=== PATIENT | male | born 1945 | race Caucasian/White ===

== ENCOUNTER 2023-06-11 13:45 | Emergency (ER) | payer MEDICARE, SELFPAY ==
[2023-06-11 13:48] VITALS: BP 135/75; PULSE 117; RESP 24; TEMP 37; O2SAT 97; BMI 36.9
--- NOTE | 2023-06-11 13:56 | ED.LOWEXI1 ---
HPI - Extremity Injury (Lower) General Chief Complaint: Extremity Injury, Lower Stated Complaint: LOWER EXTREMITY INJURY LEFT LEG Time Seen by Provider: 06/11/23 13:50 Source: patient and family Mode of arrival: walk-in Limitations: no limitations History of Present Illness HPI Narrative: [age] old male presents for drainage pain swelling and redness to his left lower leg. A few weeks ago she scraped his leg on a pile brush and there was no open wound. This Occurred but it's been falling often knells leg has become more swollen than it normally is. No chest pain or shortness of breath. He has not had a known fever. Right leg is unaffected. Related Data Home Medications Medication Instructions Recorded Confirmed amlodipine 5 mg-benazepril 20 mg 1 cap PO DAILY 06/11/23 06/11/23 capsule (Lotrel) aspirin 81 mg tablet,delayed 81 mg PO DAILY 06/11/23 06/11/23 release celecoxib 200 mg capsule 200 mg PO BID 06/11/23 06/11/23 citalopram 40 mg tablet (Celexa) 40 mg PO DAILY 06/11/23 06/11/23 doxazosin 2 mg tablet (Cardura) 2 mg PO DAILY 06/11/23 06/11/23 pravastatin 20 mg tablet 20 mg PO DAILY 06/11/23 06/11/23 pregabalin 225 mg capsule 225 mg PO DAILY 06/11/23 06/11/23 ropinirole 0.5 mg tablet 0.5 mg PO DAILY 06/11/23 06/11/23 topiramate 200 mg tablet 100 mg PO BID 06/11/23 06/11/23 torsemide 20 mg tablet 20 mg PO BID 06/11/23 06/11/23 tramadol 50 mg tablet 25 mg PO Q6H PRN pain 06/11/23 06/11/23 trospium 60 mg capsule,extended 60 mg PO DAILY 06/11/23 06/11/23 release 24 hr Previous Rx's Medication Instructions Recorded amoxicillin 875 mg-potassium 1 tab PO BID #20 tabs 06/11/23 clavulanate 125 mg tablet Allergies Allergy/AdvReac Type Severity Reaction Status Date / Time No Known Drug Allergies Allergy Verified 06/11/23 13:50 Review of Systems ROS Narrative A ten point review of systems is negative except as noted above. Exam Narrative Exam Narrative: Nurses note and vital signs reviewed and patient is not hypoxic. General: The patient appears well and in no apparent distress. Patient is resting comfortably on cart. Skin: Warm, dry, no pallor noted. There is no rash noted. Head: Normocephalic, atraumatic Eye: Normal conjunctiva, no drainage Ears, Nose, Mouth, and Throat: oral mucosa is moist. Nares patent. Cardiovascular: Regular Rate and Rhythm Respiratory: Patient is in no distress, no accessory muscle use, lungs are clear to auscultation, no wheezing, rales or rhonchi Back: non-tender GI: nontender Musculoskeletal: left lower leg is significantly swollen compared to contralateral. There is some weeping but no purulent drainage. He has some healing wounds, the largest of which has a scab. Neurological: A&O x4, normal speech Psychiatric: Cooperative Constitutional Vital Signs, click to edit/add: Last Vital Signs Temp 98.6 F 06/11/23 13:48 Pulse 117 H 06/11/23 13:48 Resp 24 06/11/23 13:48 BP 135/75 06/11/23 13:48 Pulse Ox 97 06/11/23 13:48 O2 Del Method Room Air 06/11/23 13:48 Course Vital Signs Vital signs: Vital Signs Temperature 98.6 F 06/11/23 13:48 Pulse Rate 117 H 06/11/23 13:48 Respiratory Rate 24 06/11/23 13:48 Blood Pressure 135/75 06/11/23 13:48 Pulse Oximetry 97 06/11/23 13:48 Oxygen Delivery Method Room Air 06/11/23 13:48 Temperature 98.6 F 06/11/23 13:48 Pulse Rate 117 H 06/11/23 13:48 Respiratory Rate 24 06/11/23 13:48 Blood Pressure 135/75 06/11/23 13:48 Pulse Oximetry 97 06/11/23 13:48 Oxygen Delivery Method Room Air 06/11/23 13:48 MDM - Extremity Injury (Lower) MDM Narrative Medical decision making narrative: Doppler is negative, no evidence of deep vein thrombosis. White count is normal. He was given IV vancomycin and discharged home on oral antibiotic. He'll elevate his leg and see his doctor within a week. He'll return if symptoms worsen. I do not feel that at this point he requires admission the hospital. Treatment diagnosis and follow-up were discussed with the patient. Differential Diagnosis Differential diagnosis: Likely other (cellulitis, deep vein thrombosis) Lab Data Attestation: I reviewed the patient's lab results. Imaging Data venous Doppler left leg: Radiologist's impression: no deep vein thrombosis Discharge Plan Discharge Chief Complaint: Extremity Injury, Lower Clinical Impression: Cellulitis of left leg Patient Disposition: Home, Self-Care Time of Disposition Decision: 16:29 Condition: Good Mode of Transportation: Private Vehicle Prescriptions / Home Meds: New amoxicillin-pot clavulanate 875-125 mg tablet 1 tab PO BID Qty: 20 0RF No Action tramadol 50 mg tablet 25 mg PO Q6H PRN (Reason: pain) ropinirole 0.5 mg tablet 0.5 mg PO DAILY celecoxib 200 mg capsule 200 mg PO BID pravastatin 20 mg tablet 20 mg PO DAILY pregabalin 225 mg capsule 225 mg PO DAILY aspirin 81 mg tablet,delayed release (DR/EC) 81 mg PO DAILY topiramate 200 mg tablet 100 mg PO BID trospium 60 mg capsule,extended release 24hr 60 mg PO DAILY Rx Instructions: must be taken on empty stomach at least 1 hour before a meal/food with water only amlodipine-benazepril [Lotrel] 5-20 mg capsule 1 cap PO DAILY torsemide 20 mg tablet 20 mg PO BID citalopram [Celexa] 40 mg tablet 40 mg PO DAILY doxazosin [Cardura] 2 mg tablet 2 mg PO DAILY Instructions: Cellulitis (ED) Additional Instructions: see your doctor within one week. Return if symptoms worsen. Stand Alone Forms: Portal Instructions Referrals: LYDIA BERUMEN [Primary Care Provider] - 1 week
--- NOTE | 2023-06-11 14:14 | US_ITS ---
The [address] [address] Patient Name: JOVI ETIENNE MRN: [id number] date: 1945 Sex: M Assigned Patient Location: ER Current Patient Location: ER Accession/Order Number: [id number] Exam Date: 06/11/2023 14:45 Report Date: 06/11/2023 15:30 At the request of: LORRAINE PHAM Procedure: US venous doppler LE LT EXAM: US venous doppler LE LT HISTORY: swelling to left lower leg COMPARISON: None. TECHNIQUE: Evaluation of the deep veins of the left lower extremity was performed utilizing B-mode, color flow and spectral analysis. FINDINGS: The visualized vessels comprising the deep venous systems from the common femoral vein through the calf veins demonstrate appropriate compressibility, spontaneous color Doppler flow, and augmentation of flow on spectral Doppler with distal compression. Additional findings: None. US/US venous doppler LE LT IMPRESSION: No sonographic evidence of deep venous thrombosis of the left lower extremity. Electronically authenticated by: WILLY ALEXANDER Date: 06/11/2023 15:30
[2023-06-11 14:15] LABS: Basophils Absolute Auto 0.1 10^3/uL (0.0-0.1); Basophils Percent Auto 0.8 % (0.2-2.0); Eosinophils Absolute Auto 0.4 10^3/uL (0.0-0.7); Eosinophils Percent Auto 5.3 % (0.9-7.0); Hematocrit 41.2 % (42.0-54.0); Hemoglobin 13.6 g/dL (14.0-18.0); Immature Granulocytes Abs Auto 0.03 10^3/uL (0.00-0.03); Immature Granulocytes Pct Auto 0.5 % (0.0-0.5); Lymphocytes Absolute Auto 1.3 10^3/uL (1.2-3.8); Lymphocytes Percent Auto 19.2 % (20.5-60.0); Mean Corpuscular Hemoglobin 30.6 pg (25.9-34.0); Mean Corpuscular Volume 92.6 fL (80.0-94.0); Mean Platelet Volume 10.6 fL (9.5-13.5); Monocytes Absolute Auto 0.8 10^3/uL (0.3-0.8); Monocytes Percent Auto 12.5 % (1.7-12.0); Neutrophils Absolute Auto 4.1 10^3/uL (1.4-6.5); Neutrophils Percent Auto 61.7 % (43.0-75.0); Platelet Count 193 10^3/uL (150-450); Red Blood Count 4.45 10^6/uL (4.70-6.10); Red Cell Distribution Width 13.9 % (11.0-15.0); White Blood Count 6.7 10^3/uL (4.0-11.0)
[2023-06-11 14:27] LABS: BUN Creatinine Ratio 27.3; Calcium 8.3 mg/dL (8.5-10.1); Carbon Dioxide 27.4 mmol/L (21.0-32.0); Chloride 105 mmol/L (98-107); Estimated GFR (African America >60 (>=60); Estimated GFR (Non-African Ame 53 (>=60); Glucose 136 mg/dL (74-106); Potassium 4.4 mmol/L (3.5-5.1); Sodium 140 mmol/L (136-145)
[2023-06-11] MEDS: VANCOMYCIN HCL 2,000 MG in 0.9 % SODIUM CHLORIDE 500 ML 250 MG IV (15:59)
== END 2023-06-11 18:27 | disposition home or self-care (01) ==
PROVIDERS: Emergency Provider Emergency Medicine; PCP Internal Medicine
DX: L03.116 Cellulitis of left lower limb (principal); Z79.82 Long term (current) use of aspirin; Z79.899 Other long term (current) drug therapy
CPT/HCPCS: 36415; 80048; 85025; 93971; 96374; 99285; J3370

== ENCOUNTER 2023-06-19 14:29 | Observation (INO) | payer MEDICARE, SELFPAY ==
[2023-06-19] VITALS (24 sets, daily range): BP systolic 126–151; BP diastolic 66–91; PULSE 80–107; RESP 10–26; TEMP 36.6–37.2; O2SAT 92–98; BMI 36.5; BMI 36.0
--- NOTE | 2023-06-19 14:37 | US_ITS ---
The [address] [address] Patient Name: JOVI ETIENNE MRN: [id number] date: 1945 Sex: M Assigned Patient Location: ER Current Patient Location: ER Accession/Order Number: [id number] Exam Date: 06/19/2023 15:30 Report Date: 06/19/2023 16:31 At the request of: HEAVENLY BARBOSA Procedure: US venous doppler LE LT EXAM: US venous doppler LE LT HISTORY: Pain left lower leg r/o DVT COMPARISON: 06/11/2023 TECHNIQUE: Multiple sonographic images of the deep veins of the left lower extremity were obtained, supplemented with Doppler. FINDINGS: The deep veins of the left lower extremity are fairly well-visualized the groin to the mid calf. No filling defect is identified to indicate a thrombus. There is normal compression augmentation to flow. Evaluation of the saphenous veins is limited secondary to edema. US/US venous doppler LE LT IMPRESSION: There is no direct or indirect evidence of deep vein thrombosis in the left lower extremity at this time. Similar findings were noted in the prior study. Electronically authenticated by: ELAN ARGUELLO Date: 06/19/2023 16:31
--- NOTE | 2023-06-19 14:37 | ECG_ITS ---
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
--- NOTE | 2023-06-19 14:37 | XR_ITS ---
The [address] [address] Patient Name: JOVI ETIENNE MRN: [id number] date: 1945 Sex: M Assigned Patient Location: ER Current Patient Location: ER Accession/Order Number: [id number] Exam Date: 06/19/2023 14:45 Report Date: 06/19/2023 15:01 At the request of: HEAVENLY BARBOSA Procedure: XR chest 1V EXAM: XR chest 1V HISTORY: SOB COMPARISON: None. TECHNIQUE: Single view of the chest FINDINGS: Mild right basilar atelectasis and elevated right hemidiaphragm. No pneumothorax. No vascular congestion. Heart size normal. No pleural effusion. XR/XR chest 1V IMPRESSION: Mild right basilar atelectasis and elevated right hemidiaphragm. Electronically authenticated by: DAWN RITTER Date: 06/19/2023 15:01
--- NOTE | 2023-06-19 14:40 | XR_ITS ---
The [address] [address] Patient Name: JOVI ETIENNE MRN: [id number] date: 1945 Sex: M Assigned Patient Location: ER Current Patient Location: ER Accession/Order Number: [id number] Exam Date: 06/19/2023 14:45 Report Date: 06/19/2023 15:02 At the request of: HEAVENLY BARBOSA Procedure: XR tibia fibula LT 2V PROCEDURE: XR tibia fibula LT 2V HISTORY: pain left leg ; acute swelling of the lower left leg; no known injury COMPARISON: None. FINDINGS: BONES:No fracture, acute abnormality, or significant arthropathy. SOFT TISSUES:Marked subcutaneous edema. No radiopaque foreign body. EFFUSION:None visible. OTHER: Negative. XR/XR tibia fibula LT 2V IMPRESSION: 1. Marked subcutaneous edema of uncertain etiology. 2. No appreciable foreign body. No bone involvement. Electronically authenticated by: CRUZ BOURGEOIS Date: 06/19/2023 15:02
--- NOTE | 2023-06-19 14:40 | ED.GENADUL1 ---
Documented by User: NAN Cordon 06/19/23 16:56 HPI - General Adult General Chief complaint: Extremity Problem, Nontraumatic Stated complaint: LOWER EXTREMITY PAIN LEFT LEG Time Seen by Provider: 06/19/23 14:32 Source: patient Mode of arrival: Wheelchair Limitations: no limitations History of Present Illness HPI narrative: patient is a 77-year-old male who presents to the Emergency Room with concerns of continued swelling and worsening redness in his left lower leg. Patient reports prior wounds and surgery to that leg in the past, but nothing recent was seen in the Emergency Room on 06/11 with negative ultrasound but missed his follow-up appointment with his family doctor yesterday. Patient has been taking Augmentin been noting swelling and redness getting worse. Patient denies any chest pain, has baseline shortness of breath. History of chronic obstructive pulmonary disease. Patient has been an active with left leg symptoms. He declines any severe pain but notes moderate soreness. Patient denies chest pain. Related Data Home Medications Medication Instructions Recorded Confirmed amlodipine 5 mg-benazepril 20 mg 1 cap PO DAILY 06/11/23 06/19/23 capsule (Lotrel) aspirin 81 mg tablet,delayed 81 mg PO DAILY 06/11/23 06/19/23 release celecoxib 200 mg capsule 200 mg PO BID 06/11/23 06/19/23 citalopram 40 mg tablet (Celexa) 40 mg PO DAILY 06/11/23 06/19/23 doxazosin 2 mg tablet (Cardura) 2 mg PO DAILY 06/11/23 06/19/23 pravastatin 20 mg tablet 20 mg PO DAILY 06/11/23 06/19/23 pregabalin 225 mg capsule 225 mg PO BEDTIME 06/11/23 06/19/23 topiramate 200 mg tablet 100 mg PO BID 06/11/23 06/19/23 torsemide 20 mg tablet 20 mg PO BID 06/11/23 06/19/23 tramadol 50 mg tablet 100 mg PO Q6H PRN pain 06/11/23 06/20/23 trospium 60 mg capsule,extended 60 mg PO DAILY 06/11/23 06/19/23 release 24 hr alprazolam 0.5 mg tablet 0.5 mg PO TID 06/19/23 06/19/23 ascorbic acid (vitamin C) 1,000 mg 1,000 mg PO DAILY 06/19/23 06/19/23 tablet,extended release (C Complex) esomeprazole magnesium 40 mg 40 mg PO DAILY 06/19/23 06/19/23 capsule,delayed release (Nexium) ropinirole 3 mg tablet 3 mg PO BEDTIME 06/19/23 06/19/23 Previous Rx's Medication Instructions Recorded clindamycin HCl 300 mg capsule 300 mg PO Q6H 10 days #40 caps 06/21/23 Allergies Allergy/AdvReac Type Severity Reaction Status Date / Time No Known Drug Allergies Allergy Verified 06/11/23 13:50 Review of Systems ROS Constitutional Denies: fever or chills Eyes Denies: change in vision or blurry vision Ears, nose, mouth, and throat Denies: throat pain or neck pain Cardiovascular Denies: chest pain or palpitations Respiratory Reports: shortness of breath and wheezing; Denies: cough Gastrointestinal Denies: abdominal pain or nausea Genitourinary Denies: painful urination or urinary frequency Musculoskeletal Denies: back pain or neck pain Integumentary/Breast Reports: changes in skin color (F lower leg appear chronic); Denies: rash, itching or redness Neurological Denies: headache Psychiatric Denies: anxiety Endocrine Denies: excessive urination Allergic/Immunologic Denies: hives [facility] Medical History (Updated 06/20/23 @ 09:20 by Trey Case MD) Surgical History (Updated 06/19/23 @ 17:38 by Radha Marrero) Social History (Updated 06/19/23 @ 17:41 by Radha Marrero) Within the past year, how often did you have a drink containing alcohol: 2-4 times a month Within the past year, how many standard drinks containing alcohol did you have on a typical day: 1 or 2 Within the past year, how often did you have six or more drinks on one occasion: less than monthly Total score: 1 Score interpretation: A score less than 4 is consistent with normal alcohol consumption. 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 General: The patient appears well and in no apparent distress. Patient is resting comfortably on cart.arrives via wheelchair to prevent excessive walking on left leg Skin: Warm, dry, no pallor noted.left leg with 4+ edema, weeping and blistering noted near circumferentially and some spots with erythema to the posterior aspect. No significant extension into the proximal thigh, compartments are soft. Head: Normocephalic, atraumatic Neck: Supple, trachea mid-line, no tenderness, no lymphadenopathy Eye: Pupils are equal, round and reactive to light, EOMI Ears, Nose, Mouth, and Throat: sternal exam unremarkable Cardiovascular: Regular Rate and Rhythm Respiratory: Patient is in no distress, no accessory muscle use,lungs noted for expiratory wheezes in upper and slight rales in the lower Chest Wall: no tenderness Back: non-tender, no CVA tenderness Musculoskeletal: chronic skin changes bilateral lower legs, most prominent in the left lower leg patient reports a remote scars from prior surgery/wounds. Patient with no active ulceration but skin appears swollen shiny with blistering and some yellow crusting. Erythema noted to the posterior calf. Compartments are soft. No focal pain to the ankle joint or knee joint. GI: Normal bowel sounds, no tenderness to palpation, no masses appreciated. No rebound, guarding, or rigidity noted. Neurological: A&O x4 Psychiatric: Cooperative Constitutional Vital Signs, click to edit/add: Last Vital Signs Temp 98.0 F 06/21/23 06:00 Pulse 77 06/21/23 06:00 Resp 18 06/21/23 06:00 BP 146/79 H 06/21/23 06:00 Pulse Ox 92 L 06/21/23 06:00 O2 Del Method Room Air 06/21/23 06:00 Course Course Hospital Course: Reason for admission: See H&P for details. 77 y/o male with a history of chronic venous stasis presents to ER with redness and swelling to left leg. Seen in ER 8/3 for redness and swelling and US negative for DVT. Appeared to have cellulitis and started on oral augmentin which he has been taking daily. Missed f/u with PCP. C/o increased redness in leg and spreading up moyer to knee. Increased pain and swelling. Returned to ER and low grade temp. WBC normal and normal lactate. Failed outpatient treatment with oral antibiotics and admitted. Hospital course: Started IV clindamycin and resumed home medication. Erythema improved overnight but continued redness and swelling. WBC normal and afebrile. Redness and pain improved. Ambulating well around room. Discharged home in stable condition. Take clindamycin x 10 days. F/u with wound care in 1-2 weeks. Resume home medication as directed. Vital Signs Vital signs: Vital Signs Temperature 99.0 F 06/19/23 14:36 Pulse Rate 106 H 06/19/23 14:36 Respiratory Rate 26 H 06/19/23 14:36 Blood Pressure 132/78 06/19/23 14:36 Pulse Oximetry 93 L 06/19/23 14:36 Oxygen Delivery Method Room Air 06/19/23 14:36 Temperature 98.0 F 06/21/23 06:00 Pulse Rate 77 06/21/23 06:00 Respiratory Rate 18 06/21/23 06:00 Blood Pressure 146/79 H 06/21/23 06:00 Pulse Oximetry 92 L 06/21/23 06:00 Oxygen Delivery Method Room Air 06/21/23 06:00 Medical Decision Making [facility] Narrative Medical decision making narrative: patient presents status post Augmentin for left lower leg cellulitis and swelling, continued swelling. Patient did not follow up PCP. He is given a DuoNeb for his wheezing, chest x-ray. patient presented with a temp of ninety-nine, history of chronic obstructive pulmonary disease wheezing in the lower lung bases, given DuoNeb with improvement chest x-ray without evidence of infiltrate. We discussed the swelling in his leg, one week since passed ultrasound repeated today and reported negative verbally for deep vein thrombosis. We discussed thee changes in his lower leg concerning for cellulitis and he has been on oral Augmentin with no improvement. He'll likely need wound care management with open sores weeping along with treatments such as stockinette's for edema or wraps. Patient may even require diuretics but will need supervision given his renal function. We discussed his outpatient treatment coming into the weekend and recommended observation stay to ensure his symptoms are not worsening. Patient agreeable as symptoms have been worsening over the past week. case was discussed with Dr. Case, agrees with admission to [facility] for further evaluation and treatment. Lab Data Labs: Lab Results 06/19/23 Range/Units 14:44 WBC 8.3 (4.0-11.0) 10^3/uL RBC 4.52 L (4.70-6.10) 10^6/uL Hgb 13.9 L (14.0-18.0) g/dL Hct 41.6 L (42.0-54.0) % MCV 92.0 (80.0-94.0) fL MCH 30.8 (25.9-34.0) pg MCHC 33.4 (29.9-35.2) g/dL RDW 14.5 (11.0-15.0) % Plt Count 225 (150-450) 10^3/uL MPV 10.4 (9.5-13.5) fL Neut % (Auto) 61.2 (43.0-75.0) % Lymph % (Auto) 20.3 L (20.5-60.0) % [place] % (Auto) 12.3 H (1.7-12.0) % Eos % (Auto) 4.7 (0.9-7.0) % Baso % (Auto) 0.7 (0.2-2.0) % Neut # (Auto) 5.1 (1.4-6.5) 10^3/uL Lymph # (Auto) 1.7 (1.2-3.8) 10^3/uL [place] # (Auto) 1.0 H (0.3-0.8) 10^3/uL Eos # (Auto) 0.4 (0.0-0.7) 10^3/uL Baso # (Auto) 0.1 (0.0-0.1) 10^3/uL Abs Immat Gran (auto) 0.07 H (0.00-0.03) 10^3/uL Imm/Tot Granulo (auto) 0.8 H (0.0-0.5) % Sodium 141 (136-145) mmol/L Potassium 4.4 (3.5-5.1) mmol/L Chloride 107 (98-107) mmol/L Carbon Dioxide 25.4 (21.0-32.0) mmol/L Anion Gap 13.0 BUN 36.0 H (7.0-18.0) mg/dL Creatinine 1.90 H (0.70-1.30) mg/dL Est GFR ( Amer) 42 L (>=60) Est GFR (Non-Af Amer) 35 L (>=60) BUN/Creatinine Ratio 18.9 Glucose 101 (74-106) mg/dL Lactate 1.1 (0.4-2.0) mmol/L Calcium 8.4 L (8.5-10.1) mg/dL Total Bilirubin 0.3 (0.2-1.0) mg/dL AST 14 L (15-37) U/L ALT 19 (16-63) U/L Alkaline Phosphatase 89 (46-116) U/L Troponin I High Sens 7.0 (4.0-76.1) pg/mL NT-Pro-B Natriuret Pep 85.0 (<=1800.0) pg/mL Total Protein 7.7 (6.4-8.2) g/dL Albumin 3.7 (3.4-5.0) g/dL Globulin 4.0 g/dL Albumin/Globulin Ratio 0.9 Imaging Data Chest x-ray: Radiologist's impression: Procedure: XR chest 1V EXAM: XR chest 1V HISTORY: SOB COMPARISON: None. TECHNIQUE: Single view of the chest FINDINGS: Mild right basilar atelectasis and elevated right hemidiaphragm. No pneumothorax. No vascular congestion. Heart size normal. No pleural effusion. IMPRESSION: Mild right basilar atelectasis and elevated right hemidiaphragm. Electronically authenticated by: DAWN RITTER Date: 06/19/2023 15:01 Procedure: XR tibia fibula LT 2V PROCEDURE: XR tibia fibula LT 2V HISTORY: pain left leg ; acute swelling of the lower left leg; no known injury COMPARISON: None. FINDINGS: BONES:No fracture, acute abnormality, or significant arthropathy. SOFT TISSUES:Marked subcutaneous edema. No radiopaque foreign body. EFFUSION:None visible. OTHER: Negative. IMPRESSION: 1. Marked subcutaneous edema of uncertain etiology. 2. No appreciable foreign body. No bone involvement. Electronically authenticated by: CRUZ BOURGEOIS Date: 06/19/2023 15:02 ECG Data Attestation: I personally reviewed and interpreted this ECG as follows: Interpretation: EKG interpretation: Emergency Department physician interpretation, normal sinus rhythm 96, no ectopy, incomplete right bundle-branch block noted. Discharge Plan Discharge Chief Complaint: Extremity Problem, Nontraumatic Clinical Impression: Edema of left lower extremity, Cellulitis of left leg Patient Disposition: Admitted as Observation Time of Disposition Decision: 16:56 Condition: Good Discharge Date/Time: 06/19/23 17:38 Documented by User: Kourtney Bustos MD 06/22/23 07:58 HPI - General Adult General Chief complaint: Extremity Problem, Nontraumatic Stated complaint: LOWER EXTREMITY PAIN LEFT LEG Time Seen by Provider: 06/19/23 14:32 Related Data Home Medications Medication Instructions Recorded Confirmed amlodipine 5 mg-benazepril 20 mg 1 cap PO DAILY 06/11/23 06/19/23 capsule (Lotrel) aspirin 81 mg tablet,delayed 81 mg PO DAILY 06/11/23 06/19/23 release celecoxib 200 mg capsule 200 mg PO BID 06/11/23 06/19/23 citalopram 40 mg tablet (Celexa) 40 mg PO DAILY 06/11/23 06/19/23 doxazosin 2 mg tablet (Cardura) 2 mg PO DAILY 06/11/23 06/19/23 pravastatin 20 mg tablet 20 mg PO DAILY 06/11/23 06/19/23 pregabalin 225 mg capsule 225 mg PO BEDTIME 06/11/23 06/19/23 topiramate 200 mg tablet 100 mg PO BID 06/11/23 06/19/23 torsemide 20 mg tablet 20 mg PO BID 06/11/23 06/19/23 tramadol 50 mg tablet 100 mg PO Q6H PRN pain 06/11/23 06/20/23 trospium 60 mg capsule,extended 60 mg PO DAILY 06/11/23 06/19/23 release 24 hr alprazolam 0.5 mg tablet 0.5 mg PO TID 06/19/23 06/19/23 ascorbic acid (vitamin C) 1,000 mg 1,000 mg PO DAILY 06/19/23 06/19/23 tablet,extended release (C Complex) esomeprazole magnesium 40 mg 40 mg PO DAILY 06/19/23 06/19/23 capsule,delayed release (Nexium) ropinirole 3 mg tablet 3 mg PO BEDTIME 06/19/23 06/19/23 Previous Rx's Medication Instructions Recorded clindamycin HCl 300 mg capsule 300 mg PO Q6H 10 days #40 caps 06/21/23 Allergies Allergy/AdvReac Type Severity Reaction Status Date / Time No Known Drug Allergies Allergy Verified 06/11/23 13:50 PFSH PENDING SALE TO [facility] Medical History (Updated 06/20/23 @ 09:20 by Trey Case MD) Surgical History (Updated 06/19/23 @ 17:38 by Radha Marrero) Social History (Updated 06/19/23 @ 17:41 by Radha Marrero) Within the past year, how often did you have a drink containing alcohol: 2-4 times a month Within the past year, how many standard drinks containing alcohol did you have on a typical day: 1 or 2 Within the past year, how often did you have six or more drinks on one occasion: less than monthly Total score: 1 Score interpretation: A score less than 4 is consistent with normal alcohol consumption. 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 77 y/o male with a history of chronic venous stasis presents to ER with redness and swelling to left leg. Seen in ER 8/3 for redness and swelling and US negative for DVT. Appeared to have cellulitis and started on oral augmentin which he has been taking daily. Missed f/u with PCP. C/o increased redness in leg and spreading up moyer to knee. Increased pain and swelling. Returned to ER and low grade temp. WBC normal and normal lactate. Failed outpatient treatment with oral antibiotics and admitted. Hospital course: Started IV clindamycin and resumed home medication. Erythema improved overnight but continued redness and swelling. WBC normal and afebrile. Redness and pain improved. Ambulating well around room. Discharged home in stable condition. Take clindamycin x 10 days. F/u with wound care in 1-2 weeks. Resume home medication as directed. Vital Signs Vital signs: Vital Signs Temperature 99.0 F 06/19/23 14:36 Pulse Rate 106 H 06/19/23 14:36 Respiratory Rate 26 H 06/19/23 14:36 Blood Pressure 132/78 06/19/23 14:36 Pulse Oximetry 93 L 06/19/23 14:36 Oxygen Delivery Method Room Air 06/19/23 14:36 Temperature 98.0 F 06/21/23 06:00 Pulse Rate 77 06/21/23 06:00 Respiratory Rate 18 06/21/23 06:00 Blood Pressure 146/79 H 06/21/23 06:00 Pulse Oximetry 92 L 06/21/23 06:00 Oxygen Delivery Method Room Air 06/21/23 06:00 Medical Decision Making MDM Narrative Medical decision making narrative: patient presents status post Augmentin for left lower leg cellulitis and swelling, continued swelling. Patient did not follow up PCP. He is given a DuoNeb for his wheezing, chest x-ray. patient presented with a temp of ninety-nine, history of chronic obstructive pulmonary disease wheezing in the lower lung bases, given DuoNeb with improvement chest x-ray without evidence of infiltrate. We discussed the swelling in his leg, one week since passed ultrasound repeated today and reported negative verbally for deep vein thrombosis. We discussed thee changes in his lower leg concerning for cellulitis and he has been on oral Augmentin with no improvement. He'll likely need wound care management with open sores weeping along with treatments such as stockinette's for edema or wraps. Patient may even require diuretics but will need supervision given his renal function. We discussed his outpatient treatment coming into the weekend and recommended observation stay to ensure his symptoms are not worsening. Patient agreeable as symptoms have been worsening over the past week. case was discussed with Dr. Case, agrees with admission to [facility] for further evaluation and treatment. Attending physician attestation I have seen and evaluated this patient. I have reviewed the mid-level provider?s documentation medical decision making and treatment plan. I agree with the mid-level provider?s assessment, and plan. Lab Data Labs: Lab Results 06/19/23 Range/Units 14:44 WBC 8.3 (4.0-11.0) 10^3/uL RBC 4.52 L (4.70-6.10) 10^6/uL Hgb 13.9 L (14.0-18.0) g/dL Hct 41.6 L (42.0-54.0) % MCV 92.0 (80.0-94.0) fL MCH 30.8 (25.9-34.0) pg MCHC 33.4 (29.9-35.2) g/dL RDW 14.5 (11.0-15.0) % Plt Count 225 (150-450) 10^3/uL MPV 10.4 (9.5-13.5) fL Neut % (Auto) 61.2 (43.0-75.0) % Lymph % (Auto) 20.3 L (20.5-60.0) % [place] % (Auto) 12.3 H (1.7-12.0) % Eos % (Auto) 4.7 (0.9-7.0) % Baso % (Auto) 0.7 (0.2-2.0) % Neut # (Auto) 5.1 (1.4-6.5) 10^3/uL Lymph # (Auto) 1.7 (1.2-3.8) 10^3/uL [place] # (Auto) 1.0 H (0.3-0.8) 10^3/uL Eos # (Auto) 0.4 (0.0-0.7) 10^3/uL Baso # (Auto) 0.1 (0.0-0.1) 10^3/uL Abs Immat Gran (auto) 0.07 H (0.00-0.03) 10^3/uL Imm/Tot Granulo (auto) 0.8 H (0.0-0.5) % Sodium 141 (136-145) mmol/L Potassium 4.4 (3.5-5.1) mmol/L Chloride 107 (98-107) mmol/L Carbon Dioxide 25.4 (21.0-32.0) mmol/L Anion Gap 13.0 BUN 36.0 H (7.0-18.0) mg/dL Creatinine 1.90 H (0.70-1.30) mg/dL Est GFR ( Amer) 42 L (>=60) Est GFR (Non-Af Amer) 35 L (>=60) BUN/Creatinine Ratio 18.9 Glucose 101 (74-106) mg/dL Lactate 1.1 (0.4-2.0) mmol/L Calcium 8.4 L (8.5-10.1) mg/dL Total Bilirubin 0.3 (0.2-1.0) mg/dL AST 14 L (15-37) U/L ALT 19 (16-63) U/L Alkaline Phosphatase 89 (46-116) U/L Troponin I High Sens 7.0 (4.0-76.1) pg/mL NT-Pro-B Natriuret Pep 85.0 (<=1800.0) pg/mL Total Protein 7.7 (6.4-8.2) g/dL Albumin 3.7 (3.4-5.0) g/dL Globulin 4.0 g/dL Albumin/Globulin Ratio 0.9 Discharge Plan Discharge Chief Complaint: Extremity Problem, Nontraumatic Clinical Impression: Edema of left lower extremity, Cellulitis of left leg Patient Disposition: Admitted as Observation Time of Disposition Decision: 16:56 Condition: Good Discharge Date/Time: 06/19/23 17:38
[2023-06-19] MEDS: ACETAMINOPHEN 500 MG TABLET 1000 MG PO (15:00)
[2023-06-19] MEDS: IPRATROPIUM/ALBUTEROL SULFATE 3 ML AMPUL.NEB IH (15:07)
[2023-06-19 15:12] LABS: Basophils Absolute Auto 0.1 10^3/uL (0.0-0.1); Basophils Percent Auto 0.7 % (0.2-2.0); Eosinophils Absolute Auto 0.4 10^3/uL (0.0-0.7); Eosinophils Percent Auto 4.7 % (0.9-7.0); Hematocrit 41.6 % (42.0-54.0); Hemoglobin 13.9 g/dL (14.0-18.0); Immature Granulocytes Abs Auto 0.07 10^3/uL (0.00-0.03); Immature Granulocytes Pct Auto 0.8 % (0.0-0.5); Lymphocytes Absolute Auto 1.7 10^3/uL (1.2-3.8); Lymphocytes Percent Auto 20.3 % (20.5-60.0); Mean Corpuscular HGB Conc 33.4 g/dL (29.9-35.2); Mean Corpuscular Hemoglobin 30.8 pg (25.9-34.0); Mean Platelet Volume 10.4 fL (9.5-13.5); Monocytes Percent Auto 12.3 % (1.7-12.0); Neutrophils Absolute Auto 5.1 10^3/uL (1.4-6.5); Neutrophils Percent Auto 61.2 % (43.0-75.0); Platelet Count 225 10^3/uL (150-450); Red Blood Count 4.52 10^6/uL (4.70-6.10); Red Cell Distribution Width 14.5 % (11.0-15.0); White Blood Count 8.3 10^3/uL (4.0-11.0)
[2023-06-19 15:26] LABS: Alanine Aminotransferase 19 U/L (16-63); Albumin Globulin Ratio 0.9; Albumin Level 3.7 g/dL (3.4-5.0); Alkaline Phosphatase 89 U/L (46-116); Aspartate Amino Transferase 14 U/L (15-37); BUN Creatinine Ratio 18.9; Bilirubin Total 0.3 mg/dL (0.2-1.0); Calcium 8.4 mg/dL (8.5-10.1); Carbon Dioxide 25.4 mmol/L (21.0-32.0); Chloride 107 mmol/L (98-107); Estimated GFR (African America 42 (>=60); Estimated GFR (Non-African Ame 35 (>=60); Glucose 101 mg/dL (74-106); Potassium 4.4 mmol/L (3.5-5.1); Sodium 141 mmol/L (136-145); Total Protein 7.7 g/dL (6.4-8.2)
[2023-06-19 16:55] LABS: Lactate/Lactic Acid 1.1 mmol/L (0.4-2.0)
[2023-06-19] MEDS: CEFTRIAXONE 1,000 MG in 0.9 % SODIUM CHLORIDE 50 ML 100 MG IV (16:56)
[2023-06-19] MEDS: CLINDAMYCIN PHOSPHATE/D5W 300 MG/50 ML PIGGYBACK 100 MG IV (22:02)
[2023-06-20] VITALS (12 sets, daily range): BP systolic 126–139; BP diastolic 72–81; PULSE 77–94; RESP 14–16; TEMP 36.3–36.6; O2SAT 92–98
[2023-06-20] MEDS: ROPINIROLE HCL 1 MG TABLET 3 MG PO ×2 (00:29→21:08)
[2023-06-20] MEDS: CLINDAMYCIN PHOSPHATE/D5W 300 MG/50 ML PIGGYBACK 100 MG IV ×4 (03:15→21:08)
[2023-06-20 05:40] LABS: Basophils Percent Auto 0.5 % (0.2-2.0); Eosinophils Absolute Auto 0.4 10^3/uL (0.0-0.7); Eosinophils Percent Auto 4.4 % (0.9-7.0); Hematocrit 40.9 % (42.0-54.0); Immature Granulocytes Abs Auto 0.06 10^3/uL (0.00-0.03); Immature Granulocytes Pct Auto 0.7 % (0.0-0.5); Lymphocytes Absolute Auto 1.6 10^3/uL (1.2-3.8); Mean Corpuscular HGB Conc 31.8 g/dL (29.9-35.2); Mean Corpuscular Hemoglobin 30.2 pg (25.9-34.0); Mean Corpuscular Volume 94.9 fL (80.0-94.0); Mean Platelet Volume 10.6 fL (9.5-13.5); Monocytes Percent Auto 12.8 % (1.7-12.0); Neutrophils Absolute Auto 5.1 10^3/uL (1.4-6.5); Neutrophils Percent Auto 62.6 % (43.0-75.0); Platelet Count 175 10^3/uL (150-450); Red Blood Count 4.31 10^6/uL (4.70-6.10); Red Cell Distribution Width 14.5 % (11.0-15.0); White Blood Count 8.2 10^3/uL (4.0-11.0)
[2023-06-20 05:46] LABS: Anion Gap 13.3; BUN Creatinine Ratio 21.8; Calcium 8.1 mg/dL (8.5-10.1); Carbon Dioxide 23.7 mmol/L (21.0-32.0); Chloride 109 mmol/L (98-107); Estimated GFR (African America 56 (>=60); Estimated GFR (Non-African Ame 47 (>=60); Glucose 100 mg/dL (74-106); Sodium 142 mmol/L (136-145)
--- NOTE | 2023-06-20 09:12 | PM.HP ---
H&P: HPI History of Present Illness Chief complaint: Left leg redness and swelling Narrative: 77 y/o male with a history of chronic venous stasis presents to ER with redness and swelling to left leg. Seen in ER 06/11 for redness and swelling and US negative for DVT. Appeared to have cellulitis and started on oral augmentin which he has been taking daily. Missed f/u with PCP. C/o increased redness in leg and spreading up moyer to knee. Increased pain and swelling. Returned to ER and low grade temp. WBC normal and normal lactate. Failed outpatient treatment with oral antibiotics and admitted. Started IV clindamycin and resumed home medication. Slightly better overnight but continued redness and swelling. Review of Systems ROS Constitutional Denies: fever, chills or night sweats Cardiovascular Reports: edema; Denies: chest pain or palpitations Respiratory Denies: shortness of breath, cough or wheezing Gastrointestinal Denies: abdominal pain, nausea, vomiting or diarrhea Genitourinary Denies: painful urination Integumentary/Breast Reports: redness and skin swelling [facility] Medical History (Updated 06/20/23 @ 09:17 by Trey Case MD) Surgical History (Updated 06/19/23 @ 17:38 by Radha Marrero) Social History (Updated 06/19/23 @ 17:41 by Radha Marrero) Within the past year, how often did you have a drink containing alcohol: 2-4 times a month Within the past year, how many standard drinks containing alcohol did you have on a typical day: 1 or 2 Within the past year, how often did you have six or more drinks on one occasion: less than monthly Total score: 1 Score interpretation: A score less than 4 is consistent with normal alcohol consumption. 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 Highest level of school completed/degree received: high school graduate Meds Home Medications and Allergies Home Medications Medication Instructions Recorded Confirmed Type amlodipine 5 mg-benazepril 20 mg 1 cap PO DAILY 06/11/23 06/19/23 History capsule (Lotrel) aspirin 81 mg tablet,delayed 81 mg PO DAILY 06/11/23 06/19/23 History release celecoxib 200 mg capsule 200 mg PO BID 06/11/23 06/19/23 History citalopram 40 mg tablet (Celexa) 40 mg PO DAILY 06/11/23 06/19/23 History doxazosin 2 mg tablet (Cardura) 2 mg PO DAILY 06/11/23 06/19/23 History pravastatin 20 mg tablet 20 mg PO DAILY 06/11/23 06/19/23 History pregabalin 225 mg capsule 225 mg PO BEDTIME 06/11/23 06/19/23 History topiramate 200 mg tablet 100 mg PO BID 06/11/23 06/19/23 History torsemide 20 mg tablet 20 mg PO BID 06/11/23 06/19/23 History tramadol 50 mg tablet 100 mg PO Q6H PRN pain 06/11/23 06/20/23 History trospium 60 mg capsule,extended 60 mg PO DAILY 06/11/23 06/19/23 History release 24 hr alprazolam 0.5 mg tablet 0.5 mg PO TID 06/19/23 06/19/23 History ascorbic acid (vitamin C) 1,000 mg 1,000 mg PO DAILY 06/19/23 06/19/23 History tablet,extended release (C Complex) esomeprazole magnesium 40 mg 40 mg PO DAILY 06/19/23 06/19/23 History capsule,delayed release (Nexium) ropinirole 3 mg tablet 3 mg PO BEDTIME 06/19/23 06/19/23 History amoxicillin 875 mg-potassium 1 tab PO BID 06/20/23 06/20/23 History clavulanate 125 mg tablet Allergies Allergy/AdvReac Type Severity Reaction Status Date / Time No Known Drug Allergies Allergy Verified 06/11/23 13:50 Exam Constitutional Vital Signs, click to edit/add: Last Vital Signs Temp 97.4 F L 06/20/23 06:00 Pulse 77 06/20/23 06:00 Resp 18 06/19/23 17:33 BP 138/72 06/20/23 06:00 Pulse Ox 93 L 06/20/23 07:58 O2 Del Method Room Air 06/20/23 06:00 Documenting provider has reviewed patient's vital signs: yes Common normals: no apparent distress, oriented x3 and alert HENMT Common normals: normocephalic Eye Common normals: PERRL and EOMs intact bilaterally Respiratory Common normals: normal respiratory effort and clear to auscultation bilaterally Cardio Common normals: regular rate, regular rhythm, no gallops, no murmurs and no rub GI Common normals: Normal to inspection, nondistended, normoactive bowel sounds present and non-tender Extremity General: edema (2-3+ bilateral pitting edema, increased erythema on left) Results Labs Labs: Short CBC 06/19/23 06/20/23 Range/Units 14:44 04:15 WBC 8.3 8.2 (4.0-11.0) 10^3/uL Hgb 13.9 L 13.0 L (14.0-18.0) g/dL Hct 41.6 L 40.9 L (42.0-54.0) % Plt Count 225 175 (150-450) 10^3/uL BMP 06/19/23 06/20/23 14:44 04:15 Sodium 141 142 Potassium 4.4 4.0 Chloride 107 109 H Carbon Dioxide 25.4 23.7 BUN 36.0 H 32.0 H Creatinine 1.90 H 1.47 H Glucose 101 100 Calcium 8.4 L 8.1 L Liver Function 06/19/23 Range/Units 14:44 Total Bilirubin 0.3 (0.2-1.0) mg/dL AST 14 L (15-37) U/L ALT 19 (16-63) U/L Alkaline Phosphatase 89 (46-116) U/L Albumin 3.7 (3.4-5.0) g/dL Assessment and Plan Assessment and Plan (1) Cellulitis of left leg: (2) Chronic venous stasis dermatitis of both lower extremities: (3) Venous insufficiency of both lower extremities: (4) Hypertension: (5) Peripheral vascular disease: Plan Failed outpatient treatment with oral augmentin and on clindamycin. Afebrile and normal WBC. Erythema slowly improving and continue IV antibiotics. Chronic edema and changes to skin. Will need to f/u with wound care as outpatient. Resume home medication. Increase ambulation. If continues to improve likely home in am.
[2023-06-20] MEDS: OMEPRAZOLE 40 MG CAPSULE.DR PO (10:10)
[2023-06-20] MEDS: DOXAZOSIN MESYLATE 2 MG TABLET PO (10:10)
[2023-06-20] MEDS: CITALOPRAM HYDROBROMIDE 20 MG TABLET 40 MG PO (10:11)
[2023-06-20] MEDS: ASCORBIC ACID 500 MG TABLET 1000 MG PO (10:11)
[2023-06-20] MEDS: ACETAMINOPHEN 500 MG TABLET 1000 MG PO (11:24)
[2023-06-20] MEDS: TORSEMIDE 20 MG TABLET PO (14:22)
[2023-06-20] MEDS: TOPIRAMATE 100 MG TABLET PO (14:22)
[2023-06-20] MEDS: CELECOXIB 200 MG CAPSULE PO (14:22)
[2023-06-20] MEDS: ALPRAZOLAM 0.5 MG TABLET PO ×2 (14:22→22:17)
[2023-06-20] MEDS: TRAMADOL HCL 50 MG TABLET PO ×2 (14:22→21:05)
[2023-06-20] MEDS: IPRATROPIUM/ALBUTEROL SULFATE 3 ML AMPUL.NEB IH (20:12)
[2023-06-20] MEDS: PREGABALIN 75 MG CAPSULE 225 MG PO (21:05)
[2023-06-21 02:47] VITALS: BP 131/74
[2023-06-21] MEDS: AMLODIPINE BESYLATE 5 MG TABLET PO (02:47)
[2023-06-21] MEDS: TRAMADOL HCL 50 MG TABLET PO ×2 (02:49→08:18)
[2023-06-21] MEDS: TOPIRAMATE 100 MG TABLET PO (02:50)
[2023-06-21] MEDS: ATORVASTATIN CALCIUM 10 MG TABLET 20 MG PO (02:51)
[2023-06-21 02:54] VITALS: BP 131/74
[2023-06-21] MEDS: LISINOPRIL 20 MG TABLET PO (02:54)
[2023-06-21] MEDS: CLINDAMYCIN PHOSPHATE/D5W 300 MG/50 ML PIGGYBACK 100 MG IV ×2 (02:54→08:19)
[2023-06-21] MEDS: CELECOXIB 200 MG CAPSULE PO (02:54)
[2023-06-21] MEDS: TORSEMIDE 20 MG TABLET PO (02:54)
[2023-06-21] MEDS: ASPIRIN 81 MG TABLET.DR PO (02:54)
[2023-06-21 04:34] LABS: Basophils Percent Auto 0.5 % (0.2-2.0); Eosinophils Absolute Auto 0.4 10^3/uL (0.0-0.7); Eosinophils Percent Auto 4.2 % (0.9-7.0); Hematocrit 40.4 % (42.0-54.0); Hemoglobin 13.3 g/dL (14.0-18.0); Immature Granulocytes Abs Auto 0.05 10^3/uL (0.00-0.03); Immature Granulocytes Pct Auto 0.6 % (0.0-0.5); Lymphocytes Absolute Auto 1.5 10^3/uL (1.2-3.8); Lymphocytes Percent Auto 17.3 % (20.5-60.0); Mean Corpuscular HGB Conc 32.9 g/dL (29.9-35.2); Mean Corpuscular Hemoglobin 30.2 pg (25.9-34.0); Mean Corpuscular Volume 91.8 fL (80.0-94.0); Mean Platelet Volume 10.5 fL (9.5-13.5); Monocytes Absolute Auto 1.1 10^3/uL (0.3-0.8); Monocytes Percent Auto 12.8 % (1.7-12.0); Neutrophils Absolute Auto 5.4 10^3/uL (1.4-6.5); Neutrophils Percent Auto 64.6 % (43.0-75.0); Platelet Count 209 10^3/uL (150-450); Red Cell Distribution Width 14.4 % (11.0-15.0); White Blood Count 8.4 10^3/uL (4.0-11.0)
[2023-06-21 04:55] LABS: Anion Gap 12.8; BUN Creatinine Ratio 15.2; Calcium 8.1 mg/dL (8.5-10.1); Carbon Dioxide 24.1 mmol/L (21.0-32.0); Chloride 109 mmol/L (98-107); Estimated GFR (African America >60 (>=60); Estimated GFR (Non-African Ame 56 (>=60); Glucose 122 mg/dL (74-106); Potassium 3.9 mmol/L (3.5-5.1); Sodium 142 mmol/L (136-145)
[2023-06-21 06:00] VITALS: BP 146/79; PULSE 77; RESP 18; TEMP 36.7; O2SAT 92
[2023-06-21] MEDS: ALPRAZOLAM 0.5 MG TABLET PO (06:34)
[2023-06-21] MEDS: OMEPRAZOLE 40 MG CAPSULE.DR PO (08:18)
[2023-06-21] MEDS: DOXAZOSIN MESYLATE 2 MG TABLET PO (08:18)
[2023-06-21] MEDS: ASCORBIC ACID 500 MG TABLET 1000 MG PO (08:19)
[2023-06-21] MEDS: CITALOPRAM HYDROBROMIDE 20 MG TABLET 40 MG PO (08:19)
--- NOTE | 2023-06-21 12:07 | PM.DS1 ---
DS: Providers Provider Date of admission: 06/19/23 17:17 Primary care physician: LYDIA BERUMEN Consults: 06/19/23 Physical Therapy Eval and Treat Routine DS: Diagnosis Discharge Diagnosis (1) Cellulitis of left leg: (2) Chronic venous stasis dermatitis of both lower extremities: (3) Venous insufficiency of both lower extremities: (4) Hypertension: (5) Peripheral vascular disease: DS: Summary Hospital Course Hospital Course: Reason for admission: See H&P for details. 77 y/o male with a history of chronic venous stasis presents to ER with redness and swelling to left leg. Seen in ER 06/11 for redness and swelling and US negative for DVT. Appeared to have cellulitis and started on oral augmentin which he has been taking daily. Missed f/u with PCP. C/o increased redness in leg and spreading up moyer to knee. Increased pain and swelling. Returned to ER and low grade temp. WBC normal and normal lactate. Failed outpatient treatment with oral antibiotics and admitted. Hospital course: Started IV clindamycin and resumed home medication. Erythema improved overnight but continued redness and swelling. WBC normal and afebrile. Redness and pain improved. Ambulating well around room. Discharged home in stable condition. Take clindamycin x 10 days. F/u with wound care in 1-2 weeks. Resume home medication as directed. Time Spent with Patient Time attestation: Total time spent providing and/or coordinating discharge services: Exam Constitutional Vital Signs, click to edit/add: Last Vital Signs Temp 98.0 F 06/21/23 06:00 Pulse 77 06/21/23 06:00 Resp 18 06/21/23 06:00 BP 146/79 H 06/21/23 06:00 Pulse Ox 92 L 06/21/23 06:00 O2 Del Method Room Air 06/21/23 06:00 Documenting provider has reviewed patient's vital signs: yes Common normals: no apparent distress, oriented x3 and alert HENMT Common normals: normocephalic Eye Common normals: PERRL and EOMs intact bilaterally Respiratory Common normals: normal respiratory effort and clear to auscultation bilaterally Cardio Common normals: regular rate, regular rhythm, no gallops, no murmurs and no rub GI Common normals: Normal to inspection, nondistended, normoactive bowel sounds present and non-tender Extremity General: edema (2+ bipedal pitting edema, mild erythema BLE) DS: Data Data Completed and Pending Labs on day of discharge: Labs from last 24 hours 06/21/23 04:00 WBC 8.4 RBC 4.40 L Hgb 13.3 L Hct 40.4 L MCV 91.8 MCH 30.2 MCHC 32.9 RDW 14.4 Plt Count 209 MPV 10.5 Neut % (Auto) 64.6 Lymph % (Auto) 17.3 L [place] % (Auto) 12.8 H Eos % (Auto) 4.2 Baso % (Auto) 0.5 Neut # (Auto) 5.4 Lymph # (Auto) 1.5 [place] # (Auto) 1.1 H Eos # (Auto) 0.4 Baso # (Auto) 0.0 Abs Immat Gran (auto) 0.05 H Imm/Tot Granulo (auto) 0.6 H Sodium 142 Potassium 3.9 Chloride 109 H Carbon Dioxide 24.1 Anion Gap 12.8 BUN 19.0 H Creatinine 1.25 Est GFR ( Amer) >60 Est GFR (Non-Af Amer) 56 L BUN/Creatinine Ratio 15.2 Glucose 122 H Calcium 8.1 L Preliminary micro results at discharge 06/19/23 15:16 Blood Culture Result 1 - Preliminary Blood Discharge Plan Discharge Disposition: Home, Self-Care Condition: Good Discharge Medications: New clindamycin HCl 300 mg capsule 300 mg PO Q6H 10 Days Qty: 40 0RF Continued tramadol 50 mg tablet 100 mg PO Q6H PRN (Reason: pain) Rx Instructions: PER RETAIL FILL HX - LAST FILLED 05/2023 #240 FOR A 30 DAY SUPPLY celecoxib 200 mg capsule 200 mg PO BID Rx Instructions: takes at 229 and 2029 pravastatin 20 mg tablet 20 mg PO DAILY Rx Instructions: takes at 0 pregabalin 225 mg capsule 225 mg PO BEDTIME aspirin 81 mg tablet,delayed release (DR/EC) 81 mg PO DAILY Rx Instructions: takes at 0 topiramate 200 mg tablet 100 mg PO BID Rx Instructions: 229 and 2029 trospium 60 mg capsule,extended release 24hr 60 mg PO DAILY Rx Instructions: must be taken on empty stomach at least 1 hour before a meal/food with water only amlodipine-benazepril [Lotrel] 5-20 mg capsule 1 cap PO DAILY Rx Instructions: takes at 0230 torsemide 20 mg tablet 20 mg PO BID Rx Instructions: takes at 229 and 2029 citalopram [Celexa] 40 mg tablet 40 mg PO DAILY doxazosin [Cardura] 2 mg tablet 2 mg PO DAILY esomeprazole magnesium [Nexium] 40 mg capsule,delayed release(DR/EC) 40 mg PO DAILY C Complex 1,000 mg tablet extended release 1,000 mg PO DAILY ropinirole 3 mg tablet 3 mg PO BEDTIME alprazolam 0.5 mg tablet 0.5 mg PO TID Discontinued amoxicillin-pot clavulanate 875-125 mg tablet 1 tab PO BID Rx Instructions: PER RETAIL FILL HX - FILLED 06/11/23 #20 FOR A 10 DAY SUPPLY Activity: resume usual activities as tolerated Diet: advance to your usual diet Forms: Portal Instructions
--- NOTE | 2023-06-23 10:11 | CM.DCFOLLOWU ---
Person spoke with:patient How are you feeling? well How is your pain? no pain Did you understand your discharge instructions? yes Do you have any questions about your discharge instructions? no Were you given any prescriptions at discharge? yes Were you able to get your prescriptions filled? yes Do you understand how to take your medications as ordered? yes Do you have any questions about your follow up appointment and do you plan to keep your follow up appointment? no questions, he has not called Dr. Berger's office yet to schedule follow up, he will do that today. Is there anything else that you would like to discuss?no Questions/Comments/Concerns/Other:
== END 2023-06-21 13:24 | disposition home or self-care (01) ==
LOC: ER 16:56 → ICU 17:20 → MS 06-20 11:36
PROVIDERS: Personal Emergency Response Attendant; Admitting Provider Family Medicine; Emergency Provider Emergency Medicine; PCP Internal Medicine; Visit Provider Family Medicine
DX: L03.116 Cellulitis of left lower limb (principal); I10 Essential (primary) hypertension; I73.9 Peripheral vascular disease, unspecified; I87.2 Venous insufficiency (chronic) (peripheral); J44.9 Chronic obstructive pulmonary disease, unspecified; F17.210 Nicotine dependence, cigarettes, uncomplicated; F12.90 Cannabis use, unspecified, uncomplicated; Z79.899 Other long term (current) drug therapy; Z79.82 Long term (current) use of aspirin
CPT/HCPCS: 36415; 71045; 73590; 80048; 80053; 83605; 83880; 84484; 85025; 87040; 93005; 93971; 94640; 94761; 96365; 96366; 96367; 97161; 99285; G0378

== ENCOUNTER 2023-07-07 11:04 | Outpatient (OUT) | payer MEDICARE, SELFPAY | END 2023-07-07 11:05 | disposition home or self-care (01) | LOC: WC 11:04 | PROVIDERS: PCP Internal Medicine; Visit Provider Podiatrist Foot & Ankle Surgery | DX: I87.332 Chronic venous hypertension (idiopathic) with ulcer and inflammation of left lower extremity (principal); L97.822 Non-pressure chronic ulcer of other part of left lower leg with fat layer exposed | CPT/HCPCS: 29580 ==

== ENCOUNTER 2023-07-10 11:25 | Outpatient (OUT) | payer MEDICARE, SELFPAY | END 2023-07-10 11:26 | disposition home or self-care (01) | LOC: WC 11:25 | PROVIDERS: PCP Internal Medicine; Visit Provider Podiatrist Foot & Ankle Surgery | DX: I87.332 Chronic venous hypertension (idiopathic) with ulcer and inflammation of left lower extremity (principal); L97.822 Non-pressure chronic ulcer of other part of left lower leg with fat layer exposed | CPT/HCPCS: 29580 ==

== ENCOUNTER 2023-07-16 13:28 | Outpatient (OUT) | payer MEDICARE, SELFPAY | END 2023-07-16 13:29 | disposition home or self-care (01) | LOC: WC 13:28 | PROVIDERS: PCP Internal Medicine; Visit Provider Physician Assistant | DX: I87.332 Chronic venous hypertension (idiopathic) with ulcer and inflammation of left lower extremity (principal); L97.822 Non-pressure chronic ulcer of other part of left lower leg with fat layer exposed | CPT/HCPCS: 29580 ==

== ENCOUNTER 2023-07-20 13:02 | Outpatient (OUT) | payer MEDICARE, SELFPAY | END 2023-07-20 13:03 | disposition home or self-care (01) | LOC: WC 13:04 | PROVIDERS: PCP Internal Medicine; Visit Provider Physician Assistant | DX: I87.332 Chronic venous hypertension (idiopathic) with ulcer and inflammation of left lower extremity (principal); L97.822 Non-pressure chronic ulcer of other part of left lower leg with fat layer exposed | CPT/HCPCS: 29580 ==

== ENCOUNTER 2023-07-28 15:07 | Outpatient (OUT) | payer MEDICARE, SELFPAY ==
--- NOTE | 2023-07-28 | XR_ITS ---
The [address] [address] Patient Name: JOVI ETIENNE MRN: [id number] date: 1945 Sex: M Assigned Patient Location: Current Patient Location: Accession/Order Number: [id number] Exam Date: 07/28/2023 15:47 Report Date: 07/29/2023 09:30 At the request of: KENNEDI BOBO Procedure: XR foot LT min 3V PROCEDURE: XR foot LT min 3V HISTORY: LEFT FOOT PAIN COMPARISON: XR foot bilateral 08/09/2020 FINDINGS: BONES:Flattening of the plantar arch. Persistent flexion of the second toe; possible hammertoe. No fracture or dislocation. SOFT TISSUES:No visible soft tissue swelling. EFFUSION:None visible. OTHER: Negative. XR/XR foot LT min 3V IMPRESSION: 1. No acute bone abnormality. 2. Pes planus and possible hammertoe. Electronically authenticated by: CRUZ BOURGEOIS Date: 07/29/2023 09:30
== END 2023-07-28 15:08 | disposition home or self-care (01) ==
LOC: WC 15:07
PROVIDERS: PCP Internal Medicine; Visit Provider Physician Assistant
DX: M79.672 Pain in left foot (principal); I87.332 Chronic venous hypertension (idiopathic) with ulcer and inflammation of left lower extremity; L97.822 Non-pressure chronic ulcer of other part of left lower leg with fat layer exposed
CPT/HCPCS: 29580; 73630

== ENCOUNTER 2023-08-04 15:03 | Outpatient (OUT) | payer MEDICARE, SELFPAY | END 2023-08-04 15:04 | disposition home or self-care (01) | LOC: WC 15:03 | PROVIDERS: PCP Internal Medicine; Visit Provider Physician Assistant | DX: I87.332 Chronic venous hypertension (idiopathic) with ulcer and inflammation of left lower extremity (principal); L97.822 Non-pressure chronic ulcer of other part of left lower leg with fat layer exposed; L98.9 Disorder of the skin and subcutaneous tissue, unspecified | CPT/HCPCS: G0463 ==

== ENCOUNTER 2023-08-25 08:50 | Outpatient (OUT) | payer MEDICARE, SELFPAY | END 2023-08-25 08:51 | disposition home or self-care (01) | LOC: WC 08:50 | PROVIDERS: PCP Internal Medicine; Visit Provider Physician Assistant | DX: I87.332 Chronic venous hypertension (idiopathic) with ulcer and inflammation of left lower extremity (principal); L97.822 Non-pressure chronic ulcer of other part of left lower leg with fat layer exposed | CPT/HCPCS: G0463 ==

== ENCOUNTER 2023-08-25 09:34 | Outpatient (OUT) | payer MEDICARE, SELFPAY ==
[2023-08-25 10:12] LABS: Basophils Absolute Auto 0.1 10^3/uL (0.0-0.1); Basophils Percent Auto 0.8 % (0.2-2.0); Eosinophils Absolute Auto 0.4 10^3/uL (0.0-0.7); Eosinophils Percent Auto 5.1 % (0.9-7.0); Hemoglobin 13.2 g/dL (14.0-18.0); Immature Granulocytes Abs Auto 0.03 10^3/uL (0.00-0.03); Immature Granulocytes Pct Auto 0.4 % (0.0-0.5); Lymphocytes Percent Auto 23.1 % (20.5-60.0); Mean Corpuscular Volume 93.9 fL (80.0-94.0); Mean Platelet Volume 10.7 fL (9.5-13.5); Monocytes Percent Auto 11.9 % (1.7-12.0); Neutrophils Percent Auto 58.7 % (43.0-75.0); Platelet Count 218 10^3/uL (150-450); Red Blood Count 4.26 10^6/uL (4.70-6.10); Red Cell Distribution Width 14.5 % (11.0-15.0); White Blood Count 8.5 10^3/uL (4.0-11.0)
[2023-08-25 10:40] LABS: Anion Gap 11.8; BUN Creatinine Ratio 19.1; Calcium 8.6 mg/dL (8.5-10.1); Carbon Dioxide 24.4 mmol/L (21.0-32.0); Chloride 106 mmol/L (98-107); Estimated GFR (African America 45 (>=60); Estimated GFR (Non-African Ame 37 (>=60); Glucose 97 mg/dL (74-106); Potassium 4.2 mmol/L (3.5-5.1); Sodium 138 mmol/L (136-145)
== END 2023-08-25 09:35 | disposition home or self-care (01) ==
LOC: LAB 09:38
PROVIDERS: PCP Internal Medicine; Visit Provider Physician Assistant
DX: L03.116 Cellulitis of left lower limb (principal)
CPT/HCPCS: 36415; 80048; 85025

== ENCOUNTER 2023-08-26 13:25 | Outpatient (OUT) | payer MEDICARE, SELFPAY | END 2023-08-26 13:26 | disposition home or self-care (01) | LOC: WC 13:25 | PROVIDERS: PCP Internal Medicine; Visit Provider Podiatrist Foot & Ankle Surgery | DX: R60.0 Localized edema (principal); L60.3 Nail dystrophy; L98.9 Disorder of the skin and subcutaneous tissue, unspecified; I87.332 Chronic venous hypertension (idiopathic) with ulcer and inflammation of left lower extremity; L97.822 Non-pressure chronic ulcer of other part of left lower leg with fat layer exposed; M13.80 Other specified arthritis, unspecified site; I70.293 Other atherosclerosis of native arteries of extremities, bilateral legs; L03.116 Cellulitis of left lower limb; B35.1 Tinea unguium; L85.3 Xerosis cutis; M21.40 Flat foot [pes planus] (acquired), unspecified foot; L84 Corns and callosities ==

== ENCOUNTER 2023-12-16 12:46 | Outpatient (OUT) | payer MEDICARE, SELFPAY ==
--- OUTSIDE RECORDS SUMMARY | 2023-12-16 12:49 | XMS_ITS | CCD ---
Author Name Unknown Address [address] [place] [id number] Organization [facility] Care Team Providers Care Traffic Survey Technician Name Role Phone DR SAEED BERGER Attending Unavailable DR SAEED BERGER Primary Care Unavailable DR SAEED BERGER Admitting Unavailable Saeed Berger MD Unavailable [phone] Saeed Berger MD Primary Care Provider SAEED BERGER Attending Unavailable Medications Current Medications Medication Drug Class(es) Dates Sig (Normalized) Sig (Original) acetaminophen 325 mg / HYDROcodone bitartrate 5 mg oral tablet (2 sources) Opioid Agonist Start: 11-17-2023 take 1 tablet by mouth every six hours for pain HYDROcodone-acetami nophen (Avery) 5-325 MG tablet Indications: Lumbar pain Take 1 tablet by mouth every 6 (six) hours if needed for severe pain 120 tablet 0 11/17/2023 Active ALPRAZolam 0.5 mg oral tablet (2 sources) Benzodiazepine Start: 11-04-2023 End: 02-02-2024 take 1 tablet by mouth three times daily as needed for anxiety ALPRAZolam (Xanax) 0.5 MG tablet Indications: Anxiety , Depression with anxiety Take 1 tablet (0.5 mg) by mouth 3 (three) times a day as needed for anxiety 90 tablet 1 11/04/2023 02/02/2024 Active amLODIPine 5 mg / benazepril hydrochloride 20 mg oral capsule (2 sources) Dihydropyridine Calcium Channel Pancho, Angiotensin Converting Enzyme Inhibitor Start: 08-10-2023 take 1 capsule by mouth once daily amLODIPine-benazepr il (Lotrel) 5-20 MG capsule Indications: Benign essential hypertension (CMS/HCC) TAKE 1 CAPSULE BY MOUTH EVERY DAY FOR 90 DAYS 90 capsule 3 08/10/2023 Active apixaban 5 mg oral tablet (2 sources) Factor Xa Inhibitor Start: 12-11-2023 End: 12-10-2024 take 1 tablet by mouth in the morning apixaban (Eliquis) 5 MG tablet Indications: Atrial fibrillation, unspecified type (CMS/HCC) Take 1 tablet (5 mg) by mouth in the morning and 1 tablet (5 mg) before bedtime. 60 tablet 11 12/11/2023 12/10/2024 Active aspirin 81 mg delayed release oral tablet (2 sources) Platelet Aggregation Inhibitor, Nonsteroidal Anti-inflammatory Drug End: 12-11-2023 take 1 tablet by mouth in the morning aspirin (Aspirin Low Dose) 81 MG EC tablet Take 81 mg by mouth in the morning. 0 12/11/2023 Discontinued betamethasone 0.5 mg/ml / clotrimazole 10 mg/ml topical cream (2 sources) Azole Antifungal, Corticosteroid Start: 07-29-2023 clotrimazole-betame thasone (Lotrisone) cream APPLY TO AFFECTED AREA EVERY DAY 0 07/29/2023 Active celecoxib 200 mg oral capsule (2 sources) Nonsteroidal Anti-inflammatory Drug Start: 05-05-2023 End: 12-11-2023 take 1 capsule by mouth once celecoxib (CeleBREX) 200 MG capsule Indications: Generalized osteoarthritis Take 1 capsule (200 mg) by mouth every 12 (twelve) hours. 200 capsule 3 05/05/2023 12/11/2023 Discontinued citalopram 40 mg oral tablet (2 sources) Serotonin Reuptake Inhibitor Start: 11-10-2023 take 1 tablet by mouth once daily citalopram (CeleXA) 40 MG tablet Indications: Generalized anxiety disorder (CMS/HCC) TAKE 1 TABLET BY MOUTH EVERY DAY 100 tablet 3 11/10/2023 Active clobetasol propionate 0.5 mg/ml topical cream (2 sources) Corticosteroid clobetasol (Temovate) 0.05 % cream Apply topically 2 (two) times a day. 0 Active doxazosin 2 mg oral tablet (2 sources) alpha-Adrenergic Pancho Start: 11-06-2023 take 1 tablet by mouth once daily doxazosin (Cardura) 2 MG tablet Indications: Benign essential hypertension (CMS/HCC) TAKE 1 TABLET BY MOUTH EVERY DAY 90 tablet 4 11/06/2023 Active 24 hr metoprolol succinate 50 mg extended release oral tablet (2 sources) beta-Adrenergic Pancho Start: 12-11-2023 take 1 tablet by mouth every twenty-four hours in the morning metoprolol succinate XL (Toprol-XL) 50 MG 24 hr tablet Indications: Atrial fibrillation, unspecified type (CMS/HCC) Take 1 tablet (50 mg) by mouth in the morning. Do not crush or chew.. 30 tablet 11 12/11/2023 Active Start: 12-11-2023 take 1 tablet by gunnar th every twenty-four hours in the morning metoprolol succinate XL (Toprol-XL) 50 MG 24 hr tablet Indications: Atrial fibrillation, unspecified type (CMS/HCC) Take 1 tablet (50 mg) by mouth in the morning. Do not crush or chew.. 30 tablet 11 12/11/2023 Active nitroglycerin 0.4 mg sublingual tablet (2 sources) Nitrate Vasodilator Start: 08-26-2023 End: 08-25-2024 nitroglycerin (Nitrostat) 0.4 MG SL tablet Indications: Stricture and stenosis of esophagus Place 1 tablet (0.4 mg) under the tongue every 5 (five) minutes if needed for chest pain. 90 tablet 5 08/26/2023 08/25/2024 Active pravastatin sodium 20 mg oral tablet (2 sources) HMG-CoA Reductase Inhibitor take 1 tablet by mouth in the morning pravastatin (Pravachol) 20 MG tablet Take 20 mg by mouth in the morning. 0 Active pregabalin 225 mg oral capsule (2 sources) Start: 09-02-2023 take 1 capsule by mouth at bedtime pregabalin (Lyrica) 225 MG capsule Indications: Other polyneuropathy Take 1 capsule (225 mg) by mouth at bedtime. 90 capsule 0 09/02/2023 Active rOPINIRole 3 mg oral tablet (2 sources) Nonergot Dopamine Agonist Start: 10-14-2023 take 1 tablet by mouth once daily at bedtime rOPINIRole (Requip) 3 MG tablet Indications: Restless legs syndrome TAKE 1 TABLET BY MOUTH EVERY DAY AT BEDTIME FOR 90 DAYS 90 tablet 3 10/14/2023 Active topiramate 100 mg oral tablet (2 sources) Start: 08-07-2023 take 1 tablet by mouth twice daily topiramate (Topamax) 100 MG tablet Indications: Migraine without status migrainosus, not intractable, unspecified migraine type (CMS/HCC) TAKE 1 TABLET BY MOUTH TWICE A DAY FOR 90 DAYS 180 tablet 3 08/07/2023 Active torsemide 20 mg oral tablet (4 sources) Loop Diuretic Start: 12-11-2023 take 1 tablet by mouth in the morning torsemide (Demadex) 20 MG tablet Indications: Chronic venous insufficiency Take 1 tablet (20 mg) by mouth in the morning. 100 tablet 1 12/11/2023 Active Start: 12-11-2023 take 1 tablet by gunnar th in the morning torsemide (Demadex) 20 MG tablet Indications: Chronic venous insufficiency Take 1 tablet (20 mg) by mouth in the morning. 100 tablet 1 12/11/2023 Active Start: 09-03-2023 End: 12-11-2023 take 1 tablet by mouth in the morning torsemide (Demadex) 20 MG tablet Indications: Chronic venous insufficiency Take 1 tablet (20 mg) by mouth in the morning. 100 tablet 1 09/03/2023 12/11/2023 Discontinued (Reorder) trospium chloride 20 mg oral tablet (2 sources) Cholinergic Muscarinic Antagonist take 1 tablet by mouth at bedtime trospium (Sanctura) 20 MG tablet Take by mouth at bedtime. 0 Active Problems Active Problems Problem Classification Problem Date Documented Da te Episodic/Chronic Anxiety disorders (2 sources) Anxiety; Translations: [Anxiety disorder, unspecified] Onset: 3 06-16-2023 Chronic Cardiac dysrhythmias (2 sources) Atrial fibrillation; Translations: [Unspecified atrial fibrillation] 12-11-2023 Chronic Chronic obstructive pulmonary disease and bronchiectasis (2 sources) Chronic obstructive lung disease; Translations: [Chronic obstructive pulmonary disease, unspecified] Onset: 3 05-20-2023 Chronic Chronic ulcer of skin (2 sources) Non-pressure chronic ulcer of right ankle with unspecified severity; Translations: [Ulcer of ankle] Onset: 3 06-16-2023 Chronic Diabetes mellitus without complication (2 sources) Impaired fasting glycemia; Translations: [Impaired fasting glucose] 12-11-2023 Episodic Disorders of lipid metabolism (4 sources) Mixed hyperlipidemia; Translations: [Mixed hyperlipidemia] Onset: 3 12-11-2023 Chronic Esophageal disorders (4 sources) Gastroesophageal reflux disease; Translations: [Gastro-esophageal reflux disease without esophagitis] Onset: 3 05-20-2023 Chronic Essential hypertension (2 sources) Benign essential hypertension; Translations: [Essential (primary) hypertension] Onset: 3 05-20-2023 Chronic Hyperplasia of prostate (2 sources) Benign prostatic hyperplasia; Translations: [Benign prostatic hyperplasia without lower urinary tract symptoms] Onset: 3 05-20-2023 Chronic Miscellaneous mental health disorders (2 sources) Chronic insomnia; Translations: [Psychophysiologic insomnia] Onset: 3 05-20-2023 Chronic Mood disorders (2 sources) Depressive disorder; Translations: [Depressive disorder] Onset: 3 05-20-2023 Chronic Osteoarthritis (8 sources) Localized, primary osteoarthritis; Translations: [Unilateral primary osteoarthritis, unspecified knee] Onset: 5 12-11-2023 Chronic Other congenital anomalies (2 sources) Congenital accessory skin tag; Translations: [Other specified congenital malformations of skin] Onset: 3 06-16-2023 Chronic Other diseases of veins and lymphatics (4 sources) Peripheral venous insufficiency; Translations: [Venous insufficiency (chronic) (peripheral)] Onset: 3 12-11-2023 Episodic Other gastrointestinal disorders (2 sources) Chronic idiopathic constipation; Translations: [Chronic idiopathic constipation] Onset: 3 05-20-2023 Chronic Other gastrointestinal disorders (2 sources) Irritable bowel syndrome; Translations: [Irritable bowel syndrome without diarrhea] Onset: 3 05-20-2023 Chronic Other hereditary and degenerative nervous system conditions (2 sources) Restless legs; Translations: [Restless legs syndrome] Onset: 3 05-20-2023 Chronic Other hereditary and degenerative nervous system conditions (2 sources) System disorder of the nervous system; Translations: [Other specified extrapyramidal and movement disorders] Onset: 3 06-16-2023 Chronic Other hereditary and degenerative nervous system conditions (2 sources) Extrapyramidal movements; Translations: [Extrapyramidal and movement disorder, unspecified] Onset: 6 07-14-2023 Chronic Other nervous system disorders (2 sources) Polyneuropathy; Translations: [Polyneuropathy, unspecified] 12-11-2023 Chronic Other nervous system disorders (2 sources) Peripheral nerve disease ; Translations: [Polyneuropathy, unspecified] Onset: 3 05-20-2023 Chronic Other nutritional; endocrine; and metabolic disorders (2 sources) Obesity; Translations: [Obesity, unspecified] Onset: 3 06-16-2023 Chronic Other screening for suspected conditions (not mental disorders or infectious disease) (2 sources) Patient encounter status; Translations: [Encounter for screening for malignant neoplasm of respiratory organs] 12-11-2023 Episodic Spondylosis; intervertebral disc disorders; other back problems (4 sources) Low back pain; Translations: [Lumbar pain] Onset: 3 12-11-2023 Episodic Substance-related disorders (2 sources) Cigarette smoker ; Translations: [Nicotine dependence, cigarettes, uncomplicated] Onset: 3 05-20-2023 Chronic Past or Other Problems Problem Classification Problem Date Documented Date Episodic/Chronic Abdominal hernia (2 sources) Diaphragmatic hernia; Translations: [Diaphragmatic hernia without obstruction or gangrene] Onset: 05-20-2023 05-20-2023 Episodic Other acquired deformities (2 sources) Acquired spondylolisthesis; Translations: [Spondylolisthesis, site unspecified] Onset: 05-20-2023 05-20-2023 Episodic Other acquired deformities (2 sources) Spondylolysis; Translations: [Spondylolysis, lumbar region] Onset: 06-16-2023 06-16-2023 Episodic Other and unspecified benign neoplasm (2 sources) B-K mole (nevus) syndrome; Translations: [Other benign neoplasm of skin, unspecified] Onset: 06-16-2023 06-16-2023 Episodic Results Test Name Value Interpretation Reference Range Facil ity Laboratory - Hematology and Cell countson 12-11-2023 HbA1c (Bld) [Mass fraction] 5.3 % [facility] SoThree No Panel Informationon 12-11 Interpretation and review of laboratory results Normal [facility] Vital Signs Date Time Vital Sign Value Performing Clinician Faci lity 12-11-2023 10:35-0500 Body mass index (BMI) [Ratio] 35.87 kg/m2 Saeed Berger MD Work Phone: [facility] 12-11-2023 10:35-0500 Body weight 103.87 kg Saeed Berger MD Work Phone: [facility] 12-11-2023 10:35-0500 Heart rate 50 /min Saeed Berger MD Work Phone: [facility] 12-11-2023 10:35-0500 SaO2% (BldA) [Mass fraction] 96 % Saeed Berger MD Work Phone: [facility] Healthcare Encounters Encounter Date Encounter Type Care Provider Facility Start: 12-11-2023 End: 12-11-2023 ambulatory SAEED BREGER Not Available Start: 12-11-2023 End: 12-11-2023 Office outpatient visit 40 minutes Saeed Berger MD Work Phone: [facility] Comment on above: Atrial fibrillation, unspecified type (CMS/HCC) (Primary Dx); Chronic venous insufficiency; Lumbar pain; Peripheral polyneuropathy; Primary localized osteoarthrosis of lower leg, unspecified laterality; Encounter for screening for lung cancer; IFG (impaired fasting glucose); Mixed hyperlipidemia (CMS/HCC) Start: 11-28-[address] SAEED BERGER Facilit y:H1 Procedures Date Procedure Procedure Detail Performing Clinician Start: 12-11-2023 Hemoglobin glycosyla jagdeep a1c Saeed Berger MD Work Phone: Plan of Treatment Date Care Activity Detail Author Start: 12-11-2023 End: 12-11-2024 Comprehensive metabolic 2000 panel - Serum or Plasma Comprehensive metabolic panel Lab Routine Atrial fibrillation, unspecified type (CMS/HCC) Expected: 12/11/2023 (Approximate), Expires: 12/11/2024 [facility] Comment on above: Expected: 12/11/2023 (Approximate), Expires: 12/11/2024 Start: 12-11-2023 End: 12-11-2024 CT Chest for screening WO contrast CT lung screening low dose Imaging Routine Encounter for screening for lung cancer Expected: 12/11/2023, Expires: 12/11/2024 [facility] Work Phone: Comment on above: Expected: 12/11/2023 , Expires: 12/11/2024 Start: 12-11-2023 End: 12-11-2025 Echocardiogram 2D complete Echocardiogram 2D complete Echocardiography Routine Atrial fibrillation, unspecified type (CMS/HCC) Expected: 12/11/2023 (Approximate), Expires: 12/11/2025 [facility] Comment on above: Expected: 12/11/2023 (Approximate), Expires: 12/11/2025 Start: 12-11-2023 End: 12-11-2024 Lipid 1996 panel - Serum or Plasma Lipid panel Lab Routine Mixed hyperlipidemia (CMS/HCC) Expected: 12/11/2023 (Approximate), Expires: 12/11/2024 [facility] Comment on above: Expected: 12/11/2023 (Approximate), Expires: 12/11/2024 Start: 12-11-2023 End: 12-11-2024 TSH W/REFLEX TO FT4 TSH W/REFLEX TO FT4 Lab Routine Atrial fibrillation, unspecified type (CMS/HCC) Expected: 12/11/2023 (Approximate), Expires: 12/11/2024 [facility] Comment on above: Expected: 12/11/2023 (Approximate), Expires: 12/11/2024 Start: 1945 Medicare Annual Well ness (AWV) Medicare Annual Wellness (AWV) [facility] CBC W Auto Different ial panel - Blood CBC and differential Lab Routine Atrial fibrillation, unspecified type (CMS/HCC) Ordered: 12/11/2023 [facility] Comment on above: Ordered: 12/11/2023 Immunizations Immunization Date Immunization Notes Care Provider Fa [facility] 09-08-2023 Influenza, Seasonal, Quadrivalent, Adjuvanted Saeed Berger MD Work Phone: [facility] 09-08-2023 RSV, recombinant, pr otein subunit RSVpreF, adjuvant reconstitu, 120mcg/0.5mL, PF (Arexvy) Saeed Berger MD Work Phone: [facility] 08-14-2022 Influenza, High-dose Seasonal, Quadrivalent, Preservative Free Saeed Berger MD Work Phone: [facility] 08-14-2022 Moderna SARS-CoV-2 50mcg/0.5mL Booster Saeed Berger MD Work Phone: [facility] 11-09-2021 Influenza, Seasonal, Quadrivalent, Adjuvanted Saeed Berger MD Work Phone: [facility] 05-09-2021 zoster vaccine recombinant Viviane Berger MD Work Phone: [facility] 11-19-2020 zoster vaccine recombinant Viviane eBrger MD Work Phone: [facility] 09-05-2020 pneumococcal polysaccharide vaccine, 23 valent Saeed Berger MD Work Phone: [facility] 08-06-2020 influenza, high dose seasonal, preservative-free Saeed Berger MD Work Phone: [facility] 10-24-2019 influenza, high dose seasonal, preservative-free Saeed Berger MD Work Phone: [facility] 05-09-2019 pneumococcal conjuga te vaccine, 13 valent Saeed Berger MD Work Phone: [facility] 09-22-2018 influenza, high dose seasonal, preservative-free Saeed Berger MD Work Phone: [facility] 03-15-2018 pneumococcal conjuga te vaccine, 13 valent Saeed Berger MD Work Phone: [facility] 11-27-2017 seasonal influenza, intradermal, preservative free Saeed Berger MD Work Phone: [facility] 01-10-2015 zoster vaccine, live Saeed Berger MD Work Phone: [facility] 12-13-2014 tetanus toxoid, redu katie diphtheria toxoid, and acellular pertussis vaccine, adsorbed Saeed Berger MD Work Phone: [facility] 12-04-2014 zoster vaccine, live Saeed Berger MD Work Phone: [facility] 08-09-2014 influenza virus vacc ine, split virus (incl. purified surface antigen) Saeed Berger MD Work Phone: [facility] 08-04-2014 pneumococcal polysaccharide vaccine, 23 valchristofer Berger MD Work Phone: [facility] 07-11-2013 seasonal influenza, intradermal, preservative free Saeed Berger MD Work Phone: [facility] Healthcare 09-15-2009 novel influenza-H1N1 -09, preservative-free, injectable Saeed Berger MD Work Phone: [facility] Healthcare Payers Date Payer Category Payer Medicare [employer] MEDICARE A DVANTAGE [employer] MEDICARE REPLACEMENT [id number] 2021-Present [address] [place] [address] [id number] 2021 Medicare [id number] 1958 Self-pay 1945 Unknown [id number] 1945 Unknown [id number] Social History Date Type Detail Facility Start: 09-03-2023 Tobacco smoking stat [facility] Smokes tobacco daily [facility] History of tobacco use Cigarette Smoker [facility] Start: 09-03-2023 Tobacco use and exposure Smokeless t obacco non-user [facility] Start: 12-11-2023 Alcohol intake Current drinke r of alcohol (finding) [facility] Start: 12-11-2023 Alcohol intake [facility] Start: 12-11-2023 Tobacco use panel [facility] Start: 07-14-2023 Alcohol Comment Caffeine intake: cof fee [facility] Start: 1945 Sex Assigned At Not on file [facility] History of Present illness Narrative 12-11-2023 Saeed Berger MD - 12/11/2023 10:30 AM EST Note Date & Type Note Facility 12-11-2023 History of Presen t illness Narrative Images from the original note were not included. Subjective : Chief Complaint: Dimitris Etienne is an 78 y.o. male here for an annual wellness visit. I have reviewed and reconciled the medication list with the patient today. Current Outpatient Medications Medication Sig Dispense Refill ALPRAZolam (Xanax) 0.5 MG tablet Take 1 tablet (0.5 mg) by mouth 3 (three) times a day as needed for anxiety 90 tablet 1 amLODIPine-benazepril (Lotrel) 5-20 MG capsule TAKE 1 CAPSULE BY MOUTH EVERY DAY FOR 90 DAYS 90 capsule 3 aspirin (Aspirin Low Dose) 81 MG EC tablet Take 81 mg by mouth in the morning. celecoxib (CeleBREX) 200 MG capsule Take 1 capsule (200 mg) by mouth every 12 (twelve) hours. 200 capsule 3 citalopram (CeleXA) 40 MG tablet TAKE 1 TABLET BY MOUTH EVERY DAY 100 tablet 3 clobetasol (Temovate) 0.05 % cream Apply topically 2 (two) times a day. clotrimazole-betamethasone (Lotrisone) cream APPLY TO AFFECTED AREA EVERY DAY doxazosin (Cardura) 2 MG tablet TAKE 1 TABLET BY MOUTH EVERY DAY 90 tablet 4 HYDROcodone-acetaminophen (Avery) 5-325 MG tablet Take 1 tablet by mouth every 6 (six) hours if needed for severe pain 120 tablet 0 nitroglycerin (Nitrostat) 0.[address] 1 tablet (0.4 mg) under the tongue every 5 (five) minutes if needed for chest pain. 90 tablet 5 pravastatin (Pravachol) 20 MG tablet Take 20 mg by mouth in the morning. pregabalin (Lyrica) 225 MG capsule Take 1 capsule (225 mg) by mouth at bedtime. 90 capsule 0 rOPINIRole (Requip) 3 MG tablet TAKE 1 TABLET BY MOUTH EVERY DAY AT BEDTIME FOR 90 DAYS 90 tablet 3 topiramate (Topamax) 100 MG tablet TAKE 1 TABLET BY MOUTH TWICE A DAY FOR 90 DAYS 180 tablet 3 torsemide (Demadex) 20 MG tablet Take 1 tablet (20 mg) by mouth in the morning. 100 tablet 1 trospium (Sanctura) 20 MG tablet Take by mouth at bedtime. No current facility-administered medications for this visit. Review of Systems List of current healthcare providers: Patient Care Team: Saeed Berger MD as PCP - General (Internal Medicine) Saeed Berger MD as PCP - [employer] Annual Visit Over the past 2 weeks, how often have you been bothered by any of the following problems? Little interest or pleasure in doing things: Not at all Feeling down, depressed, or hopeless: Not at all Patient Health Questionnaire-2 Score: 0 Leal Fall Risk History of Falling, Immediate or Within 3 Months: No Health Risk Assessment Form Do you need help eating, bathing, using the toilet, dressing, or getting around your home?: No Can you prepare your own meals?: Yes Can you do your own housework without help?: Yes Can you shop for groceries or clothes without help?: Yes Do you exercise for about 20 minutes 3 or more days a week?: Yes How confident are you that you can control and manage most of your health problems?: Very confident Can you mange your money, credit cards and accounts, pay bills and taxes?: Yes Vision Screening: Yes, no gross abnormalities Hearing Screening: Yes, no gross abnormalities Cognitive Screening Self Assessment: No overt cognitive deficiency is apparent by direct observation Three Word Registration: [place], [place], Finger Clock Drawing: Normal Clock - 2 Three Word Recall: All 3 words correct - 3 Total Score (0-5 Points): 5 Pain Assessment Pain Score: 5 - Moderate pain Advance Care Planning Do you have a living will?: No Do you have a medical power of divorce attorney?: No Objective : Pulse 50 Wt 229 lb SpO2 96% BMI 35.87 kg/m No results found. Physical Exam Constitutional: Appearance: He is not ill-appearing or toxic-appearing. Cardiovascular: Rate and Rhythm: Normal rate. Rhythm irregular. Pulses: Normal pulses. Heart sounds: No murmur heard. Pulmonary: Effort: Pulmonary effort is normal. No respiratory distress. Breath sounds: No wheezing. Assessment/Plan Diagnoses and all orders for this visit: Atrial fibrillation, unspecified type (CMS/HCC) - CBC and differential - Comprehensive metabolic panel; Future - TSH W/REFLEX TO FT4; Future - metoprolol succinate XL (Toprol-XL) 50 MG 24 hr tablet; Take 1 tablet (50 mg) by mouth in the morning. Do not crush or chew.. - Ambulatory referral to Cardiology; Future - Echocardiogram 2D complete; Future - apixaban (Eliquis) 5 MG tablet; Take 1 tablet (5 mg) by mouth in the morning and 1 tablet (5 mg) before bedtime. Chronic venous insufficiency - torsemide (Demadex) 20 MG tablet; Take 1 tablet (20 mg) by mouth in the morning. Lumbar pain - Handicap Placard Lifetime Peripheral polyneuropathy - Handicap Placard Lifetime Primary localized osteoarthrosis of lower leg, unspecified laterality - Handicap Placard Lifetime Encounter for screening for lung cancer - CT lung screening low dose; Future IFG (impaired fasting glucose) - POCT Glycated hemoglobin, total Mixed hyperlipidemia (CMS/HCC) - Lipid panel; Future Follow up in about 2 weeks (around 12/25/2023) for F/U med changes, Test/Lab Review. Orders Placed This Encounter Procedures Handicap Placard Lifetime Order Specific Question: Duration Answer: Lifetime CT lung screening low dose Standing Status: Future Standing Expiration Date: 12/11/2024 Order Specific Question: Reason for exam: Answer: Screening Order Specific Question: Does the patient show any signs or symptoms of lung cancer? Answer: No Order Specific Question: Is this the first (baseline) CT or an annual exam? Answer: Annual [2] Order Specific Question: Did the patient receive cessation guidance? Answer: Yes [1] Order Specific Question: Is there documentation of shared decision making? Answer: Yes Order Specific Question: Has the patient been occupationally exposed to agents that are carcinogens targeting the lungs? Answer: No [2] Order Specific Question: Does the patient have a history of smoking-related cancer other than lymphoma, leukemia, cancer of the lung, head and neck, bladder, colon, esophagus, GI, kidney, or pancreas? Answer: No [2] Order Specific Question: Has the patient been exposed to a high level of radon? Answer: No [2] POCT Glycated hemoglobin, total Electronically signed by Saeed Berger MD on December 11, 2023 documented in this encounter [facility] Evaluation note Note Date & Type Note Facility Evaluation note Diagnosis Atrial fibrillation, unspecified type (CMS/HCC)- Primary Chronic venous insufficiency Unspecified venous (peripheral) insufficiency Lumbar pain Lumbago Peripheral polyneuropathy Primary localized osteoarthrosis of lower leg, unspecified laterality Encounter for screening for lung cancer IFG (impaired fasting glucose) Mixed hyperlipidemia (CMS/HCC) Mixed hyperlipidemia documented in this encounter [facility] Summary Purpose Family History No Family History Records FoundNo Family History Records Found Advance Directives No Advanced Directives Records FoundNo Advanced Directives Records Found Reason for Referral Specialty Diagnoses / Procedures Referred By Haley aguayo Referred To Contact Radiology Diagnoses Atrial fibrillation, unspecified type (CMS/HCC) Procedures Echocardiogram 2D complete Saeed Berger MD [address] [address] Referral ID Status Reason Start Date Expiration Date Visits Requested Visits Authorized [id number] Incomplete Perform Procedure 12/11/2023 06/08/2024 1 1 Specialty Diagnoses / Procedures Referred By Contac t Referred To Contact Cardiology Diagnoses Atrial fibrillation, unspecified type (CMS/HCC) Procedures ID OFFICE/OUTPATIENT [facility] MDM 60 MINUTES Saeed Berger MD [address] [address] Rebecca Norman MD [address] [place] [address] Referral ID Status Reason Start Date Expiration Date Visits Requested Visits Authorized [id number] Pending Review Specialty Services Required 12/11/2023 06/08/2024 1 1 Specialty Diagnoses / Procedures Referred By Contac t Referred To Contact Diagnoses Encounter for screening for lung cancer Procedures CT lung screening low dose Saeed Berger MD [address] [address] [facility] [employer] [address] [place] [address] Phone: [phone] Referral ID Status Reason Start Date Expiration Date V isits Requested Visits Authorized [id number] Pending Review 12/11/2023 06/08/2024 1 1 Additional Source Comments (unrecognized sect ion and content) No Status Records FoundNo Status Records Found INFORMATION SOURCE (unrecogn ized section and content) DATE CREATED AUTHOR 12/03/2022 [facility] DATE CREATED AUTHOR AUTHOR'S ORGANIZ ATION 12/12/2023 [facility] EPIC Reason for Visit (unrecogniz ed section and content) Reason Comments Medicare Annual Wellness Visit Subsequen t Care Teams (unrecognized sec tion and content) Traffic Survey Technician Relationship Specialty Start Date End Date Saeed Berger MD [address] [place] [id number] PCP - [employer] 11/09/20 Saeed Berger MD 112 [facility] [address] [address] PCP - General Internal Medicine 03/17/23 FOR RECORDS PERTAINING TO PATIENTS WHO ARE OR HAVE BEEN ENROLLED IN A CHEMICAL DEPENDENCY/SUBSTANCEABUSE PROGRAM, SOME INFORMATION MAY BE OMITTED. This clinical summary was aggregated from multiple sources. Caution should be exercised in using it in the provision of clinical care. This summary normalizes information from multiple sources, and as a consequence, information in this document may materially change the coding, format and clinical context of patient data. In addition, data may be omitted in some cases. CLINICAL DECISIONS SHOULD BE BASED ON THE PRIMARY CLINICAL RECORDS. [facility] [employer] [facility]. provides no warranty or guarantee of the accuracy or completeness of information in this document.
--- NOTE | 2023-12-16 12:52 | CT_ITS ---
[address] [address] Patient Name: JOVI ETIENNE MRN: [id number] date: 1945 Sex: M Assigned Patient Location: CT Current Patient Location: CT Accession/Order Number: [id number] Exam Date: 12/16/2023 13:05 Report Date: 12/16/2023 16:05 At the request of: LYDIA BERUMEN Procedure: CT lung screening low-dose EXAMINATION: CT lung screening low-dose HISTORY: Nicotine Dependence Cigarettes F17.211 COMPARISON: 09/16/2021 TECHNIQUE: Axial, Coronal, and Sagittal images were created without the administration of IV contrast material. Dose reduction techniques were achieved by using automated exposure control and/or adjustment of mA and/or kV according to patient size and/or use of iterative reconstruction technique. FINDINGS: LUNGS: Minimal patchy infiltrate identified in the anterior basilar segment of the right lower lobe and lingula, stable, scar is favored. 5 mm calcified nodule along the left major fissure axial image 78, stable PLEURA: No mass, effusion, or pneumothorax. VASCULATURE: No abnormality. MALCOLM: No mass or pathologic adenopathy. MEDIASTINUM: No mass or pathologic adenopathy. CARDIAC: No enlargement or pericardial effusion CORONARY ARTERIES: Coronary calcifications are moderate. AORTA: No aneurysm or dissection. CHEST WALL: No mass or axillary adenopathy BONES: No bone lesion or fracture. Mild degenerative spondylosis LIMITED ABDOMEN: No suspicious findings. Limited images of the upper abdomen. OTHER: Negative. CT/CT lung screening low-dose IMPRESSION: LUNG SCREENING: Lung-RADS Category 2- Benign Appearance or Behavior. Nodules with a very low likelihood of becoming a clinically active cancer due to size or lack of growth. 2. Continue annual screening with LDCT in 12 months. Electronically authenticated by: BROOKLYNN MCCOLLUM Date: 12/16/2023 16:05
== END 2023-12-16 12:47 | disposition home or self-care (01) ==
LOC: CT 12:47
PROVIDERS: PCP Internal Medicine; Visit Provider Internal Medicine
DX: F17.211 Nicotine dependence, cigarettes, in remission (principal); Z12.2 Encounter for screening for malignant neoplasm of respiratory organs
CPT/HCPCS: 71271

== ENCOUNTER 2024-01-04 15:51 | Emergency (ER) | payer MEDICARE, SELFPAY ==
[2024-01-04 15:54] VITALS: BP 131/82; PULSE 75; RESP 18; TEMP 36.8; O2SAT 94; BMI 34.8
[2024-01-04 16:06] VITALS: PULSE 72
--- NOTE | 2024-01-04 16:09 | US_ITS ---
The [place] [id number] Patient Name: JOVI ETIENNE MRN: [id number] date: 1945 Sex: M Assigned Patient Location: ER Current Patient Location: ER Accession/Order Number: [id number] Exam Date: 01/04/2024 16:48 Report Date: 01/04/2024 18:32 At the request of: ALEXA HATCH Procedure: US venous doppler LE LT EXAM: US venous doppler LE LT HISTORY: leg swelling COMPARISON: None. TECHNIQUE: Grayscale, color and spectral Doppler ultrasound. FINDINGS: Appropriate venous waveforms, compressibility and augmentation with compression within the left lower extremity venous system. US/US venous doppler LE LT IMPRESSION: 1. No evidence of left lower extremity DVT. 2. Soft tissue edema of the distal left lower extremity. Electronically authenticated by: ALJEANDRO CONKLIN Date: 01/04/2024 18:32
--- NOTE | 2024-01-04 16:09 | XR_ITS ---
The [address] [address] Patient Name: JOVI ETIENNE MRN: [id number] date: 1945 Sex: M Assigned Patient Location: ER Current Patient Location: ER Accession/Order Number: [id number] Exam Date: 01/04/2024 16:20 Report Date: 01/04/2024 16:54 At the request of: ALEXA HATCH Procedure: XR tibia fibula LT 2V EXAM: XR tibia fibula LT 2V HISTORY: pain, injury COMPARISON: 06/19/2023 TECHNIQUE: 2 views of the left tibia and fibula FINDINGS: There is a nondisplaced fracture of the distal fibula. The soft tissue is unremarkable. There is vascular calcification. XR/XR tibia fibula LT 2V IMPRESSION: Nondisplaced distal fibular fracture. Electronically authenticated by: WILLY ALEXANDER Date: 01/04/2024 16:54
--- NOTE | 2024-01-04 16:19 | ED_ITS ---
HPI - Extremity Problem General Chief complaint: Extremity Problem, Nontraumatic Stated complaint: lower extremity injury-swelling and seeping Time Seen by Provider: 01/04/24 15:57 Source: patient Mode of arrival: Wheelchair History of Present Illness HPI Narrative: 78-year-old male presents to the emergency department with complaint of increasing swelling to his left lower extremity. States injury to the lower extremity about a week ago when he rolled off the couch, landing on it. Patient complains of swelling, weeping from the leg, waxing and waning of pain. Denies any motor or sensory changes, paresthesias. Quality: Blunt trauma Severity: Moderate Timin week, constant Context: Normal setting and activity Modifying factors: Pain worse with palpation Associated symptoms: Swelling Related Data Home Medications Medication Instructions Recorded Confirmed amlodipine 5 mg-benazepril 20 mg 1 cap PO DAILY 06/11/23 01/04/24 capsule (Lotrel) celecoxib 200 mg capsule 200 mg PO BID 06/11/23 01/04/24 citalopram 40 mg tablet (Celexa) 40 mg PO DAILY 06/11/23 01/04/24 doxazosin 2 mg tablet (Cardura) 2 mg PO DAILY 06/11/23 01/04/24 pravastatin 20 mg tablet 20 mg PO DAILY 06/11/23 01/04/24 pregabalin 225 mg capsule 225 mg PO BEDTIME 06/11/23 01/04/24 topiramate 200 mg tablet 100 mg PO BID 06/11/23 01/04/24 torsemide 20 mg tablet 20 mg PO BID 06/11/23 01/04/24 tramadol 50 mg tablet 100 mg PO Q6H PRN pain 06/11/23 06/20/23 trospium 60 mg capsule,extended 60 mg PO DAILY 06/11/23 01/04/24 release 24 hr alprazolam 0.5 mg tablet 0.5 mg PO TID 06/19/23 01/04/24 ascorbic acid (vitamin C) 1,000 mg 1,000 mg PO DAILY 06/19/23 01/04/24 tablet,extended release (C Complex) esomeprazole magnesium 40 mg 40 mg PO DAILY 06/19/23 01/04/24 capsule,delayed release (Nexium) ropinirole 3 mg tablet 3 mg PO BEDTIME 06/19/23 01/04/24 apixaban 5 mg tablet (Eliquis) 5 mg PO BID 01/04/24 01/04/24 hydrocodone 5 mg-acetaminophen 325 1 tab PO Q6H PRN pain 01/04/24 01/04/24 mg tablet metoprolol succinate 50 mg 50 mg PO DAILY 01/04/24 01/04/24 tablet,extended release 24 hr nitroglycerin 0.4 mg sublingual 0.4 mg sublingual DAILY PRN chest 01/04/24 01/04/24 tablet pain topiramate 100 mg tablet 100 mg PO BID 01/04/24 01/04/24 trospium 20 mg tablet 20 mg PO DAILY 01/04/24 01/04/24 Allergies Allergy/AdvReac Type Severity Reaction Status Date / Time No Known Drug Allergies Allergy Verified 06/11/23 13:50 Review of Systems ROS Narrative CONST: Denies activity change, weakness MS: +arthralgias, swelling.? Denies myalgias, gait problem SKIN: + bruising, wound. NEURO: Denies numbness, paresthesias, weakness PFSH PFSH Medical History Venous insufficiency of both lower extremities ?I87.2 - Venous insufficiency (chronic) (peripheral) (ICD-10) Chronic venous stasis dermatitis of both lower extremities ?I87.2 - Venous insufficiency (chronic) (peripheral) (ICD-10) Schatzki's ring ?K22.2 - Esophageal obstruction (ICD-10) Restless legs syndrome ?G25.81 - Restless legs syndrome (ICD-10) Back pain ?M54.9 - Dorsalgia, unspecified (ICD-10) Enlarged prostate ?N40.0 - Benign prostatic hyperplasia without lower urinary tract symptoms (ICD-10) History of depression ?Z86.59 - Personal history of other mental and behavioral disorders (ICD-10) Hypercholesteremia ?E78.00 - Pure hypercholesterolemia, unspecified (ICD-10) Hypertension ?I10 - Essential (primary) hypertension (ICD-10) Peripheral vascular disease ?I73.9 - Peripheral vascular disease, unspecified (ICD-10) Surgical History H/O vasectomy ?Z98.52 - Vasectomy status (ICD-10) History of total right knee replacement ?Z96.651 - Presence of right artificial knee joint (ICD-10) H/O skin graft ?Z94.5 - Skin transplant status (ICD-10) Social History Within the past year, how often did you have a drink containing alcohol: 2-4 times a month Within the past year, how many standard drinks containing alcohol did you have on a typical day: 1 or 2 Within the past year, how often did you have six or more drinks on one occasion: less than monthly Total score: 1 Score interpretation: A score less than 4 is consistent with normal alcohol consumption. 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 HENT: normocephalic, atraumatic. CV: 2+ palpable left DP pulse MS: Left lower extremity: Patient has a large area of ecchymosis/hematoma overly ing the anterior tib-fib. There is an area to the anterior lateral, mid aspect of the leg with punctate wound through which serosanguineous fluid is expressed. There is some mild, diffuse tenderness. 2+ palpable DP pulses present. Range of motion full dorsiflexion, plantarflexion. Sensory intact. NEURO: Sensory intact throughout and distal to the injury SKIN: +Ecchymosis, puncture wound. PSYCHIATRIC: normal mood, affect Constitutional Vital Signs, click to edit/add: Last Vital Signs Temp 98.2 F 01/04/24 15:54 Pulse 69 01/04/24 19:42 Resp 18 01/04/24 15:54 BP 116/69 01/04/24 19:42 Pulse Ox 96 01/04/24 19:42 O2 Del Method Room Air 01/04/24 15:54 Course Vital Signs Vital signs: Vital Signs Temperature 98.2 F 01/04/24 15:54 Pulse Rate 75 01/04/24 15:54 Respiratory Rate 18 01/04/24 15:54 Blood Pressure 131/82 01/04/24 15:54 Pulse Oximetry 94 L 01/04/24 15:54 Oxygen Delivery Method Room Air 01/04/24 15:54 Temperature 98.2 F 01/04/24 15:54 Pulse Rate 69 01/04/24 19:42 Respiratory Rate 18 01/04/24 15:54 Blood Pressure 116/69 01/04/24 19:42 Pulse Oximetry 96 01/04/24 19:42 Oxygen Delivery Method Room Air 01/04/24 15:54 MDM - Extremity (Nontraumatic) MDM Narrative Medical decision making narrative: 78-year-old male who presents to the emergency department with complaint of leg pain, swelling s/p fall. States mechanical, rolled off couch, landing on the leg. Has been having the symptoms since. States injury occurred about a week ago. On arrival, afebrile, vital signs are stable. On exam, nontoxic and well-appearing patient in no apparent distress. Left lower extremity does demonstrate swelling consistent with hematoma over the anterior aspect of the leg. There is some mild tenderness. There is a puncture wound through which serosanguineous fluid is expressed. Range of motion is full with dorsiflexion, plantarflexion due to the swelling. Neurovascular intact. With 2+ palpable dorsalis pedal pulses and no sensory deficits. Left tib-fib x-ray imaging, per radiologist reveals distal nondisplaced fracture. Ultrasound imaging, per radiologist reveals no acute findings. Location of fracture away from mortise. He does not have pain with ambulation. The leg was wrapped with an Toni wrap to treat the hematoma and to prevent further injury from the boot we placed. He ambulated well with the boot. He was advised of signs and symptoms of compartment syndrome that included increasing pain, numbness, tingling, discoloration of his toes. Was advised, if he started to experience some of the symptoms to loosen the Toni wrap. If symp toms continue, he is to present immediately to the emergency department. Disposition ? The patient was discharged. Plan: Patient will be discharged to home. Condition at time of disposition: stable ? Advised to follow up with ortho. Referral information placed on discharge paperwork. Advised to return for any worsening and/or development of new, concerning signs or symptoms PLEASE NOTE: Portions of the medical record may have been produced using electronic filling station attendant and may contain errors with respect to translation of words which may not have been identified prior to finalization of the chart. Lab Data Labs: Lab Results 01/04/24 Range/Units 16:15 WBC 9.9 (4.0-11.0) 10^3/uL RBC 3.95 L (4.70-6.10) 10^6/uL Hgb 12.5 L (14.0-18.0) g/dL Hct 39.2 L (42.0-54.0) % MCV 99.2 H (80.0-94.0) fL MCH 31.6 (25.9-34.0) pg MCHC 31.9 (29.9-35.2) g/dL RDW 13.6 (11.0-15.0) % Plt Count 181 (150-450) 10^3/uL MPV 10.7 (9.5-13.5) fL Neut % (Auto) 70.2 (43.0-75.0) % Lymph % (Auto) 15.3 L (20.5-60.0) % [place] % (Auto) 12.4 H (1.7-12.0) % Eos % (Auto) 1.4 (0.9-7.0) % Baso % (Auto) 0.3 (0.2-2.0) % Neut # (Auto) 7.0 H (1.4-6.5) 10^3/uL Lymph # (Auto) 1.5 (1.2-3.8) 10^3/uL [place] # (Auto) 1.2 H (0.3-0.8) 10^3/uL Eos # (Auto) 0.1 (0.0-0.7) 10^3/uL Baso # (Auto) 0.0 (0.0-0.1) 10^3/uL Abs Immat Gran (auto) 0.04 H (0.00-0.03) 10^3/uL Imm/Tot Granulo (auto) 0.4 (0.0-0.5) % Sodium 140 (136-145) mmol/L Potassium 4.0 (3.5-5.1) mmol/L Chloride 105 (98-107) mmol/L Carbon Dioxide 26.2 (21.0-32.0) mmol/L Anion Gap 12.8 BUN 37.0 H (7.0-18.0) mg/dL Creatinine 1.92 H (0.70-1.30) mg/dL Est GFR ( Amer) 41 L (>=60) Est GFR (Non-Af Amer) 34 L (>=60) BUN/Creatinine Ratio 19.3 Glucose 98 (74-106) mg/dL Calcium 8.5 (8.5-10.1) mg/dL Discharge Plan Discharge Chief Complaint: Extremity Problem, Nontraumatic Clinical Impression: Hematoma of left lower extremity Qualifiers: Encounter type: initial encounter Qualified Code(s): S80.12XA - Contusion of left lower leg, initial encounter Closed fracture of distal end of left fibula Qualifiers: Encounter type: initial encounter Fracture morphology: other fracture Qualified Code(s): S82.832A - Other fracture of upper and lower end of left fibula, initial encounter for closed fracture Patient Disposition: Home, Self-Care Time of Disposition Decision: 19:20 Condition: Good Mode of Transportation: Private Vehicle Prescriptions / Home Meds: No Action tramadol 50 mg tablet 100 mg PO Q6H PRN (Reason: pain) Rx Instructions: PER RETAIL FILL HX - LAST FILLED 05/2023 #240 FOR A 30 DAY SUPPLY celecoxib 200 mg capsule 200 mg PO BID Rx Instructions: takes at 229 and 2029 pravastatin 20 mg tablet 20 mg PO DAILY Rx Instructions: takes at 0 pregabalin 225 mg capsule 225 mg PO BEDTIME topiramate 200 mg tablet 100 mg PO BID Rx Instructions: 229 and 2029 trospium 60 mg capsule,extended release 24hr 60 mg PO DAILY Rx Instructions: must be taken on empty stomach at least 1 hour before a meal/food with water only amlodipine-benazepril [Lotrel] 5-20 mg capsule 1 cap PO DAILY Rx Instructions: takes at 0 torsemide 20 mg tablet 20 mg PO BID Rx Instructions: takes at 229 and 2029 citalopram [Celexa] 40 mg tablet 40 mg PO DAILY doxazosin [Cardura] 2 mg tablet 2 mg PO DAILY esomeprazole magnesium [Nexium] 40 mg capsule,delayed release(DR/EC) 40 mg PO DAILY C Complex 1,000 mg tablet extended release 1,000 mg PO DAILY ropinirole 3 mg tablet 3 mg PO BEDTIME alprazolam 0.5 mg tablet 0.5 mg PO TID Eliquis 5 mg tablet 5 mg PO BID hydrocodone-acetaminophen 5-325 mg tablet 1 tab PO Q6H PRN (Reason: pain) metoprolol succinate 50 mg tablet extended release 24 hr 50 mg PO DAILY nitroglycerin 0.4 mg tablet, sublingual 0.4 mg sublingual DAILY PRN (Reason: chest pain) topiramate 100 mg tablet 100 mg PO BID trospium 20 mg tablet 20 mg PO DAILY Instructions: Leg Fracture (ED), Compartment Syndrome (DC), Hematoma (ED) Stand Alone Forms: Portal Instructions Referrals: Juan A Pardo MD [Physician] - As soon as possible Discharge Date/Time: 01/04/24 19:47
[2024-01-04 16:26] LABS: Basophils Percent Auto 0.3 % (0.2-2.0); Eosinophils Absolute Auto 0.1 10^3/uL (0.0-0.7); Eosinophils Percent Auto 1.4 % (0.9-7.0); Hematocrit 39.2 % (42.0-54.0); Hemoglobin 12.5 g/dL (14.0-18.0); Immature Granulocytes Abs Auto 0.04 10^3/uL (0.00-0.03); Immature Granulocytes Pct Auto 0.4 % (0.0-0.5); Lymphocytes Absolute Auto 1.5 10^3/uL (1.2-3.8); Lymphocytes Percent Auto 15.3 % (20.5-60.0); Mean Corpuscular HGB Conc 31.9 g/dL (29.9-35.2); Mean Corpuscular Hemoglobin 31.6 pg (25.9-34.0); Mean Corpuscular Volume 99.2 fL (80.0-94.0); Mean Platelet Volume 10.7 fL (9.5-13.5); Monocytes Absolute Auto 1.2 10^3/uL (0.3-0.8); Monocytes Percent Auto 12.4 % (1.7-12.0); Neutrophils Percent Auto 70.2 % (43.0-75.0); Platelet Count 181 10^3/uL (150-450); Red Blood Count 3.95 10^6/uL (4.70-6.10); Red Cell Distribution Width 13.6 % (11.0-15.0); White Blood Count 9.9 10^3/uL (4.0-11.0)
[2024-01-04 16:32] LABS: Anion Gap 12.8; BUN Creatinine Ratio 19.3; Calcium 8.5 mg/dL (8.5-10.1); Carbon Dioxide 26.2 mmol/L (21.0-32.0); Chloride 105 mmol/L (98-107); Estimated GFR (African America 41 (>=60); Estimated GFR (Non-African Ame 34 (>=60); Glucose 98 mg/dL (74-106); Sodium 140 mmol/L (136-145)
[2024-01-04 18:13] VITALS: BP 154/78; PULSE 61; O2SAT 98
[2024-01-04 19:42] VITALS: BP 116/69; PULSE 69; O2SAT 96
== END 2024-01-04 19:47 | disposition home or self-care (01) ==
PROVIDERS: Physician Assistant; Emergency Provider Emergency Medicine; PCP Internal Medicine
DX: S82.832A Other fracture of upper and lower end of left fibula, initial encounter for closed fracture (principal); S80.12XA Contusion of left lower leg, initial encounter; Z79.01 Long term (current) use of anticoagulants; Z79.899 Other long term (current) drug therapy; I87.2 Venous insufficiency (chronic) (peripheral); G25.81 Restless legs syndrome; N40.0 Benign prostatic hyperplasia without lower urinary tract symptoms; E78.00 Pure hypercholesterolemia, unspecified; I73.9 Peripheral vascular disease, unspecified; Z98.52 Vasectomy status; Z96.651 Presence of right artificial knee joint; F17.210 Nicotine dependence, cigarettes, uncomplicated; W08.XXXA Fall from other furniture, initial encounter
CPT/HCPCS: 36415; 73590; 80048; 85025; 93971; 99285

== ENCOUNTER 2024-01-11 10:57 | Outpatient (OUT) | payer MEDICARE, SELFPAY ==
--- NOTE | 2024-01-11 | XR_ITS ---
The [address] [address] Patient Name: JOVI ETIENNE MRN: [id number] date: 1945 Sex: M Assigned Patient Location: Current Patient Location: Accession/Order Number: [id number] Exam Date: 01/11/2024 10:58 Report Date: 01/11/2024 12:14 At the request of: CRUZ ETIENNE Procedure: XR ankle LT min 3V PROCEDURE: XR ankle LT min 3V COMPARISON: None. HISTORY: LEFT ANKLE PAIN FINDINGS: BONES:No fracture, acute abnormality, or significant arthropathy. SOFT TISSUES:Moderate diffuse soft tissue swelling. Vascular calcifications EFFUSION:None visible. OTHER: Negative. XR/XR ankle LT min 3V IMPRESSION: No acute radiographic abnormality Electronically authenticated by: BROOKLYNN MCCOLLUM Date: 01/11/2024 12:14
--- OUTSIDE RECORDS SUMMARY | 2024-01-11 11:00 | XMS_ITS | CCD ---
Author Name Unknown Address [address] [place] [address] Organization [facility] Care Team Providers Care Food Counselor Name Role Phone DR SAEED BERGER Attending Unavailable DR SAEED BERGER Primary Care Unavailable DR SAEED BERGER Admitting Unavailable Saeed Berger MD Unavailable [phone] Saeed Berger MD Primary Care Provider [phone] SAEED BERGER Attending Unavailable SAEED BERGER Attending Unavailable Medications Current Medications Medication Drug Class(es) Dates Sig (Normalized) Sig (Original) acetaminophen 325 mg / HYDROcodone bitartrate 5 mg oral tablet (5 sources) Opioid Agonist Start: 12-16-2023 take 1 tablet by mouth every six hours for pain HYDROcodone-aceta minophen (Mclaughlin) 5-325 MG tablet Indications: Lumbar pain Take 1 tablet by mouth every 6 (six) hours if needed for severe pain 120 tablet 0 12/16/2023 Active Start: 11-17-2023 End: 12-14-2023 take 1 tablet by mouth every six hours for pain HYDROcodone-acetaminophen (Mclaughlin) 5-325 MG tablet Indications: Lumbar pain Take 1 tablet by mouth every 6 (six) hours if needed for severe pain 120 tablet 0 11/17/2023 12/14/2023 Discontinued (Reorder) ALPRAZolam 0.5 mg oral tablet (4 sources) Benzodiazepine Start: 11-04-2023 End: 02-02-2024 take 1 tablet by mouth three times daily as needed for anxiety ALPRAZolam (Xanax) 0.5 MG tablet Indications: Anxiety , Depression with anxiety Take 1 tablet (0.5 mg) by mouth 3 (three) times a day as needed for anxiety 90 tablet 1 11/04/2023 02/02/2024 Active amLODIPine 5 mg / benazepril hydrochloride 20 mg oral capsule (4 sources) Dihydropyridine Calcium Channel Pancho, Angiotensin Converting Enzyme Inhibitor Start: 08-10-2023 take 1 capsule by mouth once daily amLODIPine-benazepr il (Lotrel) 5-20 MG capsule Indications: Benign essential hypertension (CMS/HCC) TAKE 1 CAPSULE BY MOUTH EVERY DAY FOR 90 DAYS 90 capsule 3 08/10/2023 Active apixaban 5 mg oral tablet (4 sources) Factor Xa Inhibitor Start: 12-11-2023 End: [...] mg/ml / clotrimazole 10 mg/ml topical cream (4 sources) Azole Antifungal, Corticosteroid Start: 07-29-2023 clotrimazole-betame thasone (Lotrisone) cream APPLY TO AFFECTED AREA EVERY DAY 0 07/29/2023 Active celecoxib 200 mg oral capsule (3 sources) Nonsteroidal Anti-inflammatory Drug Start: 12-16-2023 take 1 capsule by mouth once celecoxib (CeleBREX) 200 MG capsule Indications: Generalized osteoarthritis Take 1 capsule (200 mg) by mouth every 12 (twelve) hours 200 capsule 3 12/16/2023 Active Start: 05-05-2023 End: 12-11-2023 take 1 capsule by mouth once celecoxib (CeleBREX) 200 MG capsule Indications: Generalized osteoarthritis Take 1 capsule (200 mg) by mouth every 12 (twelve) hours. 200 capsule 3 05/05/2023 12/11/2023 Discontinued citalopram 40 mg oral tablet (4 sources) Serotonin Reuptake Inhibitor Start: 11-10-2023 take 1 tablet by mouth once daily citalopram (CeleXA) 40 MG tablet Indications: Generalized anxiety disorder (CMS/HCC) TAKE 1 TABLET BY MOUTH EVERY DAY 100 tablet 3 11/10/2023 Active clobetasol propionate 0.5 mg/ml topical cream (4 sources) Corticosteroid clobetasol (Temovate) 0.05 % cream Apply topically 2 (two) times a day. 0 Active doxazosin 2 mg oral tablet (4 sources) alpha-Adrenergic Pancho Start: 11-06-2023 take 1 tablet by mouth once daily doxazosin (Cardura) 2 MG tablet Indications: Benign essential hypertension (CMS/HCC) TAKE 1 TABLET BY MOUTH EVERY DAY 90 tablet 4 11/06/2023 Active 24 hr metoprolol succinate 50 mg extended release oral tablet (4 sources) beta-Adrenergic Pancho Start: 12-11-2023 take 1 tablet by mouth every twenty-four hours in the morning metoprolol succinate XL (Toprol-XL) 50 MG 24 hr tablet Indications: Atrial fibrillation, unspecified type (CMS/HCC) Take 1 tablet (50 mg) by mouth in the morning. Do not crush or chew.. 30 tablet 11 12/11/2023 Active nitroglycerin 0.4 mg sublingual tablet (4 sources) Nitrate Vasodilator Start: 08-26-2023 End: 08-25-2024 nitroglycerin (Nitrostat) 0.4 MG SL tablet Indications: Stricture and stenosis of esophagus Place 1 tablet (0.4 mg) under the tongue every 5 (five) minutes if needed for chest pain. 90 tablet 5 08/26/2023 08/25/2024 Active pravastatin sodium 20 mg oral tablet (4 sources) HMG-CoA Reductase Inhibitor take 1 tablet by mouth in the morning pravastatin (Pravachol) 20 MG tablet Take 20 mg by mouth in the morning. 0 Active pregabalin 225 mg oral capsule (5 sources) Start: 12-16-2023 take 1 capsule by mouth at bedtime pregabalin (Lyrica) 225 MG capsule Indications: Other polyneuropathy Take 1 capsule (225 mg) by mouth at bedtime 90 capsule 0 12/16/2023 Active Start: 09-02-2023 End: 12-14-2023 take 1 capsule by mouth at bedtime pregabalin (Lyrica) 225 MG capsule Indications: Other polyneuropathy Take 1 capsule (225 mg) by mouth at bedtime. 90 capsule 0 09/02/2023 12/14/2023 Discontinued (Reorder) rOPINIRole 3 mg oral tablet (4 sources) Nonergot Dopamine Agonist Start: 10-14-2023 take 1 tablet by mouth once daily at bedtime rOPINIRole (Requip) 3 MG tablet Indications: Restless legs syndrome TAKE 1 TABLET BY MOUTH EVERY DAY AT BEDTIME FOR 90 DAYS 90 tablet 3 10/14/2023 Active topiramate 100 mg oral tablet (4 sources) Start: 08-07-2023 take 1 tablet by mouth twice daily topiramate (Topamax) 100 MG tablet Indications: Migraine without status migrainosus, not intractable, unspecified migraine type (CMS/HCC) TAKE 1 TABLET BY MOUTH TWICE A DAY FOR 90 DAYS 180 tablet 3 08/07/2023 Active torsemide 20 mg oral tablet (6 sources) Loop Diuretic Start: 12-11-2023 take 1 [...] (Reorder) trospium chloride 20 mg oral tablet (4 sources) Cholinergic Muscarinic Antagonist take 1 tablet by mouth at bedtime trospium (Sanctura) 20 MG tablet Take by mouth at bedtime. 0 Active Problems Active Problems Problem Classification Problem Date Documented Da te Episodic/Chronic Anxiety disorders (4 sources) Anxiety; Translations: [Anxiety disorder, unspecified] Onset: 3 06-16-2023 Chronic Cardiac dysrhythmias (2 sources) Atrial fibrillation; Translations: [Unspecified atrial fibrillation] 12-11-2023 Chronic Chronic obstructive pulmonary disease and bronchiectasis (4 sources) Chronic obstructive lung disease; Translations: [Chronic obstructive pulmonary disease, unspecified] Onset: 3 05-20-2023 Chronic Chronic ulcer of skin (4 sources) Non-pressure chronic ulcer of right ankle with unspecified severity; Translations: [Ulcer of ankle] Onset: 3 06-16-2023 Chronic Diabetes mellitus without complication (2 sources) Impaired fasting glycemia; Translations: [Impaired fasting glucose] 12-11-2023 Episodic Disorders of lipid metabolism (6 sources) Mixed hyperlipidemia; Translations: [Mixed hyperlipidemia] Onset: 3 12-11-2023 Chronic Esophageal disorders (8 sources) Gastroesophageal reflux disease; Translations: [Gastro-esophageal reflux disease without esophagitis] Onset: 3 05-20-2023 Chronic Essential hypertension (4 sources) Benign essential hypertension; Translations: [Essential (primary) hypertension] Onset: 3 05-20-2023 Chronic Hyperplasia of prostate (4 sources) Benign prostatic hyperplasia; Translations: [Benign prostatic hyperplasia without lower urinary tract symptoms] Onset: 3 05-20-2023 Chronic Miscellaneous mental health disorders (4 sources) Chronic insomnia; Translations: [Psychophysiologic insomnia] Onset: 3 05-20-2023 Chronic Mood disorders (4 sources) Depressive disorder; Translations: [Depressive disorder] Onset: 3 05-20-2023 Chronic Osteoarthritis (16 sources) Localized, primary osteoarthritis; Translations: [Unilateral primary osteoarthritis, unspecified knee] Onset: 5 12-11-2023 Chronic Other congenital anomalies (4 sources) Congenital accessory skin tag; Translations: [Other specified congenital malformations of skin] Onset: 3 06-16-2023 Chronic Other gastrointestinal disorders (4 sources) Chronic idiopathic constipation; Translations: [Chronic idiopathic constipation] Onset: 3 05-20-2023 Chronic Other gastrointestinal disorders (4 sources) Irritable bowel syndrome; Translations: [Irritable bowel syndrome without diarrhea] Onset: 3 05-20-2023 Chronic Other hereditary and degenerative nervous system conditions (4 sources) Restless legs; Translations: [Restless legs syndrome] Onset: 3 05-20-2023 Chronic Other hereditary and degenerative nervous system conditions (4 sources) System disorder of the nervous system; Translations: [Other specified extrapyramidal and movement disorders] Onset: 3 06-16-2023 Chronic Other hereditary and degenerative nervous system conditions (4 sources) Extrapyramidal movements; Translations: [Extrapyramidal and movement disorder, unspecified] Onset: 6 07-14-2023 Chronic Other nervous system disorders (4 sources) Polyneuropathy; Translations: [Polyneuropathy, unspecified] 12-11-2023 Chronic Other nervous system disorders (4 sources) Peripheral nerve disease ; Translations: [Polyneuropathy, unspecified] Onset: 3 05-20-2023 Chronic Other nutritional; endocrine; and metabolic disorders (4 sources) Obesity; Translations: [Obesity, unspecified] Onset: 3 06-16-2023 Chronic Other screening for suspected conditions (not mental disorders or infectious disease) (2 sources) Patient encounter status; Translations: [Encounter for screening for malignant neoplasm of respiratory organs] 12-11-2023 Episodic Spondylosis; intervertebral disc disorders; other back problems (8 sources) Low back pain; Translations: [Lumbar pain] Onset: 3 12-11-2023 Episodic Substance-related disorders (4 sources) Cigarette smoker ; Translations: [Nicotine dependence, cigarettes, uncomplicated] Onset: 3 05-20-2023 Chronic Past or Other Problems Problem Classification Problem Date Documented Date Episodic/Chronic Abdominal hernia (4 sources) Diaphragmatic hernia; Translations: [Diaphragmatic hernia without obstruction or gangrene] Onset: 05-20-2023 05-20-2023 Episodic Other acquired deformities (4 sources) Acquired spondylolisthesis; Translations: [Spondylolisthesis, site unspecified] Onset: 05-20-2023 05-20-2023 Episodic Other acquired deformities (4 sources) Spondylolysis; Translations: [Spondylolysis, lumbar region] Onset: 06-16-2023 06-16-2023 Episodic Other and unspecified benign neoplasm (4 sources) B-K mole (nevus) syndrome; Translations: [Other benign neoplasm of skin, unspecified] Onset: 06-16-2023 06-16-2023 Episodic Other diseases of veins and lymphatics (6 sources) Peripheral venous insufficiency; Translations: [Venous insufficiency (chronic) (peripheral)] Onset: 05-20-2023 12-11-2023 Episodic Results Test Name Value Interpretation Reference Range Facil ity Laboratory - Hematology and Cell countson 12-11-2023 HbA1c (Bld) [Mass fraction] 5.3 % [facility] No Panel Informationon 12-11 Interpretation and review of laboratory results Normal [facility]car e Vital Signs Date Time Vital Sign Value Performing Clinician Faci lity 12-11-2023 10:35-0500 Body mass index (BMI) [Ratio] 35.87 kg/m2 Saeed Berger MD Work Phone: [facility] 12-11-2023 10:35-0500 Body weight 103.87 kg Saeed Berger MD Work Phone: [facility] 12-11-2023 10:35-0500 Heart rate 50 /min Saeed Berger MD Work Phone: [facility] 12-11-2023 10:35-0500 SaO2% (BldA) [Mass fraction] 96 % Saeed Berger MD Work Phone: [facility] Healthcare Encounters Encounter Date Encounter Type Care Provider Facility Start: 12-25-2023 End: 12-25-2023 ambulatory SAEED BERGER Not Available Start: 12-15-2023 Refill Saeed Berger MD Work Phone: [facility] Comment on above: Lumbar pain; Generalized osteoarthritis; Other polyneuropathy Start: 12-14-2023 Refill Saeed Berger MD Work Phone: [facility] Comment on above: Generalized osteoart hritis; Lumbar pain; Other polyneuropathy Start: 12-11-2023 End: 12-11-2023 ambulatory SAEED BERGER Not Available Start: 12-11-2023 End: 12-11-2023 Office outpatient visit 40 minutes Saeed Berger MD Work Phone: [facility] Comment on above: Atrial fibrillation, unspecified type [...] Treatment Date Care Activity Detail Author Start: 12-25-2023 End: 12-25-2023 Patient encounter procedure 12/25/2023 10:30 AM EST Office Visit [facility] [address] [facility] [address] [place] [id number] Saeed Berger MD [address] [facility] [address] [place] [address] [facility] Start: 12-11-2023 End: 12-11-2024 Comprehensive metabolic 2000 panel - Serum or Plasma Comprehensive metabolic panel Lab Routine Atrial fibrillation, unspecified type (CMS/HCC) Expected: 12/11/2023 (Approximate), Expires: 12/11/2024 [facility] Comment on above: Expected: 12/11/2023 (Approximate), Expires: 12/11/2024 Start: 12-11-2023 End: 12-11-2024 CT Chest for screening WO contrast CT lung screening low dose Imaging Routine Encounter for screening for lung cancer Expected: 12/11/2023, Expires: 12/11/2024 [facility] Work Phone: Comment on above: Expected: 12/11/2023 , Expires: 12/11/2024 Start: 12-11-2023 End: 12-11-2025 Echocardiogram 2D complete Echocardiogram 2D complete Echocardiography Routine Atrial fibrillation, unspecified type (CMS/HCC) Expected: 12/11/2023 (Approximate), Expires: 12/11/2025 [facility] Comment on above: Expected: 12/11/2023 (Approximate), Expires: 12/11/2025 Start: 12-11-2023 End: 12-11-2024 Lipid 1996 panel - Serum or Plasma Lipid panel Lab Routine Mixed hyperlipidemia (CMS/HCC) Expected: 12/11/2023 (Approximate), Expires: 12/11/2024 [facility] Comment on above: Expected: 12/11/2023 (Approximate), Expires: 12/11/2024 Start: 12-11-2023 End: 12-11-2024 TSH W/REFLEX TO FT4 TSH W/REFLEX TO FT4 Lab Routine Atrial fibrillation, unspecified type (CMS/HCC) Expected: 12/11/2023 (Approximate), Expires: 12/11/2024 [facility] Comment on above: Expected: 12/11/2023 (Approximate), Expires: 12/11/2024 Start: 1945 Medicare Annual Well ness (AWV) Medicare Annual Wellness (AWV) [facility] CBC W Auto Different ial panel - Blood CBC and differential Lab Routine Atrial fibrillation, unspecified type ([facility]) Ordered: 12/11/2023 [facility] Comment on above: Ordered: 12/11/2023 Immunizations Immunization Date Immunization Notes Care Provider Fa cili 09-08-2023 Influenza, Seasonal, Quadrivalent, Adjuvanted Saeed Berger MD Work Phone: [facility] 09-08-2023 RSV, recombinant, pr otein subunit RSVpreF, adjuvant reconstitu, 120mcg/0.5mL, PF (Arexvy) Saeed Berger MD Work Phone: [facility] 08-14-2022 Influenza, High-dose Seasonal, Quadrivalent, Preservative Free Saeed Berger MD Work Phone: [facility] 08-14-2022 Moderna SARS-CoV-2 50mcg/0.5mL Booster Saeed Berger MD Work Phone: [facility] 11-09-2021 Influenza, Seasonal, Quadrivalent, Adjuvanted Saeed Berger MD Work Phone: [facility] 05-09-2021 zoster vaccine recombinant Viviane Berger MD Work Phone: [facility] 11-19-2020 zoster vaccine recombinant Viviane Berger MD Work Phone: [facility] 09-05-2020 pneumococcal polysaccharide vaccine, 23 valent Saeed Berger MD Work Phone: [facility] 08-06-2020 influenza, high dose seasonal, preservative-free Saeed Berger MD Work Phone: [facility] 10-24-2019 influenza, high dose seasonal, preservative-free Saeed Berger MD Work Phone: [facility] 05-09-2019 pneumococcal conjuga te vaccine, 13 valent Saeed Berger MD Work Phone: [facility] 09-22-2018 influenza, high dose seasonal, preservative-free Saeed Berger MD Work Phone: [facility] 03-15-2018 pneumococcal conjuga te vaccine, 13 valent Saeed Berger MD Work Phone: [facility] 11-27-2017 seasonal influenza, intradermal, preservative free Saeed Berger MD Work Phone: [facility] 01-10-2015 zoster vaccine, live Saeed Berger MD Work Phone: [facility] 12-13-2014 tetanus toxoid, redu katie diphtheria toxoid, and acellular pertussis vaccine, adsorbed Saeed Berger MD Work Phone: [facility] 12-04-2014 zoster vaccine, live Saeed Berger MD Work Phone: [facility] 08-09-2014 influenza virus vacc ine, split virus (incl. purified surface antigen) Saeed Berger MD Work Phone: [facility] 08-04-2014 pneumococcal polysaccharide vaccine, 23 valent Saeed Berger MD Work Phone: [facility] 07-11-2013 seasonal influenza, intradermal, preservative free Saeed Berger MD Work Phone: [facility] 09-15-2009 novel influenza-H1N1 -09, preservative-free, injectable Saeed Berger MD Work Phone: [facility] Payers Date Payer Category Payer Medicare [employer] MEDICARE A DVANTAGE A[employer] MEDICARE REPLACEMENT [id number] 2021-Present [address] [place] [address] [id number] 2021 Medicare [id number] 1958 Self-pay 1945 Unknown [id number] 1945 Unknown [id number] 1945 Unknown [id number] Social History Date Type Detail Facility Start: 09-03-2023 [facility] History of tobacco use Cigarette Smoker [facility] Start: 09-03-2023 Tobacco use and exposure Smokeless t obacco non-user [facility] Start: 12-11-2023 Alcohol intake Current drinke r of alcohol (finding) [facility] Start: 12-11-2023 Alcohol intake [facility] Start: 12-11-2023 Tobacco use panel [facility] Start: 07-14-2023 Alcohol Comment Caffeine intake: cof fee [facility] Start: 1945 Sex Assigned At Not on file [facility] Telephone encounter Note 12-16-2023 Telephone Encounter - Saeed Berger MD - 12/16/2023 1:23 PM EST Note Date & Type Note Facility 12-16-2023 Telephone encount er Note Done in other encounter. [facility] Note 12-16-2023 Telephone Encounter - Saeed Berger MD - 12/16/2023 1:23 PM EST Note Date & Type Note Facility 12-16-2023 Miscellaneous Notes Formattin g of this note might be different from the original. Done in other encounter. documented in this encounter [facility] Telephone encounter Note 12-16-2023 Telephone Encounter - Saeed Berger MD - 12/16/2023 1:20 PM EST Note Date & Type Note Facility 12-16-2023 Telephone encount er Note Sent. [facility] Note 12-16-2023 Telephone Encounter - Saeed Berger MD - 12/16/2023 1:20 PM EST Note Date & Type Note Facility 12-16-2023 Miscellaneous Notes Formattin g of this note might be different from the original. Sent. documented in this encounter [facility] History of Present illness Narrative 12-11-2023 [...] MOUTH EVERY DAY 90 tablet 4 HYDROcodone-acetaminophen (Mclaughlin) 5-325 MG tablet Take 1 tablet by [...] apparent by direct observation Three Word Registration: Gee Chi, Finger Clock Drawing: Normal Clock - 2 Three Word Recall: All 3 words correct - 3 Total Score (0-5 Points): 5 Pain Assessment Pain Score: 5 - Moderate pain Advance Care Planning Do you have a living will?: No Do you have a medical power of assistant district attorney?: No Objective : Pulse 50 Wt [...] December 11, 2023 documented in this encounter [facility] Evaluation note Note Date & Type Note Facility Evaluation note Diagnosis Atrial fibrillation, unspecified type (CMS/HCC)- Primary Chronic venous insufficiency Unspecified venous (peripheral) insufficiency Lumbar pain Lumbago Peripheral polyneuropathy Primary localized osteoarthrosis of lower leg, unspecified laterality Encounter for screening for lung cancer IFG (impaired fasting glucose) Mixed hyperlipidemia (CMS/HCC) Mixed hyperlipidemia documented in this encounter [facility] Evaluation note Note Date & Type Note Facility Evaluation note Diagnosis Generalized osteoarthritis Generalized osteoarthrosis, involving multiple sites Lumbar pain Lumbago Other polyneuropathy documented in this encounter [facility] Evaluation note Note Date & Type Note Facility Evaluation note Diagnosis Lumbar pain Lumbago Generalized osteoarthritis Generalized osteoarthrosis, involving multiple sites Other polyneuropathy documented in this encounter [facility] Summary Purpose Family History No Family History Records FoundNo Family History Records Found Advance Directives No Advanced Directives Records FoundNo Advanced Directives Records Found Reason for Referral Specialty Diagnoses / Procedures Referred By Contac t Referred To Contact Radiology Diagnoses Atrial fibrillation, unspecified type (CMS/HCC) Procedures Echocardiogram 2D complete Saeed Berger MD [address] [address] Referral ID Status Reason Start Date Expiration Date Visits Requested Visits Authorized [id number] Incomplete Perform Procedure 12/11/2023 06/08/2024 1 1 Specialty Diagnoses / Procedures Referred By Contac t Referred To Contact Cardiology Diagnoses Atrial fibrillation, unspecified type (CMS/HCC) Procedures CO OFFICE/OUTPATIENT [facility] 60 MINUTES Saeed Berger MD [address] [facility] [address] [place] [address] Rebecca Norman MD [facility] [place] [address] Referral ID Status Reason Start Date Expiration Date Visits Requested Visits Authorized [id number] Pending Review Specialty Services Required 12/11/2023 06/08/2024 1 1 Specialty Diagnoses / Procedures Referred By Contac t Referred To Contact Diagnoses Encounter for screening for lung cancer Procedures CT lung screening low dose Saeed Berger MD [address] [address] [facility] [employer] [address] [place] [address] Phone: [phone] Referral ID Status Reason Start Date Expiration Date V isits Requested Visits Authorized [id number] Pending Review 12/11/2023 06/08/2024 1 1 Specialty Diagnoses / Procedures Referred By Contac t Referred To Contact Diagnoses Other polyneuropathy Saeed Berger MD [address] [address] Referral ID Status Reason Start Date Expiration Date V isits Requested Visits Authorized [id number] Pending Review 1 1 Additional Source Comments (unrecognized sect ion and content) No Status Records FoundNo Status Records Found INFORMATION SOURCE (unrecogn ized section and content) DATE CREATED AUTHOR 12/03/2022 [facility] DATE CREATED AUTHOR AUTHOR'S ORGANIZ ATION 12/27/2023 [facility] EPIC Reason for Visit (unrecogniz ed section and content) Reason Comments Medicare Annual Wellness Visit Subsequen t Reason Onset Date Comments Med Refill 12/14/2023 Refills needed f or Celebrex 200mg, Hydrocodone 5-325mg, Lyrica 225mg and send to [facility] Reason Onset Date Comments Med Refill 12/15/2023 celecoxib (CeleB YVONNE) 200 MG capsuleHYDROcodone- acetaminophen (Mclaughlin) 5-325 MG tablet pregabalin (Lyrica) 225 MG capsule To [facility] [place] Care Teams (unrecognized sec tion and content) Food Counselor Relationship Specialty Start Date End Date Saeed Berger MD [address] [address] PCP - [employer] 11/09/20 Saeed Berger MD [address] [facility] [address] [place] [address] PCP - General Internal Medicine 03/17/23 Food Counselor Relationship Specialty Start Date End Date Saeed Berger MD [address] [facility] [address] [place] [address] [facility] 11/09/20 Saeed Berger MD [address] [facility] [address] [place] [address] PCP - General Internal Medicine 03/17/23 Food Counselor Relationship Specialty Start Date End Date Saeed Berger MD [address] [facility] [address] [place] [address] [facility] 11/09/20 Saeed Berger MD [address] [facility] [address] [place] [address] PCP - General Internal Medicine 03/17/23 FOR [...] BE BASED ON THE PRIMARY CLINICAL RECORDS. [facility]. provides no warranty or guarantee of the accuracy or completeness of information in this document.
== END 2024-01-11 10:58 | disposition home or self-care (01) ==
LOC: EC 10:57
PROVIDERS: PCP Internal Medicine; Visit Provider Orthopaedic Surgery
DX: M25.572 Pain in left ankle and joints of left foot (principal)
CPT/HCPCS: 73610

== ENCOUNTER 2024-05-26 15:50 | Outpatient (OUT) | payer MEDICARE, SELFPAY | END 2024-05-26 15:51 | disposition home or self-care (01) | LOC: WC 15:50 | PROVIDERS: PCP Internal Medicine; Visit Provider Physician Assistant | DX: S81.802A Unspecified open wound, left lower leg, initial encounter (principal); S81.801A Unspecified open wound, right lower leg, initial encounter | CPT/HCPCS: 11042 ==

== ENCOUNTER 2024-06-06 14:12 | Outpatient (OUT) | payer MEDICARE, SELFPAY | END 2024-06-06 14:13 | disposition home or self-care (01) | LOC: WC 14:12 | PROVIDERS: PCP Internal Medicine; Visit Provider Physician Assistant | DX: S81.802A Unspecified open wound, left lower leg, initial encounter (principal); S81.801A Unspecified open wound, right lower leg, initial encounter | CPT/HCPCS: G0463 ==

== ENCOUNTER 2024-06-24 11:39 | Outpatient (OUT) | payer MEDICARE, SELFPAY | END 2024-06-24 11:40 | disposition home or self-care (01) | LOC: WC 11:40 | PROVIDERS: PCP Internal Medicine; Visit Provider Podiatrist Foot & Ankle Surgery | DX: L84 Corns and callosities (principal); L60.0 Ingrowing nail; L98.9 Disorder of the skin and subcutaneous tissue, unspecified; I87.313 Chronic venous hypertension (idiopathic) with ulcer of bilateral lower extremity; L97.822 Non-pressure chronic ulcer of other part of left lower leg with fat layer exposed; L97.812 Non-pressure chronic ulcer of other part of right lower leg with fat layer exposed | CPT/HCPCS: A6213; G0463 ==

== ENCOUNTER 2024-07-12 14:20 | Outpatient (OUT) | payer MEDICARE, SELFPAY | END 2024-07-12 14:21 | disposition home or self-care (01) | LOC: WC 14:20 | PROVIDERS: PCP Internal Medicine; Visit Provider Physician Assistant | DX: I87.311 Chronic venous hypertension (idiopathic) with ulcer of right lower extremity (principal); L97.812 Non-pressure chronic ulcer of other part of right lower leg with fat layer exposed | CPT/HCPCS: 29580 ==

== ENCOUNTER 2024-07-19 15:19 | Outpatient (OUT) | payer MEDICARE, SELFPAY | END 2024-07-19 15:20 | disposition home or self-care (01) | LOC: WC 15:19 | PROVIDERS: PCP Internal Medicine; Visit Provider Physician Assistant | DX: I87.313 Chronic venous hypertension (idiopathic) with ulcer of bilateral lower extremity (principal); L97.822 Non-pressure chronic ulcer of other part of left lower leg with fat layer exposed; L97.812 Non-pressure chronic ulcer of other part of right lower leg with fat layer exposed | CPT/HCPCS: G0463 ==

== ENCOUNTER 2024-07-22 10:50 | Outpatient (OUT) | payer MEDICARE, SELFPAY | END 2024-07-22 10:51 | disposition home or self-care (01) | LOC: WC 10:50 | PROVIDERS: PCP Internal Medicine; Visit Provider Physician Assistant | DX: I87.313 Chronic venous hypertension (idiopathic) with ulcer of bilateral lower extremity (principal); L97.822 Non-pressure chronic ulcer of other part of left lower leg with fat layer exposed; L97.812 Non-pressure chronic ulcer of other part of right lower leg with fat layer exposed | CPT/HCPCS: A6213; G0463 ==

== ENCOUNTER 2024-07-29 12:21 | Outpatient (OUT) | payer MEDICARE, SELFPAY ==
--- OUTSIDE RECORDS SUMMARY | 2024-07-29 12:26 | XMS_ITS | CCD ---
Author Organization [facility] Care Team Providers Care Cloth Winder Machine Operator Name Role Phone DR SAEED BERGER Attending DR SAEED Vazquez Primary Care Unavailable DR SAEED BERGER Admitting Saeed Vazquez MD Unavailable Saeed Berger MD Primary Care Provider HERB ARROYO Attending SAEED Vazquez Attending SAEED Vazquez Attending SAEED Vazquez Attending SAEED Vazquez Attending Unavailable Medications Current Medications Medication Drug Class(es) Dates Sig (Normalized) Sig (Original) acetaminophen 325 mg / HYDROcodone bitartrate 5 mg oral tablet (5 sources) Opioid Agonist Start: 12-16-2023 take 1 tablet by mouth every six hours for pain HYDROcodone-aceta minophen (Eccles) 5-325 MG tablet Indications: Lumbar pain Take 1 tablet by mouth every 6 (six) hours if needed for severe pain 120 tablet 0 12/16/2023 Active Start: 11-17-2023 End: 12-14-2023 take 1 tablet by mouth every six hours for pain HYDROcodone-acetaminophen (Eccles) 5-325 MG tablet Indications: Lumbar pain Take [...] unspecified] Onset: 3 06-16-2023 Chronic Cardiac dysrhythmias (4 sources) Atrial fibrillation; Translations: [Unspecified atrial fibrillation] Onset: 4 12-11-2023 Chronic Chronic obstructive pulmonary disease and [...] Results Test Name Value Interpretation Reference Range [facility] ity Office Visiton 02-02-2024 Follow-up visit [id number] Jovi Etienne 1945 M Date Provider Department Center 02/02/2024 Lawson-DINAHERB ALEXA [facility] Family History Problem Relation Age of Onset Other Mother Family Status - Relation Status Age at Mother Level of Service:51333 [place] OFFICE/OUTPATIENT NEW MODERATE MDM 45 MINUTES Normal [facility] Laboratory - Hematology and Cell countson 12-11-2023 HbA1c (Bld) [Mass fraction] 5.3 % [facility] No Panel Informationon 12-11 Interpretation and review of laboratory results Normal [facility] Vital Signs Date Time Vital Sign Value Performing Clinician Faci lity 12-11-2023 10:35-0500 Body mass index (BMI) [Ratio] 35.87 kg/m2 Saeed Berger MD Work Phone: [facility] 12-11-2023 10:35-0500 Body weight 103.87 kg Saeed Berger MD Work Phone: [facility] 12-11-2023 10:35-0500 Heart rate 50 /min Saeed Berger MD Work Phone: [facility] 12-11-2023 10:35-0500 SaO2% (BldA) [Mass fraction] 96 % Saeed Berger MD Work Phone: [facility] Encounters Encounter Date Encounter Type Care Provider Facility Start: 06-15-2024 End: 06-15-2024 ambulatory SAEED BERGER Not Available Start: 02-17-2024 End: 02-17-2024 ambulatory SAEED BERGER Not Available Start: 02-02-2024 End: 02-02-2024 ambulatory HERB ARROYO [facility] Start: 12-25-2023 End: 12-25-2023 ambulatory SAEED BERGER Not Available Start: 12-15-2023 Refill Saeed Berger MD Work Phone: [facility] Comment on above: Lumbar pain; Generalized osteoarthritis; Other polyneuropathy Start: 12-14-2023 Refill Saeed Berger MD Work Phone: [facility] Comment on above: Generalized osteoart hritis; Lumbar pain; Other polyneuropathy Start: 12-11-2023 End: 12-11-2023 Office outpatient visit 40 minutes Saeed Berger MD Work Phone: [facility] Comment on above: Atrial fibrillation, unspecified type (CMS/HCC) (Primary Dx); Chronic venous insufficiency; Lumbar pain; Peripheral polyneuropathy; Primary localized osteoarthrosis of lower leg, unspecified laterality; Encounter for screening for lung cancer; IFG (impaired fasting glucose); Mixed hyperlipidemia (CMS/HCC) Start: 12-11-2023 End: 12-11-2023 ambulatory SAEED BERGER Not Available Start: 11-28-[address] SAEED BERGER Facilit y:H1 Procedures Date Procedure Procedure Detail Performing Clinician Start: 12-11-2023 Hemoglobin glycosyla jagdeep a1c Saeed Berger MD Work Phone: Plan of Treatment Date Care Activity Detail Author Start: 12-25-2023 End: 12-25-2023 Patient encounter procedure 12/25/2023 10:30 AM EST Office Visit [facility] [address] [facility] [address] [place] [id number] Saeed Berger MD 112 [facility] [address] [place] [address] [facility] Start: 12-11-2023 End: 12-11-2024 Comprehensive metabolic 2000 panel - Serum or Plasma Comprehensive metabolic panel Lab Routine Atrial fibrillation, unspecified type (CMS/HCC) Expected: 12/11/2023 (Approximate), Expires: 12/11/2024 [facility] Comment on above: Expected: 12/11/2023 (Approximate), Expires: 12/11/2024 Start: 12-11-2023 End: 12-11-2024 CT Chest for screening WO contrast CT lung screening low dose Imaging Routine Encounter for screening for lung cancer Expected: 12/11/2023, Expires: 12/11/2024 [facility] Work Phone: Comment on above: Expected: 12/11/2023 , Expires: 12/11/2024 Start: 12-11-2023 End: 12-11-2025 Echocardiogram 2D complete Echocardiogram 2D complete Echocardiography Routine Atrial fibrillation, unspecified type (CMS/HCC) Expected: 12/11/2023 (Approximate), Expires: 12/11/2025 [facility] Comment on above: Expected: 12/11/2023 (Approximate), Expires: 12/11/2025 Start: 12-11-2023 End: 12-11-2024 Lipid 1996 panel - Serum or Plasma Lipid panel Lab Routine Mixed hyperlipidemia ([facility]/HCC) Expected: 12/11/2023 (Approximate), Expires: 12/11/2024 [facility] Comment on above: Expected: 12/11/2023 (Approximate), Expires: 12/11/2024 Start: 12-11-2023 End: 12-11-2024 TSH W/REFLEX TO FT4 TSH W/REFLEX TO FT4 Lab Routine Atrial fibrillation, unspecified type ([facility]/HCC) Expected: 12/11/2023 (Approximate), Expires: 12/11/2024 [facility] Comment on above: Expected: 12/11/2023 (Approximate), Expires: 12/11/2024 Start: 1945 Medicare Annual Well ness (AWV) Medicare Annual Wellness (AWV) [facility] CBC W Auto Different ial panel - Blood CBC and differential Lab Routine Atrial fibrillation, unspecified type ([facility]/HCC) Ordered: 12/11/2023 [facility] Comment on above: Ordered: 12/11/2023 Immunizations Immunization Date Immunization Notes Care Provider [facility] 09-08-2023 Influenza, Seasonal, Quadrivalent, Adjuvanted Saeed Berger MD Work Phone: [facility] 09-08-2023 RSV, recombinant, pr otein subunit RSVpreF, adjuvant reconstitu, 120mcg/0.5mL, PF (Arexvy) Saeed Berger MD Work Phone: [facility] 08-14-2022 Influenza, High-dose Seasonal, Quadrivalent, Preservative Free Saeed Berger MD Work Phone: [facility] 08-14-2022 Moderna SARS-CoV-2 50mcg/0.5mL Booster Saeed Berger MD Work Phone: [facility] 11-09-2021 Influenza, Seasonal, Quadrivalent, Adjuvanted Saeed Berger MD Work Phone: [facility] 05-09-2021 zoster vaccine recombinant Viviane Berger MD Work Phone: [facility] 11-19-2020 zoster vaccine recombinant Viviane Berger MD Work Phone: [facility] 09-05-2020 pneumococcal polysaccharide vaccine, 23 valchristofer Berger MD Work Phone: [facility] 08-06-2020 influenza, high dose seasonal, preservative-free Saeed Berger MD Work Phone: [facility] 10-24-2019 influenza, high dose seasonal, preservative-free Saeed Berger MD Work Phone: [facility] 05-09-2019 pneumococcal conjuga te vaccine, 13 valent Saeed Berger MD Work Phone: [facility] 09-22-2018 influenza, high dose seasonal, preservative-free Saeed Berger MD Work Phone: [facility] 03-15-2018 pneumococcal conjuga te vaccine, 13 valchristofer Berger MD Work Phone: [facility] 11-27-2017 seasonal influenza, intradermal, preservative free Saeed Berger MD Work Phone: [facility] 01-10-2015 zoster vaccine, live Saeed Berger MD Work Phone: [facility] 12-13-2014 tetanus toxoid, redu katie diphtheria toxoid, and acellular pertussis vaccine, adsorbed Saeed Berger MD Work Phone: [facility] 12-04-2014 zoster vaccine, live Saeed Berger MD Work Phone: [facility] 08-09-2014 influenza virus vacc ine, split virus (incl. purified surface antigen) Saeed Berger MD Work Phone: [facility] 08-04-2014 pneumococcal polysaccharide vaccine, 23 valchristofer Berger MD Work Phone: [facility] 07-11-2013 seasonal influenza, intradermal, preservative free Saeed Berger MD Work Phone: [facility] 09-15-2009 novel influenza-H1N1 -09, preservative-free, injectable Saeed Berger MD Work Phone: [facility] Payers Date Payer Category Payer Medicare AETNA MEDICARE A DVANTAGE AETNA MEDICARE REPLACEMENT [id number] 2021-Present [address] [place] [address] [id number] 2021 Medicare [id number] 1958 Self-pay 1945 Unknown [id number] 1945 Unknown [id number] 1945 Unknown [id number] 1945 Unknown [id number] 1945 Unknown [id number] Social History Date Type Detail Facility Start: [facility]-03-[facility] History of tobacco use Cigarette Smoker [facility] Start: 09-03-2023 Tobacco use and exposure Smokeless t obacco non-user [facility] Start: 12-11-2023 Alcohol intake Current drinke r of alcohol (finding) [facility] Start: 12-11-2023 Alcohol intake [facility] Start: 12-11-2023 Tobacco use panel [facility] Start: 07-14-2023 Alcohol Comment Caffeine intake: cof fee [facility] Start: 1945 Sex Assigned At Not on file [facility] Progress note 02-02-2024 Note Date & Type Note Facility 02-02-2024 Note [facility] Consult Note Reason for visit: Atrial fibrillation HPI: Jovi Etienne is a 78 y.o. year old with past medical history of Hyperlipidemia, hypertension was referred from Dr. Berger for afib, which was new for him about a month or so ago. He was started on Eliquis and metoprolol. Smokes 1/2-1 PPD. Says he has GALEN but does not use a machine because he sleeps in a recliner. Denies chest pain and bleeding on Eliquis. Had routine labs in Dec 2023 also. patient states that he was at Dr. Shanks's office for a routine checkup and EKG was done which revealed A-fib. today he is noted to be in sinus rhythm and he states that he does not see any difference as to when he was in A-fib converted to sinus. he is a chronic smoker and has underlying COPD features. EKG 02/02/24 Srwith 1st degree AVB 06/19/2023 sinus rhythm with first-degree AV block and PACs 01/31/2021 sinus rhythm with evidence of incomplete right bundle branch block with poor R wave progression PMH: Past Medical History: Diagnosis Date Abnormal ECG Arrhythmia Atrial fibrillation (CMS/HCC) COPD (chronic obstructive pulmonary disease) (CMS/HCC) Hyperlipidemia Hypertension Sleep apnea PSH: Past Surgical History: Procedure Laterality Date REPLACEMENT TOTAL KNEE ONCOLOGIC SH: Social Determinants of Health Tobacco Use: High Risk (02/02/2024) Patient History Smoking Tobacco Use: Every Day Smokeless Tobacco Use: Never Passive Exposure: Not on file Alcohol Use: Not on file Financial Resource Strain: Not on file Food Insecurity: Not on file Transportation Needs: Not on file Physical Activity: Not on file Stress: Not on file Social Connections: Not on file Intimate Partner Violence: Unknown (12/31/2023) [facility] Fear of Current or Ex-Partner: Not on file Emotionally Abused: Not on file Physically Abused: Not on file Sexually Abused: Not on file Physically or Sexually Abused: Not on file Depression: Not on file Housing Stability: Not on file Utilities: Not on file Allergies: No Known Allergies Weight: 108kg Visit Vitals BP 123/65 (BP Location: Left arm, Patient Position: Sitting) Pulse 62 Ht 1.727 m (5' 8 ) Wt 108 kg (237 lb) SpO2 94% BMI 36.04 kg/m??? Smoking Status Every Day BSA 2.28 m??? Meds: Current Outpatient Medications on File Prior to Visit Medication Sig Dispense Refill amLODIPine-benazepriL (Lotrel) 5-20 mg capsule Take by mouth in the morning. celecoxib (CeleBREX) 200 mg capsule TAKE 1 CAPSULE BY MOUTH EVERY 12 HOURS citalopram (CeleXA) 40 mg tablet Take 40 mg by mouth in the morning. Eliquis 5 mg tablet TAKE 1 TABLET (5 MG) BY MOUTH IN THE MORNING AND BEFORE BEDTIME HYDROcodone-acetaminophen (Eccles) 5-325 mg tablet TAKE 1 TABLET BY MOUTH EVERY 6 HOURS NEEDED FOR SEVERE PAIN metoprolol succinate XL (Toprol-XL) 50 mg 24 hr tablet TAKE 1 TABLET (50 MG) BY MOUTH IN THE MORNING DO NOT CRUSH OR CHEW nitroglycerin (Nitrostat) 0.[address] 1 TABLET UNDER TONGUE EVERY 5 MINS, UP TO 3 DOSES NEEDED FOR CHEST PAIN pravastatin (Pravachol) 20 mg tablet TAKE 1 TABLET BY MOUTH EVERY DAY IN THE EVENING FOR 100 DAYS pregabalin (Lyrica) 225 mg capsule Take 225 mg by mouth. rOPINIRole (Requip) 3 mg tablet Take 3 mg by mouth at bedtime. topiramate (Topamax) 100 mg tablet Take 100 mg by mouth in the morning and at bedtime. torsemide (Demadex) 20 mg tablet Take 20 mg by mouth 2 times daily. trospium (Sanctura) 20 mg tablet TAKE 1 TABLET BY MOUTH ONCE A DAY AT BEDTIME ON AN EMPTY STOMACH No current facility-administered medications on file prior to visit. ROS: Review of Systems Cardiovascular: Positive for dyspnea on exertion and leg swelling. Respiratory: Positive for cough, shortness of breath, sleep disturbances due to breathing and wheezing. All other systems reviewed and are negative. Physical Exam: Constitutional General Appearance: well-nourished, well-developed, appears stated age Level of Distress: comfortable Psychiatric Mental Status: alert, normal affect Orientation: oriented to time, place, and person Insight: good judgement Eyes Lids and Conjunctivae: non-injected, no xanthelasma ENMT Ears: no lesions on external ear Nose: no lesions on external nose Oropharynx: no cyanosis, no pallor Neck Neck: supple, trachea midline Carotid Arteries: bilateral normal upstroke, no bruits Jugular Veins: normal jugular venous pressure Thyroid: not enlarged Lungs Respiratory Effort: unlabored Chest Exam: normal curvature, no thoracic deformity Auscultation: wheezing+, no rales, rhonchi + Cardiovascular Rate And Rhythm: regular Heart Sounds: normal S1, normal s2, no gallop Systolic Murmur: not heard Diastolic Murmur: not heard Extremities: no cyanosis, no edema, no peripheral signs of emboli Peripheral Pulses Radial Pulse: normal Abdomen Inspection and Palpation: soft, non distended, no b (more content not included)... [facility] Progress note 02-02-2024 Note Date & Type Note Facility 02-02-2024 Note New patient here to establish care. Ref from Dr. Berger for afib, which was new for him about a month or so ago. He was started on Eliquis and metoprolol. Smokes 1/2-1 PPD. Says he has GALEN but does not use a machine because he sleeps in a recliner. Denies chest pain and bleeding on Eliquis. Had routine labs in Dec 2023 also. Review of Systems Cardiovascular: Positive for dyspnea on exertion and leg swelling. Respiratory: Positive for cough, shortness of breath, sleep disturbances due to breathing and wheezing. All other systems reviewed and are negative. [facility] Telephone encounter Note 12-16-2023 Telephone Encounter - [...] in other encounter. documented in this encounter [facility] Telephone encounter Note 12-16-2023 Telephone Encounter [...] were not included. Subjective : Chief Complaint: Jovi Etienne is an 78 y.o. male here [...] MOUTH EVERY DAY 90 tablet 4 HYDROcodone-acetaminophen (Eccles) 5-325 MG tablet Take 1 tablet by [...] direct observation Three Word Registration: Gee Chi, Mamie Clock Drawing: Normal Clock - 2 Three Word Recall: All 3 words correct - 3 Total Score (0-5 Points): 5 Pain Assessment Pain Score: 5 - Moderate pain Advance Care Planning Do you have a living will?: No Do you have a medical power of transactional attorney?: No Objective : Pulse 50 Wt [...] December 11, 2023 documented in this encounter [facility] Evaluation note Note Date & Type Note Facility Evaluation note Diagnosis Atrial fibrillation, unspecified type (CMS/HCC)- Primary Chronic venous insufficiency Unspecified venous (peripheral) insufficiency Lumbar pain Lumbago Peripheral polyneuropathy Primary localized osteoarthrosis of lower leg, unspecified laterality Encounter for screening for lung cancer IFG (impaired fasting glucose) Mixed hyperlipidemia (CMS/HCC) Mixed hyperlipidemia documented in this encounter [facility] Evaluation note Note Date & Type Note Facility Evaluation note Diagnosis Generalized osteoarthritis Generalized osteoarthrosis, involving multiple sites Lumbar pain Lumbago Other polyneuropathy documented in this encounter [facility] Evaluation note Note Date & Type Note Facility Evaluation note Diagnosis Lumbar pain Lumbago Generalized osteoarthritis Generalized osteoarthrosis, involving multiple sites Other polyneuropathy documented in this encounter [facility] Summary Purpose Family History No Family History Records FoundNo Family History Records FoundNo Family History Records Found Advance Directives No Advanced Directives Records FoundNo Advanced Directives Records FoundNo Advanced Directives Records Found Reason for Referral Specialty Diagnoses / Procedures Referred By Contac t Referred To Contact Radiology Diagnoses Atrial fibrillation, unspecified type (CMS/HCC) Procedures Echocardiogram 2D complete Saeed Berger MD [address] [address] Referral ID Status Reason Start Date Expiration Date Visits Requested Visits Authorized [id number] Incomplete Perform Procedure 12/11/2023 06/08/2024 1 1 Specialty Diagnoses / Procedures Referred By Contac t Referred To Contact Cardiology Diagnoses Atrial fibrillation, unspecified type (CMS/HCC) Procedures [place] OFFICE/OUTPATIENT [facility] 60 MINUTES Saeed Berger MD 112 [facility] [address] [place] [address] Rebecca Norman MD [address] [place] [address] Referral ID Status Reason Start Date Expiration Date Visits Requested Visits Authorized [id number] Pending Review Specialty Services Required 12/11/2023 06/08/2024 1 1 Specialty Diagnoses / Procedures Referred By Haley aguaoy Referred To Contact Diagnoses Encounter for screening for lung cancer Procedures CT lung screening low dose Saeed Berger MD 112 [facility] [address] [place] [address] [employer] [facility] [address] [place] [address] Phone: [phone] Referral ID Status Reason Start Date Expiration Date V isits Requested Visits Authorized [id number] Pending Review 12/11/2023 06/08/2024 1 1 Specialty Diagnoses / Procedures Referred By Haley aguayo Referred To Contact Diagnoses Other polyneuropathy Saeed Berger MD [address] [address] Referral ID Status Reason Start Date Expiration Date V isits Requested Visits Authorized [id number] Pending Review 1 1 Additional Source Comments (unrecognized sect ion and content) No Status Records FoundNo Status Records FoundNo Status Records Found INFORMATION SOURCE (unrecogn ized section and content) DATE CREATED AUTHOR 12/03/2022 [facility] DATE CREATED AUTHOR AUTHOR'S ORGANIZ ATION 02/04/2024 [facility] DATE CREATED AUTHOR AUTHOR'S ORGANIZ ATION 06/17/2024 [facility] EPIC Reason for Visit (unrecogniz ed section and content) Reason Comments Medicare Annual Wellness Visit Subsequen t Reason Onset Date Comments Med Refill 12/14/2023 Refills needed f or Celebrex 200mg, Hydrocodone 5-325mg, Lyrica 225mg and send to [facility] [place] Reason Onset Date Comments Med Refill 12/15/2023 celecoxib (CeleB YVONNE) 200 MG capsuleHYDROcodone- acetaminophen (Eccles) 5-325 MG tablet pregabalin (Lyrica) 225 MG capsule To [facility] [place] Care Teams (unrecognized sec tion and content) Cloth Winder Machine Operator Relationship Specialty Start Date End Date Saeed Berger MD [address] [address] PCP - Aet 11/09/20 Saeed Berger MD [address] [place] [address] [place] [address] PCP - General Internal Medicine 03/17/23 Cloth Winder Machine Operator Relationship Specialty Start Date End Date Saeed Berger MD [address] [place] [address] [place] [address] PCP - Aet 11/09/20 Saeed Berger MD [address] [place] [address] [place] [address] PCP - General Internal Medicine 03/17/23 Cloth Winder Machine Operator Relationship Specialty Start Date End Date Saeed Berger MD [address] [place] [address] [place] [address] PCP - [facility] 11/09/20 Saeed Berger MD [address] [place] [address] [place] [address] PCP - General Internal Medicine 03/17/23 FOR [...] BE BASED ON THE PRIMARY CLINICAL RECORDS. [facility]. provides no warranty or guarantee of the accuracy or completeness of information in this document.
--- NOTE | 2024-07-29 12:29 | ECG_ITS ---
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
[2024-07-29 13:32] LABS: Basophils Percent Auto 0.3 % (0.2-2.0); Eosinophils Absolute Auto 0.2 10^3/uL (0.0-0.7); Eosinophils Percent Auto 2.6 % (0.9-7.0); Hematocrit 41.4 % (42.0-54.0); Hemoglobin 13.1 g/dL (14.0-18.0); Immature Granulocytes Abs Auto 0.05 10^3/uL (0.00-0.03); Immature Granulocytes Pct Auto 0.6 % (0.0-0.5); Lymphocytes Absolute Auto 1.4 10^3/uL (1.2-3.8); Lymphocytes Percent Auto 16.1 % (20.5-60.0); Mean Corpuscular HGB Conc 31.6 g/dL (29.9-35.2); Mean Corpuscular Hemoglobin 30.8 pg (25.9-34.0); Mean Corpuscular Volume 97.4 fL (80.0-94.0); Mean Platelet Volume 10.5 fL (9.5-13.5); Monocytes Absolute Auto 0.9 10^3/uL (0.3-0.8); Monocytes Percent Auto 10.5 % (1.7-12.0); Neutrophils Absolute Auto 6.2 10^3/uL (1.4-6.5); Neutrophils Percent Auto 69.9 % (43.0-75.0); Platelet Count 199 10^3/uL (150-450); Red Blood Count 4.25 10^6/uL (4.70-6.10); Red Cell Distribution Width 13.8 % (11.0-15.0); White Blood Count 8.9 10^3/uL (4.0-11.0)
--- NOTE | 2024-07-29 13:35 | PM.PRESUREVA ---
History of Present Illness History of Present Illness Chief complaint: chronic benny hypertension with ulcer of right leg Narrative: Patient presents for preadmission testing. Please see HPI from Dr. Butler dated July 22, 2024. The patient states since his visit with Dr. Butler he has developed a cough and congestion with some wheezing. He states he has not had a fever, he reports that he does have COPD but is unable to use inhalers due to his atrial fibrillation. Review of Systems ROS Narrative REVIEW OF SYSTEMS: Negative except as stated in HPI, ten or more systems reviewed. Constitutional: No fever, chills, weakness ENT: No sore throat or epistaxis Cardiovascular: No chest pain or palpitations; chronic dyspnea on exertion and activity intolerance Respiratory: Cough and wheezing Gastrointestinal: No abdominal pain, constipation, diarrhea, or vomiting Genitourinary: No dysuria or hematuria Neurological: No numbness, tingling, weakness, or headache Psychiatric: No mood changes [facility] Medical History (Updated 07/29/24 @ 13:29 by Razia Langston NP) Atrial fibrillation ?I48.91 - Unspecified atrial fibrillation (ICD-10) Dyspnea on exertion ?R06.09 - Other forms of dyspnea (ICD-10) GERD (gastroesophageal reflux disease) ?K21.9 - Gastro-esophageal reflux disease without esophagitis (ICD-10) Cataract ?H26.9 - Unspecified cataract (ICD-10) COPD (chronic obstructive pulmonary disease) ?J44.9 - Chronic obstructive pulmonary disease, unspecified (ICD-10) Thrombophilia ?D68.59 - Other primary thrombophilia (ICD-10) Chronic kidney disease ?N18.9 - Chronic kidney disease, unspecified (ICD-10) Neuropathy ?G62.9 - Polyneuropathy, unspecified (ICD-10) Osteoarthritis ?M19.90 - Unspecified osteoarthritis, unspecified site (ICD-10) Hyperlipemia ?E78.5 - Hyperlipidemia, unspecified (ICD-10) Diaphragmatic hernia ?K44.9 - Diaphragmatic hernia without obstruction or gangrene (ICD-10) Depression ?F32.A - Depression, unspecified (ICD-10) Open wound of right lower leg ?S81.801A - Unspecified open wound, right lower leg, initial encounter (ICD-10) Ulcer of right leg ?L97.919 - Non-pressure chronic ulcer of unspecified part of right lower leg with unspecified severity (ICD-10) Chronic venous hypertension ?I87.309 - Chronic venous hypertension (idiopathic) without complications of unspecified lower extremity (ICD-10) Arthritis ?M19.90 - Unspecified osteoarthritis, unspecified site (ICD-10) Spondylolisthesis ?M43.10 - Spondylolisthesis, site unspecified (ICD-10) Venous insufficiency of both lower extremities ?I87.2 - Venous insufficiency (chronic) (peripheral) (ICD-10) Chronic venous stasis dermatitis of both lower extremities ?I87.2 - Venous insufficiency (chronic) (peripheral) (ICD-10) Schatzki's ring ?K22.2 - Esophageal obstruction (ICD-10) Restless legs syndrome ?G25.81 - Restless legs syndrome (ICD-10) Back pain ?M54.9 - Dorsalgia, unspecified (ICD-10) Enlarged prostate ?N40.0 - Benign prostatic hyperplasia without lower urinary tract symptoms (ICD-10) History of depression ?Z86.59 - Personal history of other mental and behavioral disorders (ICD-10) Hypercholesteremia ?E78.00 - Pure hypercholesterolemia, unspecified (ICD-10) Hypertension ?I10 - Essential (primary) hypertension (ICD-10) Peripheral vascular disease ?I73.9 - Peripheral vascular disease, unspecified (ICD-10) Surgical History (Updated 07/29/24 @ 13:02 by Razia Langston NP) History of esophagogastroduodenoscopy (EGD) ?Z98.890 - Other specified postprocedural states (ICD-10) History of colonoscopy ?Z98.890 - Other specified postprocedural states (ICD-10) H/O cataract extraction ?Z98.49 - Cataract extraction status, unspecified eye (ICD-10) History of total knee arthroplasty ?Z96.659 - Presence of unspecified artificial knee joint (ICD-10) S/P debridement ?Z98.890 - Other specified postprocedural states (ICD-10) H/O vasectomy ?Z98.52 - Vasectomy status (ICD-10) History of total right knee replacement ?Z96.651 - Presence of right artificial knee joint (ICD-10) H/O skin graft ?Z94.5 - Skin transplant status (ICD-10) Family History (Updated 07/29/24 @ 13:02 by Razia Langston NP) Other Heart valve replaced Rheumatic aortic disease Social History Within the past year, how often did you have a drink containing alcohol: 2-4 times a month Within the past year, how many standard drinks containing alcohol did you have on a typical day: 1 or 2 Within the past year, how often did you have six or more drinks on one occasion: less than monthly Total score: 1 Score interpretation: A score less than 4 is consistent with normal alcohol consumption. 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 Highest level of school completed/degree received: high school graduate Meds Home Medications and Allergies Home Medications ?Medication ?Instructions ?Recorded ?Confirmed ?Type amlodipine 5 mg-benazepril 20 mg 1 cap PO DAILY 06/11/23 07/29/24 History capsule (Lotrel) celecoxib 200 mg capsule 200 mg PO BID 06/11/23 07/29/24 History citalopram 40 mg tablet (Celexa) 40 mg PO DAILY 06/11/23 07/29/24 History doxazosin 2 mg tablet (Cardura) 2 mg PO DAILY 06/11/23 07/29/24 History pravastatin 20 mg tablet 20 mg PO DAILY 06/11/23 07/29/24 History pregabalin 225 mg capsule 225 mg PO BEDTIME 06/11/23 07/29/24 History torsemide 20 mg tablet 20 mg PO BID 06/11/23 07/29/24 History alprazolam 0.5 mg tablet 0.5 mg PO TID 06/19/23 07/29/24 History esomeprazole magnesium 40 mg 40 mg PO DAILY 06/19/23 07/29/24 History capsule,delayed release (Nexium) ropinirole 3 mg tablet 3 mg PO BEDTIME 06/19/23 07/29/24 History apixaban 5 mg tablet (Eliquis) 5 mg PO BID 01/04/24 07/29/24 History hydrocodone 5 mg-acetaminophen 325 1 tab PO Q6H PRN pain 01/04/24 07/29/24 History mg tablet metoprolol succinate 50 mg 50 mg PO DAILY 01/04/24 07/29/24 History tablet,extended release 24 hr nitroglycerin 0.4 mg sublingual 0.4 mg sublingual DAILY PRN chest 01/04/24 07/29/24 History tablet pain topiramate 100 mg tablet 100 mg PO BID 01/04/24 07/29/24 History trospium 20 mg tablet 20 mg PO DAILY 01/04/24 07/29/24 History multivitamin (Daily Multi-Vitamin 1 tab PO DAILY 07/29/24 07/29/24 History tablet) oxycodone-acetaminophen 5 mg-325 1 tab PO Q6H PRN pain 07/29/24 07/29/24 History mg tablet Allergies Allergy/AdvReac Type Severity Reaction Status Date / Time No Known Drug Allergies Allergy Verified 07/29/24 12:50 Exam Narrative Exam Narrative: Constitutional: Awake, alert, comfortable, pale, chronically ill-appearing, nontoxic, interactive, vital signs as charted Head: Normocephalic, atraumatic Neck: Supple, normal appearance, normal range of motion, no meningeal signs, no lymphadenopathy Respiratory: No respiratory distress, breath sounds diminished throughout with expiratory wheezes bilateral bases Cardiovascular: Regular rate and rhythm, strong and regular heart tones Neuro: No neurological deficits, normal sensation Psychiatric: Oriented ?3, normal affect Assessment and Plan Assessment and Plan (1) Open wound of right lower leg: (2) Ulcer of right leg: (3) Chronic venous hypertension: Plan Right lower leg wound debridement with application of skin substitute scheduled with Dr. Butler August 04, 2024.
--- NOTE | 2024-07-29 13:36 | XR_ITS ---
The [address] [address] Patient Name: JOVI ETIENNE MRN: [id number] date: 1945 Sex: M Assigned Patient Location: [facility] Current Patient Location: [facility] Accession/Order Number: [id number] Exam Date: 07/29/2024 13:28 Report Date: 07/29/2024 21:57 At the request of: ELAN PATEL Procedure: XR chest 2V EXAM: XR chest 2V HISTORY: Preop exam COMPARISON: 06/19/2023 TECHNIQUE: Upright PA and lateral chest x-ray FINDINGS: The heart is not enlarged and the vasculature is not distended. Elevation of the right hemidiaphragm is noted. No acute infiltrate, effusion or pneumothorax is identified. The osseous structures are grossly intact. XR/XR chest 2V IMPRESSION: No acute infiltrate or evidence of cardiac decompensation. Some chronic changes are present, without significant interval change. Electronically authenticated by: ELAN ARGUELLO Date: 07/29/2024 21:57
[2024-07-29 13:44] LABS: Anion Gap 8.7; BUN Creatinine Ratio 18.2; Calcium 8.2 mg/dL (8.5-10.1); Carbon Dioxide 31.1 mmol/L (21.0-32.0); Chloride 107 mmol/L (98-107); Estimated GFR (African America 51 (>=60); Estimated GFR (Non-African Ame 42 (>=60); Glucose 116 mg/dL (74-106); Potassium 4.8 mmol/L (3.5-5.1); Sodium 142 mmol/L (136-145)
[2024-07-29 13:46] LABS: SARS-CoV-2 Ag NEGATIVE (NEGATIVE)
[2024-07-29 13:47] LABS: Internal Control Within Normal Limits
[2024-07-29 13:52] LABS: INR 1.14; Partial Thromboplastin Time 30.5 sec (22.3-36.2); Prothrombin Time 11.9 sec (9.0-11.6)
== END 2024-07-29 12:22 | disposition home or self-care (01) ==
LOC: PST 12:23
PROVIDERS: PCP Internal Medicine; Visit Provider Podiatrist Foot & Ankle Surgery
DX: Z01.810 Encounter for preprocedural cardiovascular examination (principal); Z01.812 Encounter for preprocedural laboratory examination; Z01.818 Encounter for other preprocedural examination; I87.311 Chronic venous hypertension (idiopathic) with ulcer of right lower extremity
CPT/HCPCS: 71046; 80048; 85025; 85610; 85730; 87811; 93005; G0463

== ENCOUNTER 2024-08-04 09:45 | Day surgery (SDC) | payer MEDICARE, SELFPAY ==
[2024-07-29 13:21] VITALS: BP 101/58; PULSE 60; TEMP 36.3; O2SAT 94; BMI 35.0
[2024-08-04] VITALS (9 sets, daily range): BP systolic 96–114; BP diastolic 49–76; PULSE 72–86; TEMP 36.6–36.8; O2SAT 91–92; BMI 34.5
--- OUTSIDE RECORDS SUMMARY | 2024-08-04 09:53 | XMS_ITS | CCD ---
Author Organization [facility] Care Team Providers Care Regulatory Scientist Name Role Phone DR SAEED BERGER Attending DR SAEED Vazquez Primary Care Unavailable DR SAEED BERGER Admitting Saeed Vazquez MD Unavailable [phone] Saeed Berger MD Primary Care Provider HERB ARROYO Attending SAEED Vazquez Attending SAEED Vazquez Attending SAEED Vazquez Attending SAEED Vazquez Attending Unavailable Medications Current Medications Medication Drug Class(es) Dates Sig (Normalized) Sig (Original) acetaminophen 325 mg / HYDROcodone bitartrate 5 mg oral tablet (5 sources) Opioid Agonist Start: 12-16-2023 take 1 tablet by mouth every six hours for pain HYDROcodone-aceta minophen (Ganado) 5-325 MG tablet Indications: Lumbar pain Take 1 tablet by mouth every 6 (six) hours if needed for severe pain 120 tablet 0 12/16/2023 Active Start: 11-17-2023 End: 12-14-2023 take 1 tablet by mouth every six hours for pain HYDROcodone-acetaminophen (Ganado) 5-325 MG tablet Indications: Lumbar pain Take [...] Results Test Name Value Interpretation Reference Range [facility] Office Visiton 02-02-2024 Follow-up visit [id number] Jovi Etienne 1945 M Date Provider Department Center 02/02/2024 [facility]-DINAHERB ALEXA [facility] Family History Problem Relation Age of Onset Other Mother Family Status - Relation Status Age at Mother Level of Service:34425 [place] OFFICE/OUTPATIENT NEW MODERATE MDM 45 MINUTES Normal [facility] Laboratory - Hematology and Cell countson 12-11-2023 HbA1c (Bld) [Mass fraction] 5.3 % [facility] No Panel Informationon 12-11 Interpretation and review of laboratory results Normal [facility] Vital Signs Date Time Vital Sign Value Performing Clinician Faci lity 12-11-2023 10:35-0500 Body mass index (BMI) [Ratio] 35.87 kg/m2 Saeed Berger MD Work Phone: [facility] 12-11-2023 10:35-0500 Body weight 103.87 kg Saeed Berger MD Work Phone: [facility] 12-11-2023 10:35-0500 Heart rate 50 /min Saeed Berger MD Work Phone: [facility] 12-11-2023 10:35-0500 SaO2% (BldA) [Mass fraction] 96 % Saeed Berger MD Work Phone: [facility] Encounters Encounter Date Encounter Type Care Provider Facility Start: 06-15-2024 End: 06-15-2024 ambulatory SAEDE BERGER Not Available Start: 02-17-2024 End: 02-17-2024 ambulatory SAEED BERGER Not Available Start: 02-02-2024 End: 02-02-2024 ambulatory HERB ARROYO [facility] Start: 12-25-2023 End: 12-25-2023 ambulatory SAEED BERGER [...] Office Visit [facility] [address] [facility] [address] [place] [id number] Saeed Berger MD [address] [facility] [address] [place] [address] [facility] Start: 12-11-2023 End: 12-11-2024 Comprehensive metabolic 2000 panel - Serum or Plasma Comprehensive metabolic panel Lab Routine Atrial fibrillation, unspecified type (CMS/HCC) Expected: 12/11/2023 (Approximate), Expires: 12/11/2024 [facility] Comment on above: Expected: 12/11/2023 (Approximate), Expires: 12/11/2024 Start: 12-11-2023 End: 12-11-2024 CT Chest for screening WO contrast CT lung screening low dose Imaging Routine Encounter for screening for lung cancer Expected: 12/11/2023, Expires: 12/11/2024 [facility] Work Phone: Comment on above: Expected: 12/11/2023 , Expires: 12/11/2024 Start: 12-11-2023 End: 12-11-2025 Echocardiogram 2D complete Echocardiogram 2D complete Echocardiography Routine Atrial fibrillation, unspecified type (CMS/HCC) Expected: 12/11/2023 (Approximate), Expires: 12/11/2025 [facility] Comment on above: Expected: 12/11/2023 (Approximate), Expires: 12/11/2025 Start: 12-11-2023 End: 12-11-2024 Lipid 1996 panel - Serum or Plasma Lipid panel Lab Routine Mixed hyperlipidemia ([facility]/HCC) Expected: 12/11/2023 (Approximate), Expires: 12/11/2024 [facility] Comment on above: Expected: 12/11/2023 (Approximate), Expires: 12/11/2024 Start: 12-11-2023 End: 12-11-2024 TSH W/REFLEX TO FT4 TSH W/REFLEX TO FT4 Lab Routine Atrial fibrillation, unspecified type ([facility]/HCC) Expected: 12/11/2023 (Approximate), Expires: 12/11/2024 [facility] Comment on above: Expected: 12/11/2023 (Approximate), Expires: 12/11/2024 Start: 1945 Medicare Annual Well ness (AWV) Medicare Annual Wellness (AWV) [facility] CBC W Auto Different ial panel - Blood CBC and differential Lab Routine Atrial fibrillation, unspecified type ([facility]/HCC) Ordered: 12/11/20[address] [facility] Comment on above: Ordered: 12/11/2023 Immunizations Immunization Date Immunization Notes Care Provider [facility] 09-08-2023 Influenza, Seasonal, Quadrivalent, Adjuvanted Saeed Berger MD Work Phone: [facility] 09-08-2023 RSV, recombinant, pr otein subunit RSVpreF, adjuvant reconstitu, 120mcg/0.5mL, PF (Arexvy) Saeed Berger MD Work Phone: [facility] 08-14-2022 Influenza, High-dose Seasonal, Quadrivalent, Preservative Free Saeed Berger MD Work Phone: [facility] 08-14-2022 Moderna SARS-CoV-2 50mcg/0.5mL Booster Saeed Berger MD Work Phone: [facility] 11-09-2021 Influenza, Seasonal, Quadrivalent, Adjuvanted Saeed Berger MD Work Phone: [facility] 05-09-2021 zoster vaccine recombinant Viviane Berger MD Work Phone: [facility] 11-19-2020 zoster vaccine recombinant Viviane Berger MD Work Phone: [facility] 09-05-2020 pneumococcal polysaccharide vaccine, 23 valchristofer Berger MD Work Phone: [facility] 08-06-2020 influenza, high dose seasonal, preservative-free Saeed Berger MD Work Phone: [facility] 10-24-2019 influenza, high dose seasonal, preservative-free Saeed Berger MD Work Phone: [facility] 05-09-2019 pneumococcal conjuga te vaccine, 13 valent Saeed Berger MD Work Phone: [facility] 09-22-2018 influenza, high dose seasonal, preservative-free Saeed Berger MD Work Phone: [facility] 03-15-2018 pneumococcal conjuga te vaccine, 13 valchristofer Berger MD Work Phone: [facility] 11-27-2017 seasonal influenza, intradermal, preservative free Saeed Berger MD Work Phone: [facility] 01-10-2015 zoster vaccine, live Saeed Berger MD Work Phone: [facility] 12-13-2014 tetanus toxoid, redu katie diphtheria toxoid, and acellular pertussis vaccine, adsorbed Saeed Berger MD Work Phone: [facility] 12-04-2014 zoster vaccine, live Saeed Berger MD Work Phone: [facility] 08-09-2014 influenza virus vacc ine, split virus (incl. purified surface antigen) Saeed Berger MD Work Phone: [facility] 08-04-2014 pneumococcal polysaccharide vaccine, 23 valchristofer Berger MD Work Phone: [facility] 07-11-2013 seasonal influenza, intradermal, preservative free Saeed Berger MD Work Phone: [facility] 09-15-2009 novel influenza-H1N1 -09, preservative-free, injectable Saeed Berger MD Work Phone: [facility] Payers Date Payer Category Payer Medicare AETNA MEDICARE A DVANTAGE AETNA MEDICARE REPLACEMENT [id number] 2021-Present [address] [place] [address] [id number] 2021 Medicare [id number] 1958 Self-pay 1945 Unknown [id number] 1945 Unknown [id number] 1945 Unknown [id number] 1945 Unknown [id number] 1945 Unknown [id number] Social History Date Type Detail Facility Start: 09-03-2023 [facility] History of [...] IN THE MORNING AND BEFORE BEDTIME HYDROcodone-acetaminophen (Ganado) 5-325 mg tablet TAKE 1 TABLET BY [...] distended, no b (more content not included)... [facility] Progress note 02-02-2024 Note Date & Type [...] All other systems reviewed and are negative. [facility] Telephone encounter Note 12-16-2023 Telephone Encounter - [...] in other encounter. documented in this encounter [facility] Telephone encounter Note 12-16-2023 Telephone [...] MOUTH EVERY DAY 90 tablet 4 HYDROcodone-acetaminophen (Ganado) 5-325 MG tablet Take 1 tablet by [...] Do you have a medical power of ip attorney?: No Objective : Pulse 50 Wt [...] December 11, 2023 documented in this encounter [facility] Evaluation note Note Date & Type Note Facility Evaluation note Diagnosis Atrial fibrillation, unspecified type (CMS/HCC)- Primary Chronic venous insufficiency Unspecified venous (peripheral) insufficiency Lumbar pain Lumbago Peripheral polyneuropathy Primary localized osteoarthrosis of lower leg, unspecified laterality Encounter for screening for lung cancer IFG (impaired fasting glucose) Mixed hyperlipidemia (CMS/HCC) Mixed hyperlipidemia documented in this encounter [facility] Evaluation note Note Date & Type Note Facility Evaluation note Diagnosis Generalized osteoarthritis Generalized osteoarthrosis, involving multiple sites Lumbar pain Lumbago Other polyneuropathy documented in this encounter [facility] Evaluation note Note Date & Type Note Facility Evaluation note Diagnosis Lumbar pain Lumbago Generalized osteoarthritis Generalized osteoarthrosis, involving multiple sites Other polyneuropathy documented in this encounter [facility] Summary Purpose Family History No Family History Records FoundNo Family History Records FoundNo Family History Records Found Advance Directives No Advanced Directives Records FoundNo Advanced Directives Records FoundNo Advanced Directives Records Found Reason for Referral Specialty Diagnoses / Procedures Referred By Contac t Referred To Contact Radiology Diagnoses Atrial fibrillation, unspecified type (CMS/HCC) Procedures Echocardiogram 2D complete Saeed Berger MD [address] [address] Referral ID Status Reason Start Date Expiration Date Visits Requested Visits Authorized [id number] Incomplete Perform Procedure 12/11/2023 06/08/2024 1 1 Specialty Diagnoses / Procedures Referred By Contac t Referred To Contact Cardiology Diagnoses Atrial fibrillation, unspecified type (CMS/HCC) Procedures [place] OFFICE/OUTPATIENT [facility] 60 MINUTES Saeed Berger MD [address] [facility] [address] [place] [address] Rebecca Norman MD [address] [place] [address] Referral ID Status Reason Start Date Expiration Date Visits Requested Visits Authorized [id number] Pending Review Specialty Services Required 12/11/2023 06/08/2024 1 1 Specialty Diagnoses / Procedures Referred By Haley aguayo Referred To Contact Diagnoses Encounter for screening for lung cancer Procedures CT lung screening low dose Saeed Berger MD [address] [facility] [address] [place] [address] [facility] [address] [place] [address] Phone: [phone] Referral ID Status Reason Start Date Expiration Date V isits Requested Visits Authorized [id number] Pending Review 12/11/2023 06/08/2024 1 1 Specialty Diagnoses / Procedures Referred By Haley aguayo Referred To Contact Diagnoses Other polyneuropathy Saeed Berger MD [address] [address] Referral ID Status Reason Start Date Expiration Date V isits Requested Visits Authorized [id number] Pending Review 1 1 Additional Source Comments (unrecognized sect ion and content) No Status Records FoundNo Status Records FoundNo Status Records Found INFORMATION SOURCE (unrecogn ized section and content) DATE CREATED AUTHOR 12/03/2022 [facility] DATE CREATED AUTHOR AUTHOR'S ORGANIZ ATION 02/04/2024 [facility] DATE CREATED AUTHOR AUTHOR'S ORGANIZ ATION 06/17/2024 [facility] EPIC Reason for Visit (unrecogniz ed section and content) Reason Comments Medicare Annual Wellness Visit Subsequen t Reason Onset Date Comments Med Refill 12/14/2023 Refills needed f or Celebrex 200mg, Hydrocodone 5-325mg, Lyrica 225mg and send to [facility] [place] Reason Onset Date Comments Med Refill 12/15/2023 celecoxib (CeleB YVONNE) 200 MG capsuleHYDROcodone- acetaminophen (Ganado) 5-325 MG tablet pregabalin (Lyrica) 225 MG capsule To [facility] [place] Care Teams (unrecognized sec tion and content) Regulatory Scientist Relationship Specialty Start Date End Date Saeed Berger MD [address] [address] PCP - Aet 11/09/20 Saeed Berger MD [address] [place] [address] [place] [address] PCP - General Internal Medicine 03/17/23 Regulatory Scientist Relationship Specialty Start Date End Date Saeed Berger MD [address] [place] [address] [place] [address] PCP - Aet 11/09/20 Saeed Berger MD [address] [place] [address] [place] [address] PCP - General Internal Medicine 03/17/23 Regulatory Scientist Relationship Specialty Start Date End Date Saeed Berger MD [address] [place] [address] [place] [address] PCP - [facility] 11/09/20 Saeed Berger MD [address] [place] [address] [place] [address] PCP - General Internal Medicine 03/17/23 FOR [...] BE BASED ON THE PRIMARY CLINICAL RECORDS. [employer] [facility]. provides no warranty or guarantee of the accuracy or completeness of information in this document.
[2024-08-04 10:54] LABS: Glucometer 91 mg/dL (74-106)
[2024-08-04] MEDS: LACTATED RINGER'S SOLUTION 1,000 ML 50 ML IV (11:04)
--- NOTE | 2024-08-04 12:48 | PM.ORONB ---
Brief Operative Note Date of procedure: 08/04/24 Pre-op diagnosis general: Right venous leg ulcer Post-op diagnosis: same as pre-op Procedure: Procedure performed: Application of allogenic skin substitute with surgical preparation/debridement of wound bed, right leg 928.2 cm2 Indications for procedure: Patient is a 78-year-old male who presented to our wound center with bilateral leg wounds approximately 8 weeks ago. Fortunately with local wound care his left leg healed uneventfully however his right leg wound has only regressed despite multiple local wound modalities including Unna boots, absorptive dressings, multiple topicals. The wound is painful and he is unable to tolerate debridement in the wound center. Due to the wounds persistence and increasing size patient agreed for operative intervention and the above procedures. Intraoperative findings: Large full-thickness wound on right leg without signs of infection. No tendon or bone exposure. Preoperative wound measurements: 36.4 x 25.5 x 0.1 cm. Procedure in detail: Patient was identified in preoperative holding by myself which time correct side and site were marked and consent was obtained. Regional anesthesia was provided by the anesthesia team and patient was brought back to the operating theater placed on table in supine position. Preoperative antibiotics were administered as well as general anesthesia. The right lower extremity was then prepped and draped in usual sterile fashion and a formal timeout was performed. Utilizing curettes and Versajet the wound bed was prepared for grafting by excising and removing all nonviable soft tissue which included fibrin and skin slough. Wound graft was prepared down to and including 100% healthy granular tissue bed. The surgical site was irrigated with copious saline. Hemostasis was controlled with a temporary pressure dressing and elevation. Then the allogenic skin substitute was applied to the wound base and held in place by jeromy. Combination of Mepitel and Adaptic were placed over the grafts followed by a dry sterile dressing consisting of 4 x 4's, Kerlix and ABDs. Then multiple layers of cast padding were placed from the forefoot to the popliteal fossa followed by a layer of Toni wrap's with a mild amount of compression. Patient tolerated the procedure and anesthesia well and was transferred to the recovery room with vital signs stable and brisk capillary refill to the toes. Postoperative plan: Discharge home under family's care Weightbearing as tolerated with use of crutches/walker or cane Elevate right lower extremity above the level of the heart is much as possible Prescription for Percocet 5/325 #28 1 by mouth every 6 hours as needed for pain was written and placed in the chart Patient is to follow-up Thursday or Thursday for the first dressing change. Keep dressing clean dry and intact until that appointment. Implants: Theraskin allogenic skin substitute Anesthesia: regional and General-LMA Surgeon: Seven Butler Estimated blood loss (mL): 25 Tourniquet time (min): 0 Pathology: none sent Condition: stable Disposition: PACU
[2024-08-04] MEDS: CEFAZOLIN SODIUM 2 GM/50 ML D5W PREMIX IV (13:19)
[2024-08-04 14:54] LABS: Glucometer 120 mg/dL (74-106)
--- NOTE | 2024-08-04 16:43 | PC.NURSE ---
1615: pt toes pink and warm with good capillary refill.
== END 2024-08-04 16:26 | disposition home or self-care (01) ==
PROVIDERS: PCP Internal Medicine; Visit Provider Podiatrist Foot & Ankle Surgery
PROC: (CPT 15002; principal; 2024-08-04 11:10)
DX: I87.311 Chronic venous hypertension (idiopathic) with ulcer of right lower extremity (principal); L97.819 Non-pressure chronic ulcer of other part of right lower leg with unspecified severity; F17.210 Nicotine dependence, cigarettes, uncomplicated; J44.9 Chronic obstructive pulmonary disease, unspecified; E78.5 Hyperlipidemia, unspecified; I10 Essential (primary) hypertension; I48.91 Unspecified atrial fibrillation; Z95.2 Presence of prosthetic heart valve; K21.9 Gastro-esophageal reflux disease without esophagitis; N40.0 Benign prostatic hyperplasia without lower urinary tract symptoms
CPT/HCPCS: 15002; 15271; 15272 ×3; 36415; 64445; 64447; 82948; J0690; J1100; J2250; J2405; J2704; J2795; J3010; Q4121

== ENCOUNTER 2024-08-06 10:40 | Emergency (ER) | payer MEDICARE, SELFPAY ==
[2024-08-06 10:46] VITALS: BP 123/72; PULSE 64; TEMP 36.6; O2SAT 93; BMI 34.7
--- OUTSIDE RECORDS SUMMARY | 2024-08-06 10:48 | XMS_ITS | CCD ---
Author Organization [facility] Care Team Providers Care Design Specialist Name Role Phone DR SAEED BERGER Attending DR SAEED Vazquez Primary Care Unavailable DR SAEED BERGER Admitting Saeed Vazquez MD Unavailable [phone] Saeed Berger MD Primary Care Provider HERB ARROYO Attending SAEED Vazquez Attending SAEED Vazquez Attending SAEED Vazquez Attending SAEED Vazquez Attending Unavailable Medications Current Medications Medication Drug Class(es) Dates Sig (Normalized) Sig (Original) acetaminophen 325 mg / HYDROcodone bitartrate 5 mg oral tablet (5 sources) Opioid Agonist Start: 12-16-2023 take 1 tablet by mouth every six hours for pain HYDROcodone-aceta minophen ([place]) 5-325 MG tablet Indications: Lumbar pain Take 1 tablet by mouth every 6 (six) hours if needed for severe pain 120 tablet 0 12/16/2023 Active Start: 11-17-2023 End: 12-14-2023 take 1 tablet by mouth every six hours for pain HYDROcodone-acetaminophen ([place]) 5-325 MG tablet Indications: Lumbar pain Take [...] Results Test Name Value Interpretation Reference Range [facility] ity Office Visiton 02-02-2024 Follow-up visit [id number] Jovi Etienne 1945 M Date Provider Department Center 02/02/2024 Lawson-DINAHERB ALEXA [facility] Family History Problem Relation Age of Onset Other Mother Family Status - Relation Status Age at Mother Level of Service:92573 [place] OFFICE/OUTPATIENT NEW MODERATE MDM 45 MINUTES Normal [facility] - Hematology and Cell countson 12-11-2023 HbA1c (Bld) [Mass fraction] 5.3 % [facility] No Panel Informationon 12-11 Interpretation and review of laboratory results Normal [facility] Vital Signs Date Time Vital Sign Value Performing Clinician Faci lity 12-11-2023 10:35-0500 Body mass index (BMI) [Ratio] 35.87 kg/m2 Saeed Berger MD Work Phone: [facility] 12-11-2023 10:35-0500 Body weight 103.87 kg Saeed Berger MD Work Phone: [facility] 12-11-2023 10:35-0500 Heart rate 50 /min Saeed Berger MD Work Phone: [facility] 12-11-2023 10:35-0500 SaO2% (BldA) [Mass fraction] 96 % Saeed Berger MD Work Phone: [facility] Encounters Encounter Date Encounter Type Care Provider Facility Start: 06-15-2024 End: 06-15-2024 ambulatory SAEED BERGER Not Available Start: 02-17-2024 End: 02-17-2024 ambulatory SAEED BERGER Not Available Start: 02-02-2024 End: 02-02-2024 ambulatory HERB ARROYO [facility] Start: 12-25-2023 End: 12-25-2023 ambulatory SAEED [...] Office Visit [facility] [address] [facility] [address] [place] [id number] Saeed Berger MD [address] [facility] [address] [place] [address] [facility] Start: 12-11-2023 End: 12-11-2024 Comprehensive metabolic 2000 panel - Serum or Plasma Comprehensive metabolic panel Lab Routine Atrial fibrillation, unspecified type (CMS/HCC) Expected: 12/11/2023 (Approximate), Expires: 12/11/2024 [facility] Comment on above: Expected: 12/11/2023 (Approximate), Expires: 12/11/2024 Start: 12-11-2023 End: 12-11-2024 CT Chest for screening WO contrast CT lung screening low dose Imaging Routine Encounter for screening for lung cancer Expected: 12/11/2023, Expires: 12/11/2024 [facility] Work Phone: Comment on above: Expected: 12/11/2023 , Expires: 12/11/2024 Start: 12-11-2023 End: 12-11-2025 Echocardiogram 2D complete Echocardiogram 2D complete Echocardiography Routine Atrial fibrillation, unspecified type (CMS/HCC) Expected: 12/11/2023 (Approximate), Expires: 12/11/2025 [facility] Comment on above: Expected: 12/11/2023 (Approximate), Expires: 12/11/2025 Start: 12-11-2023 End: 12-11-2024 Lipid 1996 panel - Serum or Plasma Lipid panel Lab Routine Mixed hyperlipidemia ([facility]/HCC) Expected: 12/11/2023 (Approximate), Expires: 12/11/2024 [facility] Comment on above: Expected: 12/11/2023 (Approximate), Expires: 12/11/2024 Start: 12-11-2023 End: 12-11-2024 TSH W/REFLEX TO FT4 TSH W/REFLEX TO FT4 Lab Routine Atrial fibrillation, unspecified type ([facility]/HCC) Expected: 12/11/2023 (Approximate), Expires: 12/11/2024 [facility] Comment on above: Expected: 12/11/2023 (Approximate), Expires: 12/11/2024 Start: 1945 Medicare Annual Well ness (AWV) Medicare Annual Wellness (AWV) [facility] CBC W Auto Different ial panel - Blood CBC and differential Lab Routine Atrial fibrillation, unspecified type ([facility]/HCC) Ordered: 12/11/2023 [facility] Comment on above: Ordered: 12/11/2023 Immunizations Immunization Date Immunization Notes Care Provider [facility] 09-08-2023 Influenza, Seasonal, Quadrivalent, Adjuvanted Saeed Berger MD Work Phone: [facility] 09-08-2023 RSV, recombinant, pr otein subunit RSVpreF, adjuvant reconstitu, 120mcg/0.5mL, PF (Arexvy) Saeed Berger MD Work Phone: [facility] 08-14-2022 Influenza, High-dose Seasonal, Quadrivalent, Preservative Free Saeed Berger MD Work Phone: [facility] 08-14-2022 Moderna SARS-CoV-2 50mcg/0.5mL Booster Saeed Berger MD Work Phone: [facility] 11-09-2021 Influenza, Seasonal, Quadrivalent, Adjuvanted Saeed Berger MD Work Phone: [facility] 05-09-2021 zoster vaccine recombinant Viviane Berger MD Work Phone: [facility] 11-19-2020 zoster vaccine recombinant Viviane Berger MD Work Phone: [facility] 09-05-2020 pneumococcal polysaccharide vaccine, 23 valchristofer Berger MD Work Phone: [facility] 08-06-2020 influenza, high dose seasonal, preservative-free Saeed Berger MD Work Phone: [facility] 10-24-2019 influenza, high dose seasonal, preservative-free Saeed Berger MD Work Phone: [facility] 05-09-2019 pneumococcal conjuga te vaccine, 13 valent Saeed Berger MD Work Phone: [facility] 09-22-2018 influenza, high dose seasonal, preservative-free Saeed Berger MD Work Phone: [facility] 03-15-2018 pneumococcal conjuga te vaccine, 13 valchristofer Berger MD Work Phone: [facility] 11-27-2017 seasonal influenza, intradermal, preservative free Saeed Berger MD Work Phone: [facility] 01-10-2015 zoster vaccine, live Saeed Berger MD Work Phone: [facility] 12-13-2014 tetanus toxoid, redu katie diphtheria toxoid, and acellular pertussis vaccine, adsorbed Saeed Berger MD Work Phone: [facility] 12-04-2014 zoster vaccine, live Saeed Berger MD Work Phone: [facility] 08-09-2014 influenza virus vacc ine, split virus (incl. purified surface antigen) Saeed Berger MD Work Phone: [facility] 08-04-2014 pneumococcal polysaccharide vaccine, 23 valchristofer Berger MD Work Phone: [facility] 07-11-2013 seasonal influenza, intradermal, preservative free Saeed Berger MD Work Phone: [facility] 09-15-2009 novel influenza-H1N1 -09, preservative-free, injectable Saeed Berger MD Work Phone: [facility] Payers Date Payer Category Payer Medicare AETNA MEDICARE A DVANTAGE AETNA MEDICARE REPLACEMENT [id number] 2021-Present [address] [place] [address] [id number] 2021 Medicare [id number] 1958 Self-pay 1945 Unknown [id number] 1945 Unknown [id number] 1945 Unknown [id number] 1945 Unknown [id number] 1945 Unknown [id number] Social History Date Type Detail Facility Start: 09-03-2023 [facility] History of [...] IN THE MORNING AND BEFORE BEDTIME HYDROcodone-acetaminophen ([place]) 5-325 mg tablet TAKE 1 TABLET BY [...] distended, no b (more content not included)... [facility] Progress note 02-02-2024 Note Date & [...] All other systems reviewed and are negative. [facility] Telephone encounter Note 12-16-2023 Telephone Encounter [...] in other encounter. documented in this encounter [facility] Telephone encounter Note 12-16-2023 Telephone [...] MOUTH EVERY DAY 90 tablet 4 HYDROcodone-acetaminophen ([place]) 5-325 MG tablet Take 1 tablet by [...] Do you have a medical power of energy attorney?: No Objective : Pulse 50 Wt [...] December 11, 2023 documented in this encounter [facility] Evaluation note Note Date & Type Note Facility Evaluation note Diagnosis Atrial fibrillation, unspecified type (CMS/HCC)- Primary Chronic venous insufficiency Unspecified venous (peripheral) insufficiency Lumbar pain Lumbago Peripheral polyneuropathy Primary localized osteoarthrosis of lower leg, unspecified laterality Encounter for screening for lung cancer IFG (impaired fasting glucose) Mixed hyperlipidemia (CMS/HCC) Mixed hyperlipidemia documented in this encounter [facility] Healthcare Evaluation note Note Date & Type Note Facility Evaluation note Diagnosis Generalized osteoarthritis Generalized osteoarthrosis, involving multiple sites Lumbar pain Lumbago Other polyneuropathy documented in this encounter [facility] Evaluation note Note Date & Type Note Facility Evaluation note Diagnosis Lumbar pain Lumbago Generalized osteoarthritis Generalized osteoarthrosis, involving multiple sites Other polyneuropathy documented in this encounter [facility] Healthcare Summary Purpose Family History No Family History Records FoundNo Family History Records FoundNo Family History Records Found Advance Directives No Advanced Directives Records FoundNo Advanced Directives Records FoundNo Advanced Directives Records Found Reason for Referral Specialty Diagnoses / Procedures Referred By Contac t Referred To Contact Radiology Diagnoses Atrial fibrillation, unspecified type (CMS/HCC) Procedures Echocardiogram 2D complete Saeed Berger MD [address] [address] Referral ID Status Reason Start Date Expiration Date Visits Requested Visits Authorized [id number] Incomplete Perform Procedure 12/11/2023 06/08/2024 1 1 Specialty Diagnoses / Procedures Referred By Contac t Referred To Contact Cardiology Diagnoses Atrial fibrillation, unspecified type (CMS/HCC) Procedures [facility] 60 MINUTES Saeed Berger MD [address] [facility] [address] [place] [address] Rebecca Norman MD [address] [place] [address] Referral ID Status Reason Start Date Expiration Date Visits Requested Visits Authorized [id number] Pending Review Specialty Services Required 12/11/2023 06/08/2024 1 1 Specialty Diagnoses / Procedures Referred By Haley aguayo Referred To Contact Diagnoses Encounter for screening for lung cancer Procedures CT lung screening low dose Saeed Berger MD 112 [facility] [address] [place] [address] [facility] [address] [place] [address] Phone: [phone] Referral ID Status Reason Start Date Expiration Date V isits Requested Visits Authorized [id number] Pending Review 12/11/2023 06/08/2024 1 1 Specialty Diagnoses / Procedures Referred By Haley aguayo Referred To Contact Diagnoses Other polyneuropathy Saeed Berger MD [address] [address] Referral ID Status Reason Start Date Expiration Date V isits Requested Visits Authorized [id number] Pending Review 1 1 Additional Source Comments (unrecognized sect ion and content) No Status Records FoundNo Status Records FoundNo Status Records Found INFORMATION SOURCE (unrecogn ized section and content) DATE CREATED AUTHOR 12/03/2022 [facility] DATE CREATED AUTHOR AUTHOR'S ORGANIZ ATION 02/04/2024 [facility] DATE CREATED AUTHOR AUTHOR'S ORGANIZ ATION 06/17/2024 [facility] Special[facility] EPIC Reason for Visit (unrecogniz ed section and content) Reason Comments Medicare Annual Wellness Visit Subsequen t Reason Onset Date Comments Med Refill 12/14/2023 Refills needed f or Celebrex 200mg, Hydrocodone 5-325mg, Lyrica 225mg and send to [facility] [place] Reason Onset Date Comments Med Refill 12/15/2023 celecoxib (CeleB YVONNE) 200 MG capsuleHYDROcodone- acetaminophen ([place]) 5-325 MG tablet pregabalin (Lyrica) 225 MG capsule To [facility] [place] Care Teams (unrecognized sec tion and content) Design Specialist Relationship Specialty Start Date End Date Saeed Berger MD [address] [address] PCP - Aet 11/09/20 Saeed Berger MD [address] [place] [address] [place] [address] PCP - General Internal Medicine 03/17/23 Design Specialist Relationship Specialty Start Date End Date Saeed Berger MD [address] [place] [address] [place] [address] PCP - Aet 11/09/20 Saeed Berger MD [address] [place] [address] [place] [address] PCP - General Internal Medicine 03/17/23 Design Specialist Relationship Specialty Start Date End Date Saeed Berger MD [address] [place] [address] [place] [address] PCP - [facility] 11/09/20 Saeed Berger MD [address] [place] [address] [place] [address] PCP - General Internal Medicine 03/17/23 FOR [...] BE BASED ON THE PRIMARY CLINICAL RECORDS. [employer] [facility]. provides no warranty or guarantee of the accuracy or completeness of information in this document.
--- NOTE | 2024-08-06 11:43 | ED_ITS ---
HPI HPI - General Adult General Chief complaint: Wound/Laceration Stated complaint: RT LEG POST SURGERY DISCHARGE Time Seen by Provider: 08/06/24 10:59 Source: patient Mode of arrival: Wheelchair Limitations: no limitations History of Present Illness HPI narrative: The patient is coming to us for evaluation of his wound he just had a skin graft on his right ankle by Dr. Butler on which is 2 days ago he is presented to us with no pain no fever he mentioned that he is only leaking fluid and that is concerning for him he also noted that there is itching He mentioned that the itching was around the ankle There was no rash at any time or any other place The patient also denies any other concerns he has been taking his [place] for pain Related Data Home Medications ?Medication ?Instructions ?Recorded ?Confirmed amlodipine 5 mg-benazepril 20 mg 1 cap PO DAILY 06/11/23 08/04/24 capsule (Lotrel) celecoxib 200 mg capsule 200 mg PO BID 06/11/23 08/04/24 citalopram 40 mg tablet (Celexa) 40 mg PO DAILY 06/11/23 08/04/24 doxazosin 2 mg tablet (Cardura) 2 mg PO DAILY 06/11/23 08/04/24 pravastatin 20 mg tablet 20 mg PO DAILY 06/11/23 08/04/24 pregabalin 225 mg capsule 225 mg PO BEDTIME 06/11/23 08/04/24 torsemide 20 mg tablet 20 mg PO BID 06/11/23 08/04/24 alprazolam 0.5 mg tablet 0.5 mg PO TID 06/19/23 08/04/24 esomeprazole magnesium 40 mg 40 mg PO DAILY 06/19/23 08/04/24 capsule,delayed release (Nexium) ropinirole 3 mg tablet 3 mg PO BEDTIME 06/19/23 08/04/24 apixaban 5 mg tablet (Eliquis) 5 mg PO BID 01/04/24 08/04/24 hydrocodone 5 mg-acetaminophen 325 1 tab PO Q6H PRN pain 01/04/24 08/04/24 mg tablet metoprolol succinate 50 mg 50 mg PO DAILY 01/04/24 08/04/24 tablet,extended release 24 hr nitroglycerin 0.4 mg sublingual 0.4 mg sublingual DAILY PRN chest 01/04/24 08/04/24 tablet pain topiramate 100 mg tablet 100 mg PO BID 01/04/24 08/04/24 trospium 20 mg tablet 20 mg PO DAILY 01/04/24 08/04/24 multivitamin (Daily Multi-Vitamin 1 tab PO DAILY 07/29/24 08/04/24 tablet) oxycodone-acetaminophen 5 mg-325 1 tab PO Q6H PRN pain 07/29/24 08/04/24 mg tablet Allergies Allergy/AdvReac Type Severity Reaction Status Date / Time No Known Drug Allergies Allergy Verified 07/29/24 12:50 Opioid HPI Opioid Management Most Recent Opioid Data: Last Pain Scale 3 08/04/24 10:35 Last Pain Assessment 08/04/24 16:15 Review of Systems ROS Status of ROS 10 or more systems reviewed and unremark able except as noted in history and below [facility] Medical History (Updated 08/06/24 @ 11:43 by Yoly Fuentes MD) Atrial fibrillation ?I48.91 - Unspecified atrial fibrillation (ICD-10) Dyspnea on exertion ?R06.09 - Other forms of dyspnea (ICD-10) GERD (gastroesophageal reflux disease) ?K21.9 - Gastro-esophageal reflux disease without esophagitis (ICD-10) Cataract ?H26.9 - Unspecified cataract (ICD-10) COPD (chronic obstructive pulmonary disease) ?J44.9 - Chronic obstructive pulmonary disease, unspecified (ICD-10) Thrombophilia ?D68.59 - Other primary thrombophilia (ICD-10) Chronic kidney disease ?N18.9 - Chronic kidney disease, unspecified (ICD-10) Neuropathy ?G62.9 - Polyneuropathy, unspecified (ICD-10) Osteoarthritis ?M19.90 - Unspecified osteoarthritis, unspecified site (ICD-10) Hyperlipemia ?E78.5 - Hyperlipidemia, unspecified (ICD-10) Diaphragmatic hernia ?K44.9 - Diaphragmatic hernia without obstruction or gangrene (ICD-10) Depression ?F32.A - Depression, unspecified (ICD-10) Open wound of right lower leg ?S81.801A - Unspecified open wound, right lower leg, initial encounter (ICD- 10) Ulcer of right leg ?L97.919 - Non-pressure chronic ulcer of unspecified part of right lower leg with unspecified severity (ICD-10) Chronic venous hypertension ?I87.309 - Chronic venous hypertension (idiopathic) without complications of unspecified lower extremity (ICD-10) Arthritis ?M19.90 - Unspecified osteoarthritis, unspecified site (ICD-10) Spondylolisthesis ?M43.10 - Spondylolisthesis, site unspecified (ICD-10) Venous insufficiency of both lower extremities ?I87.2 - Venous insufficiency (chronic) (peripheral) (ICD-10) Chronic venous stasis dermatitis of both lower extremities ?I87.2 - Venous insufficiency (chronic) (peripheral) (ICD-10) Schatzki's ring ?K22.2 - Esophageal obstruction (ICD-10) Restless legs syndrome ?G25.81 - Restless legs syndrome (ICD-10) Back pain ?M54.9 - Dorsalgia, unspecified (ICD-10) Enlarged prostate ?N40.0 - Benign prostatic hyperplasia without lower urinary tract symptoms (ICD-10) History of depression ?Z86.59 - Personal history of other mental and behavioral disorders (ICD-10) Hypercholesteremia ?E78.00 - Pure hypercholesterolemia, unspecified (ICD-10) Hypertension ?I10 - Essential (primary) hypertension (ICD-10) Peripheral vascular disease ?I73.9 - Peripheral vascular disease, unspecified (ICD-10) Surgical History (Updated 07/29/24 @ 13:02 by Razia Langston NP) History of esophagogastroduodenoscopy (EGD) ?Z98.890 - Other specified postprocedural states (ICD-10) History of colonoscopy ?Z98.890 - Other specified postprocedural states (ICD-10) H/O cataract extraction ?Z98.49 - Cataract extraction status, unspecified eye (ICD-10) History of total knee arthroplasty ?Z96.659 - Presence of unspecified artificial knee joint (ICD-10) S/P debridement ?Z98.890 - Other specified postprocedural states (ICD-10) H/O vasectomy ?Z98.52 - Vasectomy status (ICD-10) History of total right knee replacement ?Z96.651 - Presence of right artificial knee joint (ICD-10) H/O skin graft ?Z94.5 - Skin transplant status (ICD-10) Family History (Updated 09/20/24 @ 13:02 by Razia Langston NP) Other Heart valve replaced Rheumatic aortic disease Social History Within the past year, how often did you have a drink containing alcohol: 2-4 times a month Within the past year, how many standard drinks containing alcohol did you have on a typical day: 1 or 2 Within the past year, how often did you have six or more drinks on one occasion: less than monthly Total score: 1 Score interpretation: A score less than 4 is consistent with normal alcohol consumption. 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 Right leg exam: The patient right leg dressing extending from the knee down to the ankle shows greenish serous fluid drainage on the dressing, when removing the dressing the patient have a skin graft on his medial aspect of the ankle on the right side extending from mid tibia to almost just below the medial malleolus, so far skin reaction seems to be normal there is mild redness General: Well-appearing and in no apparent distress. Skin: Warm, dry, no pallor noted. No rash. Head: Normocephalic, atraumatic. Neck: Supple, non-tender. Eye: Pupils are equal, round and EOMI. No scleral icterus. Ears, Nose, Mouth, and Throat: TM are clear, no nasal mucosal hypertrophy. Oral mucosa is moist, no posterior oropharynx erythema, uvula is mid-line Cardiovascular: Regular Rate and Rhythm without murmur, gallop or rub. Respiratory: No accessory muscle use or respiratory distress. Lungs are clear to auscultation, no wheezing, rales or rhonchi Chest Wall: no tenderness Back: No midline thoracic or lumbar vertebral tenderness. No CVA tenderness GI: Abdomen is soft, non-distended. Normal bowel sounds. No masses appreciated. No tenderness to palpation. No rebound, guarding, or rigidity noted. Neurological: A&O x4. No cranial nerve dysfunction observed. No truncal ataxia. Moves all extremities. Sensation intact. Psychiatric: Cooperative and interactive. Normal mood and affect. Constitutional Vital Signs, click to edit/add: Last Vital Signs Temp 97.9 F 08/06/24 10:46 Pulse 64 08/06/24 10:46 Resp 26 H 08/06/24 10:46 BP 123/72 08/06/24 10:46 Pulse Ox 93 L 08/06/24 10:46 O2 Del Method Room Air 08/06/24 10:46 Course Vital Signs Vital signs: Vital Signs Temperature 97.9 F 08/06/24 10:46 Pulse Rate 64 08/06/24 10:46 Respiratory Rate 26 H 08/06/24 10:46 Blood Pressure 123/72 08/06/24 10:46 Pulse Oximetry 93 L 08/06/24 10:46 Oxygen Delivery Method Room Air 08/06/24 10:46 Temperature 97.9 F 08/06/24 10:46 Pulse Rate 64 08/06/24 10:46 Respiratory Rate 26 H 08/06/24 10:46 Blood Pressure 123/72 08/06/24 10:46 Pulse Oximetry 93 L 08/06/24 10:46 Oxygen Delivery Method Room Air 08/06/24 10:46 Medical Decision Making MDM Narrative Medical decision making narrative: The patient wound finding is mostly reactive due to the graft I did discuss the case with Dr. Butler and he agreed with above-mentioned plan The patient will have his dressing reapplied and he will follow-up with the podiatry on Thursday which is 2 days from now he was instructed in case of any new symptoms including fever or any other concern he is to come back to the ER The patient is to follow up with primary care physician in next 2-3 days or to return to the emergency department should any of the signs or symptoms worsen or new symptoms develop. The patient agrees with the following Diagnosis and Treatment plan and the patient will be discharged home. Discharge Plan Discharge Chief Complaint: Wound/Laceration Clinical Impression: Visit for wound care Patient Disposition: Home, Self-Care Time of Disposition Decision: 11:42 Condition: Good Prescriptions / Home Meds: No Action celecoxib 200 mg capsule 200 mg PO BID Rx Instructions: takes at 0230 and 2029 pravastatin 20 mg tablet 20 mg PO DAILY Rx Instructions: takes at 0230 pregabalin 225 mg capsule 225 mg PO BEDTIME amlodipine-benazepril [Lotrel] 5-20 mg capsule 1 cap PO DAILY Rx Instructions: takes at 023 torsemide 20 mg tablet 20 mg PO BID Rx Instructions: takes at 229 and 2029 citalopram [Celexa] 40 mg tablet 40 mg PO DAILY doxazosin [Cardura] 2 mg tablet 2 mg PO DAILY esomeprazole magnesium [Nexium] 40 mg capsule,delayed release(DR/EC) 40 mg PO DAILY ropinirole 3 mg tablet 3 mg PO BEDTIME alprazolam 0.5 mg tablet 0.5 mg PO TID Eliquis 5 mg tablet 5 mg PO BID hydrocodone-acetaminophen 5-325 mg tablet 1 tab PO Q6H PRN (Reason: pain) metoprolol succinate 50 mg tablet extended release 24 hr 50 mg PO DAILY nitroglycerin 0.4 mg tablet, sublingual 0.4 mg sublingual DAILY PRN (Reason: chest pain) topiramate 100 mg tablet 100 mg PO BID trospium 20 mg tablet 20 mg PO DAILY oxycodone-acetaminophen 5-325 mg tablet 1 tab PO Q6H PRN (Reason: pain) multivitamin [Daily Multi-Vitamin] Tablet 1 tab PO DAILY Print Language: Nigerien Instructions: Skin Grafting (DC) Referrals: LYDIA BERUMEN [Primary Care Provider] - 1 week Seven Butler DPM [Physician] - 08/08/24
== END 2024-08-06 12:01 | disposition home or self-care (01) ==
PROVIDERS: Emergency Provider Emergency Medicine; PCP Internal Medicine
DX: Z48.817 Encounter for surgical aftercare following surgery on the skin and subcutaneous tissue (principal); F17.200 Nicotine dependence, unspecified, uncomplicated
CPT/HCPCS: 99283

== ENCOUNTER 2024-08-07 19:51 | Emergency (ER) | payer MEDICARE, SELFPAY ==
[2024-08-07 19:54] VITALS: BP 110/69; PULSE 87; TEMP 36.7; O2SAT 96; BMI 35.7
--- OUTSIDE RECORDS SUMMARY | 2024-08-07 19:57 | XMS_ITS | CCD ---
Author Organization [facility] Care Team Providers Care Customer Associate Name Role Phone DR SAEED BERGER Attending [...] every six hours for pain HYDROcodone-aceta minophen (Mcdade) 5-325 MG tablet Indications: Lumbar pain Take 1 tablet by mouth every 6 (six) hours if needed for severe pain 120 tablet 0 12/16/2023 Active Start: 11-17-2023 End: 12-14-2023 take 1 tablet by mouth every six hours for pain HYDROcodone-acetaminophen (Mcdade) 5-325 MG tablet Indications: Lumbar pain Take [...] Results Test Name Value Interpretation Reference Range [facility] ity Office Visiton 02-02-2024 Follow-up visit [id number] Jovi Etienne 1945 M Date Provider Department Center 02/02/2024 Lawson-DINAHERB ALEXA [facility] Family History Problem Relation Age of Onset Other Mother Family Status - Relation Status Age at Mother Level of Service:08132 [place] OFFICE/OUTPATIENT NEW MODERATE MDM 45 MINUTES Normal [facility] Laboratory - Hematology and Cell countson 12-11-2023 HbA1c (Bld) [Mass fraction] 5.3 % [facility] No Panel Informationon 12-11 Interpretation and review of laboratory results Normal [facility] Vital Signs Date Time Vital Sign Value Performing Clinician Faci lity 12-11-2023 10:35-0500 Body mass index (BMI) [Ratio] 35.87 kg/m2 Saeed Berger MD Work Phone: [facility] 12-11-2023 10:35-0500 Body weight 103.87 kg Saeed Berger MD Work Phone: [facility] 12-11-2023 10:35-0500 Heart rate 50 /min Saeed Berger MD Work Phone: [facility] 12-11-2023 10:35-0500 SaO2% (BldA) [Mass fraction] 96 % Saeed eBrger MD Work Phone: [facility] Encounters Encounter Date Encounter Type Care Provider Facility Start: 06-15-2024 End: 06-15-2024 ambulatory SAEED BERGER Not Available Start: 02-17-2024 End: 02-17-2024 ambulatory SAEED BERGER Not Available Start: 02-02-2024 End: 02-02-2024 ambulatory HERB ARROYO [facility] Start: 12-25-2023 End: 12-25-2023 ambulatory SAEED [...] Office Visit [facility] [address] [facility] [address] [place] [id number] Saeed Berger MD [address] [facility] [address] [place] [address] [facility] Start: 12-11-2023 End: 12-11-2024 Comprehensive metabolic 2000 panel - Serum or Plasma Comprehensive metabolic panel Lab Routine Atrial fibrillation, unspecified type (CMS/HCC) Expected: 12/11/2023 (Approximate), Expires: 12/11/2024 [facility] Comment on above: Expected: 12/11/2023 (Approximate), Expires: 12/11/2024 Start: 12-11-2023 End: 12-11-2024 CT Chest for screening WO contrast CT lung screening low dose Imaging Routine Encounter for screening for lung cancer Expected: 12/11/2023, Expires: 12/11/2024 [facility] Work Phone: Comment on above: Expected: 12/11/2023 , Expires: 12/11/2024 Start: 12-11-2023 End: 12-11-2025 Echocardiogram 2D complete Echocardiogram 2D complete Echocardiography Routine Atrial fibrillation, unspecified type (CMS/HCC) Expected: 12/11/2023 (Approximate), Expires: 12/11/2025 [facility] Comment on above: Expected: 12/11/2023 (Approximate), Expires: 12/11/2025 Start: 12-11-2023 End: 12-11-2024 Lipid 1996 panel - Serum or Plasma Lipid panel Lab Routine Mixed hyperlipidemia ([facility]/HCC) Expected: 12/11/2023 (Approximate), Expires: 12/11/2024 [facility] Comment on above: Expected: 12/11/2023 (Approximate), Expires: 12/11/2024 Start: 12-11-2023 End: 12-11-2024 TSH W/REFLEX TO FT4 TSH W/REFLEX TO FT4 Lab Routine Atrial fibrillation, unspecified type ([facility]/HCC) Expected: 12/11/2023 (Approximate), Expires: 12/11/2024 [facility] Comment on above: Expected: 12/11/2023 (Approximate), Expires: 12/11/2024 Start: 1945 Medicare Annual Well ness (AWV) Medicare Annual Wellness (AWV) [facility] CBC W Auto Different ial panel - Blood CBC and differential Lab Routine Atrial fibrillation, unspecified type ([facility]/HCC) Ordered: 12/11/2023 [facility] Comment on above: Ordered: 12/11/2023 Immunizations Immunization Date Immunization Notes Care Provider [facility] 09-08-2023 Influenza, Seasonal, Quadrivalent, Adjuvanted Saeed Berger MD Work Phone: [facility] 09-08-2023 RSV, recombinant, pr otein subunit RSVpreF, adjuvant reconstitu, 120mcg/0.5mL, PF (Arexvy) Saeed Berger MD Work Phone: [facility] 08-14-2022 Influenza, High-dose Seasonal, Quadrivalent, Preservative Free Saeed Berger MD Work Phone: [facility] 08-14-2022 Moderna SARS-CoV-2 50mcg/0.5mL Booster Saeed Berger MD Work Phone: [facility] 11-09-2021 Influenza, Seasonal, Quadrivalent, Adjuvanted Saeed Berger MD Work Phone: [facility] 05-09-2021 zoster vaccine recombinant Viviane Berger MD Work Phone: [facility] 11-19-2020 zoster vaccine recombinant Viviane Berger MD Work Phone: [facility] 09-05-2020 pneumococcal polysaccharide vaccine, 23 valchristofer Berger MD Work Phone: [facility] 08-06-2020 influenza, high dose seasonal, preservative-free Saeed Berger MD Work Phone: [facility] 10-24-2019 influenza, high dose seasonal, preservative-free Saeed Berger MD Work Phone: [facility] 05-09-2019 pneumococcal conjuga te vaccine, 13 valent Saeed Berger MD Work Phone: [facility] 09-22-2018 influenza, high dose seasonal, preservative-free Saeed Berger MD Work Phone: [facility] 03-15-2018 pneumococcal conjuga te vaccine, 13 valchristofer Berger MD Work Phone: [facility] 11-27-2017 seasonal influenza, intradermal, preservative free Saeed Berger MD Work Phone: [facility] 01-10-2015 zoster vaccine, live Saeed Berger MD Work Phone: [facility] 12-13-2014 tetanus toxoid, redu katie diphtheria toxoid, and acellular pertussis vaccine, adsorbed Saeed Berger MD Work Phone: [facility] 12-04-2014 zoster vaccine, live Saeed Berger MD Work Phone: [facility] 08-09-2014 influenza virus vacc ine, split virus (incl. purified surface antigen) Saeed Berger MD Work Phone: [facility] 08-04-2014 pneumococcal polysaccharide vaccine, 23 valchristofer Berger MD Work Phone: [facility] 07-11-2013 seasonal influenza, intradermal, preservative free Saeed Berger MD Work Phone: [facility] 09-15-2009 novel influenza-H1N1 -09, preservative-free, injectable Saeed Berger MD Work Phone: [facility] Healthcare Payers Date Payer Category Payer Medicare A[employer]NA MEDICARE A DVANTAGE AETNA MEDICARE REPLACEMENT [id number] 2021-Present [address] [place] [address] [id number] 2021 Medicare [id number] 1958 Self-pay 1945 Unknown [id number] 1945 Unknown [id number] 1945 Unknown [id number] 1945 Unknown [id number] 1945 Unknown [id number] Social History Date Type Detail Facility Start: 09-03-[facility]23 [facility] History [...] IN THE MORNING AND BEFORE BEDTIME HYDROcodone-acetaminophen (Mcdade) 5-325 mg tablet TAKE 1 TABLET BY [...] distended, no b (more content not included)... [facility] Progress note 02-02-2024 Note Date & [...] All other systems reviewed and are negative. [facility] Telephone encounter Note 12-16-2023 Telephone Encounter [...] in other encounter. documented in this encounter [facility] Telephone encounter Note 12-16-2023 Telephone [...] MOUTH EVERY DAY 90 tablet 4 HYDROcodone-acetaminophen (Mcdade) 5-325 MG tablet Take 1 tablet by [...] December 11, 2023 documented in this encounter [facility] Evaluation note Note Date & Type Note Facility Evaluation note Diagnosis Atrial fibrillation, unspecified type (CMS/HCC)- Primary Chronic venous insufficiency Unspecified venous (peripheral) insufficiency Lumbar pain Lumbago Peripheral polyneuropathy Primary localized osteoarthrosis of lower leg, unspecified laterality Encounter for screening for lung cancer IFG (impaired fasting glucose) Mixed hyperlipidemia (CMS/HCC) Mixed hyperlipidemia documented in this encounter [facility] Evaluation note Note Date & Type Note Facility Evaluation note Diagnosis Generalized osteoarthritis Generalized osteoarthrosis, involving multiple sites Lumbar pain Lumbago Other polyneuropathy documented in this encounter [facility] Evaluation note Note Date & Type Note Facility Evaluation note Diagnosis Lumbar pain Lumbago Generalized osteoarthritis Generalized osteoarthrosis, involving multiple sites Other polyneuropathy documented in this encounter [facility] Summary Purpose Family History No Family History Records FoundNo Family History Records FoundNo Family History Records Found Advance Directives No Advanced Directives Records FoundNo Advanced Directives Records FoundNo Advanced Directives Records Found Reason for Referral Specialty Diagnoses / Procedures Referred By Contac t Referred To Contact Radiology Diagnoses Atrial fibrillation, unspecified type (CMS/HCC) Procedures Echocardiogram 2D complete Saeed Berger MD [address] [address] Referral ID Status Reason Start Date Expiration Date Visits Requested Visits Authorized [id number] Incomplete Perform Procedure 12/11/2023 06/08/2024 1 1 Specialty Diagnoses / Procedures Referred By Contac t Referred To Contact Cardiology Diagnoses Atrial fibrillation, unspecified type (CMS/HCC) Procedures OK OFFICE/OUTPATIENT [facility] 60 MINUTES Saeed Berger MD [address] [facility] [address] [place] [address] Rebecca Norman MD [address] [place] [address] Referral ID Status Reason Start Date Expiration Date Visits Requested Visits Authorized [id number] Pending Review Specialty Services Required 12/11/2023 06/08/2024 1 1 Specialty Diagnoses / Procedures Referred By Haley aguayo Referred To Contact Diagnoses Encounter for screening for lung cancer Procedures CT lung screening low dose Saeed Berger MD 112 [facility] [address] [place] [address] [place] [facility] [address] [place] [address] Phone: [phone] Referral ID Status Reason Start Date Expiration Date V isits Requested Visits Authorized [id number] Pending Review 12/11/2023 06/08/2024 1 1 Specialty Diagnoses / Procedures Referred By Haley aguayo Referred To Contact Diagnoses Other polyneuropathy Saeed Berger MD [address] [address] Referral ID Status Reason Start Date Expiration Date V isits Requested Visits Authorized [id number] Pending Review 1 1 Additional Source Comments (unrecognized sect ion and content) No Status Records FoundNo Status Records FoundNo Status Records Found INFORMATION SOURCE (unrecogn ized section and content) DATE CREATED AUTHOR 12/03/2022 [facility] DATE CREATED AUTHOR AUTHOR'S ORGANIZ ATION 02/04/2024 [facility] DATE CREATED AUTHOR AUTHOR'S ORGANIZ ATION 06/17/2024 [facility] EPIC Reason for Visit (unrecogniz ed section and content) Reason Comments Medicare Annual Wellness Visit Subsequen t Reason Onset Date Comments Med Refill 12/14/2023 Refills needed f or Celebrex 200mg, Hydrocodone 5-325mg, Lyrica 225mg and send to [facility] [place] Reason Onset Date Comments Med Refill 12/15/2023 celecoxib (CeleB YVONNE) 200 MG capsuleHYDROcodone- acetaminophen (Mcdade) 5-325 MG tablet pregabalin (Lyrica) 225 MG capsule To [facility] in [place] Care Teams (unrecognized sec tion and content) Customer Associate Relationship Specialty Start Date End Date Saeed Berger MD [address] [address] PCP - Aet 11/09/20 Saeed Berger MD [address] [place] [address] [place] [address] PCP - General Internal Medicine 03/17/23 Customer Associate Relationship Specialty Start Date End Date Saeed Berger MD [address] [place] [address] [place] [address] PCP - Aet 11/09/20 Saeed Berger MD [address] [place] [address] [place] [address] PCP - General Internal Medicine 03/17/23 Customer Associate Relationship Specialty Start Date End Date Saeed Berger MD [address] [place] [address] [place] [address] PCP - [facility] 11/09/20 aSeed Berger MD [address] [place] [address] [place] [address] PCP - General Internal Medicine 03/17/23 FOR [...] BE BASED ON THE PRIMARY CLINICAL RECORDS. [employer] [facility]. provides no warranty or guarantee of the accuracy or completeness of information in this document.
--- NOTE | 2024-08-07 20:25 | ED.WOUNDLAC1 ---
HPI - Wound/Laceration General Chief Complaint: Wound/Laceration Stated Complaint: Wood Check Time Seen by Provider: 08/07/24 20:11 Source: patient Mode of arrival: Wheelchair Limitations: no limitations History of Present Illness HPI narrative: wound graft RLE this past . Patient presents complaining of drainage of the wound and soaking his dressing. has pain of the leg also. he is also on antibiotic. No fever. no other complaint Related Data Home Medications ?Medication ?Instructions ?Recorded ?Confirmed amlodipine 5 mg-benazepril 20 mg 1 cap PO DAILY 06/11/23 08/04/24 capsule (Lotrel) celecoxib 200 mg capsule 200 mg PO BID 06/11/23 08/04/24 citalopram 40 mg tablet (Celexa) 40 mg PO DAILY 06/11/23 08/04/24 doxazosin 2 mg tablet (Cardura) 2 mg PO DAILY 06/11/23 08/04/24 pravastatin 20 mg tablet 20 mg PO DAILY 06/11/23 08/04/24 pregabalin 225 mg capsule 225 mg PO BEDTIME 06/11/23 08/04/24 torsemide 20 mg tablet 20 mg PO BID 06/11/23 08/04/24 alprazolam 0.5 mg tablet 0.5 mg PO TID 06/19/23 08/04/24 esomeprazole magnesium 40 mg 40 mg PO DAILY 06/19/23 08/04/24 capsule,delayed release (Nexium) ropinirole 3 mg tablet 3 mg PO BEDTIME 06/19/23 08/04/24 apixaban 5 mg tablet (Eliquis) 5 mg PO BID 01/04/24 08/04/24 hydrocodone 5 mg-acetaminophen 325 1 tab PO Q6H PRN pain 01/04/24 08/04/24 mg tablet metoprolol succinate 50 mg 50 mg PO DAILY 01/04/24 08/04/24 tablet,extended release 24 hr nitroglycerin 0.4 mg sublingual 0.4 mg sublingual DAILY PRN chest 01/04/24 08/04/24 tablet pain topiramate 100 mg tablet 100 mg PO BID 01/04/24 08/04/24 trospium 20 mg tablet 20 mg PO DAILY 01/04/24 08/04/24 multivitamin (Daily Multi-Vitamin 1 tab PO DAILY 07/29/24 08/04/24 tablet) oxycodone-acetaminophen 5 mg-325 1 tab PO Q6H PRN pain 07/29/24 08/04/24 mg tablet Allergies Allergy/AdvReac Type Severity Reaction Status Date / Time No Known Drug Allergies Allergy Verified 08/07/24 19:58 Review of Systems ROS Status of ROS 10 or more systems reviewed and unremarkable except as noted in history and below [facility] Medical History (Updated 08/07/24 @ 20:34 by Ciro Pacheco MD) Atrial fibrillation ?I48.91 - Unspecified atrial fibrillation (ICD-10) Dyspnea on exertion ?R06.09 - Other forms of dyspnea (ICD-10) GERD (gastroesophageal reflux disease) ?K21.9 - Gastro-esophageal reflux disease without esophagitis (ICD-10) Cataract ?H26.9 - Unspecified cataract (ICD-10) COPD (chronic obstructive pulmonary disease) ?J44.9 - Chronic obstructive pulmonary disease, unspecified (ICD-10) Thrombophilia ?D68.59 - Other primary thrombophilia (ICD-10) Chronic kidney disease ?N18.9 - Chronic kidney disease, unspecified (ICD-10) Neuropathy ?G62.9 - Polyneuropathy, unspecified (ICD-10) Osteoarthritis ?M19.90 - Unspecified osteoarthritis, unspecified site (ICD-10) Hyperlipemia ?E78.5 - Hyperlipidemia, unspecified (ICD-10) Diaphragmatic hernia ?K44.9 - Diaphragmatic hernia without obstruction or gangrene (ICD-10) Depression ?F32.A - Depression, unspecified (ICD-10) Open wound of right lower leg ?S81.801A - Unspecified open wound, right lower leg, initial encounter (ICD-10) Ulcer of right leg ?L97.919 - Non-pressure chronic ulcer of unspecified part of right lower leg with unspecified severity (ICD-10) Chronic venous hypertension ?I87.309 - Chronic venous hypertension (idiopathic) without complications of unspecified lower extremity (ICD-10) Arthritis ?M19.90 - Unspecified osteoarthritis, unspecified site (ICD-10) Spondylolisthesis ?M43.10 - Spondylolisthesis, site unspecified (ICD-10) Venous insufficiency of both lower extremities ?I87.2 - Venous insufficiency (chronic) (peripheral) (ICD-10) Chronic venous stasis dermatitis of both lower extremities ?I87.2 - Venous insufficiency (chronic) (peripheral) (ICD-10) Schatzki's ring ?K22.2 - Esophageal obstruction (ICD-10) Restless legs syndrome ?G25.81 - Restless legs syndrome (ICD-10) Back pain ?M54.9 - Dorsalgia, unspecified (ICD-10) Enlarged prostate ?N40.0 - Benign prostatic hyperplasia without lower urinary tract symptoms (ICD-10) History of depression ?Z86.59 - Personal history of other mental and behavioral disorders (ICD-10) Hypercholesteremia ?E78.00 - Pure hypercholesterolemia, unspecified (ICD-10) Hypertension ?I10 - Essential (primary) hypertension (ICD-10) Peripheral vascular disease ?I73.9 - Peripheral vascular disease, unspecified (ICD-10) Surgical History (Updated 07/29/24 @ 13:02 by Razia Langston NP) History of esophagogastroduodenoscopy (EGD) ?Z98.890 - Other specified postprocedural states (ICD-10) History of colonoscopy ?Z98.890 - Other specified postprocedural states (ICD-10) H/O cataract extraction ?Z98.49 - Cataract extraction status, unspecified eye (ICD-10) History of total knee arthroplasty ?Z96.659 - Presence of unspecified artificial knee joint (ICD-10) S/P debridement ?Z98.890 - Other specified postprocedural states (ICD-10) H/O vasectomy ?Z98.52 - Vasectomy status (ICD-10) History of total right knee replacement ?Z96.651 - Presence of right artificial knee joint (ICD-10) H/O skin graft ?Z94.5 - Skin transplant status (ICD-10) Family History (Updated 07/29/24 @ 13:02 by Razia Langston NP) Other Heart valve replaced Rheumatic aortic disease Social History Within the past year, how often did you have a drink containing alcohol: 2-4 times a month Within the past year, how many standard drinks containing alcohol did you have on a typical day: 1 or 2 Within the past year, how often did you have six or more drinks on one occasion: less than monthly Total score: 1 Score interpretation: A score less than 4 is consistent with normal alcohol consumption. 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 Highest level of school completed/degree received: high school graduate Little interest or pleasure in doing things: not at all Feeling down, depressed, or hopeless: not at all Exam Constitutional Vital Signs, click to edit/add: Last Vital Signs Temp 98.1 F 08/07/24 19:54 Pulse 87 08/07/24 19:54 Resp 18 08/07/24 19:54 BP 110/69 08/07/24 19:54 Pulse Ox 96 08/07/24 19:54 O2 Del Method Room Air 08/07/24 19:54 Common normals: no apparent distress, average body habitus, oriented x3, no limitations, healthy appearing, alert and well nourished [facility] Common normals: normocephalic and head/scalp atraumatic Eye Common normals: PERRL and EOMs intact bilaterally Respiratory Common normals: normal respiratory effort, no retractions, no use of accessory muscles and clear to auscultation bilaterally Cardio Common normals: regular rate, regular rhythm and S1 normal heart sound GI Common normals: Normal to inspection, nondistended, normoactive bowel sounds present and soft to palpation Extremity Extremity image (front): 1. skin graft RLE that looks like plastic. multiple jeromy in place. grafting adherent. Has Adaptic gauze over the plastic skin grafting material. Able to remove most of it but the center adaptic adherent to the graft too much to be comfortable removing it Neuro Common normals: oriented x3, CN's II-XII intact bilaterally, moves all extremities and no focal motor deficits Psych Appearance: grossly normal Course Vital Signs Vital signs: Vital Signs Temperature 98.1 F 08/07/24 19:54 Pulse Rate 87 08/07/24 19:54 Respiratory Rate 08/07/24 19:54 Blood Pressure 110/69 08/07/24 19:54 Pulse Oximetry 96 08/07/24 19:54 Oxygen Delivery Method Room Air 08/07/24 19:54 Temperature 98.1 F 08/07/24 19:54 Pulse Rate 87 08/07/24 19:54 Respiratory Rate 18 08/07/24 19:54 Blood Pressure 110/69 08/07/24 19:54 Pulse Oximetry 96 08/07/24 19:54 Oxygen Delivery Method Room Air 08/07/24 19:54 MDM - Wound/Laceration MDM Narrative Medical decision making narrative: patient presents with 3 day old wound graft RLE. He presented due to soaking of his dressing. all dressing removed except for center dorsal adaptic as it was quite adherent to the skin grafting material and I did not want to interrupt the grafting. I do not see any obvious infection. Discussed with his surgeon Luke and he would like the wound redressed and he will see the patient in the office tomorrow. Patient informed of the above, wound redressed and patient discharged Discharge Plan Discharge Chief Complaint: Wound/Laceration Clinical Impression: Visit for wound care Patient Disposition: Home, Self-Care Prescriptions / Home Meds: No Action celecoxib 200 mg capsule 200 mg PO BID Rx Instructions: takes at 0 and 2030 pravastatin 20 mg tablet 20 mg PO DAILY Rx Instructions: takes at 0230 pregabalin 225 mg capsule 225 mg PO BEDTIME amlodipine-benazepril [Lotrel] 5-20 mg capsule 1 cap PO DAILY Rx Instructions: takes at 0 torsemide 20 mg tablet 20 mg PO BID Rx Instructions: takes at 0 and 2029 citalopram [Celexa] 40 mg tablet 40 mg PO DAILY doxazosin [Cardura] 2 mg tablet 2 mg PO DAILY esomeprazole magnesium [Nexium] 40 mg capsule,delayed release(DR/EC) 40 mg PO DAILY ropinirole 3 mg tablet 3 mg PO BEDTIME alprazolam 0.5 mg tablet 0.5 mg PO TID Eliquis 5 mg tablet 5 mg PO BID hydrocodone-acetaminophen 5-325 mg tablet 1 tab PO Q6H PRN (Reason: pain) metoprolol succinate 50 mg tablet extended release 24 hr 50 mg PO DAILY nitroglycerin 0.4 mg tablet, sublingual 0.4 mg sublingual DAILY PRN (Reason: chest pain) topiramate 100 mg tablet 100 mg PO BID trospium 20 mg tablet 20 mg PO DAILY oxycodone-acetaminophen 5-325 mg tablet 1 tab PO Q6H PRN (Reason: pain) multivitamin [Daily Multi-Vitamin] Tablet 1 tab PO DAILY Print Language: Kyrgyz Instructions: Acute Wounds (ED) Additional Instructions: follow up with Dr Butler tomorrow Referrals: LYDIA BERUMEN [Primary Care Provider] - 1 week
== END 2024-08-07 20:48 | disposition home or self-care (01) ==
PROVIDERS: Emergency Provider Internal Medicine; PCP Internal Medicine
DX: Z48.817 Encounter for surgical aftercare following surgery on the skin and subcutaneous tissue (principal); F17.200 Nicotine dependence, unspecified, uncomplicated
CPT/HCPCS: 99282

== ENCOUNTER 2024-08-08 15:54 | Outpatient (OUT) | payer MEDICARE, SELFPAY ==
--- OUTSIDE RECORDS SUMMARY | 2024-08-08 16:00 | XMS_ITS | CCD ---
Author Organization [facility] Care Team Providers Care Engine Lathe Tender Name Role Phone DR SAEED BERGER Attending DR SAEED Vazquez Primary Care Unavailable DR SAEED BERGER Admitting Saeed Vazquez MD Unavailable [phone] Saeed Berger MD Primary Care Provider [phone] HERB ARROYO Attending SAEED Vazquez Attending SAEED Vazquez Attending SAEED Vazquez Attending SAEED Vazquez Attending Unavailable Medications Current Medications Medication Drug Class(es) Dates Sig (Normalized) Sig (Original) acetaminophen 325 mg / HYDROcodone bitartrate 5 mg oral tablet (5 sources) Opioid Agonist Start: 12-16-2023 take 1 tablet by mouth every six hours for pain HYDROcodone-aceta minophen ([place]) 5-325 MG tablet Indications: Lumbar pain Take 1 tablet by mouth every 6 (six) hours if needed for severe pain 120 tablet 0 12/16/2023 Active Start: 11-17-2023 End: 12-14-2023 take 1 tablet by mouth every six hours for pain HYDROcodone-acetaminophen ([place]) 5-325 MG tablet Indications: Lumbar pain Take [...] Results Test Name Value Interpretation Reference Range [facility] ity Office Visiton 02-02-2024 Follow-up visit [id number] Jovi Etienne 1945 M Date Provider Department Center 02/02/2024 Lawson-DINAHERB ALEXA [facility] Family History Problem Relation Age of Onset Other Mother Family Status - Relation Status Age at Mother Level of Service:64775 NM OFFICE/OUTPATIENT NEW MODERATE MDM 45 MINUTES Normal [facility] Laboratory - Hematology and Cell countson 12-11-2023 HbA1c (Bld) [Mass fraction] 5.3 % [facility] No Panel Informationon 12-11 Interpretation and review of laboratory results Normal [facility] Vital Signs Date Time Vital Sign Value Performing Clinician Faci lity 12-11-2023 10:35-0500 Body mass index (BMI) [Ratio] 35.87 kg/m2 Saeed Berger MD Work Phone: [facility] 12-11-2023 10:35-0500 Body weight 103.87 kg Saeed Berger MD Work Phone: [facility] 12-11-2023 10:35-0500 Heart rate 50 /min Saeed Berger MD Work Phone: [facility] 12-11-2023 10:35-0500 SaO2% (BldA) [Mass fraction] 96 % Saeed Berger MD Work Phone: [facility] Encounters Encounter Date Encounter Type Care Provider Facility Start: 06-15-2024 End: 06-15-2024 ambulatory SAEED BERGER Not Available Start: 02-17-2024 End: 02-17-2024 ambulatory SAEED BERGER Not Available Start: 02-02-2024 End: 02-02-2024 ambulatory HERB ARROYO [facility] Start: 12-25-2023 End: 12-25-2023 ambulatory SAEED [...] Office Visit [facility] [address] [facility] [address] [place] [id number] Saeed Berger MD [address] [facility] [address] [place] [address] [facility] Start: 12-11-2023 End: 12-11-2024 Comprehensive metabolic 2000 panel - Serum or Plasma Comprehensive metabolic panel Lab Routine Atrial fibrillation, unspecified type (CMS/HCC) Expected: 12/11/2023 (Approximate), Expires: 12/11/2024 [facility] Comment on above: Expected: 12/11/2023 (Approximate), Expires: 12/11/2024 Start: 12-11-2023 End: 12-11-2024 CT Chest for screening WO contrast CT lung screening low dose Imaging Routine Encounter for screening for lung cancer Expected: 12/11/2023, Expires: 12/11/2024 [facility] Work Phone: Comment on above: Expected: 12/11/2023 , Expires: 12/11/2024 Start: 12-11-2023 End: 12-11-2025 Echocardiogram 2D complete Echocardiogram 2D complete Echocardiography Routine Atrial fibrillation, unspecified type (CMS/HCC) Expected: 12/11/2023 (Approximate), Expires: 12/11/2025 [facility] Comment on above: Expected: 12/11/2023 (Approximate), Expires: 12/11/2025 Start: 12-11-2023 End: 12-11-2024 Lipid 1996 panel - Serum or Plasma Lipid panel Lab Routine Mixed hyperlipidemia ([facility]/HCC) Expected: 12/11/2023 (Approximate), Expires: 12/11/2024 [facility] Comment on above: Expected: 12/11/2023 (Approximate), Expires: 12/11/2024 Start: 12-11-2023 End: 12-11-2024 TSH W/REFLEX TO FT4 TSH W/REFLEX TO FT4 Lab Routine Atrial fibrillation, unspecified type ([facility]/HCC) Expected: 12/11/2023 (Approximate), Expires: 12/11/2024 [facility] Comment on above: Expected: 12/11/2023 (Approximate), Expires: 12/11/2024 Start: 1945 Medicare Annual Well ness (AWV) Medicare Annual Wellness (AWV) [facility] CBC W Auto Different ial panel - Blood CBC and differential Lab Routine Atrial fibrillation, unspecified type ([facility]/HCC) Ordered: 12/11/2023 [facility] Comment on above: Ordered: 12/11/2023 Immunizations Immunization Date Immunization Notes Care Provider [facility] 09-08-2023 Influenza, Seasonal, Quadrivalent, Adjuvanted Saeed Berger MD Work Phone: [facility] 09-08-2023 RSV, recombinant, pr otein subunit RSVpreF, adjuvant reconstitu, 120mcg/0.5mL, PF (Arexvy) Saeed Berger MD Work Phone: [facility] 08-14-2022 Influenza, High-dose Seasonal, Quadrivalent, Preservative Free Saeed Berger MD Work Phone: [facility] 08-14-2022 Moderna SARS-CoV-2 50mcg/0.5mL Booster Saeed Berger MD Work Phone: [facility] 11-09-2021 Influenza, Seasonal, Quadrivalent, Adjuvanted Saeed Berger MD Work Phone: [facility] 05-09-2021 zoster vaccine recombinant Viviane Berger MD Work Phone: [facility] 11-19-2020 zoster vaccine recombinant Viviane Berger MD Work Phone: [facility] 09-05-2020 pneumococcal polysaccharide vaccine, 23 valchristofer Berger MD Work Phone: [facility] 08-06-2020 influenza, high dose seasonal, preservative-free Saeed Berger MD Work Phone: [facility] 10-24-2019 influenza, high dose seasonal, preservative-free Saeed Berger MD Work Phone: [facility] 05-09-2019 pneumococcal conjuga te vaccine, 13 valent Saeed Berger MD Work Phone: [facility] 09-22-2018 influenza, high dose seasonal, preservative-free Saeed Berger MD Work Phone: [facility] 03-15-2018 pneumococcal conjuga te vaccine, 13 valchristofer Berger MD Work Phone: [facility] 11-27-2017 seasonal influenza, intradermal, preservative free Saeed Berger MD Work Phone: [facility] 01-10-2015 zoster vaccine, live Saeed Berger MD Work Phone: [facility] 12-13-2014 tetanus toxoid, redu katie diphtheria toxoid, and acellular pertussis vaccine, adsorbed Saeed Berger MD Work Phone: [facility] 12-04-2014 zoster vaccine, live Saeed Berger MD Work Phone: [facility] 08-09-2014 influenza virus vacc ine, split virus (incl. purified surface antigen) Saeed Berger MD Work Phone: [facility] 08-04-2014 pneumococcal polysaccharide vaccine, 23 valchristofer Berger MD Work Phone: [facility] 07-11-2013 seasonal influenza, intradermal, preservative free Saeed Berger MD Work Phone: [facility] 09-15-2009 novel influenza-H1N1 -09, preservative-free, injectable Saeed Berger MD Work Phone: [facility] Payers Date Payer Category Payer Medicare AETNA MEDICARE A DVANTAGE AETNA MEDICARE REPLACEMENT [id number] 2021-Present [address] [place] [address] [id number] 2021 Medicare [id number] 1958 Self-pay 1945 Unknown [id number] 1945 Unknown [id number] 1945 Unknown [id number] 1945 Unknown [id number] 1945 Unknown [id number] Social History Date Type Detail Facility Start: 09-03-2023 [facility] [...] IN THE MORNING AND BEFORE BEDTIME HYDROcodone-acetaminophen ([place]) 5-325 mg tablet TAKE 1 TABLET BY [...] distended, no b (more content not included)... [facility] Progress note 02-02-2024 Note Date & [...] All other systems reviewed and are negative. [facility] Telephone encounter Note 12-16-2023 Telephone Encounter [...] in other encounter. documented in this encounter [facility] Telephone encounter Note 12-16-2023 Telephone Encounter [...] MOUTH EVERY DAY 90 tablet 4 HYDROcodone-acetaminophen ([place]) 5-325 MG tablet Take 1 tablet by [...] Do you have a medical power of row boss hoeing?: No Objective : Pulse 50 Wt 229 [...] December 11, 2023 documented in this encounter [facility] Evaluation note Note Date & Type Note Facility Evaluation note Diagnosis Atrial fibrillation, unspecified type (CMS/HCC)- Primary Chronic venous insufficiency Unspecified venous (peripheral) insufficiency Lumbar pain Lumbago Peripheral polyneuropathy Primary localized osteoarthrosis of lower leg, unspecified laterality Encounter for screening for lung cancer IFG (impaired fasting glucose) Mixed hyperlipidemia (CMS/HCC) Mixed hyperlipidemia documented in this encounter [facility] Evaluation note Note Date & Type Note Facility Evaluation note Diagnosis Generalized osteoarthritis Generalized osteoarthrosis, involving multiple sites Lumbar pain Lumbago Other polyneuropathy documented in this encounter [facility] Evaluation note Note Date & Type Note Facility Evaluation note Diagnosis Lumbar pain Lumbago Generalized osteoarthritis Generalized osteoarthrosis, involving multiple sites Other polyneuropathy documented in this encounter [facility] Summary Purpose Family History No Family History Records FoundNo Family History Records FoundNo Family History Records Found Advance Directives No Advanced Directives Records FoundNo Advanced Directives Records FoundNo Advanced Directives Records Found Reason for Referral Specialty Diagnoses / Procedures Referred By Contac t Referred To Contact Radiology Diagnoses Atrial fibrillation, unspecified type (CMS/HCC) Procedures Echocardiogram 2D complete Saeed Berger MD [address] [address] Referral ID Status Reason Start Date Expiration Date Visits Requested Visits Authorized [id number] Incomplete Perform Procedure 12/11/2023 06/08/2024 1 1 Specialty Diagnoses / Procedures Referred By Contac t Referred To Contact Cardiology Diagnoses Atrial fibrillation, unspecified type (CMS/HCC) Procedures NM OFFICE/OUTPATIENT [facility] 60 MINUTES Saeed Berger MD [address] [facility] [address] [place] [address] Rebecca Norman MD [address] [place] [address] Referral ID Status Reason Start Date Expiration Date Visits Requested Visits Authorized [id number] Pending Review Specialty Services Required 12/11/2023 06/08/2024 1 1 Specialty Diagnoses / Procedures Referred By Haley aguayo Referred To Contact Diagnoses Encounter for screening for lung cancer Procedures CT lung screening low dose Saeed Berger MD [address] [facility] [address] [place] [address] [facility] [address] [place] [address] Phone: [phone] Referral ID Status Reason Start Date Expiration Date V isits Requested Visits Authorized [id number] Pending Review 12/11/2023 06/08/2024 1 1 Specialty Diagnoses / Procedures Referred By Haley aguayo Referred To Contact Diagnoses Other polyneuropathy Saeed Berger MD [address] [address] Referral ID Status Reason Start Date Expiration Date V isits Requested Visits Authorized [id number] Pending Review 1 1 Additional Source Comments (unrecognized sect ion and content) No Status Records FoundNo Status Records FoundNo Status Records Found INFORMATION SOURCE (unrecogn ized section and content) DATE CREATED AUTHOR 12/03/2022 [facility] DATE CREATED AUTHOR AUTHOR'S ORGANIZ ATION 02/04/2024 [facility] DATE CREATED AUTHOR AUTHOR'S ORGANIZ ATION 06/17/2024 [facility] EPIC Reason for Visit (unrecogniz ed section and content) Reason Comments Medicare Annual Wellness Visit Subsequen t Reason Onset Date Comments Med Refill 12/14/2023 Refills needed f or Celebrex 200mg, Hydrocodone 5-325mg, Lyrica 225mg and send to [facility] [place] Reason Onset Date Comments Med Refill 12/15/2023 celecoxib (CeleB YVONNE) 200 MG capsuleHYDROcodone- acetaminophen ([place]) 5-325 MG tablet pregabalin (Lyrica) 225 MG capsule To [facility] [place] Care Teams (unrecognized sec tion and content) Engine Lathe Tender Relationship Specialty Start Date End Date Saeed Berger MD [address] [address] PCP - Aet 11/09/20 Saeed Berger MD [address] [place] [address] [place] [address] PCP - General Internal Medicine 03/17/23 Engine Lathe Tender Relationship Specialty Start Date End Date Saeed Berger MD [address] [place] [address] [place] [address] PCP - Aet 11/09/20 Saeed Berger MD [address] [place] [address] [place] [address] PCP - General Internal Medicine 03/17/23 Engine Lathe Tender Relationship Specialty Start Date End Date Saeed Berger MD [address] [place] [address] [place] [address] PCP - [facility] 11/09/20 Saeed Berger MD [address] [place] [address] [place] [address] PCP - General Internal Medicine 03/17/23 FOR [...] BE BASED ON THE PRIMARY CLINICAL RECORDS. [email or web address] [facility]. provides no warranty or guarantee of the accuracy or completeness of information in this document.
== END 2024-08-08 15:55 | disposition home or self-care (01) ==
LOC: WC 15:54
PROVIDERS: PCP Internal Medicine; Visit Provider Podiatrist Foot & Ankle Surgery
DX: I87.311 Chronic venous hypertension (idiopathic) with ulcer of right lower extremity (principal); L97.812 Non-pressure chronic ulcer of other part of right lower leg with fat layer exposed
CPT/HCPCS: G0463

== ENCOUNTER 2024-08-15 16:12 | Outpatient (OUT) | payer MEDICARE, SELFPAY | END 2024-08-15 16:13 | disposition home or self-care (01) | LOC: WC 16:12 | PROVIDERS: PCP Internal Medicine; Visit Provider Physician Assistant | DX: I87.311 Chronic venous hypertension (idiopathic) with ulcer of right lower extremity (principal); L97.812 Non-pressure chronic ulcer of other part of right lower leg with fat layer exposed | CPT/HCPCS: G0463 ==

== ENCOUNTER 2024-08-24 14:07 | Outpatient (OUT) | payer MEDICARE, SELFPAY ==
--- OUTSIDE RECORDS SUMMARY | 2024-08-24 14:24 | XMS_ITS | CCD ---
Author Organization [facility] Care Team Providers Care Rn Correctional Name Role Phone DR SAEED BERGER Attending DR SAEED Vazquez Primary Care Unavailable DR SAEED BERGER Admitting Saeed Vazquez MD Unavailable Saeed Berger MD Primary Care Provider [phone] HERB ARROYO Attending SAEED Vazquez Attending SAEED Vazquez Attending SAEED Vazquez Attending SAEED Vazquez Attending Unavailable Medications Current Medications Medication Drug Class(es) Dates Sig (Normalized) Sig (Original) acetaminophen 325 mg / HYDROcodone bitartrate 5 mg oral tablet (7 sources) Opioid Agonist Start: 07-13-2024 End: 08-18-2024 take 1 tablet by mouth every six hours for pain HYDROcodone-aceta minophen ([place]) 5-325 MG tablet Indications: Lumbar pain Take 1 tablet by mouth every 6 (six) hours if needed for severe pain 120 tablet 08/18/2024 Active Start: 12-16-2023 take 1 tablet by gunnar th every six hours for pain HYDROcodone-acetaminophen ([place]) 5-325 MG tablet Indications: Lumbar pain Take 1 tablet by mouth every 6 (six) hours if needed for severe pain 120 tablet 0 12/16/2023 Active Start: 11-17-2023 End: 12-14-2023 take 1 tablet by mouth every six hours for pain HYDROcodone-acetaminophen ([place]) 5-325 MG tablet Indications: Lumbar pain Take 1 tablet by mouth every 6 (six) hours if needed for severe pain 120 tablet 0 11/17/2023 12/14/2023 Discontinued (Reorder) ALPRAZolam 0.5 mg oral tablet (5 sources) Benzodiazepine Start: 06-29-2024 take 1 tablet by mouth three times daily as needed for anxiety ALPRAZolam (Xanax) 0.5 MG tablet Indications: Anxiety , Depression with anxiety Take 1 tablet (0.5 mg) by mouth 3 (three) times a day as needed for anxiety 90 tablet 2 06/29/2024 Active Start: 11-04-2023 End: 02-02-2024 take 1 tablet by mouth three times daily as needed for anxiety ALPRAZolam (Xanax) 0.5 MG tablet Indications: Anxiety , Depression with anxiety Take 1 tablet (0.5 mg) by mouth 3 (three) times a day as needed for anxiety 90 tablet 1 11/04/2023 02/02/2024 Active amLODIPine 5 mg / benazepril hydrochloride 20 mg oral capsule (5 sources) Dihydropyridine Calcium Channel Pancho, Angiotensin Converting Enzyme Inhibitor Start: 08-08-2024 take 1 capsule by mouth once daily amLODIPine-benazepril (Lotrel) 5-20 MG capsule Indications: Benign essential hypertension (CMS/HCC) TAKE 1 CAPSULE BY MOUTH EVERY DAY 90 capsule 3 08/08/2024 Active Start: 08-10-2023 take 1 capsule by mo [facility] once daily amLODIPine-benazepril (Lotrel) 5-20 MG capsule Indications: Benign essential hypertension (CMS/HCC) TAKE 1 CAPSULE BY MOUTH EVERY DAY FOR 90 DAYS 90 capsule 3 08/10/2023 Active amoxicillin 875 mg / clavulanate 125 mg oral tablet (1 source) Penicillin-class Antibacterial Start: 06-06-2024 take 1 tablet by mouth in the morning amoxicillin-clavulanate (Augmentin) 875-125 MG tablet Take 1 tablet by mouth in the morning and 1 tablet before bedtime. 06/06/2024 Active apixaban 5 mg oral tablet (5 sources) Factor Xa Inhibitor Start: 12-11-2023 End: 05-05-2025 take 1 tablet by mouth in the morning apixaban (Eliquis) 5 MG tablet Indications: Atrial fibrillation, unspecified type (CMS/HCC) Take 1 tablet (5 mg) by mouth in the morning and 1 tablet (5 mg) before bedtime. 60 tablet 11 05/05/2024 05/05/2025 Active aspirin 81 mg delayed release oral tablet (2 sources) Platelet Aggregation Inhibitor, Nonsteroidal Anti-inflammatory Drug End: 12-11-2023 take 1 tablet by mouth in the morning aspirin (Aspirin Low Dose) 81 MG EC tablet Take 81 mg by mouth in the morning. 0 12/11/2023 Discontinued betamethasone 0.5 mg/ml / clotrimazole 10 mg/ml topical cream (5 sources) Azole Antifungal, Corticosteroid Start: 07-29-2023 clotrimazole-betamethasone (Lotrisone) cream APPLY TO AFFECTED AREA EVERY DAY 07/29/2023 Active celecoxib 200 mg oral capsule (4 sources) Nonsteroidal Anti-inflammatory Drug Start: 12-16-2023 take [...] 12/11/2023 Discontinued citalopram 40 mg oral tablet (5 sources) Serotonin Reuptake Inhibitor Start: 11-10-2023 take 1 tablet by mouth once daily citalopram (CeleXA) 40 MG tablet Indications: Generalized anxiety disorder (CMS/HCC) TAKE 1 TABLET BY MOUTH EVERY DAY 100 tablet 3 11/10/2023 Active clobetasol propionate 0.5 mg/ml topical cream (5 sources) Corticosteroid clobetasol (Temovate) 0.05 % cream Apply topically 2 (two) times a day. Active doxazosin 2 mg oral tablet (5 sources) alpha-Adrenergic Pancho Start: 11-06-2023 take 1 tablet by mouth once daily doxazosin (Cardura) 2 MG tablet Indications: Benign essential hypertension (CMS/HCC) TAKE 1 TABLET BY MOUTH EVERY DAY 90 tablet 4 11/06/2023 Active sodium hypochlorite 2.5 mg/ml topical solution (1 source) Start: 06-07-2024 HySept 0.25 % external solution APPLY TO AFFECTED AREA THREE TIMES A WEEK 06/07/2024 Active 24 hr metoprolol succinate 50 mg extended release oral tablet (5 sources) beta-Adrenergic Pancho Start: 08-08-2024 take 1 tablet by mouth every twenty-four hours in the morning metoprolol succinate XL (Toprol-XL) 50 MG 24 hr tablet Indications: Atrial fibrillation, unspecified type (CMS/HCC) TAKE 1 TABLET (50 MG) BY MOUTH IN THE MORNING DO NOT CRUSH OR CHEW 90 tablet 3 08/08/2024 Active Start: 12-11-2023 take 1 tablet by gunnar th every twenty-four hours in the morning metoprolol succinate XL (Toprol-XL) 50 MG 24 hr tablet Indications: Atrial fibrillation, unspecified type (CMS/HCC) Take 1 tablet (50 mg) by mouth in the morning. Do not crush or chew.. 30 tablet 11 12/11/2023 Active nitroglycerin 0.4 mg sublingual tablet (5 sources) Nitrate Vasodilator Start: 08-26-2023 End: 08-25-2024 nitroglycerin (Nitrostat) 0.4 MG SL tablet Indications: Stricture and stenosis of esophagus Place 1 tablet (0.4 mg) under the tongue every 5 (five) minutes if needed for chest pain. 90 tablet 5 08/26/2023 08/25/2024 Active pravastatin sodium 20 mg oral tablet (5 sources) HMG-CoA Reductase Inhibitor Start: 01-04-2024 take 1 tablet by mouth once daily in the evening pravastatin (Pravachol) 20 MG tablet Indications: Mixed hyperlipidemia (CMS/HCC) TAKE 1 TABLET BY MOUTH EVERY DAY IN THE EVENING FOR 100 DAYS 100 tablet 3 01/04/2024 Active take 1 tablet by mouth in the mo rning pravastatin (Pravachol) 20 MG tablet Take 20 mg by mouth in the morning. 0 Active pregabalin 225 mg oral capsule (6 sources) Start: 06-27-2024 take 1 capsule by mouth at bedtime pregabalin (Lyrica) 225 MG capsule Indications: Other polyneuropathy Take 1 capsule (225 mg) by mouth at bedtime 90 capsule 1 06/27/2024 Active Start: 12-16-2023 take 1 capsule by mo uth at bedtime pregabalin (Lyrica) 225 MG capsule [...] Discontinued (Reorder) rOPINIRole 3 mg oral tablet (5 sources) Nonergot Dopamine Agonist Start: 03-21-2024 take 1 tablet by mouth once daily at bedtime rOPINIRole (Requip) 3 MG tablet Indications: Restless Leg Syndrome TAKE 1 TABLET BY MOUTH EVERY DAY AT BEDTIME FOR 90 DAYS 90 tablet 3 03/21/2024 Active Start: 10-14-2023 take 1 tablet by gunnar th once daily at bedtime rOPINIRole (Requip) 3 MG tablet Indications: Restless legs syndrome TAKE 1 TABLET BY MOUTH EVERY DAY AT BEDTIME FOR 90 DAYS 90 tablet 3 10/14/2023 Active topiramate 100 mg oral tablet (5 sources) Start: 08-07-2023 take 1 tablet by mouth twice daily topiramate (Topamax) 100 MG tablet Indications: Migraine without status migrainosus, not intractable, unspecified migraine type (CMS/HCC) TAKE 1 TABLET BY MOUTH TWICE A DAY FOR 90 DAYS 180 tablet 3 08/07/2023 Active torsemide 20 mg oral tablet (7 sources) Loop Diuretic Start: 08-08-2024 take 1 tablet by mouth once daily in the morning torsemide (Demadex) 20 MG tablet Indications: Chronic venous insufficiency TAKE 1 TABLET BY MOUTH EVERY DAY IN THE MORNING 100 tablet 1 08/08/2024 Active Start: 09-03-2023 End: 12-11-2023 take 1 tablet by mouth in the morning torsemide (Demadex) 20 MG tablet Indications: Chronic venous insufficiency Take 1 tablet (20 mg) by mouth in the morning. 100 tablet 1 12/11/2023 Active trospium chloride 20 mg oral tablet (5 sources) Cholinergic Muscarinic Antagonist Start: 03-18-2024 take 1 tablet by mouth once daily at bedtime trospium (Sanctura) 20 MG tablet Indications: Overactive bladder TAKE 1 TABLET BY MOUTH ONCE A DAY AT BEDTIME ON AN EMPTY STOMACH 100 tablet 3 03/18/2024 Active take 1 tablet by mouth at bedtim e trospium (Sanctura) 20 MG tablet Take by mouth at bedtime. 0 Active Problems Active Problems Problem Classification Problem Date Documented Da te Episodic/Chronic Anxiety disorders (5 sources) Anxiety; Translations: [Anxiety disorder, unspecified] Onset: 3 06-16-2023 Chronic Cardiac dysrhythmias (5 sources) Atrial fibrillation; Translations: [Unspecified atrial fibrillation] Onset: 4 12-11-2023 Chronic Chronic obstructive pulmonary disease and bronchiectasis (5 sources) Chronic obstructive lung disease; Translations: [Chronic obstructive pulmonary disease, unspecified] Onset: 3 05-20-2023 Chronic Chronic ulcer of skin (5 sources) Non-pressure chronic ulcer of right ankle with unspecified severity; Translations: [Ulcer of ankle] Onset: 3 06-16-2023 Chronic Diabetes mellitus without complication (2 sources) Impaired fasting glycemia; Translations: [Impaired fasting glucose] 12-11-2023 Episodic Disorders of lipid metabolism (7 sources) Mixed hyperlipidemia; Translations: [Mixed hyperlipidemia] Onset: 3 12-11-2023 Chronic Esophageal disorders (10 sources) Gastroesophageal reflux disease; Translations: [Gastro-esophageal reflux disease without esophagitis] Onset: 3 05-20-2023 Chronic Essential hypertension (5 sources) Benign essential hypertension; Translations: [Essential (primary) hypertension] Onset: 3 05-20-2023 Chronic Hyperplasia of prostate (5 sources) Benign prostatic hyperplasia; Translations: [Benign prostatic hyperplasia without lower urinary tract symptoms] Onset: 3 05-20-2023 Chronic Miscellaneous mental health disorders (5 sources) Chronic insomnia; Translations: [Psychophysiologic insomnia] Onset: 3 05-20-2023 Chronic Mood disorders (5 sources) Depressive disorder; Translations: [Depressive disorder] Onset: 3 05-20-2023 Chronic Osteoarthritis (19 sources) Localized, primary osteoarthritis; Translations: [Unilateral primary osteoarthritis, unspecified knee] Onset: 5 12-11-2023 Chronic Other congenital anomalies (5 sources) Congenital accessory skin tag; Translations: [Other specified congenital malformations of skin] Onset: 3 06-16-2023 Chronic Other gastrointestinal disorders (5 sources) Chronic idiopathic constipation; Translations: [Chronic idiopathic constipation] Onset: 3 05-20-2023 Chronic Other gastrointestinal disorders (5 sources) Irritable bowel syndrome; Translations: [Irritable bowel syndrome without diarrhea] Onset: 3 05-20-2023 Chronic Other hereditary and degenerative nervous system conditions (5 sources) Restless legs; Translations: [Restless legs syndrome] Onset: 3 05-20-2023 Chronic Other hereditary and degenerative nervous system conditions (5 sources) System disorder of the nervous system; Translations: [Other specified extrapyramidal and movement disorders] Onset: 3 06-16-2023 Chronic Other hereditary and degenerative nervous system conditions (5 sources) Extrapyramidal movements; Translations: [Extrapyramidal and movement disorder, unspecified] Onset: 6 07-14-2023 Chronic Other nervous system disorders (4 sources) Polyneuropathy; Translations: [Polyneuropathy, unspecified] 12-11-2023 Chronic Other nervous system disorders (5 sources) Peripheral nerve disease ; Translations: [Polyneuropathy, unspecified] Onset: 3 05-20-2023 Chronic Other nutritional; endocrine; and metabolic disorders (5 sources) Obesity; Translations: [Obesity, unspecified] Onset: 3 06-16-2023 Chronic Other screening for suspected conditions (not mental disorders or infectious disease) (2 sources) Patient encounter status; Translations: [Encounter for screening for malignant neoplasm of respiratory organs] 12-11-2023 Episodic Spondylosis; intervertebral disc disorders; other back problems (10 sources) Low back pain; Translations: [Lumbar pain] Onset: 3 12-11-2023 Episodic Substance-related disorders (5 sources) Cigarette smoker ; Translations: [Nicotine dependence, cigarettes, uncomplicated] Onset: 3 05-20-2023 Chronic Past or Other Problems Problem Classification Problem Date Documented Date Episodic/Chronic Abdominal hernia (5 sources) Diaphragmatic hernia; Translations: [Diaphragmatic hernia without obstruction or gangrene] Onset: 05-20-2023 05-20-2023 Episodic Other acquired deformities (5 sources) Acquired spondylolisthesis; Translations: [Spondylolisthesis, site unspecified] Onset: 05-20-2023 05-20-2023 Episodic Other acquired deformities (5 sources) Spondylolysis; Translations: [Spondylolysis, lumbar region] Onset: 06-16-2023 06-16-2023 Episodic Other and unspecified benign neoplasm (5 sources) B-K mole (nevus) syndrome; Translations: [Other benign neoplasm of skin, unspecified] Onset: 06-16-2023 06-16-2023 Episodic Other diseases of veins and lymphatics (7 sources) Peripheral venous insufficiency; Translations: [Venous insufficiency (chronic) (peripheral)] Onset: 05-20-2023 12-11-2023 Episodic Results Test Name Value Interpretation Reference Range Facil ity Office Visiton 02-02-2024 Follow-up visit [id number] KristopherDimitris rangel Jessi 1945 M Date Provider Department Center 02/02/2024 Lawson-HERB ARROYO ALEXA Florentino [facility] Family History Problem Relation Age of Onset Other Mother Family Status - Relation Status Age at Mother Level of Service:40573 [place] OFFICE/OUTPATIENT NEW MODERATE MDM 45 MINUTES Normal [facility] Laboratory - Hematology and Cell countson 12-11-2023 HbA1c (Bld) [Mass fraction] 5.3 % [facility] No Panel Informationon 12-11 Interpretation and review of laboratory results Normal [facility] Vital Signs Date Time Vital Sign Value Performing Clinician Faci lity 12-11-2023 10:35-0500 Body mass index (BMI) [Ratio] 35.87 kg/m2 Saeed Berger MD Work Phone: [facility] 12-11-2023 10:35-0500 Body weight 103.87 kg Saeed Berger MD Work Phone: [facility] 12-11-2023 10:35-0500 Heart rate 50 /min Saeed Berger MD Work Phone: [facility] 12-11-2023 10:35-0500 SaO2% (BldA) [Mass fraction] 96 % Saeed Berger MD Work Phone: [facility] Healthcare Encounters Encounter Date Encounter Type Care Provider Facility Start: 08-18-2024 End: 08-18-2024 Refill Saeed Berger MD Work Phone: [facility] Comment on above: Lumbar pain Start: 06-15-2024 End: 06-15-2024 ambulatory SAEED BERGER Not Available Start: 02-17-2024 End: 02-17-2024 ambulatory SAEED BERGER Not Available Start: 02-02-2024 End: 02-02-2024 ambulatory [facility] Start: 12-25-2023 End: 12-25-2023 ambulatory SAEED BERGER [...] Treatment Date Care Activity Detail Author Start: 12-25-2024 Medicare Annual Well ness (AWV) Medicare Annual Wellness (AWV) [facility] Start: 09-15-2024 End: 09-15-2024 Patient encounter procedure 09/15/2024 10:45 AM EST Office Visit [facility] [address] [facility] [address] [place] [id number] Saeed Berger MD [address] [place] [address] [place] [address] [facility] Start: 09-01-2024 Influenza vaccination Influenza Vacc ine (#1) [facility] Start: 12-25-2023 End: 12-25-2023 Patient encounter procedure 12/25/2023 10:30 AM EST Office Visit [facility] [address] [facility] [address] [place] [id number] Saeed Berger MD [address] [facility] [address] [place] [address] [facility] Start: 12-11-2023 End: 12-11-2024 Comprehensive metabolic 2000 panel - Serum or Plasma Comprehensive metabolic panel Lab Routine Atrial fibrillation, unspecified type (CMS/HCC) Expected: 12/11/2023 (Approximate), Expires: 12/11/2024 [facility] Comment on above: Expected: 12/11/2023 (Approximate), Expires: 12/11/2024 Start: 12-11-2023 End: 12-11-2024 CT Chest for screening WO contrast CT lung screening low dose Imaging Routine Encounter for screening for lung cancer Expected: 12/11/2023, Expires: 12/11/2024 [facility] Work Phone: Comment on above: Expected: 12/11/2023 , Expires: 12/11/2024 Start: 12-11-2023 End: 12-11-2025 Echocardiogram 2D complete Echocardiogram 2D complete Echocardiography Routine Atrial fibrillation, unspecified type (CMS/HCC) Expected: 12/11/2023 (Approximate), Expires: 12/11/2025 [facility] Comment on above: Expected: 12/11/2023 (Approximate), Expires: 12/11/2025 Start: 12-11-2023 End: 12-11-2024 Lipid 1996 panel - Serum or Plasma Lipid panel Lab Routine Mixed hyperlipidemia (CMS/HCC) Expected: 12/11/2023 (Approximate), Expires: 12/11/2024 [facility] Comment on above: Expected: 12/11/2023 (Approximate), Expires: 12/11/2024 Start: 12-11-2023 End: 12-11-2024 TSH W/REFLEX TO FT4 TSH W/REFLEX TO FT4 Lab Routine Atrial fibrillation, unspecified type (CMS/HCC) Expected: 12/11/2023 (Approximate), Expires: 12/11/2024 [facility] Comment on above: Expected: 12/11/2023 (Approximate), Expires: 12/11/2024 Start: 1945 Medicare Annual Well ness (AWV) Medicare Annual Wellness (AWV) [facility] CBC W Auto Different ial panel - Blood CBC and differential Lab Routine Atrial fibrillation, unspecified type (CMS/HCC) Ordered: 12/11/2023 [facility] Comment on above: Ordered: 12/11/2023 Immunizations Immunization Date Immunization Notes Care Provider Fa cility 03-12-2024 tetanus toxoid, redu katie diphtheria toxoid, and acellular pertussis vaccine, adsorbed Saeed Berger MD Work Phone: [facility] 09-08-2023 Influenza, Seasonal, Quadrivalent, Adjuvanted Saeed Berger MD Work Phone: [facility] 09-08-2023 RSV, recombinant, pr otein subunit RSVpreF, adjuvant reconstitu, 120mcg/0.5mL, PF (Arexvy) Saeed Berger MD Work Phone: [facility] 09-08-2023 influenza virus vacc ine, unspecified formulation Saeed Berger MD Work Phone: [facility] 08-14-2022 Influenza, High-dose Seasonal, Quadrivalent, Preservative Free Saeed Berger MD Work Phone: [facility] 08-14-2022 Moderna SARS-CoV-2 50mcg/0.5mL Booster Saeed Berger MD Work Phone: [facility] 11-09-2021 Influenza, Seasonal, Quadrivalent, Adjuvanted Saeed Berger MD Work Phone: [facility] 05-09-2021 zoster vaccine recombinant Viviane Berger MD Work Phone: [facility] 11-19-2020 zoster vaccine recombinant Viviane Berger MD Work Phone: [facility] 09-05-2020 pneumococcal polysaccharide vaccine, 23 valent Saeed Berger MD Work Phone: [facility] 08-06-2020 influenza, high dose seasonal, preservative-free Saeed Berger MD Work Phone: [facility] 10-24-2019 influenza, high dose seasonal, preservative-free Saeed Berger MD Work Phone: [facility] 05-09-2019 pneumococcal conjuga te vaccine, 13 valchristofer Berger MD Work Phone: [facility] 09-22-2018 influenza, high dose seasonal, preservative-free Saeed Berger MD Work Phone: [facility] 03-15-2018 pneumococcal conjuga te vaccine, 13 valchristofer Berger MD Work Phone: [facility] 11-27-2017 seasonal influenza, intradermal, preservative free Saeed Berger MD Work Phone: [facility] 01-10-2015 zoster vaccine, live Saeed Berger MD Work Phone: [facility] 12-13-2014 tetanus toxoid, redu katie diphtheria toxoid, and acellular pertussis vaccine, adsorbed Saeed Berger MD Work Phone: [facility] 12-04-2014 zoster vaccine, live Saeed Berger MD Work Phone: [facility] 08-09-2014 influenza virus vacc ine, split virus (incl. purified surface antigen) Saeed Berger MD Work Phone: [facility] 08-04-2014 pneumococcal polysaccharide vaccine, 23 valent Saeed Berger MD Work Phone: [facility] 07-11-2013 seasonal influenza, intradermal, preservative free Saeed Berger MD Work Phone: [facility] 09-15-2009 novel influenza-H1N1 -09, preservative-free, injectable Saeed Berger MD Work Phone: [facility] Payers Date Payer Category Payer Medicare [employer] MEDICARE A DVANTAGE AETNA MEDICARE REPLACEMENT [id number] 2021-Present [address] [place] [address] [id number] 2021 Medicare [id number] 1958 Self-pay 1945 Unknown [id number] 1945 Unknown [id number] 1945 Unknown [id number] 1945 Unknown [id number] 1945 Unknown [id number] Social History Date Type Detail Facility Start: 09-03-2023 Tobacco smoking stat [facility] Smokes tobacco daily [facility] History of tobacco use Cigarette Smoker [facility] Start: 09-03-2023 Tobacco use and exposure Smokeless t obacco non-user [facility] Start: 12-11-2023 End: 06-15-2024 Alcohol intake Current drinker of alcohol (finding) [facility] Start: 12-11-2023 End: 12-25-2023 Alcohol intake [facility] Start: 12-11-2023 End: 12-25-2023 Tobacco use panel [facility] Start: 07-14-2023 Alcohol Comment Caffeine intake: cof fee [facility] Start: 1945 Sex Assigned At Not on file [facility] Clinical Notes 12-11-2023 to 08-18-2024 Telephone Encounter - Samia Bullock - 08/18/2024 2:18 PM EDTTelephone Encounter - Samia Bullock - 08/18/2024 2:18 PM EDTTelephone Encounter - Saeed Berger MD - 12/16/2023 1:23 PM EST Note Date & Type Note Facility 08-18-2024 Telephone encounter Note HYDROcodone-acetaminophen ([place]) 5-325 MG tablet to medicine shop in [place] [facility] 08-18-2024 Miscellaneous Notes HYDROcodone-acetaminophen ([place]) 5-325 MG tablet to medicine shop in [place] documented in this encounter [facility] 02-02-2024 Note [facility] Consult Note Reason for visit: Atrial fibrillation HPI: Dimitris Summersclaire is a 78 y.o. year old with [...] on file Intimate Partner Violence: Unknown (12/31/2023) [facility] Fear of Current or [...] IN THE MORNING AND BEFORE BEDTIME HYDROcodone-acetaminophen ([place]) 5-325 mg tablet TAKE 1 TABLET BY [...] distended, no b (more content not included)... [facility] 02-02-2024 Note New patient here to establish [...] All other systems reviewed and are negative. [facility] 12-16-2023 Telephone encounter Note Done in other encounter. [facility] 12-16-2023 Miscellaneous Notes Done in other encounter. documented in this encounter [facility] 12-16-2023 Telephone encounter Note Sent. [facility] 12-16-2023 Miscellaneous Notes Sent. documented in this encounter [facility] 12-11-2023 History of Present illness Narrative Images from the original note were not included. Subjective : Chief Complaint: Dimitris Leavitt is an 78 y.o. male here for [...] MOUTH EVERY DAY 90 tablet 4 HYDROcodone-acetaminophen ([place]) 5-325 MG tablet Take 1 tablet by [...] Do you have a medical power of [place] attorney?: No Objective : Pulse 50 Wt [...] in this encounter [facility] Evaluation note Diagnosis Atrial fibrillation, unspecified type (CMS/HCC)- Primary Chronic venous insufficiency Unspecified venous (peripheral) insufficiency Lumbar pain Lumbago Peripheral polyneuropathy Primary localized osteoarthrosis of lower leg, unspecified laterality Encounter for screening for lung cancer IFG (impaired fasting glucose) Mixed hyperlipidemia (CMS/HCC) Mixed hyperlipidemia [facility] Diagnosis Generalized osteoarthritis Generalized osteoarthrosis, involving multiple sites Lumbar pain Lumbago Other polyneuropathy [facility] Diagnosis Lumbar pain Lumbago Generalized osteoarthritis Generalized osteoarthrosis, involving multiple sites Other polyneuropathy [facility] Diagnosis Lumbar pain Lumbago documented in this encounter [facility] Summary [...] Echocardiogram 2D complete Saeed Berger MD [address] [address] Referral ID Status Reason Start Date Expiration Date Visits Requested Visits Authorized [id number] Incomplete Perform Procedure 12/11/2023 06/08/2024 1 1 Specialty Diagnoses / Procedures Referred By Contac t Referred To Contact Cardiology Diagnoses Atrial fibrillation, unspecified type (CMS/HCC) Procedures [place] OFFICE/OUTPATIENT NEW HIGH MDM 60 MINUTES Saeed Berger MD [address] [address] Rebecca Norman MD [address] [place] [address] Referral ID Status Reason Start Date Expiration Date Visits Requested Visits Authorized [id number] Pending Review Specialty Services Required 12/11/2023 06/08/2024 1 1 Specialty Diagnoses / Procedures Referred By Contac t Referred To Contact Diagnoses Encounter for screening for lung cancer Procedures CT lung screening low dose Saeed Berger MD 112 [facility] [address] [place] [address] [facility] [address] [place] [address] Phone: [phone] Referral ID Status Reason Start Date Expiration Date V isits Requested Visits Authorized [id number] Pending Review 12/11/2023 06/08/2024 1 1 Specialty Diagnoses / Procedures Referred By Contac t Referred To Contact Diagnoses Other polyneuropathy Saeed Berger MD [address] [address] Referral ID Status Reason Start Date Expiration Date V isits Requested Visits Authorized [id number] Pending Review 1 1 Additional Source Comments (unrecognized sect ion and content) No Status Records FoundNo Status Records FoundNo Status Records Found INFORMATION SOURCE (unrecogn ized section and content) DATE CREATED AUTHOR 12/03/2022 [facility] DATE CREATED AUTHOR AUTHOR'S ORGANIZ ATION 02/04/2024 [facility] DATE CREATED AUTHOR AUTHOR'S ORGANIZ ATION 06/17/2024 [facility] EPIC Reason for Visit (unrecogniz ed section and content) Reason Comments Medicare Annual Wellness Visit Subsequen t Reason Onset Date Comments Med Refill 12/14/2023 Refills needed f or Celebrex 200mg, Hydrocodone 5-325mg, Lyrica 225mg and send to [facility] Reason Onset Date Comments Med Refill 12/15/2023 celecoxib (CeleB YVONNE) 200 MG capsuleHYDROcodone- acetaminophen ([place]) 5-325 MG tablet pregabalin (Lyrica) 225 MG capsule To [facility] Care Teams (unrecognized sec tion and content) Rn Correctional Relationship Specialty Start Date End Date Saeed Berger MD [address] [place] [address] PCP - [employer] 11/09/20 Saeed Berger MD [address] [address] PCP - General Internal Medicine 03/17/23 Rn Correctional Relationship Specialty Start Date End Date Saeed Berger MD [address] [place] [address] [place] [address] PCP - [employer] 11/09/20 Saeed Berger MD [address] [place] [address] [place] [address] PCP - General Internal Medicine 03/17/23 Rn Correctional Relationship Specialty Start Date End Date Saeed Berger MD [address] [place] [address] [place] [address] PCP - [facility] 11/09/20 Saeed Berger MD [address] [place] [address] [place] [address] PCP - General Internal Medicine 03/17/23 Rn Correctional Relationship Specialty Start Date End Date Saeed Berger MD [address] [place] [address] [place] [address] PCP [facility] 11/09/20 Saeed Berger MD [address] [facility] [address] [place] [address] PCP - General Internal Medicine 03/17/23 FOR [...] BE BASED ON THE PRIMARY CLINICAL RECORDS. [facility]. provides no warranty or guarantee of the accuracy or completeness of information in this document.
== END 2024-08-24 14:08 | disposition home or self-care (01) ==
LOC: WC 14:07
PROVIDERS: PCP Internal Medicine; Visit Provider Podiatrist Foot & Ankle Surgery
DX: L84 Corns and callosities (principal); I87.311 Chronic venous hypertension (idiopathic) with ulcer of right lower extremity; L97.812 Non-pressure chronic ulcer of other part of right lower leg with fat layer exposed
CPT/HCPCS: G0463

== ENCOUNTER 2024-08-30 13:21 | Outpatient (OUT) | payer MEDICARE, SELFPAY ==
--- OUTSIDE RECORDS SUMMARY | 2024-08-30 13:28 | XMS_ITS | CCD ---
Author Organization [facility] Care Team Providers Care Data Software Engineer Name Role Phone DR SAEED BERGER Attending [...] / HYDROcodone bitartrate 5 mg oral tablet (8 sources) Opioid Agonist Start: 07-13-2024 End: 08-18-2024 take 1 tablet by mouth every six hours for pain HYDROcodone-aceta minophen (Clarks) 5-325 MG tablet Indications: Lumbar pain Take 1 tablet by mouth every 6 (six) hours if needed for severe pain 120 tablet 08/18/2024 Active Start: 12-16-2023 take 1 tablet by gunnar th every six hours for pain HYDROcodone-acetaminophen (Clarks) 5-325 MG tablet Indications: Lumbar pain Take 1 tablet by mouth every 6 (six) hours if needed for severe pain 120 tablet 0 12/16/2023 Active Start: 11-17-2023 End: 12-14-2023 take 1 tablet by mouth every six hours for pain HYDROcodone-acetaminophen (Clarks) 5-325 MG tablet Indications: Lumbar pain Take 1 tablet by mouth every 6 (six) hours if needed for severe pain 120 tablet 0 11/17/2023 12/14/2023 Discontinued (Reorder) ALPRAZolam 0.5 mg oral tablet (7 sources) Benzodiazepine Start: 06-29-2024 End: 08-22-2024 take 1 tablet by mouth three times daily as needed for anxiety ALPRAZolam (Xanax) 0.5 MG tablet Indications: Anxiety , Depression with anxiety Take 1 tablet (0.5 mg) by mouth 3 (three) times a day as needed for anxiety 90 tablet 08/22/2024 Active Start: 11-04-2023 End: 02-02-2024 take 1 tablet by mouth three times daily as needed for anxiety ALPRAZolam (Xanax) 0.5 MG tablet Indications: Anxiety , Depression with anxiety Take 1 tablet (0.5 mg) by mouth 3 (three) times a day as needed for anxiety 90 tablet 1 11/04/2023 02/02/2024 Active amLODIPine 5 mg / benazepril hydrochloride 20 mg oral capsule (6 sources) Dihydropyridine Calcium Channel Pancho, Angiotensin Converting Enzyme Inhibitor Start: 08-08-2024 take 1 capsule by mouth once daily amLODIPine-benazepril (Lotrel) 5-20 MG capsule Indications: Benign essential hypertension (CMS/HCC) TAKE 1 CAPSULE BY MOUTH EVERY DAY 90 capsule 3 08/08/2024 Active Start: 08-10-2023 take 1 capsule by mo [facility] once daily amLODIPine-benazepril (Lotrel) 5-20 MG capsule Indications: Benign essential hypertension (CMS/HCC) TAKE 1 CAPSULE BY MOUTH EVERY DAY FOR 90 DAYS 90 capsule 3 08/10/2023 Active amoxicillin 875 mg / clavulanate 125 mg oral tablet (2 sources) Penicillin-class Antibacterial Start: 06-06-2024 take 1 tablet by mouth in the morning amoxicillin-clavulanate (Augmentin) 875-125 MG tablet Take 1 tablet by mouth in the morning and 1 tablet before bedtime. 06/06/2024 Active apixaban 5 mg oral tablet (6 sources) Factor Xa Inhibitor Start: 12-11-2023 End: [...] mg/ml / clotrimazole 10 mg/ml topical cream (6 sources) Azole Antifungal, Corticosteroid Start: 07-29-2023 clotrimazole-betamethasone (Lotrisone) cream APPLY TO AFFECTED AREA EVERY DAY 07/29/2023 Active celecoxib 200 mg oral capsule (5 sources) Nonsteroidal Anti-inflammatory Drug Start: 12-16-2023 take [...] 12/11/2023 Discontinued citalopram 40 mg oral tablet (6 sources) Serotonin Reuptake Inhibitor Start: 11-10-2023 take 1 tablet by mouth once daily citalopram (CeleXA) 40 MG tablet Indications: Generalized anxiety disorder (CMS/HCC) TAKE 1 TABLET BY MOUTH EVERY DAY 100 tablet 3 11/10/2023 Active clobetasol propionate 0.5 mg/ml topical cream (6 sources) Corticosteroid clobetasol (Temovate) 0.05 % cream Apply topically 2 (two) times a day. Active doxazosin 2 mg oral tablet (6 sources) alpha-Adrenergic Pancho Start: 11-06-2023 take 1 tablet by mouth once daily doxazosin (Cardura) 2 MG tablet Indications: Benign essential hypertension (CMS/HCC) TAKE 1 TABLET BY MOUTH EVERY DAY 90 tablet 4 11/06/2023 Active sodium hypochlorite 2.5 mg/ml topical solution (2 sources) Start: 06-07-2024 HySept 0.25 % external solution APPLY TO AFFECTED AREA THREE TIMES A WEEK 06/07/2024 Active 24 hr metoprolol succinate 50 mg extended release oral tablet (6 sources) beta-Adrenergic Pancho Start: 08-08-2024 take 1 [...] 12/11/2023 Active nitroglycerin 0.4 mg sublingual tablet (6 sources) Nitrate Vasodilator Start: 08-26-2023 End: 08-25-2024 nitroglycerin (Nitrostat) 0.4 MG SL tablet Indications: Stricture and stenosis of esophagus Place 1 tablet (0.4 mg) under the tongue every 5 (five) minutes if needed for chest pain. 90 tablet 5 08/26/2023 08/25/2024 Active pravastatin sodium 20 mg oral tablet (6 sources) HMG-CoA Reductase Inhibitor Start: 01-04-2024 take [...] 0 Active pregabalin 225 mg oral capsule (7 sources) Start: 06-27-2024 take 1 capsule by [...] Discontinued (Reorder) rOPINIRole 3 mg oral tablet (7 sources) Nonergot Dopamine Agonist Start: 03-21-2024 End: 08-22-2024 take 1 tablet by mouth at bedtime rOPINIRole (Requip) 3 MG tablet Indications: Restless Leg Syndrome Take 1 tablet (3 mg) by mouth at bedtime 90 tablet 3 08/22/2024 Active Start: 10-14-2023 take 1 tablet by gunnar th once daily at bedtime rOPINIRole (Requip) 3 MG tablet Indications: Restless legs syndrome TAKE 1 TABLET BY MOUTH EVERY DAY AT BEDTIME FOR 90 DAYS 90 tablet 3 10/14/2023 Active topiramate 100 mg oral tablet (6 sources) Start: 08-07-2023 take 1 tablet by mouth twice daily topiramate (Topamax) 100 MG tablet Indications: Migraine without status migrainosus, not intractable, unspecified migraine type (CMS/HCC) TAKE 1 TABLET BY MOUTH TWICE A DAY FOR 90 DAYS 180 tablet 3 08/07/2023 Active torsemide 20 mg oral tablet (8 sources) Loop Diuretic Start: 08-08-2024 take 1 [...] Active trospium chloride 20 mg oral tablet (6 sources) Cholinergic Muscarinic Antagonist Start: 03-18-2024 take [...] Date Documented Da te Episodic/Chronic Anxiety disorders (8 sources) Anxiety; Translations: [Anxiety disorder, unspecified] Onset: 3 06-16-2023 Chronic Cardiac dysrhythmias (6 sources) Atrial fibrillation; Translations: [Unspecified atrial fibrillation] Onset: 4 12-11-2023 Chronic Chronic obstructive pulmonary disease and bronchiectasis (6 sources) Chronic obstructive lung disease; Translations: [Chronic obstructive pulmonary disease, unspecified] Onset: 3 05-20-2023 Chronic Chronic ulcer of skin (6 sources) Non-pressure chronic ulcer of right ankle with unspecified severity; Translations: [Ulcer of ankle] Onset: 3 06-16-2023 Chronic Diabetes mellitus without complication (2 sources) Impaired fasting glycemia; Translations: [Impaired fasting glucose] 12-11-2023 Episodic Disorders of lipid metabolism (8 sources) Mixed hyperlipidemia; Translations: [Mixed hyperlipidemia] Onset: 3 12-11-2023 Chronic Esophageal disorders (12 sources) Gastroesophageal reflux disease; Translations: [Gastro-esophageal reflux disease without esophagitis] Onset: 3 05-20-2023 Chronic Essential hypertension (6 sources) Benign essential hypertension; Translations: [Essential (primary) hypertension] Onset: 3 05-20-2023 Chronic Hyperplasia of prostate (6 sources) Benign prostatic hyperplasia; Translations: [Benign prostatic hyperplasia without lower urinary tract symptoms] Onset: 3 05-20-2023 Chronic Miscellaneous mental health disorders (6 sources) Chronic insomnia; Translations: [Psychophysiologic insomnia] Onset: 3 05-20-2023 Chronic Mood disorders (6 sources) Depressive disorder; Translations: [Depressive disorder] Onset: 3 05-20-2023 Chronic Osteoarthritis (20 sources) Localized, primary osteoarthritis; Translations: [Unilateral primary osteoarthritis, unspecified knee] Onset: 5 12-11-2023 Chronic Other congenital anomalies (6 sources) Congenital accessory skin tag; Translations: [Other specified congenital malformations of skin] Onset: 3 06-16-2023 Chronic Other gastrointestinal disorders (6 sources) Chronic idiopathic constipation; Translations: [Chronic idiopathic constipation] Onset: 3 05-20-2023 Chronic Other gastrointestinal disorders (6 sources) Irritable bowel syndrome; Translations: [Irritable bowel syndrome without diarrhea] Onset: 3 05-20-2023 Chronic Other hereditary and degenerative nervous system conditions (7 sources) Restless legs; Translations: [Restless legs syndrome] Onset: 3 05-20-2023 Chronic Other hereditary and degenerative nervous system conditions (6 sources) System disorder of the nervous system; Translations: [Other specified extrapyramidal and movement disorders] Onset: 3 06-16-2023 Chronic Other hereditary and degenerative nervous system conditions (6 sources) Extrapyramidal movements; Translations: [Extrapyramidal and movement disorder, unspecified] Onset: 6 07-14-2023 Chronic Other nervous system disorders (4 sources) Polyneuropathy; Translations: [Polyneuropathy, unspecified] 12-11-2023 Chronic Other nervous system disorders (6 sources) Peripheral nerve disease ; Translations: [Polyneuropathy, unspecified] Onset: 3 05-20-2023 Chronic Other nutritional; endocrine; and metabolic disorders (6 sources) Obesity; Translations: [Obesity, unspecified] Onset: 3 06-16-2023 Chronic Other screening for suspected conditions (not mental disorders or infectious disease) (2 sources) Patient encounter status; Translations: [Encounter for screening for malignant neoplasm of respiratory organs] 12-11-2023 Episodic Substance-related disorders (6 sources) Cigarette smoker ; Translations: [Nicotine dependence, cigarettes, uncomplicated] Onset: 3 05-20-2023 Chronic Past or Other Problems Problem Classification Problem Date Documented Date Episodic/Chronic Abdominal hernia (6 sources) Diaphragmatic hernia; Translations: [Diaphragmatic hernia without obstruction or gangrene] Onset: 05-20-2023 05-20-2023 Episodic Other acquired deformities (6 sources) Acquired spondylolisthesis; Translations: [Spondylolisthesis, site unspecified] Onset: 05-20-2023 05-20-2023 Episodic Other acquired deformities (6 sources) Spondylolysis; Translations: [Spondylolysis, lumbar region] Onset: 06-16-2023 06-16-2023 Episodic Other and unspecified benign neoplasm (6 sources) B-K mole (nevus) syndrome; Translations: [Other benign neoplasm of skin, unspecified] Onset: 06-16-2023 06-16-2023 Episodic Other diseases of veins and lymphatics (8 sources) Peripheral venous insufficiency; Translations: [Venous insufficiency (chronic) (peripheral)] Onset: 05-20-2023 12-11-2023 Episodic Spondylosis; intervertebral disc disorders; other back problems (11 sources) Low back pain; Translations: [Lumbar pain] Onset: 05-20-2023 12-11-2023 Episodic Results Test Name Value Interpretation Reference Range Facil ity Office Visiton 02-02-2024 Follow-up visit [id number] Dimitris Leavitt 1945 M Date Provider Department Center 02/02/2024 Lawson-HERB ARROYO ALEXA Leal Family History Problem Relation Age of Onset Other Mother Family Status - Relation Status Age at Mother Level of Service:38438 MO OFFICE/OUTPATIENT NEW MODERATE MDM 45 MINUTES Normal [facility] - Hematology and Cell countson 12-11-2023 HbA1c (Bld) [Mass fraction] 5.3 % [facility] No Panel Informationon 12-11 Interpretation and review of laboratory results Normal [facility] Vital Signs Date Time Vital Sign Value Performing Clinician Faci lity 12-11-2023 10:35-0500 Body mass index (BMI) [Ratio] 35.87 kg/m2 Saeed Berger MD Work Phone: [facility] 12-11-2023 10:35-0500 Body weight 103.87 kg Saeed Berger MD Work Phone: [facility] 12-11-2023 10:35-0500 Heart rate 50 /min Saeed Berger MD Work Phone: [facility] 12-11-2023 10:35-0500 SaO2% (BldA) [Mass fraction] 96 % Saeed Berger MD Work Phone: [facility] Healthcare Encounters Encounter Date Encounter Type Care Provider Facility Start: 08-22-2024 End: 08-22-2024 Refill Saeed Begrer MD Work Phone: [facility] Comment on above: Restless legs syndro me; Anxiety; Depression with anxiety Start: 08-18-2024 End: 08-18-2024 Refill Saeed Berger MD Work Phone: [facility] Comment on above: Lumbar pain Start: 06-15-2024 End: 06-15-2024 ambulatory SAEED BERGER Not Available Start: 02-17-2024 End: 02-17-2024 ambulatory SAEED BERGER Not Available Start: 02-02-2024 End: 02-02-2024 ambulatory [facility] Start: 12-25-2023 End: 12-25-2023 ambulatory SAEED BERGER [...] Visit [facility] [address] [place] [address] [place] [address] Saeed Berger MD [address] [facility] [address] [place] [address] [facility] Start: 07-10-2024 Influenza vaccination Influenza Vacc ine (#1) [facility] Start: 12-25-2023 End: 12-25-2023 Patient encounter procedure 12/25/2023 10:30 AM EST Office Visit [facility] [address] [facility] [address] [place] [id number] Saeed Berger MD [address] [facility] [address] [place] [address] [facility] Start: 12-11-2023 End: 12-11-2024 Comprehensive metabolic 2000 panel - Serum or Plasma Comprehensive metabolic panel Lab Routine Atrial fibrillation, unspecified type (CMS/HCC) Expected: 12/11/2023 (Approximate), Expires: 12/11/2024 [facility] Comment on above: Expected: 12/11/2023 (Approximate), Expires: 12/11/2024 Start: 12-11-2023 End: 12-11-2024 CT Chest for screening WO contrast CT lung screening low dose Imaging Routine Encounter for screening for lung cancer Expected: 12/11/2023, Expires: 12/11/2024 [facility] Work Phone: Comment on above: Expected: 12/11/2023 , Expires: 12/11/2024 Start: 12-11-2023 End: 12-11-2025 Echocardiogram 2D complete Echocardiogram 2D complete Echocardiography Routine Atrial fibrillation, unspecified type (CMS/HCC) Expected: 12/11/2023 (Approximate), Expires: 12/11/2025 [facility] Comment on above: Expected: 12/11/2023 (Approximate), Expires: 12/11/2025 Start: 12-11-2023 End: 12-11-2024 Lipid 1996 panel - Serum or Plasma Lipid panel Lab Routine Mixed hyperlipidemia (CMS/HCC) Expected: 12/11/2023 (Approximate), Expires: 12/11/2024 [facility] Comment on above: Expected: 12/11/2023 (Approximate), Expires: 12/11/2024 Start: 12-11-2023 End: 12-11-2024 TSH W/REFLEX TO FT4 TSH W/REFLEX TO FT4 Lab Routine Atrial fibrillation, unspecified type (CMS/HCC) Expected: 12/11/2023 (Approximate), Expires: 12/11/2024 [facility] Comment on above: Expected: 12/11/2023 (Approximate), Expires: 12/11/2024 Start: 1945 Medicare Annual Well ness (AWV) Medicare Annual Wellness (AWV) [facility] CBC W Auto Different ial panel - Blood CBC and differential Lab Routine Atrial fibrillation, unspecified type (CMS/HCC) Ordered: 12/11/2023 [facility] Comment on above: Ordered: 12/11/2023 Immunizations Immunization Date Immunization Notes Care Provider Fa [facility] 03-12-2024 tetanus toxoid, redu katie diphtheria toxoid, and acellular pertussis vaccine, adsorbed Saeed Berger MD Work Phone: [facility] 09-08-2023 Influenza, Seasonal, Quadrivalent, Adjuvanted Saeed Berger MD Work Phone: [facility] 09-08-2023 RSV, recombinant, pr otein subunit RSVpreF, adjuvant reconstitu, 120mcg/0.5mL, PF (Arexvy) Saeed Berger MD Work Phone: [facility] 09-08-2023 influenza virus vacc ine, unspecified formulation Saeed Berger MD Work Phone: [facility] 08-14-2022 Influenza, High-dose Seasonal, Quadrivalent, Preservative Free Saeed Berger MD Work Phone: [facility] 08-14-2022 Moderna SARS-CoV-2 50mcg/0.5mL Booster Saeed Berger MD Work Phone: [facility] 11-09-2021 Influenza, Seasonal, Quadrivalent, Adjuvanted Saeed Berger MD Work Phone: [facility] 05-09-2021 zoster vaccine recombinant D wilbur Berger MD Work Phone: [facility] 11-19-2020 zoster vaccine recombinant D wilbur Berger MD Work Phone: [facility] 09-05-2020 pneumococcal polysaccharide vaccine, 23 valchristofer Berger MD Work Phone: [facility] 08-06-2020 influenza, high dose seasonal, preservative-free Saeed Berger MD Work Phone: [facility] 10-24-2019 influenza, high dose seasonal, preservative-free Saeed Berger MD Work Phone: [facility] 05-09-2019 pneumococcal conjuga te vaccine, 13 valchristofer Berger MD Work Phone: [facility] 09-22-2018 influenza, high dose seasonal, preservative-free Saeed Berger MD Work Phone: [facility] 03-15-2018 pneumococcal conjuga te vaccine, 13 valchristofer Berger MD Work Phone: [facility] 11-27-2017 seasonal influenza, intradermal, preservative free Saeed Berger MD Work Phone: [facility] 01-10-2015 zoster vaccine, live Saeed Berger MD Work Phone: [facility] 12-13-2014 tetanus toxoid, redu katie diphtheria toxoid, and acellular pertussis vaccine, adsorbed Saeed Berger MD Work Phone: [facility] 12-04-2014 zoster vaccine, live Saeed Berger MD Work Phone: [facility] 08-09-2014 influenza virus vacc ine, split virus (incl. purified surface antigen) Saeed Berger MD Work Phone: [facility] 08-04-2014 pneumococcal polysaccharide vaccine, 23 valchristofer Berger MD Work Phone: [facility] 07-11-2013 seasonal influenza, intradermal, preservative free Saeed Berger MD Work Phone: [facility] 09-15-2009 novel influenza-H1N1 -09, preservative-free, injectable Saeed Berger MD Work Phone: [facility] Payers Date Payer Category Payer Medicaid [employer] MEDICARE A DVANTAGE [id number] 2021 Medicare A[employer]NA MEDICARE A DVANTAGE AETNA MEDICARE REPLACEMENT [id number] 2021-Present [address] [place] [address] [id number] 2021 Medicare [id number] 1958 Self-pay 1945 Unknown [id number] 1945 Unknown [id number] 1945 Unknown [id number] 1945 Unknown [id number] 1945 Unknown [id number] Social History Date Type Detail Facility Start: 09-03-2023 Tobacco smoking stat [facility] Smokes tobacco daily [facility] History of tobacco use Cigarette Smoker [facility] Start: 09-03-2023 Tobacco use and exposure Smokeless t obacco non-user [facility] Start: 12-11-2023 End: 06-15-2024 Alcohol intake Current drinker of alcohol (finding) [facility] Start: 12-11-2023 End: 12-25-2023 Alcohol intake [facility] Healthcare Start: 12-11-2023 End: 12-25-2023 Tobacco use panel [facility] Start: 07-14-2023 Alcohol Comment Caffeine intake: cof fee [facility] Start: 1945 Sex Assigned At Not on file [facility] Clinical Notes 12-11-2023 to 08-22-2024 Telephone Encounter - NAN Hawkins - 08/22/2024 3:53 PM EDTTelephone Encounter - NAN Hawkins - 08/22/2024 3:53 PM EDTTelephone Encounter - Samia Bullock - 08/22/2024 3:45 PM EDT Note Date & Type Note Facility 08-22-2024 Telephone encounter Note OARRS reviewed, Rx sent into patient's pharmacy. [facility] 08-22-2024 Miscellaneous Notes OARRS reviewed, Rx sent into patient's pharmacy. ALPRAZolam (Xanax) 0.5 MG tablet rOPINIRole (Requip) 3 MG tablet to [facility] documented in this encounter [facility] 08-22-2024 Telephone encounter Note ALPRAZolam (Xanax) 0.5 MG tablet rOPINIRole (Requip) 3 MG tablet to [facility] 08-18-2024 Telephone encounter Note HYDROcodone-acetaminophen (Clarks) 5-325 MG tablet to medicine shop in [place] [facility] 08-18-2024 Miscellaneous Notes HYDROcodone-acetaminophen (Clarks) 5-325 MG tablet to medicine shop in [place] documented in this encounter [facility] 02-02-2024 Note [facility] Consult Note Reason for visit: Atrial fibrillation HPI: Dimitris Jessi Leavitt is a 78 y.o. year old with [...] patient states that he was at Dr. Shansk's office for a routine checkup and EKG [...] on file Intimate Partner Violence: Unknown (12/31/2023) [place] Safety & [place] Fear of Current or [...] IN THE MORNING AND BEFORE BEDTIME HYDROcodone-acetaminophen (Clarks) 5-325 mg tablet TAKE 1 TABLET BY [...] distended, no b (more content not included)... [facility] 02-02-2024 Note New patient here to establish [...] All other systems reviewed and are negative. [facility] 12-16-2023 Telephone encounter Note Done in other encounter. [facility] 12-16-2023 Miscellaneous Notes Done in other encounter. documented in this encounter [facility] 12-16-2023 Telephone encounter Note Sent. [facility] 12-16-2023 Miscellaneous Notes Sent. documented in this encounter [facility] 12-11-2023 History of Present illness Narrative Images [...] MOUTH EVERY DAY 90 tablet 4 HYDROcodone-acetaminophen (Clarks) 5-325 MG tablet Take 1 tablet by [...] Do you have a medical power of pensions retirement plan specialist?: No Objective : Pulse 50 Wt 229 [...] December 11, 2023 documented in this encounter [facility] Healthcare Evaluation note Diagnosis Atrial fibrillation, unspecified [...] pain Lumbago documented in this encounter [facility]* Diagnosis Restless legs syndrome Restless legs syndrome (RLS) Anxiety Anxiety state, unspecified Depression with anxiety Dysthymic disorder documented in this encounter [facility] Healthcare Summary Purpose Family History No Family History Records FoundNo Family History Records FoundNo Family History Records Found Advance Directives No Advanced Directives Records FoundNo Advanced Directives Records FoundNo Advanced Directives Records Found Reason for Referral Specialty Diagnoses / Procedures Referred By Contac t Referred To Contact Radiology Diagnoses Atrial fibrillation, unspecified type (CMS/HCC) Procedures Echocardiogram 2D complete Saeed Berger MD [address] [address] Referral ID Status Reason Start Date Expiration Date Visits Requested Visits Authorized [id number] Incomplete Perform Procedure 12/11/2023 06/08/2024 1 1 Specialty Diagnoses / Procedures Referred By Contac t Referred To Contact Cardiology Diagnoses Atrial fibrillation, unspecified type (CMS/HCC) Procedures [facility] OFFICE/OUTPATIENT [facility] 60 MINUTES Saeed Berger MD [address] [address] Rebecca Norman MD [facility] [place] [address] Referral ID Status Reason Start Date Expiration Date Visits Requested Visits Authorized [id number] Pending Review Specialty Services Required 12/11/2023 06/08/2024 1 1 Specialty Diagnoses / Procedures Referred By Contac t Referred To Contact Diagnoses Encounter for screening for lung cancer Procedures CT lung screening low dose Saeed Berger MD 112 [facility] [address] [place] [address] [place] [facility] [address] [place] [address] Phone: [phone] Referral ID Status Reason Start Date Expiration Date V isits Requested Visits Authorized [id number] Pending Review 12/11/2023 06/08/2024 1 1 Specialty Diagnoses / Procedures Referred By Contac t Referred To Contact Diagnoses Other polyneuropathy Saeed Berger MD 112 [facility] [address] [place] [address] Referral ID Status Reason Start Date Expiration Date V isits Requested Visits Authorized [id number] Pending Review 1 1 Additional Source Comments (unrecognized sect ion and content) No Status Records FoundNo Status Records FoundNo Status Records Found INFORMATION SOURCE (unrecogn ized section and content) DATE CREATED AUTHOR 12/03/2022 [facility] DATE CREATED AUTHOR AUTHOR'S ORGANIZ ATION 02/04/2024 [facility] DATE CREATED AUTHOR AUTHOR'S ORGANIZ ATION 06/17/2024 [facility] EPIC Reason for Visit (unrecogniz ed section and content) Reason Comments Medicare Annual Wellness Visit Subsequen t Reason Onset Date Comments Med Refill 12/14/2023 Refills needed f or Celebrex 200mg, Hydrocodone 5-325mg, Lyrica 225mg and send to [facility] Reason Onset Date Comments Med Refill 12/15/2023 celecoxib (CeleB YVONNE) 200 MG capsuleHYDROcodone- acetaminophen ([place]) 5-325 MG tablet pregabalin (Lyrica) 225 MG capsule To [facility] [place] Care Teams (unrecognized sec tion and content) Data Software Engineer Relationship Specialty Start Date End Date Saeed Berger MD [address] [id number] PCP - [employer] 11/09/20 Saeed Berger MD [address] [place] [address] PCP - General Internal Medicine 03/17/23 Data Software Engineer Relationship Specialty Start Date End Date Saeed Berger MD [address] [place] [address] PCP - [employer] 11/09/20 Saeed Berger MD [address] [place] [address] PCP - General Internal Medicine 03/17/23 Data Software Engineer Relationship Specialty Start Date End Date Saeed Berger MD [address] [place] [address] PCP - [employer] 11/09/20 Saeed Berger MD [address] [place] [address] PCP - General Internal Medicine 03/17/23 Data Software Engineer Relationship Specialty Start Date End Date Saeed Berger MD [address] [place] [address] PCP - [employer] 11/09/20 Saeed Berger MD [address] [place] [address] PCP - General Internal Medicine 03/17/23 Data Software Engineer Relationship Specialty Start Date End Date Saeed Berger MD [address] [place] [address] PCP - [employer] 11/09/20 Saeed Berger MD [address] [place] [address] PCP - General Internal Medicine 03/17/23 FOR [...] BE BASED ON THE PRIMARY CLINICAL RECORDS. [facility] [email or web address] [facility]. provides no warranty or guarantee of the accuracy or completeness of information in this document.
== END 2024-08-30 13:22 | disposition home or self-care (01) ==
LOC: WC 13:21
PROVIDERS: PCP Internal Medicine; Visit Provider Physician Assistant
DX: I87.311 Chronic venous hypertension (idiopathic) with ulcer of right lower extremity (principal); L97.812 Non-pressure chronic ulcer of other part of right lower leg with fat layer exposed
CPT/HCPCS: G0463

== ENCOUNTER 2024-09-13 15:40 | Outpatient (OUT) | payer MEDICARE, SELFPAY ==
--- OUTSIDE RECORDS SUMMARY | 2024-09-13 16:09 | XMS_ITS | CCD ---
Author Organization [facility] Care Team Providers Care Global Mobility Specialist Name Role Phone DR SAEED BERGER [...] / HYDROcodone bitartrate 5 mg oral tablet (10 sources) Opioid Agonist Start: 07-13-2024 End: 09-06-2024 take 1 tablet by mouth every six hours for pain HYDROcodone-aceta minophen (Lowell) 5-325 MG tablet Indications: Lumbar pain Take 1 tablet by mouth every 6 (six) hours if needed for severe pain 120 tablet 09/06/2024 Active Start: 12-16-2023 take 1 tablet by gunnar th every six hours for pain HYDROcodone-acetaminophen (Lowell) 5-325 MG tablet Indications: Lumbar pain Take 1 tablet by mouth every 6 (six) hours if needed for severe pain 120 tablet 0 12/16/2023 Active Start: 11-17-2023 End: 12-14-2023 take 1 tablet by mouth every six hours for pain HYDROcodone-acetaminophen (Lowell) 5-325 MG tablet Indications: Lumbar pain Take 1 tablet by mouth every 6 (six) hours if needed for severe pain 120 tablet 0 11/17/2023 12/14/2023 Discontinued (Reorder) ALPRAZolam 0.5 mg oral tablet (8 sources) Benzodiazepine Start: 06-29-2024 End: 08-22-2024 take [...] / benazepril hydrochloride 20 mg oral capsule (7 sources) Dihydropyridine Calcium Channel Pancho, Angiotensin Converting Enzyme Inhibitor Start: 08-08-2024 take 1 capsule by mouth once daily amLODIPine-benazepril (Lotrel) 5-20 MG capsule Indications: Benign essential hypertension (CMS/HCC) TAKE 1 CAPSULE BY MOUTH EVERY DAY 90 capsule 3 08/08/2024 Active Start: 08-10-2023 take 1 capsule by mo [facility] once daily amLODIPine-benazepril (Lotrel) 5-20 MG capsule Indications: Benign essential hypertension (CMS/HCC) TAKE 1 CAPSULE BY MOUTH EVERY DAY FOR 90 DAYS 90 capsule 3 08/10/2023 Active amoxicillin 875 mg / clavulanate 125 mg oral tablet (3 sources) Penicillin-class Antibacterial Start: 06-06-2024 take 1 tablet by mouth in the morning amoxicillin-clavulanate (Augmentin) 875-125 MG tablet Take 1 tablet by mouth in the morning and 1 tablet before bedtime. 06/06/2024 Active apixaban 5 mg oral tablet (7 sources) Factor Xa Inhibitor Start: 12-11-2023 End: [...] mg/ml / clotrimazole 10 mg/ml topical cream (7 sources) Azole Antifungal, Corticosteroid Start: 07-29-2023 clotrimazole-betamethasone (Lotrisone) cream APPLY TO AFFECTED AREA EVERY DAY 07/29/2023 Active celecoxib 200 mg oral capsule (6 sources) Nonsteroidal Anti-inflammatory Drug Start: 12-16-2023 take [...] 12/11/2023 Discontinued citalopram 40 mg oral tablet (7 sources) Serotonin Reuptake Inhibitor Start: 11-10-2023 take 1 tablet by mouth once daily citalopram (CeleXA) 40 MG tablet Indications: Generalized anxiety disorder (CMS/HCC) TAKE 1 TABLET BY MOUTH EVERY DAY 100 tablet 3 11/10/2023 Active clobetasol propionate 0.5 mg/ml topical cream (7 sources) Corticosteroid clobetasol (Temovate) 0.05 % cream Apply topically 2 (two) times a day. Active doxazosin 2 mg oral tablet (7 sources) alpha-Adrenergic Pancho Start: 11-06-2023 take 1 tablet by mouth once daily doxazosin (Cardura) 2 MG tablet Indications: Benign essential hypertension (CMS/HCC) TAKE 1 TABLET BY MOUTH EVERY DAY 90 tablet 4 11/06/2023 Active sodium hypochlorite 2.5 mg/ml topical solution (3 sources) Start: 06-07-2024 HySept 0.25 % external solution APPLY TO AFFECTED AREA THREE TIMES A WEEK 06/07/2024 Active 24 hr metoprolol succinate 50 mg extended release oral tablet (7 sources) beta-Adrenergic Pancho Start: 08-08-2024 take 1 [...] 12/11/2023 Active nitroglycerin 0.4 mg sublingual tablet (7 sources) Nitrate Vasodilator Start: 08-26-2023 End: 08-25-2024 nitroglycerin (Nitrostat) 0.4 MG SL tablet Indications: Stricture and stenosis of esophagus Place 1 tablet (0.4 mg) under the tongue every 5 (five) minutes if needed for chest pain. 90 tablet 5 08/26/2023 Active pravastatin sodium 20 mg oral tablet (7 sources) HMG-CoA Reductase Inhibitor Start: 01-04-2024 take 1 tablet by mouth once daily in the evening pravastatin (Pravachol) 20 MG tablet Indications: Mixed hyperlipidemia (CMS/HCC) TAKE 1 TABLET BY MOUTH EVERY DAY IN THE EVENING FOR 100 DAYS 100 tablet 3 01/04/2024 Active take [facility] prav[facility]atin (Pravachol) 20 MG tablet Take 20 mg by mouth in the morning. 0 Active pregabalin 225 mg oral capsule (8 sources) Start: 06-27-2024 take 1 capsule by [...] Discontinued (Reorder) rOPINIRole 3 mg oral tablet (8 sources) Nonergot Dopamine Agonist Start: 03-21-2024 End: [...] 10/14/2023 Active topiramate 100 mg oral tablet (7 sources) Start: 08-07-2023 take 1 tablet by mouth twice daily topiramate (Topamax) 100 MG tablet Indications: Migraine without status migrainosus, not intractable, unspecified migraine type (CMS/HCC) TAKE 1 TABLET BY MOUTH TWICE A DAY FOR 90 DAYS 180 tablet 3 08/07/2023 Active torsemide 20 mg oral tablet (9 sources) Loop Diuretic Start: 08-08-2024 take 1 [...] Active trospium chloride 20 mg oral tablet (7 sources) Cholinergic Muscarinic Antagonist Start: 03-18-2024 take [...] Date Documented Da te Episodic/Chronic Anxiety disorders (9 sources) Anxiety; Translations: [Anxiety disorder, unspecified] Onset: 3 06-16-2023 Chronic Cardiac dysrhythmias (7 sources) Atrial fibrillation; Translations: [Unspecified atrial fibrillation] Onset: 4 12-11-2023 Chronic Chronic obstructive pulmonary disease and bronchiectasis (7 sources) Chronic obstructive lung disease; Translations: [Chronic obstructive pulmonary disease, unspecified] Onset: 3 05-20-2023 Chronic Chronic ulcer of skin (7 sources) Non-pressure chronic ulcer of right ankle with unspecified severity; Translations: [Ulcer of ankle] Onset: 3 06-16-2023 Chronic Diabetes mellitus without complication (2 sources) Impaired fasting glycemia; Translations: [Impaired fasting glucose] 12-11-2023 Episodic Disorders of lipid metabolism (9 sources) Mixed hyperlipidemia; Translations: [Mixed hyperlipidemia] Onset: 3 12-11-2023 Chronic Esophageal disorders (14 sources) Gastroesophageal reflux disease; Translations: [Gastro-esophageal reflux disease without esophagitis] Onset: 3 05-20-2023 Chronic Essential hypertension (7 sources) Benign essential hypertension; Translations: [Essential (primary) hypertension] Onset: 3 05-20-2023 Chronic Hyperplasia of prostate (7 sources) Benign prostatic hyperplasia; Translations: [Benign prostatic hyperplasia without lower urinary tract symptoms] Onset: 3 05-20-2023 Chronic Miscellaneous mental health disorders (7 sources) Chronic insomnia; Translations: [Psychophysiologic insomnia] Onset: 3 05-20-2023 Chronic Mood disorders (7 sources) Depressive disorder; Translations: [Depressive disorder] Onset: 3 05-20-2023 Chronic Osteoarthritis (20 sources) Localized, primary osteoarthritis; Translations: [Unilateral primary osteoarthritis, unspecified knee] Onset: 5 12-11-2023 Chronic Other congenital anomalies (7 sources) Congenital accessory skin tag; Translations: [Other specified congenital malformations of skin] Onset: 3 06-16-2023 Chronic Other gastrointestinal disorders (7 sources) Chronic idiopathic constipation; Translations: [Chronic idiopathic constipation] Onset: 3 05-20-2023 Chronic Other gastrointestinal disorders (7 sources) Irritable bowel syndrome; Translations: [Irritable bowel syndrome without diarrhea] Onset: 3 05-20-2023 Chronic Other hereditary and degenerative nervous system conditions (8 sources) Restless legs; Translations: [Restless legs syndrome] Onset: 3 05-20-2023 Chronic Other hereditary and degenerative nervous system conditions (7 sources) System disorder of the nervous system; Translations: [Other specified extrapyramidal and movement disorders] Onset: 3 06-16-2023 Chronic Other hereditary and degenerative nervous system conditions (7 sources) Extrapyramidal movements; Translations: [Extrapyramidal and movement disorder, unspecified] Onset: 6 07-14-2023 Chronic Other nervous system disorders (4 sources) Polyneuropathy; Translations: [Polyneuropathy, unspecified] 12-11-2023 Chronic Other nervous system disorders (7 sources) Peripheral nerve disease ; Translations: [Polyneuropathy, unspecified] Onset: 3 05-20-2023 Chronic Other nutritional; endocrine; and metabolic disorders (7 sources) Obesity; Translations: [Obesity, unspecified] Onset: 3 06-16-2023 Chronic Other screening for suspected conditions (not mental disorders or infectious disease) (2 sources) Patient encounter status; Translations: [Encounter for screening for malignant neoplasm of respiratory organs] 12-11-2023 Episodic Spondylosis; intervertebral disc disorders; other back problems (13 sources) Low back pain; Translations: [Lumbar pain] Onset: 3 12-11-2023 Episodic Substance-related disorders (7 sources) Cigarette smoker ; Translations: [Nicotine dependence, cigarettes, uncomplicated] Onset: 3 05-20-2023 Chronic Past or Other Problems Problem Classification Problem Date Documented Date Episodic/Chronic Abdominal hernia (7 sources) Diaphragmatic hernia; Translations: [Diaphragmatic hernia without obstruction or gangrene] Onset: 05-20-2023 05-20-2023 Episodic Other acquired deformities (7 sources) Acquired spondylolisthesis; Translations: [Spondylolisthesis, site unspecified] Onset: 05-20-2023 05-20-2023 Episodic Other acquired deformities (7 sources) Spondylolysis; Translations: [Spondylolysis, lumbar region] Onset: 06-16-2023 06-16-2023 Episodic Other and unspecified benign neoplasm (7 sources) B-K mole (nevus) syndrome; Translations: [Other benign neoplasm of skin, unspecified] Onset: 06-16-2023 06-16-2023 Episodic Other diseases of veins and lymphatics (9 sources) Peripheral venous insufficiency; Translations: [Venous insufficiency (chronic) (peripheral)] Onset: 05-20-2023 12-11-2023 Episodic Results Test Name Value Interpretation Reference Range Facil ity Office Visiton 02-02-2024 Follow-up visit [id number] Dimitris Leavitt 1945 M Date Provider Department Center 02/02/2024 Lawson-HERB ARROYO ALEXA Florentino [facility] Family History Problem Relation Age of Onset Other Mother Family Status - Relation Status Age at Mother Level of Service:47454 [place] OFFICE/OUTPATIENT NEW MODERATE MDM 45 MINUTES Normal [facility] Laboratory - Hematology and Cell countson 12-11-2023 HbA1c (Bld) [Mass fraction] 5.3 % [facility] No Panel Informationon 12-11 Interpretation and review of laboratory results Normal [facility] Vital Signs Date Time Vital Sign Value Performing Clinician Faci lity 12-11-2023 10:35-0500 Body mass index (BMI) [Ratio] 35.87 kg/m2 Saeed Berger MD Work Phone: [facility] 12-11-2023 10:35-0500 Body weight 103.87 kg Saeed Berger MD Work Phone: [facility] 12-11-2023 10:35-0500 Heart rate 50 /min Saeed Berger MD Work Phone: [facility] 12-11-2023 10:35-0500 SaO2% (BldA) [Mass fraction] 96 % Saeed Berger MD Work Phone: [facility] Healthcare Encounters Encounter Date Encounter Type Care Provider Facility Start: 09-06-2024 End: 09-06-2024 Telephone encounter Saeed Berger MD Work Phone: [facility] Start: 08-22-2024 End: 08-22-2024 Abran Berger MD Work Phone: [facility] Comment on above: Restless legs syndro me; Anxiety; Depression with anxiety Start: 08-18-2024 End: 08-18-2024 Abran Berger MD Work Phone: [facility] Comment on above: Lumbar pain Start: 06-15-2024 End: 06-15-2024 ambulatory SAEED BERGER Not Available Start: 02-17-2024 End: 02-17-2024 ambulatory SAEED BERGER Not Available Start: 02-02-2024 End: 02-02-2024 ambulatory [facility] Start: 12-25-2023 End: 12-25-2023 ambulatory SAEED BERGER Not Available Start: 12-15-2023 Abran Berger MD Work Phone: [facility] Comment on above: Lumbar pain; Generalized osteoarthritis; Other polyneuropathy Start: 12-14-2023 Abran Berger MD Work Phone: [facility] [...] Office Visit [facility] [address] [facility] [address] [place] [address] Saeed Berger MD [address] [facility] [address] [place] [address] [facility] Start: 07-10-2024 Influenza vaccination Influenza Vacc ine (#1) [facility] Start: 12-25-2023 End: 12-25-2023 Patient encounter procedure 12/25/2023 10:30 AM EST Office Visit [facility] [address] [facility] [address] [place] [address] Saeed Berger MD [address] [facility] [address] [place] [address] [facility] Start: 12-11-2023 End: 12-11-2024 Comprehensive metabolic 2000 panel - Serum or Plasma Comprehensive metabolic panel Lab Routine Atrial fibrillation, unspecified type (CMS/HCC) Expected: 12/11/2023 (Approximate), Expires: 12/11/2024 [facility] Comment on above: Expected: 12/11/2023 (Approximate), Expires: 12/11/2024 Start: 12-11-2023 End: 12-11-2024 CT Chest for screening WO contrast CT lung screening low dose Imaging Routine Encounter for screening for lung cancer Expected: 12/11/2023, Expires: 12/11/2024 [facility] Work Phone: Comment on above: Expected: 12/11/2023 , Expires: 12/11/2024 Start: 12-11-2023 End: 12-11-2025 Echocardiogram 2D complete Echocardiogram 2D complete Echocardiography Routine Atrial fibrillation, unspecified type (CMS/HCC) Expected: 12/11/2023 (Approximate), Expires: 12/11/2025 [facility] Comment on above: Expected: 12/11/2023 (Approximate), Expires: 12/11/2025 Start: 12-11-2023 End: 12-11-2024 Lipid 1996 panel - Serum or Plasma Lipid panel Lab Routine Mixed hyperlipidemia (CMS/HCC) Expected: 12/11/2023 (Approximate), Expires: 12/11/2024 [facility] Comment on above: Expected: 12/11/2023 (Approximate), Expires: 12/11/2024 Start: 12-11-2023 End: 12-11-2024 TSH W/REFLEX TO FT4 TSH W/REFLEX TO FT4 Lab Routine Atrial fibrillation, unspecified type (CMS/HCC) Expected: 12/11/2023 (Approximate), Expires: 12/11/2024 [facility] Comment on above: Expected: 12/11/2023 (Approximate), Expires: 12/11/2024 Start: 1945 Medicare Annual Well ness (AWV) Medicare Annual Wellness (AWV) [facility] CBC W Auto Different ial panel - Blood CBC and differential Lab Routine Atrial fibrillation, unspecified type (CMS/HCC) Ordered: 12/11/2023 [facility] Comment on above: Ordered: 12/11/2023 Immunizations Immunization Date Immunization Notes Care Provider Fa [facility] 03-12-2024 tetanus toxoid, redu katie diphtheria toxoid, and acellular pertussis vaccine, adsorbed Saeed Berger MD Work Phone: [facility] 09-08-2023 Influenza, Seasonal, Quadrivalent, Adjuvanted Saeed Berger MD Work Phone: [facility] 09-08-2023 RSV, recombinant, pr otein subunit RSVpreF, adjuvant reconstitu, 120mcg/0.5mL, PF (Arexvy) Saeed Berger MD Work Phone: [facility] 09-08-2023 influenza virus vacc ine, unspecified formulation Saeed Berger MD Work Phone: [facility] 08-14-2022 Influenza, High-dose Seasonal, Quadrivalent, Preservative Free Saeed Berger MD Work Phone: [facility] 08-14-2022 Moderna SARS-CoV-2 50mcg/0.5mL Booster Saeed Berger MD Work Phone: [facility] 11-09-2021 Influenza, Seasonal, Quadrivalent, Adjuvanted Saeed Berger MD Work Phone: [facility] 05-09-2021 zoster vaccine recombinant Viviane Berger MD Work Phone: [facility] 11-19-2020 zoster vaccine recombinant Viviane Berger MD Work Phone: [facility] 09-05-2020 pneumococcal polysaccharide vaccine, 23 valchristofer Berger MD Work Phone: [facility] 08-06-2020 influenza, high dose seasonal, preservative-free Saeed Berger MD Work Phone: [facility] 10-24-2019 influenza, high dose seasonal, preservative-free Saeed Berger MD Work Phone: [facility] 05-09-2019 pneumococcal conjuga te vaccine, 13 valchristofer Berger MD Work Phone: [facility] 09-22-2018 influenza, high dose seasonal, preservative-free Saeed Berger MD Work Phone: [facility] 03-15-2018 pneumococcal conjuga te vaccine, 13 valchristofer Berger MD Work Phone: [facility] 11-27-2017 seasonal influenza, intradermal, preservative free Saeed Berger MD Work Phone: [facility] 01-10-2015 zoster vaccine, live Saeed Berger MD Work Phone: [facility] 12-13-2014 tetanus toxoid, redu katie diphtheria toxoid, and acellular pertussis vaccine, adsorbed Saeed Berger MD Work Phone: [facility] 12-04-2014 zoster vaccine, live Saeed Berger MD Work Phone: [facility] 08-09-2014 influenza virus vacc ine, split virus (incl. purified surface antigen) Saeed Berger MD Work Phone: [facility] 08-04-2014 pneumococcal polysaccharide vaccine, 23 valchristofer Berger MD Work Phone: [facility] 07-11-2013 seasonal influenza, intradermal, preservative free Saeed Berger MD Work Phone: [facility] 09-15-2009 novel influenza-H1N1 -09, preservative-free, injectable Saeed Berger MD Work Phone: [facility] Payers Date Payer Category Payer Medicaid [employer] MEDICARE A DVANTAGE [id number] 2021 Medicare AETNA MEDICARE A DVANTAGE AETNA MEDICARE REPLACEMENT [id number] 2021-Present [address] [place] [address] [id number] 2021 Medicare [id number] 1958 Self-pay 1945 Unknown [id number] 1945 Unknown [id number] 1945 Unknown [id number] 1945 Unknown [id number] 1945 Unknown [id number] Social History Date Type Detail Facility Start: 09-03-2023 [facility] History of tobacco use Cigarette Smoker [facility] Start: 09-03-2023 Tobacco use and exposure Smokeless t obacco non-user [facility] Start: 12-11-2023 End: 06-15-2024 Alcohol intake Current drinker of alcohol (finding) [facility] Start: 12-11-2023 End: 12-25-2023 Alcohol intake [facility] Start: 12-11-2023 End: 12-25-2023 Tobacco use panel [facility] Start: 07-14-2023 Alcohol Comment Caffeine intake: cof fee [facility] Healthcare Start: 1945 Sex Assigned At Not on file [facility] Clinical Notes 12-11-2023 to 09-06-2024 Telephone Encounter - NAN Hawkins - 09/06/2024 2:16 PM EDTTelephone Encounter - NAN Hawkins - 09/06/2024 2:16 PM EDTTelephone Encounter - Samia Bullock - 09/06/2024 9:58 AM EDT Note Date & Type Note Facility 09-06-2024 Telephone encounter Note OARRS reviewed, Rx sent into patient's pharmacy. [facility] 09-06-2024 Miscellaneous Notes OARRS reviewed, Rx sent into patient's pharmacy. HYDROcodone-acetaminophen (Lowell) 5-325 [facility] to [facility] because of the percocet script the wound doctor precribed so they need a whole new script. Im not sure the daughter (she called for her dad) fully understood what [facility] is wanting. documented in this encounter [facility] 09-06-2024 Telephone encounter Note HYDROcodone-acetaminophen (Lowell) 5-325 MG tablet to [facility]. [facility] because of the percocet script the wound doctor precribed so they need a whole new script. Im not sure the daughter (she called for her dad) fully understood what [facility] is wanting. [facility] 08-22-2024 Telephone encounter Note OARRS reviewed, Rx sent into patient's pharmacy. [facility] 08-22-2024 Miscellaneous Notes OARRS reviewed, Rx sent into patient's pharmacy. ALPRAZolam (Xanax) 0.5 MG tablet rOPINIRole (Requip) 3 MG tablet to [facility] documented in this encounter [facility] 08-22-2024 Telephone encounter Note ALPRAZolam (Xanax) 0.5 MG tablet rOPINIRole (Requip) 3 MG tablet to [facility] 08-18-2024 Telephone encounter Note HYDROcodone-acetaminophen ([place]ell) 5-325 MG tablet to [facility] in [place] [facility] 08-18-2024 Miscellaneous Notes HYDROcodone-acetaminophen (Lowell) 5-325 MG tablet to medicine shop in [place] documented in this encounter [facility] 02-02-2024 Note [facility] Consult Note Reason for visit: Atrial fibrillation HPI: Dimitris Leavitt is a 78 y.o. year old [...] on file Intimate Partner Violence: Unknown (12/31/2023) [place] Safety & Environment Fear of Current or [...] IN THE MORNING AND BEFORE BEDTIME HYDROcodone-acetaminophen (Lowell) 5-325 mg tablet TAKE 1 TABLET BY [...] distended, no b (more content not included)... [facility] 02-02-2024 Note New patient here [...] All other systems reviewed and are negative. [facility] 12-16-2023 Telephone encounter Note Done in other encounter. [facility] 12-16-2023 Miscellaneous Notes Done in other encounter. documented in this encounter [facility] 12-16-2023 Telephone encounter Note Sent. [facility] 12-16-2023 Miscellaneous Notes Sent. documented in this encounter [facility] 12-11-2023 History of Present illness Narrative [...] MOUTH EVERY DAY 90 tablet 4 HYDROcodone-acetaminophen (Lowell) 5-325 MG tablet Take 1 tablet by [...] Do you have a medical power of title attorney?: No Objective : Pulse 50 Wt [...] anxiety Dysthymic disorder documented in this encounter [facility] [...] Echocardiogram 2D complete Saeed Berger MD [address] [address] Referral ID Status Reason Start Date Expiration Date Visits Requested Visits Authorized [id number] Incomplete Perform Procedure 12/11/2023 06/08/2024 1 1 Specialty Diagnoses / Procedures Referred By Contac t Referred To Contact Cardiology Diagnoses Atrial fibrillation, unspecified type (CMS/HCC) Procedures [facility] OFFICE/OUTPATIENT [facility] MDM 60 MINUTES Saeed Berger MD [address] [address] Rebecca Norman MD [address] [place] [address] Referral ID Status Reason Start Date Expiration Date Visits Requested Visits Authorized [id number] Pending Review Specialty Services Required 12/11/2023 06/08/2024 1 1 Specialty Diagnoses / Procedures Referred By Contac t Referred To Contact Diagnoses Encounter for screening for lung cancer Procedures CT lung screening low dose Saeed Berger MD [address] [address] [place] [facility] [address] [place] [address] Phone: [phone] Referral ID Status Reason Start Date Expiration Date V isits Requested Visits Authorized [id number] Pending Review 12/11/2023 06/08/2024 1 1 Specialty Diagnoses / Procedures Referred By Haley t Referred To Contact Diagnoses Other polyneuropathy Saeed Berger MD [address] [facility] [address] [place] [address] Referral ID Status Reason Start Date Expiration Date V isits Requested Visits Authorized [id number] Pending Review 1 1 Additional Source Comments (unrecognized sect ion and content) No Status Records FoundNo Status Records FoundNo Status Records Found INFORMATION SOURCE (unrecogn ized section and content) DATE CREATED AUTHOR 12/03/2022 [facility] [facility] DATE CREATED AUTHOR AUTHOR'S ORGANIZ ATION 02/04/2024 [facility] DATE CREATED AUTHOR AUTHOR'S ORGANIZ ATION 06/17/2024 [facility] Special[facility] EPIC Reason for Visit (unrecogniz ed section and content) Reason Comments Medicare Annual Wellness Visit Subsequen t Reason Onset Date Comments Med Refill 12/14/2023 Refills needed f or Celebrex 200mg, Hydrocodone 5-325mg, Lyrica 225mg and send to [facility] Reason Onset Date Comments Med Refill 12/15/2023 celecoxib (CeleB YVONNE) 200 MG capsuleHYDROcodone- acetaminophen (Lowell) 5-325 MG tablet pregabalin (Lyrica) 225 MG capsule To [facility] Care Teams (unrecognized sec tion and content) Global Mobility Specialist Relationship Specialty Start Date End Date Saeed Berger MD [address] [facility] [address] [place] [address] PCP - [employer] 11/09/20 Saeed Berger MD [address] [facility] [address] [place] [address] PCP - General Internal Medicine 03/17/23 Global Mobility Specialist Relationship Specialty Start Date End Date Saeed Berger MD [address] [facility] [address] [place] [address] PCP - [employer] 11/09/20 Saeed Berger MD [address] [place] [address] [place] [address] PCP - General Internal Medicine 03/17/23 Global Mobility Specialist Relationship Specialty Start Date End Date Saeed Berger MD [address] [place] [address] PCP - [employer] 11/09/20 Saeed Berger MD [address] [place] [address] PCP - General Internal Medicine 03/17/23 Global Mobility Specialist Relationship Specialty Start Date End Date Saeed Berger MD [address] [place] [address] PCP - [employer] 11/09/20 Saeed Berger MD [address] [place] [address] PCP - General Internal Medicine 03/17/23 Global [employer] Specialist Relationship Specialty Start Date End Date Saeed Berger MD [address] [place] [address] PCP - [employer] 11/09/20 Saeed Berger MD [address] [place] [address] PCP - General Internal Medicine 03/17/23 [employer] Specialist Relationship Specialty Start Date End Date Saeed Berger MD [address] [place] [address] PCP - [employer] 11/09/20 Saeed Berger MD [address] [facility] [address] [place] [address] PCP - General Internal Medicine 03/17/23 FOR [...] BE BASED ON THE PRIMARY CLINICAL RECORDS. [email or web address] provides no warranty or guarantee of the accuracy or completeness of information in this document.
== END 2024-09-13 15:41 | disposition home or self-care (01) ==
LOC: WC 15:40
PROVIDERS: PCP Internal Medicine; Visit Provider Physician Assistant
DX: I87.311 Chronic venous hypertension (idiopathic) with ulcer of right lower extremity (principal); L97.812 Non-pressure chronic ulcer of other part of right lower leg with fat layer exposed
CPT/HCPCS: G0463

== ENCOUNTER 2024-10-04 11:22 | Outpatient (OUT) | payer MEDICARE, SELFPAY | END 2024-10-04 11:23 | disposition home or self-care (01) | LOC: WC 11:23 | PROVIDERS: PCP Internal Medicine; Visit Provider Physician Assistant | DX: L84 Corns and callosities (principal); I73.9 Peripheral vascular disease, unspecified; L60.3 Nail dystrophy | CPT/HCPCS: 11721; G0463 ==

== ENCOUNTER 2025-07-19 08:55 | Emergency (ER) | payer OTHER, SELFPAY ==
[2025-07-19 09:05] VITALS: BP 136/78; PULSE 70; TEMP 36.6; O2SAT 93; BMI 35.4
--- NOTE | 2025-07-19 09:16 | ECG_ITS ---
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[id number] Requested By: [id number] Order Number: [id number] Reading MD: KAILEE GUTIERREZ Measurements Intervals Tucker Rate: 59 P: 42 [place]: 260 QRS: -77 QRSD: 90 T: 64 QT: 386 QTc: 385 Interpretive Statements 1100 Sinus bradycardia with 1st degree AV block 1470 with occasional supraventricular premature complexes 2420 RSR (QR) in lead V1/V2, consistent with right ventricular conduction delay 3114 Cannot rule out anterior myocardial infarction, age undetermined Left anterior fascicular block 8102 Low QRS voltage in chest leads 9150 abnormal ECG Compared to ECG 07/29/2024 13:17:17 Myocardial infarct finding now present Left-axis deviation now present Low QRS voltage now present Electronically Signed On 07-20-2025 13:53:28 EDT by KAILEE GUTIERREZ
--- OUTSIDE RECORDS SUMMARY | 2025-07-19 09:17 | XMS_ITS | CCD ---
Author Organization [facility] Care Team Providers Care Lead Refiner Name Role Phone DR SAEED BERGER Attending Unavailable DR SAEED BERGER Primary Care Unavailable DR SAEED BERGER Admitting Unavailable Saeed Berger MD Unavailable Saeed Berger MD Primary Care Provider HERB ARROYO Attending Unavailable Saeed Berger MD Unavailable [phone] ALEJANDRINA ALBERTO Attending Unavailable ALEJANDRINA ALBERTO Attending Unavailable SAEED BERGER Attending Unavailable ALEJANDRINA ALBERTO Attending Unavailable Medications Current Medications Medication Drug Class(es) Dates Sig (Normalized) Sig (Original) acetaminophen 325 mg / HYDROcodone bitartrate 5 mg oral tablet (20 sources) Opioid Agonist Start: 06-01-2025 End: 08-03-2025 take 1 tablet by mouth every six hours for pain HYDROcodone-aceta minophen (Ironwood) 5-325 MG tablet Indications: Lumbar pain Take 1 tablet by mouth every 6 (six) hours if needed for severe pain 120 tablet 07/04/2025 08/03/2025 Active Start: 04-25-2025 End: 05-30-2025 take 1 tablet by mouth every six hours for pain HYDROcodone-acetaminophen (Ironwood) 5-325 MG tablet Indications: Lumbar pain Take 1 tablet by mouth every 6 (six) hours if needed for severe pain 120 tablet 04/25/2025 05/30/2025 Discontinued (Reorder) Start: 06-15-2024 End: 04-16-2025 take 1 tablet by mouth every six hours for pain HYDROcodone-acetaminophen (Ironwood) 5-325 MG tablet Indications: Lumbar pain Take 1 tablet by mouth every 6 (six) hours if needed for severe pain 120 tablet 03/17/2025 04/16/2025 Active Start: 12-16-2023 take 1 tablet by gunnar th every six hours for pain HYDROcodone-acetaminophen (Ironwood) 5-325 MG tablet Indications: Lumbar pain Take 1 tablet by mouth every 6 (six) hours if needed for severe pain 120 tablet 0 12/16/2023 Active Start: 11-17-2023 End: 12-14-2023 take 1 tablet by mouth every six hours for pain HYDROcodone-acetaminophen (Ironwood) 5-325 MG tablet Indications: Lumbar pain Take 1 tablet by mouth every 6 (six) hours if needed for severe pain 120 tablet 0 11/17/2023 12/14/2023 Discontinued (Reorder) ALPRAZolam 0.5 mg oral tablet (20 sources) Benzodiazepine Start: 01-31-2025 End: 07-27-2025 take 1 tablet by mouth three times daily as needed for anxiety ALPRAZolam (Xanax) 0.5 MG tablet Indications: Anxiety , Depression with anxiety Take 1 tablet (0.5 mg) by mouth 3 (three) times a day as needed for anxiety 90 tablet 2 04/28/2025 07/27/2025 Active Start: 05-24-2024 End: 01-22-2025 take 1 tablet by mouth three times daily as needed for anxiety ALPRAZolam (Xanax) 0.5 MG tablet Indications: Anxiety , Depression with anxiety Take 1 tablet (0.5 mg) by mouth 3 (three) times a day as needed for anxiety 90 tablet 12/23/2024 01/22/2025 Active Start: 11-04-2023 End: 02-02-2024 take 1 tablet by mouth three times daily as needed for anxiety ALPRAZolam (Xanax) 0.5 MG tablet Indications: Anxiety , Depression with anxiety Take 1 tablet (0.5 mg) by mouth 3 (three) times a day as needed for anxiety 90 tablet 1 11/04/2023 02/02/2024 Active amLODIPine 5 mg / benazepril hydrochloride 20 mg oral capsule (20 sources) Dihydropyridine Calcium Channel Pancho, Angiotensin Converting Enzyme Inhibitor Start: 03-13-2025 take 1 capsule by mouth once daily amLODIPine-benazepril (Lotrel) 5-20 MG capsule Indications: Benign essential hypertension Take 1 capsule by mouth Daily 100 capsule 3 03/13/2025 Active Start: 08-08-2024 End: 09-15-2024 take 1 capsule by mouth once daily amLODIPine-benazepril (Lotrel) 5-20 MG capsule Indications: Benign essential hypertension (CMS/HCC) Take 1 capsule by mouth Daily 90 capsule 3 09/15/2024 Active Start: 08-10-2023 take 1 capsule by mo [facility] once daily amLODIPine-benazepril (Lotrel) 5-20 MG capsule Indications: Benign essential hypertension (CMS/HCC) TAKE 1 CAPSULE BY MOUTH EVERY DAY FOR 90 DAYS 90 capsule 3 08/10/2023 Active apixaban 5 mg oral tablet (20 sources) Factor Xa Inhibitor Start: 12-11-2023 End: 04-28-2026 take 1 tablet by mouth in the morning apixaban (Eliquis) 5 MG tablet Indications: Atrial fibrillation, unspecified type (HCC) Take 1 tablet (5 mg) by mouth in the morning and 1 tablet (5 mg) before bedtime. 60 tablet 11 04/28/2025 04/28/2026 Active aspirin 81 mg delayed release oral tablet (2 sources) Platelet Aggregation Inhibitor, Nonsteroidal Anti-inflammatory Drug End: 12-11-2023 take 1 tablet by mouth in the morning aspirin (Aspirin Low Dose) 81 MG EC tablet Take 81 mg by mouth in the morning. 0 12/11/2023 Discontinued betamethasone 0.5 mg/ml / clotrimazole 10 mg/ml topical cream (20 sources) Azole Antifungal, Corticosteroid Start: 07-29-2023 clotrimazole-betame thasone (Lotrisone) cream APPLY TO AFFECTED AREA EVERY DAY 07/29/2023 Active 120 actuat budesonide 0.16 mg/actuat / formoterol fumarate 0.0048 mg/actuat / glycopyrrolate 0.009 mg/actuat metered dose inhaler (1 source) Corticosteroid, beta2-Adrenergic Agonist Start: 07-18-2025 Budeson-Glycopyrrol -Formoterol (Breztri Aerosphere) 160-9-4.8 MCG/ACT aerosol Indications: Chronic obstructive pulmonary disease, unspecified COPD type (HCC) Inhale 2 Inhalations in the morning and 2 Inhalations before bedtime. Rinse mouth after each use. 10.7 g 5 07/18/2025 Active celecoxib 200 mg oral capsule (20 sources) Nonsteroidal Anti-inflammatory Drug Start: 03-30-2025 take 1 capsule by mouth once celecoxib (CeleBREX) 200 MG capsule Indications: Generalized osteoarthritis Take 1 capsule (200 mg) by mouth every 12 (twelve) hours 180 capsule 3 03/30/2025 Active Start: 01-02-2025 take 1 capsule by mo uth every twelve hours celecoxib (CeleBREX) 200 MG capsule Indications: Generalized osteoarthritis TAKE 1 CAPSULE BY MOUTH EVERY 12 HOURS 200 capsule 3 01/02/2025 Active Start: 12-16-2023 take 1 capsule by mouth once c elecoxib (CeleBREX) 200 MG capsule Indications: Generalized osteoarthritis Take 1 capsule (200 mg) by mouth every 12 (twelve) hours 200 capsule 3 12/16/2023 Active Start: 05-05-2023 End: 12-11-2023 take 1 capsule by mouth once celecoxib (CeleBREX) 200 MG capsule Indications: Generalized osteoarthritis Take 1 capsule (200 mg) by mouth every 12 (twelve) hours. 200 capsule 3 05/05/2023 12/11/2023 Discontinued citalopram 40 mg oral tablet (20 sources) Serotonin Reuptake Inhibitor Start: 11-21-2024 take 1 tablet by mouth once daily citalopram (CeleXA) 40 MG tablet Indications: Generalized anxiety disorder TAKE 1 TABLET BY MOUTH EVERY DAY 100 tablet 3 11/21/2024 Active Start: 11-10-2023 take 1 tablet by gunnar th once daily citalopram (CeleXA) 40 MG tablet Indications: Generalized anxiety disorder (CMS/HCC) TAKE 1 TABLET BY MOUTH EVERY DAY 100 tablet 3 11/10/2023 Active clobetasol propionate 0.5 mg/ml topical cream (20 sources) Corticosteroid clobetasol (Temovate) 0.05 % cream Apply topically 2 (two) times a day. Active doxazosin 2 mg oral tablet (20 sources) alpha-Adrenergic Pancho Start: take 1 tablet by mouth once daily doxazosin (Cardura) 2 MG tablet Indications: Benign essential hypertension TAKE 1 TABLET BY MOUTH EVERY DAY 90 tablet 4 01/02/2025 Active Start: 11-06-2023 take 1 tablet by gunnar th once daily doxazosin (Cardura) 2 MG tablet Indications: Benign essential hypertension (CMS/HCC) TAKE 1 TABLET BY MOUTH EVERY DAY 90 tablet 4 11/06/2023 Active sodium hypochlorite 2.5 mg/ml topical solution (20 sources) Start: 06-07-2024 HySept 0.25 % external solution APPLY TO AFFECTED AREA THREE TIMES A WEEK 06/07/2024 Active 24 hr metoprolol succinate 50 mg extended release oral tablet (20 sources) beta-Adrenergic Pancho Start: 06-26-2025 take 1 tablet by mouth every twenty-four hours in the morning metoprolol succinate XL (Toprol-XL) 50 MG 24 hr tablet Indications: Atrial fibrillation, unspecified type (HCC) TAKE 1 TABLET (50 MG) BY MOUTH IN THE MORNING DO NOT CRUSH OR CHEW 100 tablet 3 06/26/2025 Active Start: 08-08-2024 take 1 tablet by gunnar th every twenty-four hours in the morning metoprolol succinate XL (Toprol-XL) 50 MG 24 hr tablet Indications: Atrial fibrillation, unspecified type (HCC) TAKE 1 TABLET (50 MG) BY MOUTH [...] 12/11/2023 Active nitroglycerin 0.4 mg sublingual tablet (20 sources) Nitrate Vasodilator Start: 08-26-2023 End: 08-25-2024 nitroglycerin (Nitrostat) 0.4 MG SL tablet Indications: Stricture and stenosis of esophagus Place 1 tablet (0.4 mg) under the tongue every 5 (five) minutes if needed for chest pain. 90 tablet 5 08/26/2023 Active omeprazole 20 mg delayed release oral capsule (10 sources) Proton Pump Inhibitor Start: 02-17-2025 End: 02-17-2026 take 1 capsule by mouth before mealtime omeprazole (PriLOSEC) [address] capsule Indications: Gastroesophageal reflux disease without esophagitis Take 1 capsule (20 mg) by mouth in the morning. Take before meals. Do not crush or chew.. 90 capsule 3 02/17/2025 02/17/2026 Active pravastatin sodium 20 mg oral tablet (20 sources) HMG-CoA Reductase Inhibitor Start: 01-09-2025 End: 04-25-2025 take 1 tablet by mouth once daily pravastatin (Pravachol) 20 MG tablet Indications: Mixed hyperlipidemia Take 1 tablet (20 mg) by mouth Daily 100 tablet 3 04/25/2025 Active Start: 01-04-2024 take 1 tablet by gunnar th once daily in the evening pravastatin (Pravachol) 20 MG tablet Indications: Mixed hyperlipidemia (CMS/HCC) TAKE 1 TABLET BY MOUTH EVERY DAY IN THE EVENING FOR 100 DAYS 100 tablet 3 01/04/2024 Active take 1 tablet by gunnar th in the morning pravastatin (Pravachol) 20 MG tablet Take 20 mg by mouth in the morning. 0 Active pregabalin 225 mg oral capsule (20 sources) Start: 07-04-2025 take 1 capsule by mouth at bedtime pregabalin (Lyrica) 225 MG capsule Indications: Other polyneuropathy Take 1 capsule (225 mg) by mouth at bedtime 90 capsule 1 07/04/2025 Active Start: 07-04-2025 take 1 capsule by mo uth at bedtime pregabalin (Lyrica) 225 MG capsule Indications: Other polyneuropathy Take 1 capsule (225 mg) by mouth at bedtime 90 capsule 1 07/04/2025 Active Start: 03-30-2025 End: 07-04-2025 take 1 capsule by mouth at bedtime pregabalin (Lyrica) 225 MG capsule Indications: Other polyneuropathy Take 1 capsule (225 mg) by mouth at bedtime 90 capsule 1 03/30/2025 07/04/2025 Discontinued (Reorder) Start: 06-27-2024 End: 12-26-2024 take 1 capsule by mouth at bedtime pregabalin (Lyrica) 225 MG capsule Indications: Other polyneuropathy Take 1 capsule (225 mg) by mouth at bedtime 90 capsule 1 12/26/2024 Active Start: 12-16-2023 take 1 capsule by mo uth at bedtime pregabalin (Lyrica) 225 MG capsule Indications: Other polyneuropathy Take 1 capsule (225 mg) by mouth at bedtime 90 capsule 0 12/16/2023 Active Start: 09-02-2023 End: 02-05-2024 take 1 capsule by mouth at bedtime pregabalin (Lyrica) 225 MG capsule Indications: Other polyneuropathy Take 1 capsule (225 mg) by mouth at bedtime. 90 capsule 0 09/02/2023 12/14/2023 Discontinued (Reorder) rOPINIRole 3 mg oral tablet (20 sources) Nonergot Dopamine Agonist Start: 03-30-2025 take 1 tablet by mouth at bedtime rOPINIRole (Requip) 3 MG tablet Indications: Restless Leg Syndrome Take 1 tablet (3 mg) by mouth at bedtime 90 tablet 3 03/30/2025 Active Start: 03-21-2024 End: 08-22-2024 take 1 tablet [...] 10/14/2023 Active topiramate 100 mg oral tablet (20 sources) Start: 06-26-2025 take 1 tablet by mouth twice daily topiramate (Topamax) 100 MG tablet Indications: Migraine without status migrainosus, not intractable, unspecified migraine type TAKE 1 TABLET BY MOUTH TWICE A DAY 180 tablet 3 06/26/2025 Active Start: 09-12-2024 take 1 tablet by gunnar th twice daily topiramate (Topamax) 100 MG tablet Indications: Migraine without status migrainosus, not intractable, unspecified migraine type TAKE 1 TABLET BY MOUTH TWICE A DAY 180 tablet 3 09/12/2024 Active Start: 08-07-2023 take 1 tablet by gunnar th twice daily topiramate (Topamax) 100 MG tablet Indications: Migraine without status migrainosus, not intractable, unspecified migraine type (CMS/HCC) TAKE 1 TABLET BY MOUTH TWICE A DAY FOR 90 DAYS 180 tablet 3 08/07/2023 Active torsemide 20 mg oral tablet (20 sources) Loop Diuretic Start: 05-09-2025 take 1 tablet by mouth in the morning torsemide (Demadex) 20 MG tablet Indications: Chronic venous insufficiency Take 1 tablet (20 mg) by mouth in the morning. 100 tablet 1 05/09/2025 Active Start: 08-08-2024 take 1 tablet by gunnar th once daily in the morning torsemide (Demadex) [...] Active trospium chloride 20 mg oral tablet (20 sources) Cholinergic Muscarinic Antagonist Start: 01-09-2025 take 1 tablet by mouth once daily at bedtime trospium (Sanctura) 20 MG tablet Indications: Overactive bladder TAKE 1 TABLET BY MOUTH ONCE A DAY AT BEDTIME ON AN EMPTY STOMACH 100 tablet 3 01/09/2025 Active Start: 03-18-2024 take 1 tablet by gunnar th once daily at bedtime trospium (Sanctura) 20 MG tablet Indications: Overactive bladder TAKE 1 TABLET BY MOUTH ONCE A DAY AT BEDTIME ON AN EMPTY STOMACH 100 tablet 3 03/18/2024 Active take 1 tablet by gunnar th at bedtime trospium (Sanctura) 20 MG tablet Take by mouth at bedtime. 0 Active Completed/Discontinued Medications Medication Drug Class(es) Dates Sig (Normalized) Sig (Original) amoxicillin 875 mg / clavulanate 125 mg oral tablet (10 sources) Penicillin-class Antibacterial Start: 06-06-2024 End: 09-15-2024 take 1 tablet by mouth in the morning amoxicillin-clavul anate (Augmentin) 875-125 MG tablet Take 1 tablet by mouth in the morning and 1 tablet before bedtime. 06/06/2024 09/15/2024 Discontinued Problems Active Problems Problem Classification Problem Date Documented Da te Episodic/Chronic Anxiety disorders (20 sources) Anxiety; Translations: [Anxiety disorder, unspecified] Onset: 3 06-16-2023 Chronic Cardiac dysrhythmias (20 sources) Atrial fibrillation; Translations: [Unspecified atrial fibrillation] Onset: 4 12-11-2023 Chronic Chronic kidney disease (19 sources) Chronic kidney disease stage 3A ; Translations: [Chronic kidney disease, stage 3a (HCC) (CMS/HCC)] Onset: 5 09-15-2024 Chronic Chronic obstructive pulmonary disease and bronchiectasis (20 sources) Chronic obstructive lung disease; Translations: [Chronic obstructive pulmonary disease, unspecified] Onset: 3 05-20-2023 Chronic Chronic ulcer of skin (20 sources) Non-pressure chronic ulcer of right ankle with unspecified severity; Translations: [Ulcer of ankle] Onset: 3 Resolved: 5 06-16-2023 Chronic Diabetes mellitus without complication (2 sources) Impaired fasting glycemia; Translations: [Impaired fasting glucose] 12-11-2023 Episodic Disorders of lipid metabolism (20 sources) Mixed hyperlipidemia; Translations: [Mixed hyperlipidemia] Onset: 3 12-11-2023 Chronic Esophageal disorders (20 sources) Gastroesophageal reflux disease; Translations: [Gastro-esophageal reflux disease without esophagitis] Onset: 3 05-20-2023 Chronic Essential hypertension (20 sources) Benign essential hypertension; Translations: [Essential (primary) hypertension] Onset: 3 05-20-2023 Chronic Hyperplasia of prostate (20 sources) Benign prostatic hyperplasia; Translations: [Benign prostatic hyperplasia without lower urinary tract symptoms] Onset: 3 05-20-2023 Chronic Miscellaneous mental health disorders (20 sources) Chronic insomnia; Translations: [Psychophysiologic insomnia] Onset: 3 05-20-2023 Chronic Mood disorders (20 sources) Depressive disorder; Translations: [Depressive disorder] Onset: 3 05-20-2023 Chronic Osteoarthritis (20 sources) Localized, primary osteoarthritis; Translations: [Unilateral primary osteoarthritis, unspecified knee] Onset: 5 Resolved: 5 12-11-2023 Chronic Other congenital anomalies (20 sources) Congenital accessory skin tag; Translations: [Other specified congenital malformations of skin] Onset: 3 06-16-2023 Chronic Other gastrointestinal disorders (20 sources) Chronic idiopathic constipation; Translations: [Chronic idiopathic constipation] Onset: 3 05-20-2023 Chronic Other gastrointestinal disorders (20 sources) Irritable bowel syndrome; Translations: [Irritable bowel syndrome without diarrhea] Onset: 3 05-20-2023 Chronic Other hereditary and degenerative nervous system conditions (20 sources) Restless legs; Translations: [Restless legs syndrome] Onset: 3 05-20-2023 Chronic Other hereditary and degenerative nervous system conditions (20 sources) System disorder of the nervous system; Translations: [Other specified extrapyramidal and movement disorders] Onset: 3 06-16-2023 Chronic Other hereditary and degenerative nervous system conditions (20 sources) Extrapyramidal movements; Translations: [Extrapyramidal and movement disorder, unspecified] Onset: 6 07-14-2023 Chronic Other nervous system disorders (8 sources) Polyneuropathy; Translations: [Polyneuropathy, unspecified] 12-11-2023 Chronic Other nervous system disorders (20 sources) Peripheral nerve disease ; Translations: [Polyneuropathy, unspecified] Onset: 3 05-20-2023 Chronic Other nervous system disorders (16 sources) Chronic pain; Translations: [Other chronic pain] Onset: 5 12-26-2024 Chronic Other nutritional; endocrine; and metabolic disorders (20 sources) Obesity; Translations: [Obesity, unspecified] Onset: 3 06-16-2023 Chronic Other nutritional; endocrine; and metabolic disorders (2 sources) Obesity caused by energy imbalance; Translations: [Morbid (severe) obesity due to excess calories] 09-15-2024 Chronic Other nutritional; endocrine; and metabolic disorders (2 sources) Severe obesity; Translations: [Class 2 severe obesity with serious comorbidity and body mass index (BMI) of 38.0 to 38.9 in adult, unspecified obesity type (CMS/HCC)] 12-26-2024 Chronic Other nutritional; endocrine; and metabolic disorders (2 sources) Weight decreased; Translations: [Abnormal weight loss] 07-04-2025 Episodic Other nutritional; endocrine; and metabolic disorders (2 sources) Decrease in appetite; Translations: [Anorexia] 07-04-2025 Episodic Other screening for suspected conditions (not mental disorders or infectious disease) (4 sources) Patient encounter status; Translations: [Encounter for screening for malignant neoplasm of respiratory organs] 12-11-2023 Episodic Screening and history of mental health and substance abuse codes (5 sources) Ex-smoker; Translations: [Personal history of nicotine dependence] Onset: 07-04-2025 Episodic Past or Other Problems Problem Classification Problem Date Documented Date Episodic/Chronic Abdominal hernia (20 sources) Diaphragmatic hernia; Translations: [Diaphragmatic hernia without obstruction or gangrene] Onset: 05-20-2023 05-20-2023 Episodic Mood disorders (14 sources) Mood disorders Onset: 12-26-2024 12-26-2024 Other acquired deformities (20 sources) Acquired spondylolisthesis; Translations: [Spondylolisthesis, site unspecified] Onset: 05-20-2023 05-20-2023 Episodic Other acquired deformities (20 sources) Spondylolysis; Translations: [Spondylolysis, lumbar region] Onset: 06-16-2023 06-16-2023 Episodic Other and unspecified benign neoplasm (20 sources) B-K mole (nevus) syndrome; Translations: [Other benign neoplasm of skin, unspecified] Onset: 06-16-2023 06-16-2023 Episodic Other diseases of veins and lymphatics (20 sources) Peripheral venous insufficiency; Translations: [Venous insufficiency (chronic) (peripheral)] Onset: 05-20-2023 12-11-2023 Episodic Spondylosis; intervertebral disc disorders; other back problems (20 sources) Low back pain; Translations: [Lumbar pain] Onset: 05-20-2023 12-11-2023 Episodic Substance-related disorders (20 sources) Cigarette smoker ; Translations: [Nicotine dependence, cigarettes, uncomplicated] Onset: 05-20-2023 Resolved: 07-04-2025 05-20-2023 Chronic Results Test Name Value Interpretation Reference Range Facil ity ALL CBC WITH AUTO DIFFon BASOPHILS ABSOLUTE AUTO 0.0 [facility] Basophils/100 WBC (Bld) 0.3 % 0.2 - 2.0 % [facility] Eosinophils/100 WBC (Bld) 2.6 % 0.9 - 7.0 % [facility] E[facility]th[facility] distribution width (RBC) [Ratio] 13.8 % 11.0 - 15.0 % [facility] Hematocrit (Bld) [Volume fraction] 41.4 % Low 42.0 - 54.0 % [facility] [Mass/Vol] 13.1 g/dL Low 14.0 - 18.0 g/dL [facility] IMMATURE GRANULOCYTES ABS AUTO 0.05 High [facility] Immature granulocytes/100 WBC (Bld) 0.6 % High 0.0 - 0.5 % [facility] Interpretation and review of laboratory results Abnormal [facility] LYMPHOCYTES ABSOLUTE AUTO 1.4 [facility] Lymphocytes/100 WBC (Bld) 16.1 % Low 20.5 - 60.0 % [facility] MCH (RBC) [Entitic mass] 30.8 pg 25.9 - 34.0 pg [facility] MCHC (RBC) [Mass/Vol] 31.6 g/dL 29.9 - 35.2 g/ dL [facility] MCV (RBC) [Entitic vol] 97.4 fL High 80.0 - 94.0 fL [facility] MONOCYTES ABSOLUTE AUTO 0.9 High [facility] Monocytes/100 WBC (Bld) 10.5 % 1.7 - 12.0 % [facility] NEUTROPHILS ABSOLUTE AUTO 6.2 [facility] Neutrophils/100 WBC (Bld) 69.9 % 43.0 - 75.0 % [facility] Platelet mean volume (Bld) [Entitic vol] 10.5 fL 9.5 - 13.5 fL [facility] EO # 0.2 [facility] PLT 199 [facility] RBC 4.25 Low [facility] WBC 8.9 [facility]24 Follow-up visit [id number] Dimitris Leavitt 1945 M Date Provider Department Center 02/02/2024 HERB ROWAN ALEXA Leal Family History Problem Relation Age of Onset Other Mother Family Status - Relation Status Age at Mother Level of Service:69667 [facility] OFFICE/OUTPATIENT NEW MODERATE MDM 45 MINUTES Normal [facility] - Hematology and Cell countson 12-11-2023 HbA1c (Bld) [Mass fraction] 5.3 % [facility] No Panel Informationon 12-11 Interpretation and review of laboratory results Normal [facility] Vital Signs Date Time Vital Sign Value Performing Clinician Kalina reynaga 07-04-2025 09:58-0400 Body height 170.2 cm Alejandrina Hemmer PA Work Phone: [facility] 07-04-2025 09:58-0400 Body mass index (BMI) [Ratio] 36.09 kg/m2 Alejandrina Hemmer PA Work Phone: [facility] 07-04-2025 09:58-0400 Body weight 104.51 kg Alejandrina Hemmer PA Work Phone: [facility] 07-04-2025 09:58-0400 Diastolic blood pressure 82 mm[Hg] Alejandrina Hemmer PA Work Phone: [facility] 07-04-2025 09:58-0400 Heart rate 51 /min Alejandrina Hemmer PA Work Phone: [facility] 07-04-2025 09:58-0400 Respiratory rate 18 /min Alejandrina Hemmer PA Work Phone: [facility] 07-04-2025 09:58-0400 SaO2% (BldA) [Mass fraction] 93 % Alejandrina Hemmer PA Work Phone: [facility] 07-04-2025 09:58-0400 Systolic blood pressure 108 mm[Hg] Alejandrina Hemmer PA Work Phone: [facility] 12-26-2024 14:21-0500 Body height 170.2 cm Alejandrina Hemmer PA Work Phone: [facility] 12-26-2024 14:21-0500 Body mass index (BMI) [Ratio] 38.06 kg/m2 Alejandrina Hemmer PA Work Phone: [facility] 12-26-2024 14:21-0500 Body weight 110.22 kg Alejandrina Hemmer PA Work Phone: [facility] 12-26-2024 14:21-0500 Diastolic blood pressure 68 mm[Hg] Alejandrina Hemmer PA Work Phone: [facility] 12-26-2024 14:21-0500 Heart rate 53 /min Alejandrina Hemmer PA Work Phone: [facility] 12-26-2024 14:21-0500 Respiratory rate 16 /min Alejandrina Henry PA Work Phone: [facility] 12-26-2024 14:21-0500 SaO2% (BldA) [Mass fraction] 92 % Alejandrina Henry PA Work Phone: [facility] 12-26-2024 14:21-0500 Systolic blood pressure 116 mm[Hg] Alejandrina Henry PA Work Phone: [facility] 09-15-2024 10:37-0500 Body height 170.2 cm Saeed Berger MD Work Phone: [facility] 09-15-2024 10:37-0500 Body mass index (BMI) [Ratio] 36.49 kg/m2 Saeed Berger MD Work Phone: [facility] 09-15-2024 10:37-0500 Body weight 105.69 kg Saeed Berger MD Work Phone: [facility] 09-15-2024 10:37-0500 Diastolic blood pressure 76 mm[Hg] Saeed Bergre MD Work Phone: [facility] 09-15-2024 10:37-0500 Heart rate 80 /min Saeed Berger MD Work Phone: [facility] 09-15-2024 10:37-0500 SaO2% (BldA) [Mass fraction] 94 % Saeed Berger MD Work Phone: [facility] 09-15-2024 10:37-0500 Systolic blood pressure 130 mm[Hg] Saeed Berger MD Work Phone: [facility] 12-11-2023 10:35-0500 Body mass index (BMI) [Ratio] 35.87 kg/m2 Saeed Berger MD Work Phone: [facility] 12-11-2023 10:35-0500 Body weight 103.87 kg Saeed Berger MD Work Phone: [facility] 12-11-2023 10:35-0500 Heart rate 50 /min Saeed Berger MD Work Phone: [facility] 12-11-2023 10:35-4725 SaO2% (BldA) [Mass fraction] 96 % Saeed Berger MD Work Phone: [facility] Encounters Encounter Date Encounter Type Care Provider Facility Start: 07-18-2025 End: 07-18-2025 Telephone encounter Alejandrina MONTANA Work Phone: [facility] Start: 07-04-2025 End: 07-04-2025 Bamboo flowsheet Alejandrina Alberto PA Work Phone: [facility] Start: 07-04-2025 End: 07-04-2025 Bamboo flowsheet Aleajndrina Alberto PA Work Phone: [facility] Start: 07-04-2025 End: 07-04-2025 Office outpatient visit 25 minutes Alejandrina MONTANA Work Phone: [facility] Comment on above: Lumbar pain (Primary Dx); Paroxysmal atrial fibrillation (HCC); Anxiety; Chronic obstructive pulmonary disease, unspecified COPD type (HCC); Former smoker; Weight loss; Decreased appetite; Other polyneuropathy Start: 07-04-2025 End: 07-04-2025 ambulatory ALEJANDRINA ALBERTO Not Available Start: 05-30-2025 End: 06-01-2025 Refill Saeed Berger MD Work Phone: [facility] Comment on above: Lumbar pain Start: 04-27-2025 End: 04-28-2025 Refill Saeed Berger MD Work Phone: [facility] Comment on above: Anxiety; Depression with anxiety Start: 04-25-2025 End: 04-25-2025 Refandi Berger MD Work Phone: [facility] Comment on above: Mixed hyperlipidemia ; Lumbar pain Start: 03-30-2025 End: 03-30-2025 ambulatory ALEJANDRINA ALBERTO Not Available Start: 03-28-2025 End: 03-28-2025 Refill Saeed Berger MD Work Phone: [facility] Comment on above: Anxiety; Depression with anxiety Start: 03-17-2025 End: 03-17-2025 Refill Saeed Berger MD Work Phone: [facility] Comment on above: Lumbar pain Start: 02-28-2025 End: 03-01-2025 Refill Saeed Berger MD Work Phone: [facility] Comment on above: Anxiety; Depression with anxiety Start: 02-13-2025 End: 02-13-2025 Refill Saeed Berger MD Work Phone: [facility] Comment on above: Lumbar pain Start: 01-11-2025 End: 01-11-2025 Refill Saeed Berger MD Work Phone: [facility] Comment on above: Lumbar pain Start: 12-26-2024 End: 12-26-2024 ambulatory ALEJANDRINA ALBERTO Not Available Start: 12-26-2024 End: 12-26-2024 Bamboo flowsheet Alejandrina Alberto PA Work Phone: [facility] Start: 12-26-2024 End: 12-26-2024 Bamboo flowsheet Alejandrina Alberto PA Work Phone: [facility] Start: 12-26-2024 End: 12-26-2024 Patient encounter procedure Alejandrina MONTANA Work Phone: [facility] Comment on above: Medicare annual well [facility], subsequent (Primary Dx); ACP (advance care planning); Other polyneuropathy; Chronic insomnia; Other specified extrapyramidal and movement disorders; Restless legs syndrome; Chronic obstructive pulmonary disease, unspecified COPD type (CMS/HCC); Diaphragmatic hernia without obstruction and without gangrene; Paroxysmal atrial fibrillation (CMS/HCC); Benign essential hypertension (CMS/HCC); Venous insufficiency (chronic) (peripheral); Chronic idiopathic constipation; Gastroesophageal reflux disease without esophagitis; Irritable bowel syndrome, unspecified type; Stricture and stenosis of esophagus; Benign prostatic hyperplasia with nocturia; Stage 3a chronic kidney disease (HCC) (CMS/HCC); Acquired spondylolisthesis; Primary osteoarthritis involving multiple joints; Pars defect of lumbar spine; Class 2 severe obesity with serious comorbidity and body mass index (BMI) of 38.0 to 38.9 in adult, unspecified obesity type (CMS/HCC); Accessory skin tags; Anxiety; Cigarette smoker; Depressive disorder (CMS/HCC); Dysplastic nevus syndrome; Lumbar pain; Mixed hyperlipidemia (CMS/HCC); Unilateral primary osteoarthritis, left knee; Other chronic pain Start: 12-22-2024 End: 12-23-2024 Refill Coco Samuel [facility] Comment on above: Anxiety; Depression with anxiety Start: 12-08-2024 End: 12-08-2024 Refill Saeed Berger MD Work Phone: [facility] Comment on above: Lumbar pain Start: 11-21-2024 End: 11-21-2024 Refill Saeed Berger MD Work Phone: [facility] Comment on above: Anxiety; Depression with anxiety Start: 11-04-2024 End: 11-04-2024 Refill Saeed Berger MD Work Phone: [facility] Comment on above: Lumbar pain Start: 10-20-2024 End: 10-20-2024 Refill Saeed Berger MD Work Phone: [facility] Comment on above: Anxiety; Depression with anxiety Start: 10-05-2024 End: 10-05-2024 Refandi Berger MD Work Phone: [facility] Comment on above: Lumbar pain Start: 09-15-2024 End: 09-15-2024 Bamboo flowsjayme Berger MD Work Phone: [facility] Start: 09-15-2024 End: 09-15-2024 Bamboo flowsheet Saeed Berger MD Work Phone: [facility] Start: 09-15-2024 End: 09-15-2024 Office outpatient visit 25 minutes Saeed Berger MD Work Phone: [facility] Comment on above: Benign essential hyp ertension (CMS/HCC) (Primary Dx); Chronic kidney disease, stage 3a (HCC) (CMS/HCC); Primary localized osteoarthrosis of left lower leg; Pars defect of lumbar spine; Atrial fibrillation, unspecified type ([facility]); Non-pressure chronic ulcer of right ankle, unspecified ulcer stage ([facility]); Restless legs syndrome; Morbid (severe) obesity due to excess calories ([facility]) Start: 09-15-2024 End: 09-15-2024 ambulatory SAEED BERGER Not Available Start: 09-06-2024 End: 09-06-2024 Telephone encounter Saeed Berger MD Work Phone: [facility] Start: 08-22-2024 End: 08-22-2024 Refill Saeed Berger MD Work Phone: [facility] Comment on above: Restless legs syndro me; Anxiety; Depression with anxiety Start: 08-18-2024 End: 08-18-2024 Refill Saeed Berger MD Work Phone: [facility] Comment on above: Lumbar pain Start: 07-29-2024 End: 07-29-2024 Clinisync Result Encounter Generic External Data Provider [facility] Unsolicited Start: 07-29-2024 End: 07-29-2024 Clinisync Result Encounter Generic External Data Provider [facility] Unsolicited Start: 07-13-2024 End: 07-13-2024 Refill Saeed Berger MD Work Phone: [facility] Comment on above: Lumbar pain Start: 06-29-2024 End: 06-29-2024 Refill oCco Baker [facility] Comment on above: Anxiety; Depression with anxiety Start: 06-28-2024 End: 06-29-2024 Refill Saeed Berger MD Work Phone: [facility] Comment on above: Anxiety; Depression with anxiety Start: 02-02-2024 End: 02-02-2024 ambulatory [facility] Start: 12-15-2023 Refandi Berger MD Work Phone: [facility] Comment on above: Lumbar pain; Generalized osteoarthritis; Other polyneuropathy Start: 12-14-2023 Refandi Berger MD Work Phone: [facility] [...] Date Procedure Procedure Detail Performing Clinician Start: 07-29-2024 ALL CBC WITH AUTO DIFF Generic External Data Provider Start: 12-11-2023 Hemoglobin glycosyla jagdeep a1c Saeed Berger MD Work Phone: Plan of Treatment Date Care Activity Detail Author Start: 12-26-2025 Medicare Annual Well ness (AWV) Medicare Annual Wellness (AWV) [facility] Start: 07-10-2025 Influenza vaccination Influenza Vacc ine (#1) [facility] Start: 07-04-2025 End: 07-04-2026 XR Chest 2 Views XR chest 2 views Imaging Routine Chronic obstructive pulmonary disease, unspecified COPD type ([facility]) Expected: 07/04/2025, Expires: 07/04/2026 [facility] Work Phone: Comment on above: Expected: 07/04/2025 , Expires: 07/04/2026 Start: 07-04-2025 End: 07-04-2025 Patient encounter procedure 07/04/2025 10:00 AM EDT Office Visit [facility] [place] [facility] [address] [facility] [address] [place] [id number] Alejandrina Alberto PA [address] [facility] [address] [place] [address] Arrived [facility] [place] [facility] Comment on above: Arrived Start: 07-03-2025 End: 07-03-2025 Patient encounter procedure 07/03/2025 1:00 PM EDT Office Visit [facility] [address] [place] [address] [place] [address] Alejandrina Alberto, PA [address] [place] [address] [place] [address] [facility] Start: 03-30-2025 End: 03-30-2025 Patient encounter procedure 03/30/2025 10:30 AM EDT Office Visit [facility] [address] [place] [address] [place] [address] Alejandrina Alberto PA [address] [place] [address] [place] [address] [facility] Start: 03-27-2025 End: 03-27-2025 Patient encounter procedure 03/27/2025 1:00 PM EDT Office Visit [facility] [address] [place] [address] [place] [address] Alejandrina Alberto, PA [address] [place] [address] [place] [address] [facility] Start: 12-26-2024 End: 12-26-2024 Patient encounter procedure 12/26/2024 2:00 PM EST Office Visit [facility] [address] [place] [address] [place] [address] Alejandrina Alberto PA [address] [place] [address] [place] [address] [facility] Start: 12-25-2024 Medicare Annual Well ness (AWV) Medicare Annual Wellness (AWV) [facility] Start: 12-19-2024 End: 12-19-2024 Patient encounter procedure [facility] Start: 09-15-2024 End: 09-15-2024 Patient encounter procedure 09/15/2024 1:30 PM EST Office Visit [facility] [address] [place] [address] [place] [address] Saeed Berger MD [address] [place] [address] [place] [address] [facility] Start: 09-15-2024 End: 09-15-2024 Patient encounter procedure [facility] Comment on above: Arrived Start: 07-10-2024 Influenza vaccination Influenza Vacc ine (#1) [facility] Start: 12-25-2023 End: 12-25-2023 Patient encounter procedure 12/25/2023 10:30 AM EST Office Visit [facility] [address] [facility] [address] [place] [address] Saeed Berger MD [address] [facility] [address] [place] [address] [facility] Start: 12-11-2023 End: 12-11-2024 Comprehensive metabolic 2000 panel - Serum or Plasma Comprehensive metabolic panel Lab Routine Atrial fibrillation, unspecified type (CMS/HCC) Expected: 12/11/2023 (Approximate), Expires: 12/11/2024 [facility] Comment on above: Expected: 12/11/2023 (Approximate), Expires: 12/11/2024 Start: 12-11-2023 End: 12-11-2024 CT Chest for screening WO contrast CT lung screening low dose Imaging Routine Encounter for screening for lung cancer Expected: 12/11/2023, Expires: 12/11/2024 [facility] Work Phone: Comment on above: Expected: 12/11/2023 , Expires: 12/11/2024 Start: 12-11-2023 End: 12-11-2025 Echocardiogram 2D complete Echocardiogram 2D complete Echocardiography Routine Atrial fibrillation, unspecified type (CMS/HCC) Expected: 12/11/2023 (Approximate), Expires: 12/11/2025 [facility] Comment on above: Expected: 12/11/2023 (Approximate), Expires: 12/11/2025 Start: 12-11-2023 End: 12-11-2024 Lipid 1996 panel - Serum or Plasma Lipid panel Lab Routine Mixed hyperlipidemia (CMS/HCC) Expected: 12/11/2023 (Approximate), Expires: 12/11/2024 [facility] Comment on above: Expected: 12/11/2023 (Approximate), Expires: 12/11/2024 Start: 12-11-2023 End: 12-11-2024 TSH W/REFLEX TO FT4 TSH W/REFLEX TO FT4 Lab Routine Atrial fibrillation, unspecified type (CMS/HCC) Expected: 12/11/2023 (Approximate), Expires: 12/11/2024 [facility] Comment on above: Expected: 12/11/2023 (Approximate), Expires: 12/11/2024 Start: 1945 Medicare Annual Well ness (AWV) Medicare Annual Wellness (AWV) [facility] CBC W Auto Different ial panel - Blood CBC and differential Lab Routine Atrial fibrillation, unspecified type (CMS/HCC) Ordered: 12/11/2023 [facility] Comment on above: Ordered: 12/11/2023 Immunizations Immunization Date Immunization Notes Care Provider Fa [facility] 08-24-2024 SARS-COV-2 (COVID-19 ) vaccine, mRNA, spike protein, LNP, PF, 50 mcg/0.5 mL Alejandrina MONTANA Work Phone: [facility] 08-24-2024 Seasonal trivalent influenza vaccine, adjuvanted, preservative free Alejandrina MONTANA Work Phone: [facility] 08-24-2024 influenza virus vacc ine, unspecified formulation Saeed Berger MD Work Phone: [facility] 03-12-2024 tetanus toxoid, redu katie diphtheria toxoid, and acellular pertussis vaccine, adsorbed Saeed Berger MD Work Phone: [facility] 09-08-2023 Influenza, Seasonal, Quadrivalent, Adjuvanted Saeed Berger MD Work Phone: [facility] 09-08-2023 RSV, recombinant, pr otein subunit RSVpreF, adjuvant reconstitu, 120mcg/0.5mL, PF (Arexvy) Saeed Berger MD Work Phone: [facility] 09-08-2023 influenza virus vacc ine, unspecified formulation Saeed Berger MD Work Phone: [facility] 08-14-2022 Influenza, High-dose Seasonal, Quadrivalent, Preservative Free Saeed Berger MD Work Phone: [facility] 08-14-2022 Moderna SARS-CoV-2 50mcg/0.5mL Booster Saeed Berger MD Work Phone: [facility] 11-09-2021 Influenza, Seasonal, Quadrivalent, Adjuvanted Saeed Berger MD Work Phone: [facility] 05-09-2021 zoster vaccine recombinant Viviane Berger MD Work Phone: [facility] 11-19-2020 zoster vaccine recombinant Viviane Berger MD Work Phone: [facility] 09-05-2020 pneumococcal polysaccharide vaccine, 23 valent Saeed Berger MD Work Phone: [facility] 08-06-2020 influenza, high dose isabel, preservative-free Saeed Berger MD Work Phone: [facility] 10-24-2019 influenza, high dose seasonal, preservative-free Saeed Berger MD Work Phone: [facility] 05-09-2019 pneumococcal conjuga te vaccine, 13 valent Saeed Berger MD Work Phone: [facility] 09-22-2018 influenza, high dose seasonal, preservative-free Saeed Berger MD Work Phone: [facility] 03-15-2018 pneumococcal conjuga te vaccine, 13 valent Saeed Berger MD Work Phone: [facility] 11-27-2017 seasonal influenza, intradermal, preservative free Saeed Berger MD Work Phone: [facility] 01-10-2015 zoster vaccine, live Saeed Berger MD Work Phone: [facility] 12-13-2014 tetanus toxoid, redu katie diphtheria toxoid, and acellular pertussis vaccine, adsorbed Saeed Berger MD Work Phone: [facility] 12-04-2014 zoster vaccine, live Saeed Berger MD Work Phone: [facility] 08-09-2014 influenza virus vacc ine, split virus (incl. purified surface antigen) Saeed Berger MD Work Phone: [facility] 08-04-2014 pneumococcal polysaccharide vaccine, 23 valent Saeed Berger MD Work Phone: [facility] 07-11-2013 seasonal influenza, intradermal, preservative free Saeed Berger MD Work Phone: [facility] 09-15-2009 novel influenza-H1N1 -09, preservative-free, injectable Saeed Berger MD Work Phone: [facility] Payers Date Payer Category Payer Medicare (Managed Care) [facility] [id number] 2025 Unknown [id number] 2021 Medicaid [employer] MED[employer]ARE A [employer]AGE [id number] 2021 Medicare [id number] 2011 Medicare [id number] 1959 Self-pay 1945 Unknown [id number] 1945 Unknown [id number] 1945 Unknown [id number] 1945 Unknown [id number] 1945 Unknown [id number] Social History Date Type Detail Facility Start: 09-03-[address] [facility] Smokes tobacco daily [facility] End: 06-26-2025 History of tobacco use Cigarette Smoker [facility] Start: 09-03-2023 End: 07-04-2025 Tobacco use and exposure Smokeless tobacco non-user [facility] Start: 12-11-2023 End: 07-04-2025 Alcohol intake Current drinker of alcohol (finding) [facility] Start: 12-11-2023 End: 07-04-2025 Alcohol intake [facility] Start: 12-11-2023 End: 07-04-2025 Tobacco use panel [facility] Start: 07-14-2023 Alcohol Comment Caffeine intake: cof fee [facility] Start: 1945 Sex Assigned At Not on file [facility] Start: 07-04-[address] [facility] Ex-smoker [facility] End: 06-26-2025 History of tobacco use Current smoker [facility] Functional Status Date Assessment Result Facility 07-04-2025 Patient Health Quest ionnaire 2 item (PHQ-2) [Reported] [facility] Clinical Notes 12-11-2023 to 07-18-2025 Telephone Encounter - NAN Hawkins - 07/18/2025 5:03 PM EDTTelephone Encounter - NAN Hawkins - 07/18/2025 5:03 PM EDTTelephone Encounter - MARK GAITAN - 07/18/2025 1:59 PM EDT Note Date & Type Note Facility 07-18-2025 Telephone encounter Note Breztri sent into pt's pharmacy. [facility] 07-18-2025 Miscellaneous Notes Breztri sent into pt's pharmacy. Spoke with patient and he hasn't done the X-ray , but he will get it done this week. He is also fine with trying an inhaler. Send to [facility] in [place]. Please ask pt if he has been able to get the chest x-ray completed. Also, please let him know that I spoke with Dr. Berger and he is fine with patient trying an inhaler to help with his breathing. If pt is agreeable, I can send one in for him. documented in this encounter [facility] 07-18-2025 Telephone encounter Note Spoke with patient and he hasn't done the X-ray , but he will get it done this week. He is also fine with trying an inhaler. Send to [facility] in [place]. [facility] 07-18-2025 Telephone encounter Note Please ask pt if he has been able to get the chest x-ray completed. Also, please let him know that I spoke with Dr. Berger and he is fine with patient trying an inhaler to help with his breathing. If pt is agreeable, I can send one in for him. [facility] 07-04-2025 History of Present illness Narrative Images from the original note were not included. HPI Anxiety Additional comments: He is currently on Alprazolam as needed and is working well for him. Med Refill Additional comments: Shelley Last edited by Zaynab Vann LPN on 07/04/2025 9:57 AM. Subjective Patient ID: Dimitris Leavitt is a 79 y.o. male who presents for back pain. Dimitris is present today for follow up back pain. He is currently on Hydrocodone as needed and is working well for him. Quit smoking a week ago. Has been sleeping a lot and his appetite has been down. Drinks about a quart of water a day. Over the past 2 weeks, how often have you been bothered by any of the following problems? Little interest or pleasure in doing things: Not at all (currently on medication) Feeling down, depressed, or hopeless: Not at all (currently on medication) Patient Health Questionnaire-2 Score: 0 Current Outpatient Medications on File Prior to Visit Medication Sig Dispense Refill ALPRAZolam (Xanax) 0.5 MG tablet Take 1 tablet (0.5 mg) by mouth 3 (three) times a day as needed for anxiety 90 tablet 2 amLODIPine-benazepril (Lotrel) 5-20 MG capsule Take 1 capsule by mouth Daily 100 capsule 3 apixaban (Eliquis) 5 MG tablet Take 1 tablet (5 mg) by mouth in the morning and 1 tablet (5 mg) before bedtime. 60 tablet 11 celecoxib (CeleBREX) 200 MG capsule Take 1 capsule (200 mg) by mouth every 12 (twelve) hours 180 capsule 3 citalopram (CeleXA) 40 MG tablet TAKE 1 TABLET BY MOUTH EVERY DAY 100 tablet 3 clobetasol (Temovate) 0.05 % cream Apply topically 2 (two) times a day. clotrimazole-betamethasone (Lotrisone) cream APPLY TO AFFECTED AREA EVERY DAY doxazosin (Cardura) 2 MG tablet TAKE 1 TABLET BY MOUTH EVERY DAY 90 tablet 4 HySept 0.25 % external solution APPLY TO AFFECTED AREA THREE TIMES A WEEK metoprolol succinate XL (Toprol-XL) 50 MG 24 hr tablet TAKE 1 TABLET (50 MG) BY MOUTH IN THE MORNING DO NOT CRUSH OR CHEW 100 tablet 3 nitroglycerin (Nitrostat) 0.[address] 1 tablet (0.4 mg) under the tongue every 5 (five) minutes if needed for chest pain. 90 tablet 5 omeprazole (PriLOSEC) [address] capsule Take 1 capsule (20 mg) by mouth in the morning. Take before meals. Do not crush or chew.. 90 capsule 3 pravastatin (Pravachol) 20 MG tablet Take 1 tablet (20 mg) by mouth Daily 100 tablet 3 rOPINIRole (Requip) 3 MG tablet Take 1 tablet (3 mg) by mouth at bedtime 90 tablet 3 topiramate (Topamax) 100 MG tablet TAKE 1 TABLET BY MOUTH TWICE A DAY 180 tablet 3 torsemide (Demadex) 20 MG tablet Take 1 tablet (20 mg) by mouth in the morning. 100 tablet 1 trospium (Sanctura) 20 MG tablet TAKE 1 TABLET BY MOUTH ONCE A DAY AT BEDTIME ON AN EMPTY STOMACH 100 tablet 3 [DISCONTINUED] HYDROcodone-acetaminophen (Ironwood) 5-325 MG tablet Take 1 tablet by mouth every 6 (six) hours if needed for severe pain 120 tablet 0 [DISCONTINUED] pregabalin (Lyrica) 225 MG capsule Take 1 capsule (225 mg) by mouth at bedtime 90 capsule 1 No current facility-administered medications on file prior to visit. I have reviewed and reconciled the history and medication list with the patient today. No Known Allergies Social History Tobacco Use Smoking status: Former Current packs/day: 0.00 Types: Cigarettes Quit date: 06/26/2025 Years since quittin.0 Smokeless tobacco: Never Vaping Use Vaping status: Never Used Substance Use Topics Alcohol use: Yes Alcohol/week: 2.0 standard drinks of alcohol Types: 2 Standard drinks or equivalent per week Comment: Caffeine intake: coffee Drug use: Yes Types: Hydrocodone Family History Problem Relation Name Age of Onset Heart disease Mother Cancer Father Melanoma Neg Hx Past Medical History: Diagnosis Date Acquired spondylolisthesis Arthritis Cellulitis of left leg 06/19/2023 Admitted Cigarette smoker 05/20/2023 Depression Depressive disorder Diaphragmatic hernia without mention of obstruction or gangrene Extrapyramidal disease and abnormal movement disorder Hyperlipemia Hypertension Non-pressure chronic ulcer of right ankle with unspecified severity (HCC) 06/16/2023 Osteoarthritis Peripheral autonomic neuropathy in disorders classified elsewhere Peripheral neuropathy Personal history of medical treatment 08/28/2020 Post Op Pain Chronic Venous Hypertension w/ Ulcers Primary localized osteoarthrosis, lower leg Restless legs syndrome (RLS) RLS (restless legs syndrome) Stricture and stenosis of esophagus Past Surgical History: Procedure Laterality Date DEBRIDEMENT Lt Leg Wounds & Application of Skin Graft 08/28/2020,04/04/2021, 06/13/2021,02/07/2021 TOTAL KNEE ARTHROPLASTY Right 2011 Visit Vitals BP 108/82 Pulse 51 Resp 18 Ht 5' 7 Wt 230 lb 6.4 oz SpO2 93% BMI 36.09 kg/m Smoking Status Former BSA 2.23 m Review of Systems Constitutional: Positive for activity change and fatigue. Negative for chills and fever. Respiratory: Positive for cough. Negative for shortness of breath and wheezing. Cardiovascular: Negative for chest pain, palpitations and leg swelling. Gastrointestinal: Negative for abdominal pain, constipation, diarrhea, nausea and vomiting. Skin: Negative for rash. Objective Physical Exam Constitutional: Appearance: He is obese. Comments: Appears fatigued HENT: Head: Normocephalic and atraumatic. Eyes: General: No scleral icterus. Cardiovascular: Rate and Rhythm: Normal rate. Rhythm irregular. Heart sounds: No murmur heard. Pulmonary: Effort: Pulmonary effort is normal. No respiratory distress. Breath sounds: Examination of the right-upper field reveals wheezing and rhonchi. Examination of the right-middle field reveals wheezing and rhonchi. Examination of the right-lower field reveals wheezing and rhonchi. Wheezing and rhonchi (Mild) present. No rales. Comments: Deep, moist cough noted intermittently Musculoskeletal: Right lower leg: Edema (Mild) present. Left lower leg: Edema (Mild) present. Comments: Stasis dermatitis bilateral lower legs Skin: General: Skin is warm and dry. Neurological: General: No focal deficit present. Mental Status: He is alert and oriented to person, place, and time. Psychiatric: Mood and Affect: Mood normal. Behavior: Behavior normal. Assessment/Plan Diagnoses and all orders for this visit: Lumbar pain - HYDROcodone-acetaminophen (Ironwood) 5-325 MG tablet; Take 1 tablet by mouth every 6 (six) hours if needed for severe pain Medication choice and dosage is appropriate for patient's current medical conditions. Patient will continue to be required to be seen in our office at least every three months for monitoring. At each follow up visit I will reassess the patient's need for the medication. Patient is to have this medication prescribed only through this office. Failure to follow the rules and regulations will result in tapering and discontinuation of medications if applicable. Patient verbalized understanding. OARRS Report was reviewed for this patient. Paroxysmal atrial fibrillation (HCC) Rate controlled at this time. Continue Eliquis as prescribed. Anxiety Stable on current medications. He can continue with Xanas as needed. Chronic obstructive pulmonary disease, unspecified COPD type (HCC) - XR chest 2 views; Future Due to lung sounds today, chest x-ray ordered for further evaluation. Will notify pt of the results once received. He would like to get this done at [facility]. Former smoker Congratulated pt on smoking cessation. Encouraged him to continue to refrain from smoking. Weight loss Pt has lost 14 pounds. He states he is not eating as much as he was, appetite has not been good. Decreased appetite Encouraged him to complete the labs that were ordered for him in December. Will notify pt of the results once received. Other polyneuropathy - pregabalin (Lyrica) 225 MG capsule; Take 1 capsule (225 mg) by mouth at bedtime Provided pt with refill on the above. Symptoms stable at this time. Follow up in about 3 months (around 10/04/2025) for Medication Follow Up. documented in this encounter [facility] 06-01-2025 Telephone encounter Note OARRS reviewed, Rx sent into patient's pharmacy. [facility] 06-01-2025 Miscellaneous Notes OARRS reviewed, Rx sent into patient's pharmacy. Patient called again and stated that he is out and asked for this to be sent in today if possible Dimitris called requesting a refill on his HYDROcodone-acetaminophen (Ironwood) 5-[address] [facility] [place] documented in this encounter [facility] 05-31-2025 Telephone encounter Note Patient called again and stated that he is out and asked for this to be sent in today if possible [facility] 05-30-2025 Telephone encounter Note Dimitris called requesting a refill on his HYDROcodone-acetaminophen (Ironwood) 5-[facility] [place] [facility] 04-27-2025 Telephone encounter Note ALPRAZolam (Xanax) 0.5 MG tablet [facility] 04-27-2025 Miscellaneous Notes ALPRAZolam (Xanax) 0.5 [facility] documented in this encounter [facility] 04-25-2025 Telephone encounter Note pravastatin (Pravachol) 20 MG tablet Hydrocodone [facility] 04-25-2025 Miscellaneous Notes pravastatin (Pravachol) 20 MG tablet Hydrocodone [facility] documented in this encounter [facility] 03-28-2025 Telephone encounter Note Patient has enough Xanax to get him through until his appointment. [facility] 03-28-2025 Miscellaneous Notes Patient has enough Xanax to get him through until his appointment. ALPRAZolam (Xanax) 0.5 MG tablet [facility] documented in this encounter [facility] 03-28-2025 Telephone encounter Note ALPRAZolam (Xanax) 0.5 MG [facility] 03-17-2025 Telephone encounter Note HYDROcodone-acetaminophen (Ironwood) 5-325 [facility] 03-17-2025 Miscellaneous Notes HYDROcodone-acetaminophen (Ironwood) 5-[facility] documented in this encounter [facility] 02-28-2025 Telephone encounter Note ALPRAZolam (Xanax) 0.5 MG [facility] 02-28-2025 Miscellaneous Notes ALPRAZolam (Xanax) 0.5 MG [facility] documented in this encounter [facility] 02-13-2025 Telephone encounter Note Dimitris left a message requesting a refill on HYDROcodone-acetaminophen (Ironwood) 5-[facility] [place] [facility] 02-13-2025 Miscellaneous Notes Dimitris left a message requesting a refill on HYDROcodone-acetaminophen (Ironwood) 5-[facility] MG [facility] [place] documented in this encounter [facility] 01-11-2025 Telephone encounter Note OARRS reviewed, Rx sent into patient's pharmacy. [facility] 01-11-2025 Miscellaneous Notes OARRS reviewed, Rx sent into patient's pharmacy. HYDROcodone-acetaminophen ([place]wood) 5-[facility] documented in this encounter [facility] 01-11-2025 Telephone encounter Note HYDROcodone-acetaminophen (Ironwood) 5-325 MG [facility] 12-26-2024 History of Present illness Narrative Images from the original note were not included. HPI Med Refill Additional comments: Lyrica Last edited by Zaynab Vann LPN on 12/26/2024 2:18 PM. Subjective Patient ID: Dimitris Leavitt is a 79 y.o. male who presents for Med Refill (Lyrica). Med Refill Pertinent negatives include no abdominal pain, arthralgias, chest pain, chills, congestion, coughing, fatigue, fever, headaches, nausea, numbness, rash, sore throat or vomiting. Medicare Wellness Over the past 2 weeks, how often have you been bothered by any of the following problems? Little interest or pleasure in doing things: Not at all Feeling down, depressed, or hopeless: Not at all Patient Health Questionnaire-2 Score: 0 Over the past 2 weeks, how often have you been bothered by any of the following problems? Trouble falling or staying asleep, or sleeping too much: Not at all Feeling tired or having little energy: Not at all Poor appetite or overeating: Not at all Feeling bad about yourself - or that you are a failure or have let yourself or your family down: Not at all Trouble concentrating on things, such as reading the newspaper or watching television: Not at all Moving or speaking so slowly that other people could have noticed? Or the opposite - being so fidgety or restless that you have been moving around a lot more than usual.: Not at all Thoughts that you would be better off or hurting yourself in some way: Not at all Patient Health Questionnaire-9 Score: 0 Leal Fall Risk History of [...] minutes 3 or more days a week?: No How confident are you that you can control and manage most of your health problems?: Very confident Can you mange your money, credit cards and accounts, pay bills and taxes?: Yes Vision Screening: Yes, no gross abnormalities Hearing Screening: Yes, no gross abnormalities Cognitive Screening Self Assessment: No overt cognitive deficiency is apparent by direct observation Three Word Registration: Village, Kitchen, Baby Clock Drawing: Normal Clock - 2 Three Word Recall: 2/3 words correct - 2 Total Score (0-5 Points): 4 Pain Assessment Pain Score: 6 Advance Care Planning Do you have a living will?: No Do you have a medical power of claims attorney?: No Current Outpatient Medications on File Prior to Visit Medication Sig Dispense Refill ALPRAZolam (Xanax) 0.5 MG tablet Take 1 tablet (0.5 mg) by mouth 3 (three) times a day as needed for anxiety 90 tablet 0 amLODIPine-benazepril (Lotrel) 5-20 MG capsule Take 1 capsule by mouth Daily 90 capsule 3 apixaban (Eliquis) 5 MG tablet Take 1 tablet (5 mg) by mouth in the morning and 1 tablet (5 mg) before bedtime. 60 tablet 11 celecoxib (CeleBREX) 200 MG capsule Take 1 capsule (200 mg) by mouth every 12 (twelve) hours 200 capsule 3 citalopram (CeleXA) 40 MG tablet TAKE 1 TABLET BY MOUTH EVERY DAY 100 tablet 3 clobetasol (Temovate) 0.05 % cream Apply topically 2 (two) times a day. clotrimazole-betamethasone (Lotrisone) cream APPLY TO AFFECTED AREA EVERY DAY doxazosin (Cardura) 2 MG tablet TAKE 1 TABLET BY MOUTH EVERY DAY 90 tablet 4 HYDROcodone-acetaminophen (Ironwood) 5-325 MG tablet Take 1 tablet by mouth every 6 (six) hours if needed for severe pain 120 tablet 0 HySept 0.25 % external solution APPLY TO AFFECTED AREA THREE TIMES A WEEK metoprolol succinate XL (Toprol-XL) 50 MG 24 hr tablet TAKE 1 TABLET (50 MG) BY MOUTH IN THE MORNING DO NOT CRUSH OR CHEW 90 tablet 3 nitroglycerin (Nitrostat) 0.[address] 1 tablet (0.4 mg) under the tongue every 5 (five) minutes if needed for chest pain. 90 tablet 5 pravastatin (Pravachol) 20 MG tablet TAKE 1 TABLET BY MOUTH EVERY DAY IN THE EVENING FOR 100 DAYS 100 tablet 3 rOPINIRole (Requip) 3 MG tablet Take 1 tablet (3 mg) by mouth at bedtime 90 tablet 3 topiramate (Topamax) 100 MG tablet TAKE 1 TABLET BY MOUTH TWICE A DAY 180 tablet 3 torsemide (Demadex) 20 MG tablet TAKE 1 TABLET BY MOUTH EVERY DAY IN THE MORNING 100 tablet 1 trospium (Sanctura) 20 MG tablet TAKE 1 TABLET BY MOUTH ONCE A DAY AT BEDTIME ON AN EMPTY STOMACH 100 tablet 3 [DISCONTINUED] ALPRAZolam (Xanax) 0.5 MG tablet Take 1 tablet (0.5 mg) by mouth 3 (three) times a day as needed for anxiety 90 tablet 0 [DISCONTINUED] pregabalin (Lyrica) 225 MG capsule Take 1 capsule (225 mg) by mouth at bedtime 90 capsule 1 No current facility-administered medications on file prior to visit. I have reviewed and reconciled the history and medication list with the patient today. No Known Allergies Social History Tobacco Use Smoking status: Every Day Types: Cigarettes Smokeless tobacco: Never Vaping Use Vaping status: Never Used Substance Use Topics Alcohol use: Yes Alcohol/week: 2.0 standard drinks of alcohol Types: 2 Standard drinks or equivalent per week Comment: Caffeine intake: coffee Drug use: Yes Types: Hydrocodone Family History Problem Relation Name Age of Onset Heart disease Mother Cancer Father Melanoma Neg Hx Past Medical History: Diagnosis Date Acquired spondylolisthesis Arthritis Cellulitis of left leg 06/19/2023 Admitted Depression ([facility]) Depressive disorder ([facility]) Diaphragmatic hernia without mention of obstruction or gangrene Extrapyramidal disease and abnormal movement disorder Hyperlipemia ([facility]) Hypertension ([facility]) Non-pressure chronic ulcer of right ankle with unspecified severity ([facility]) 06/16/2023 Osteoarthritis Peripheral autonomic neuropathy in disorders classified elsewhere Peripheral neuropathy Personal history of medical treatment 08/28/2020 Post Op Pain Chronic Venous Hypertension w/ Ulcers Primary localized osteoarthrosis, lower leg Restless legs syndrome (RLS) RLS (restless legs syndrome) Stricture and stenosis of esophagus Past Surgical History: Procedure Laterality Date DEBRIDEMENT Lt Leg Wounds & Application of Skin Graft 08/28/2020,04/04/2021, 06/13/2021,02/07/2021 TOTAL KNEE ARTHROPLASTY Right 2010 Visit Vitals BP 116/68 Pulse 53 Resp 16 Ht 5' 7 Wt 243 lb SpO2 92% BMI 38.06 kg/m Smoking Status Every Day BSA 2.28 m Review of Systems Constitutional: Negative for chills, fatigue and fever. HENT: Negative for congestion, ear pain, rhinorrhea, sinus pressure and sore throat. Eyes: Negative for pain, discharge and redness. Respiratory: Negative for cough, shortness of breath and wheezing. Cardiovascular: Positive for leg swelling. Negative for chest pain and palpitations. Gastrointestinal: Negative for abdominal pain, constipation, diarrhea, nausea and vomiting. Genitourinary: Negative for dysuria, frequency and urgency. Musculoskeletal: Positive for back pain and gait problem. Negative for arthralgias. Skin: Negative for rash. Neurological: Negative for dizziness, numbness and headaches. Psychiatric/Behavioral: Negative for confusion, dysphoric mood and sleep disturbance. Objective Physical Exam Constitutional: General: He is not in acute distress. Appearance: He is obese. HENT: Head: Normocephalic and atraumatic. Right Ear: Tympanic membrane and ear canal normal. Left Ear: Tympanic membrane and ear canal normal. Nose: Nose normal. Mouth/Throat: Mouth: Mucous membranes are moist. Pharynx: Oropharynx is clear. Eyes: General: No scleral icterus. Extraocular Movements: Extraocular movements intact. Conjunctiva/sclera: Conjunctivae normal. Pupils: Pupils are equal, round, and reactive to light. Neck: Vascular: No carotid bruit. Cardiovascular: Rate and Rhythm: Normal rate. Rhythm irregular. Pulses: Normal pulses. Pulmonary: Effort: Pulmonary effort is normal. Breath sounds: Normal breath sounds. No wheezing, rhonchi or rales. Abdominal: General: Bowel sounds are normal. There is no distension. Palpations: Abdomen is soft. Tenderness: There is no abdominal tenderness. There is no guarding. Musculoskeletal: General: No tenderness or deformity. Normal range of motion. Cervical back: Normal range of motion. No tenderness. Right lower leg: Edema present. Left lower leg: Edema present. Lymphadenopathy: Cervical: No cervical adenopathy. Skin: General: Skin is warm and dry. Findings: No erythema. Comments: BLE with chronic skin changes, discolored Neurological: General: No focal deficit present. Mental Status: He is alert and oriented to person, place, and time. Cranial Nerves: No cranial nerve deficit. Sensory: No sensory deficit. Motor: No weakness. Coordination: Coordination normal. Gait: Gait normal. Psychiatric: Mood and Affect: Mood normal. Behavior: Behavior normal. Thought Content: Thought content normal. Judgment: Judgment normal. Assessment & Plan 1. Medicare annual wellness visit, subsequent (Primary) Reviewed all relevant preventative screenings with the patient in detail. Medicare Wellness form completed and will be scanned into patient's chart. All needed testing was ordered. Will continue with yearly Medicare Wellness exams. 2. ACP (advance care planning) Patient agreed to discuss advance care planning at today's wellness visit. We discussed that an advance directive is a legal document that only goes into effect if the patient is incapacitated and unable to speak for himself or herself. This would help healthcare providers to ensure that the patient gets the care that he or she wishes to receive. The goal is to provide a patient with the best possible quality of life. Encouraged patient to obtain a living will and durable power of claims attorney for healthcare. We discussed telling [place]oll people about their advance directives such as close family members, and requested a copy to scan into the patient's EHR. An advance directive packet was offered to the patient. 3. Other polyneuropathy This is a chronic medical condition that is stable since last assessment. No changes in treatment are suggested at this time. Refill provided on Lyrica. - pregabalin (Lyrica) 225 MG capsule; Take 1 capsule (225 mg) by mouth at bedtime Dispense: 90 capsule; Refill: 1 4. Chronic insomnia This is a chronic medical condition that is stable since last assessment. No changes in treatment are suggested at this time. 5. Other specified extrapyramidal and movement disorders This is a chronic medical condition that is stable since last assessment. No changes in treatment are suggested at this time. 6. Restless legs syndrome This is a chronic medical condition that is stable since last assessment. No changes in treatment are suggested at this time. Continue Requip. 7. Chronic obstructive pulmonary disease, unspecified COPD type (CMS/HCC) This is a chronic medical condition that is stable since last assessment. No recent flare ups. No current inhalers. 8. Diaphragmatic hernia without obstruction and without gangrene This is a chronic medical condition that is stable since last assessment. No recent flare ups. No current medications. 9. Paroxysmal atrial fibrillation (CMS/HCC) The patient is seeing a medical appointment scheduler for this condition, treatment is deferred to that specialist. Correspondence from that specialist and any available testing were reviewed during today's visit. 10. Benign essential hypertension (CMS/HCC) Patient's blood pressure is currently well controlled. Continue with current medications and I will continue to monitor. Goal BP remains less than 130/80. 11. Venous insufficiency (chronic) (peripheral) This is a chronic medical condition that is stable since last assessment. No changes in treatment are suggested at this time. 12. Chronic idiopathic constipation This is a chronic medical condition that is stable since last assessment. No changes in treatment are suggested at this time. 13. Gastroesophageal reflux disease without esophagitis This is a chronic medical condition that is stable since last assessment. No recent flare ups. No current medications. 14. Irritable bowel syndrome, unspecified type This is a chronic medical condition that is stable since last assessment. No recent flare ups. No current medications. 15. Stricture and stenosis of esophagus This is a chronic medical condition that is stable since last assessment. No recent flare ups. No current medications. 16. Benign prostatic hyperplasia with nocturia This is a chronic medical condition that is stable since last assessment. No changes in treatment are suggested at this time. 17. Stage 3a chronic kidney disease (HCC) ([facility]) This is a chronic medical condition that is stable since last assessment. Will continue to monitor with routine labs. 18. Acquired spondylolisthesis This is a chronic medical condition that is stable since last assessment. No changes in treatment are suggested at this time. Takes Ironwood prn. 19. Primary osteoarthritis involving multiple joints This is a chronic medical condition that is stable since last assessment. No changes in treatment are suggested at this time. Celebrex as needed. 20. Pars defect of lumbar spine This is a chronic medical condition that is stable since last assessment. No changes in treatment are suggested at this time. Takes Ironwood prn. 21. Class 2 severe obesity with serious comorbidity and body mass index (BMI) of 38.0 to 38.9 in adult, unspecified obesity type ([facility]) Encouraged portion control, decrease simple sugars and carbohydrates, gradually increase activity level. Aim for gradual steady weight loss. 22. Accessory skin tags The patient is seeing a medical appointment scheduler for this condition, treatment is deferred to that specialist. Correspondence from that specialist and any available testing were reviewed during today's visit. 23. Anxiety This is a chronic medical condition that is stable since last assessment. No changes in treatment are suggested at this time. 24. Cigarette smoker Discussed smoking cessation with the patient. Encouraged patient to continue to cut back and soon quit smoking. Health risks of smoking, and benefits of quitting reviewed with the patient. He is using nicotine gum with benefit. 25. Depressive disorder ([facility]) This is a chronic medical condition that is stable since last assessment. No changes in treatment are suggested at this time. 26. Dysplastic nevus syndrome The patient is seeing a medical appointment scheduler for this condition, treatment is deferred to that specialist. Correspondence from that specialist and any available testing were reviewed during today's visit. 27. Lumbar pain Medication choice and dosage is appropriate for patient's current medical conditions. Patient will continue to be required to be seen in our office at least every three months for monitoring. At each follow up visit I will reassess the patient's need for the medication. Patient is to have this medication prescribed only through this office. Failure to follow the rules and regulations will result in tapering and discontinuation of medications if applicable. Patient verbalized understanding. OARRS Report was reviewed for this patient. 28. Mixed hyperlipidemia (CMS/HCC) This is a chronic medical condition that is stable since last assessment. No changes in treatment are suggested at this time. Will continue to monitor with routine labs. 29. Unilateral primary osteoarthritis, left knee This is a chronic medical condition that is stable since last assessment. No changes in treatment are suggested at this time. Celebrex as needed. 30. Other chronic pain Pain Management agreement reviewed with patient and signed by both patient and provider. A copy of the signed agreement was offered to the patient. Reviewed the potential risks of opioid therapy including potential for ENVIRONMENTAL SERVICES FLOOR TECH s/e, GI s/e, respiratory s/e, dermatologic s/e, and urinary s/e, in addition to potential for allergic reaction, tolerance of the medication, dependence on the medication, potential for withdrawal with abrupt cessation, and potential for addiction. Also reviewed patient responsibilities regarding opioid therapy, and reasons why medication may need to be discontinued. See Chronic Opioid Therapy Agreement document for complete details. Encouraged pt to bring his medications to his visits so we can verify that his medication list is up to date. Follow up in about 3 months (around 03/25/2025). Alejandrina ELAM PA-C documented in this encounter [facility] 12-23-2024 Telephone encounter Note OARRS reviewed, Rx sent into patient's pharmacy. [facility] 12-23-2024 Miscellaneous Notes OARRS reviewed, Rx sent into patient's pharmacy. ALPRAZolam (Xanax) 0.[address] [facility] documented in this encounter [facility] 12-23-2024 Telephone encounter Note ALPRAZolam (Xanax) 0.5 MG tablet [facility] 12-08-2024 Telephone encounter Note OARRS reviewed, Rx sent into patient's pharmacy. [facility] 12-08-2024 Miscellaneous Notes OARRS reviewed, Rx sent into patient's pharmacy. HYDROcodone-acetaminophen ([place]) 5-325 MG tablet [facility] documented in this encounter [facility] 12-08-2024 Telephone encounter Note HYDROcodone-acetaminophen ([place]) 5-325 MG tablet [facility] 11-21-2024 Telephone encounter Note PDMP reviewed, covering for Dr. berger [facility] 11-21-2024 Miscellaneous Notes PDMP reviewed, covering for Dr. berger Last OV 09-15-24 Last RF 12-12-24 ALPRAZolam (Xanax) 0.5 MG tablet and citalopram (CeleXA) 40 [facility] documented in this encounter [facility] 11-21-2024 Telephone encounter Note Last OV 09-15-24 Last RF 10-20-24 [facility] 11-21-2024 Telephone encounter Note ALPRAZolam (Xanax) 0.5 MG tablet and citalopram (CeleXA) 40 MG tablet [facility] 11-04-2024 Telephone encounter Note HYDROcodone-acetaminophen ([place]) 5-325 MG tablet [facility] 11-04-2024 Miscellaneous Notes HYDROcodone-acetaminophen ([place]) 5-325 [facility] tablet [facility] documented in this encounter [facility] 10-20-2024 Telephone encounter Note ALPRAZolam (Xanax) 0.[address] [facility] 10-20-2024 Miscellaneous Notes ALPRAZolam (Xanax) 0.[address] [facility] documented in this encounter [facility] 10-05-2024 Telephone encounter Note HYDROcodone-acetaminophen ([place]) 5-[address] [facility] He said he's calling in this in early due to the holidays [facility] 10-05-2024 Miscellaneous Notes HYDROcodone-acetaminophen ([place]) 5-325 MG tablet [facility] He said he's calling in this in early due to the holidays documented in this encounter [facility] 09-15-2024 History of Present illness Narrative Images from the original note were not included. HPI Follow-up Additional comments: Pain med Med Refill Additional comments: [facility] Last edited by Brianne Leung LPN on 09/15/2024 10:46 AM. Subjective Patient ID: Dimitris Leavitt is a 78 y.o. male who presents for Hypertension, Follow-up (Pain med), and Med Refill ([facility]). Hypertension Patient is here for follow-up of elevated blood pressure. Cardiac symptoms: none. Patient denies chest pain, claudication, exertional chest pressure/discomfort, irregular heart beat, lower extremity edema, near-syncope, orthopnea, and palpitations. Cardiovascular risk factors: advanced age (older than 55 for men, 65 for women), hypertension, male gender, and obesity (BMI >= 30 kg/m2). Pt states he checks b/p at home and fluctuates a lot Hypertension Pertinent negatives include no chest pain or palpitations. Med Refill Pertinent negatives include no chest pain. Current Outpatient Medications on File Prior to Visit Medication Sig Dispense Refill ALPRAZolam (Xanax) 0.5 MG tablet Take 1 tablet (0.5 mg) by mouth 3 (three) times a day as needed for anxiety 90 tablet 0 apixaban (Eliquis) 5 MG tablet Take 1 tablet (5 mg) by mouth in the morning and 1 tablet (5 mg) before bedtime. 60 tablet 11 celecoxib (CeleBREX) 200 MG capsule Take 1 capsule (200 mg) by mouth every 12 (twelve) hours 200 capsule 3 citalopram (CeleXA) 40 MG tablet TAKE 1 TABLET BY MOUTH EVERY DAY 100 tablet 3 clobetasol (Temovate) 0.05 % cream Apply topically 2 (two) times a day. clotrimazole-betamethasone (Lotrisone) cream APPLY TO AFFECTED AREA EVERY DAY doxazosin (Cardura) 2 MG tablet TAKE 1 TABLET BY MOUTH EVERY DAY 90 tablet 4 HYDROcodone-acetaminophen (Ironwood) 5-325 MG tablet Take 1 tablet by mouth every 6 (six) hours if needed for severe pain 120 tablet 0 HySept 0.25 % external solution APPLY TO AFFECTED AREA THREE TIMES A WEEK metoprolol succinate XL (Toprol-XL) 50 MG 24 hr tablet TAKE 1 TABLET (50 MG) BY MOUTH IN THE MORNING DO NOT CRUSH OR CHEW 90 tablet 3 pravastatin (Pravachol) 20 MG tablet TAKE 1 TABLET BY MOUTH EVERY DAY IN THE EVENING FOR 100 DAYS 100 tablet 3 pregabalin (Lyrica) 225 MG capsule Take 1 capsule (225 mg) by mouth at bedtime 90 capsule 1 rOPINIRole (Requip) 3 MG tablet Take 1 tablet (3 mg) by mouth at bedtime 90 tablet 3 topiramate (Topamax) 100 MG tablet TAKE 1 TABLET BY MOUTH TWICE A DAY 180 tablet 3 torsemide (Demadex) 20 MG tablet TAKE 1 TABLET BY MOUTH EVERY DAY IN THE MORNING 100 tablet 1 trospium (Sanctura) 20 MG tablet TAKE 1 TABLET BY MOUTH ONCE A DAY AT BEDTIME ON AN EMPTY STOMACH 100 tablet 3 [DISCONTINUED] amLODIPine-benazepril (Lotrel) 5-20 MG capsule TAKE 1 CAPSULE BY MOUTH EVERY DAY 90 capsule 3 nitroglycerin (Nitrostat) 0.[address] 1 tablet (0.4 mg) under the tongue every 5 (five) minutes if needed for chest pain. 90 tablet 5 [DISCONTINUED] amoxicillin-clavulanate (Augmentin) 875-125 MG tablet Take 1 tablet by mouth in the morning and 1 tablet before bedtime. [DISCONTINUED] topiramate (Topamax) 100 MG tablet TAKE 1 TABLET BY MOUTH TWICE A DAY FOR 90 DAYS 180 tablet 3 No current facility-administered medications on file prior to visit. I have reviewed and reconciled the history and medication list with the patient today. No Known Allergies Social History Tobacco Use Smoking status: Every Day Types: Cigarettes Smokeless tobacco: Never Substance Use Topics Alcohol use: Yes Alcohol/week: 2.0 standard drinks of alcohol Types: 2 Standard drinks or equivalent per week Comment: Caffeine intake: coffee Drug use: Yes Types: Hydrocodone Family History Problem Relation Name Age of Onset Heart disease Mother Cancer Father Melanoma Neg Hx Past Medical History: Diagnosis Date Acquired spondylolisthesis Arthritis Cellulitis of left leg 06/19/2023 Admitted Depression (CMS/HCC) Depressive disorder (CMS/HCC) Diaphragmatic hernia without mention of obstruction or gangrene Extrapyramidal disease and abnormal movement disorder Hyperlipemia (CMS/HCC) Hypertension (CMS/HCC) Osteoarthritis Peripheral autonomic neuropathy in disorders classified elsewhere Peripheral neuropathy Personal history of medical treatment 08/28/2020 Post Op Pain Chronic Venous Hypertension w/ Ulcers Primary localized osteoarthrosis, lower leg Restless legs syndrome (RLS) RLS (restless legs syndrome) Stricture and stenosis of esophagus Past Surgical History: Procedure Laterality Date DEBRIDEMENT Lt Leg Wounds & Application of Skin Graft 08/28/2020,04/04/2021, 06/13/2021,02/07/2021 TOTAL KNEE ARTHROPLASTY Right 2010 Visit Vitals BP 130/76 Pulse 80 Ht 5' 7 Wt 233 lb SpO2 94% BMI 36.49 kg/m Smoking Status Every Day BSA 2.24 m Review of Systems Cardiovascular: Negative for chest pain and palpitations. Objective Physical Exam Constitutional: Appearance: He is not ill-appearing or toxic-appearing. Cardiovascular: Rate and Rhythm: Normal rate. Rhythm irregular. Pulses: Normal pulses. Heart sounds: No murmur heard. Pulmonary: Effort: Pulmonary effort is normal. No respiratory distress. Breath sounds: No wheezing. Musculoskeletal: Right lower leg: Edema present. Left lower leg: Edema present. Skin: Comments: Both LE with bandages from knee to ankle by wound clinic Psychiatric: Mood and Affect: Mood normal. Behavior: Behavior normal. Thought Content: Thought content normal. Judgment: Judgment normal. Clinisync Result Encounter on 07/29/2024 Component Date Value Ref Range Status [facility] WBC 07/29/2024 8.9 4.0 - 11.0 10 3/uL Final [facility] RBC 07/29/2024 4.25 (L) 4.70 - 6.10 10 6/uL Final [facility] HGB 07/29/2024 13.1 (L) 14.0 - 18.0 g/dL Final [facility] HCT 07/29/2024 41.4 (L) 42.0 - 54.0 % Final [facility] MCV 07/29/2024 97.4 (H) 80.0 - 94.0 fL Final [facility] MCH 07/29/2024 30.8 25.9 - 34.0 pg Final [facility] MCHC 07/29/2024 31.6 29.9 - 35.2 g/dL Final [facility] RDW 07/29/2024 13.8 11.0 - 15.0 % Final [facility] PLT 07/29/2024 199 150 - 450 10 3/uL Final [facility] MPV 07/29/2024 10.5 9.5 - 13.5 fL Final NEUTROPHILS PERCENT AUTO 07/29/2024 69.9 43.0 - 75.0 % Final LYMPHOCYTES PERCENT AUTO 07/29/2024 16.1 (L) 20.5 - 60.0 % Final MONOCYTES PERCENT AUTO 07/29/2024 10.5 1.7 - 12.0 % Final [facility] EO % 07/29/2024 2.6 0.9 - 7.0 % Final BASOPHILS PERCENT AUTO 07/29/2024 0.3 0.2 - 2.0 % Final IMMATURE GRANULOCYTES PCT AUTO 07/29/2024 0.6 (H) 0.0 - 0.5 % Final NEUTROPHILS ABSOLUTE AUTO 07/29/2024 6.2 1.4 - 6.5 10 3/uL Final LYMPHOCYTES ABSOLUTE AUTO 07/29/2024 1.4 1.2 - 3.8 10 3/uL Final MONOCYTES ABSOLUTE AUTO 07/29/2024 0.9 (H) 0.3 - 0.8 10 3/uL Final [facility] EO # 07/29/2024 0.2 0.0 - 0.7 10 3/uL Final BASOPHILS ABSOLUTE AUTO 07/29/2024 0.0 0.0 - 0.1 10 3/uL Final IMMATURE GRANULOCYTES ABS AUTO 07/29/2024 0.05 (H) 0.00 - 0.03 10 3/uL Final SARS-COV-2 AG REFLEX TO ALL 07/29/2024 NEGATIVE NEGATIVE Final Comment: This test has not been FDA cleared or approved, but has been authorized by the FDA under an Emergency Use Authorization (EUA) for use by authorized laboratories certified under CLIA that meet the requirements to perform moderate or high complexity testing. This test has been authorized only for the detection of proteins from SARS-CoV-2, not for any other viruses or pathogens. The emergency use of this test is authorized for the duration of the declaration that circumstances exist justifying the authorization of emergency use of in vitro diagnostic tests for detection and/or diagnosis of Covid-19 under section 564(b)(1) of the Act, 21 U.S.C. 360bbb-3(b)(1), unless the declaration is terminated or authorization is revoked sooner. PROTHROMBIN TIME 07/29/2024 11.9 (H) 9.0 - 11.6 sec Final [facility] INR 07/29/2024 1.14 Final Comment: DESIRED INR: 2.0-3.0 CONDITIONS NOT LISTED BELOW 2.5-3.5 FOR PROSTHETIC HEART VALVE REPLACEMENT 2.5-3.5 RECURRENT THROMBOSIS PARTIAL THROMBOPLASTIN TIME 07/29/2024 30.5 22.3 - 36.2 sec Final SODIUM 07/29/2024 142 136 - 145 mmol/L Final POTASSIUM 07/29/2024 4.8 3.5 - 5.1 mmol/L Final CHLORIDE 07/29/2024 107 98 - 107 mmol/L Final CARBON DIOXIDE 07/29/2024 31.1 21.0 - 32.0 mmol/L Final ANION GAP 07/29/2024 8.7 Final GLUCOSE 07/29/2024 116 (H) 74 - 106 mg/dL Final BLOOD UREA NITROGEN 07/29/2024 29.0 (H) 7.0 - 18.0 mg/dL Final CREATININE 07/29/2024 1.59 (H) 0.70 - 1.30 mg/dL Final [facility] EGFR-AF CENTRAL AFRICAN 07/29/2024 51 (L) >=60 Final [facility] EGFR-NON AF CENTRAL AFRICAN 07/29/2024 42 (L) >=60 Final BUN CREATININE RATIO 07/29/2024 18.2 Final CALCIUM 07/29/2024 8.2 (L) 8.5 - 10.1 mg/dL Final Assessment/Plan Diagnoses and all orders for this visit: Benign essential hypertension (CMS/HCC) - amLODIPine-benazepril (Lotrel) 5-20 MG capsule; Take 1 capsule by mouth Daily Chronic kidney disease, stage 3a (HCC) (CMS/HCC) Primary localized osteoarthrosis of left lower leg - Medication choice and dosage is appropriate for patient's current medical conditions. Patient will continue to be required to be seen in our office at least every three months for monitoring. At each follow up visit I will reassess the patient's need for the medication. Patient is to have this medication prescribed only through this office. Failure to follow the rules and regulations will result in tapering and discontinuation of medications if applicable. Patient verbalized understanding. OARRS Report was reviewed for this patient. Pars defect of lumbar spine Atrial fibrillation, unspecified type (CMS/HCC) Non-pressure chronic ulcer of right ankle, unspecified ulcer stage (CMS/HCC) Restless legs syndrome Morbid (severe) obesity due to excess calories (CMS/HCC) Follow up in about 3 months (around 12/16/2024) for Wellness. documented in this encounter [facility] 09-06-2024 Telephone encounter Note OARRS reviewed, Rx sent into patient's pharmacy. [facility] 09-06-2024 Miscellaneous Notes OARRS reviewed, Rx sent into patient's pharmacy. HYDROcodone-acetaminophen (Ironwood) 5-[facility] because of the percocet script the wound doctor precribed so they need a whole new script. Im not sure the daughter (she called for her dad) fully understood what [facility] is wanting. documented in this encounter [facility] 09-06-2024 Telephone encounter Note HYDROcodone-acetaminophen (Ironwood) 5-325 MG tablet to [facility]. [facility] because of the percocet script the wound doctor precribed so they need a whole new script. Im not sure the daughter (she called for her dad) fully understood what [facility] is wanting. [facility] 08-22-2024 Telephone encounter Note OARRS reviewed, Rx sent into patient's pharmacy. [facility] 08-22-2024 Miscellaneous Notes OARRS reviewed, Rx sent into patient's pharmacy. ALPRAZolam (Xanax) 0.5 MG tablet rOPINIRole (Requip) 3 MG tablet to [facility] documented in this encounter [facility] 08-22-2024 Telephone encounter Note ALPRAZolam (Xanax) 0.5 MG tablet rOPINIRole (Requip) 3 MG tablet to [facility] 08-18-2024 Telephone encounter Note HYDROcodone-acetaminophen (Ironwood) 5-325 MG tablet to medicine shop in [place] [facility] 08-18-2024 Miscellaneous Notes HYDROcodone-acetaminophen (Ironwood) 5-325 MG tablet to medicine shop in [place] documented in this encounter [facility] 07-13-2024 Telephone encounter Note OARRS reviewed, Rx sent into patient's pharmacy. [facility] 07-13-2024 Miscellaneous Notes OARRS reviewed, Rx sent into patient's pharmacy. HYDROcodone-acetaminophen (Ironwood) 5-325 MG table refill [facility] [place] documented in this encounter [facility] 07-13-2024 Telephone encounter Note HYDROcodone-acetaminophen (Ironwood) 5-325 MG table refill [facility] [place] [facility] 06-29-2024 Telephone encounter Note Xanax was already sent in for pt. [facility] 06-29-2024 Miscellaneous Notes Xanax was already sent in for pt. documented in this encounter [facility] 06-29-2024 Telephone encounter Note Sent. [facility] 06-29-2024 Miscellaneous Notes Sent. documented in this encounter [facility] 02-02-2024 Note [facility] Consult Note Reason [...] IN THE MORNING AND BEFORE BEDTIME HYDROcodone-acetaminophen (Ironwood) 5-325 mg tablet TAKE 1 TABLET BY [...] distended, no b (more content not included)... [facility] 02-02-2024 Note New patient here to [...] All other systems reviewed and are negative. [facility] 12-16-2023 Telephone encounter Note Done in other encounter. [facility] 12-16-2023 Miscellaneous Notes Done in other encounter. documented in this encounter [facility] 12-16-2023 Telephone encounter Note Sent. [facility] 12-16-2023 Miscellaneous Notes Sent. documented in this encounter [facility] 12-11-2023 History of Present illness Narrative Images [...] MOUTH EVERY DAY 90 tablet 4 HYDROcodone-acetaminophen (Ironwood) 5-325 MG tablet Take 1 tablet by [...] Do you have a medical power of claims attorney?: No Objective : Pulse 50 Wt [...] [facility]* Diagnosis Benign essential hypertension ([facility]/HCC)- Primary Essential hypertension, benign Chronic kidney disease, stage 3a (HCC) ([facility]) Primary localized osteoarthrosis of left lower leg Pars defect of lumbar spine Atrial fibrillation, unspecified type ([facility]) Non-pressure chronic ulcer of right ankle, unspecified ulcer stage ([facility]) Restless legs syndrome Restless legs syndrome (RLS) Morbid (severe) obesity due to excess calories ([facility]) documented [facility]* Diagnosis Lumbar pain Lumbago documented in this encounter [facility]* Diagnosis Anxiety Anxiety state, unspecified Depression with anxiety Dysthymic disorder documented in this encounter [facility]* Diagnosis Anxiety Anxiety state, unspecified Depression with anxiety Dysthymic disorder documented in this [facility]* Diagnosis Anxiety Anxiety state, unspecified Depression with anxiety Dysthymic disorder documented in this [facility]* Diagnosis Lumbar pain Lumbago documented in this [facility]* Diagnosis Anxiety Anxiety state, unspecified Depression with anxiety Dysthymic disorder documented in [facility]* Diagnosis Lumbar pain Lumbago documented in this [facility]* Diagnosis Medicare annual wellness visit, subsequent- Primary ACP (advance care planning) Other specified counseling Other polyneuropathy Chronic insomnia Insomnia, unspecified Other specified extrapyramidal and movement disorders Restless legs syndrome Restless legs syndrome (RLS) Chronic obstructive pulmonary disease, unspecified COPD type ([facility]) Diaphragmatic hernia without obstruction and without gangrene Paroxysmal atrial fibrillation ([facility]/HCC) Atrial fibrillation Benign essential hypertension ([facility]) Essential hypertension, benign Venous insufficiency (chronic) (peripheral) Unspecified venous (peripheral) insufficiency Chronic idiopathic constipation Unspecified constipation Gastroesophageal reflux disease without esophagitis Esophageal reflux Irritable bowel syndrome, unspecified type Stricture and stenosis of esophagus Benign prostatic hyperplasia with nocturia Stage 3a chronic kidney disease (HCC) (CMS/HCC) Acquired spondylolisthesis Primary osteoarthritis involving multiple joints Pars defect of lumbar spine Class 2 severe obesity with serious comorbidity and body mass index (BMI) of 38.0 to 38.9 in adult, unspecified obesity type (CMS/HCC) Accessory skin tags Other specified congenital anomaly of skin Anxiety Anxiety state, unspecified Cigarette smoker Tobacco use disorder Depressive disorder (CMS/HCC) Depressive disorder, not elsewhere classified Dysplastic nevus syndrome Other congenital hamartoses, not elsewhere classified Lumbar pain Lumbago Mixed hyperlipidemia (CMS/HCC) Mixed hyperlipidemia Unilateral primary osteoarthritis, left knee Other chronic pain [facility]* Diagnosis Lumbar pain Lumbago documented in this [facility]* Diagnosis Lumbar pain Lumbago documented in this encounter [facility]* Diagnosis Anxiety Anxiety state, unspecified Depression with anxiety Dysthymic disorder documented in this encounter [facility]* Diagnosis Lumbar pain Lumbago documented in this encounter [facility]* Diagnosis Anxiety Anxiety state, unspecified Depression with anxiety Dysthymic disorder documented in this encounter [facility]* Diagnosis Mixed hyperlipidemia Mixed hyperlipidemia Lumbar pain Lumbago documented in this encounter [facility]* Diagnosis Lumbar pain Lumbago documented in this [facility]* Diagnosis Lumbar pain- Primary Lumbago Paroxysmal atrial fibrillation (HCC) Atrial fibrillation Anxiety Anxiety state, unspecified Chronic obstructive pulmonary disease, unspecified COPD type (HCC) Former smoker Personal history of tobacco use, presenting hazards to health Weight loss Loss of weight Decreased appetite Anorexia Other polyneuropathy documented in this encounter [facility]* Diagnosis Chronic obstructive pulmonary disease, unspecified COPD type (HCC)- Primary documented in this encounter [facility] Summary [...] Echocardiogram 2D complete Saeed Berger MD [address] [facility] [address] [place] [address] Referral ID Status Reason Start Date Expiration Date Visits Requested Visits Authorized [id number] Incomplete Perform Procedure 12/11/2023 06/08/2024 1 1 Specialty Diagnoses / Procedures Referred By Contac t Referred To Contact Cardiology Diagnoses Atrial fibrillation, unspecified type (CMS/HCC) Procedures [facility] OFFICE/OUTPATIENT NEW HIGH MDM 60 MINUTES Saeed Berger MD [address] [facility] [address] [place] [address] Rebecca Norman MD [address] [place] [address] Referral ID Status Reason Start Date Expiration Date Visits Requested Visits Authorized [id number] Pending Review Specialty Services Required 12/11/2023 06/08/2024 1 1 Specialty Diagnoses / Procedures Referred By Contac t Referred To Contact Diagnoses Encounter for screening for lung cancer Procedures CT lung screening low dose Saeed Berger MD [address] [facility] [address] [place] [address] [place] [facility] [address] [place] [address] Phone: [phone] Referral ID Status Reason Start Date Expiration Date V isits Requested Visits Authorized [id number] Pending Review 12/11/2023 06/08/2024 1 1 Specialty Diagnoses / Procedures Referred By Contac t Referred To Contact Diagnoses Other polyneuropathy Saeed Berger MD [address] [facility] [address] [place] [address] Referral ID Status Reason Start Date Expiration Date V isits Requested Visits Authorized [id number] Pending Review 1 1 Additional Source Comments (unrecognized sect ion and content) No Status Records FoundNo Status Records FoundNo Status Records Found INFORMATION SOURCE (unrecogn ized section and content) DATE CREATED AUTHOR 12/03/2022 [place] arthur DATE CREATED AUTHOR AUTHOR'S ORGANIZ ATION 02/04/2024 [facility] DATE CREATED AUTHOR AUTHOR'S ORGANIZ ATION 07/05/2025 [facility] EPIC Reason for Visit (unrecogniz ed section and content) Reason Comments Medicare Annual Wellness Visit Subsequen t Reason Onset Date Comments Med Refill 12/14/2023 Refills needed f or Celebrex 200mg, Hydrocodone 5-325mg, Lyrica 225mg and send to [facility] [place] Reason Onset Date Comments Med Refill 12/15/2023 celecoxib (CeleB YVONNE) 200 MG capsuleHYDROcodone- acetaminophen (Ironwood) 5-325 MG tablet pregabalin (Lyrica) [facility] [place] Reason Comments Hypertension Follow-up Pain med Med Refill [facility]rel[facility] Reason Onset Date Comments Med Refill 10/05/2024 Reason Onset Date Comments Med Refill 06/28/2024 [facility]am [facility] [place] Reason Onset Date Comments Med Refill 06/29/2024 Reason Onset Date Comments Med Refill 07/13/2024 Reason Onset Date Comments Med Refill 11/04/2024 Reason Onset Date Comments Med Refill 12/08/2024 Reason Onset Date Comments Med Refill 12/22/2024 He needs a cheap er blood thinner can't afford elaquis. Reason Comments Med Refill Lyrica Reason Onset Date Comments Med Refill 01/11/2025 Reason Onset Date Comments Med Refill 02/13/2025 Reason Onset Date Comments Med Refill 02/28/2025 Reason Onset Date Comments Med Refill 03/17/2025 Reason Onset Date Comments Med Refill 03/28/2025 Reason Onset Date Comments Med Refill 04/25/2025 Reason Onset Date Comments Med Refill 04/27/2025 Reason Comments Anxiety He is currently on A lprazolam as needed and is working well for him. Med Refill Lyrica Care Teams (unrecognized sec tion and content) Lead Refiner Relationship Specialty Start Date End Date Saeed Berger MD [address] [place] [address] [place] [address] PCP - [employer] 11/09/20 Saeed Berger MD [address] [place] [address] [place] [address] PCP - General Internal Medicine 03/17/23 Lead Refiner Relationship Specialty Start Date End Date Saeed Berger MD [address] [place] [address] [place] [address] PCP - [employer] 11/09/20 Saeed Berger MD [address] [place] [address] [place] [address] PCP - General Internal Medicine 03/17/23 Lead Refiner Relationship Specialty Start Date End Date Saeed Berger MD [address] [place] [address] [place] [address] PCP - [employer] 11/09/20 Saeed Berger MD [address] [place] [address] [place] [address] PCP - General Internal Medicine 03/17/23 Lead Refiner Relationship Specialty Start Date End Date Saeed Berger MD [address] [place] [address] [place] [address] PCP - [employer] 11/09/20 Saeed Berger MD [address] [place] [address] [place] [address] PCP - General Internal Medicine 03/17/23 Lead Refiner Relationship Specialty Start Date End Date Saeed Berger MD [address] [place] [address] [place] [address] PCP - [employer] 11/09/20 Saeed Berger MD [address] [place] [address] [place] [address] PCP - General Internal Medicine 03/17/23 Lead Refiner Relationship Specialty Start Date End Date Saeed Berger MD [address] [place] [address] [place] [address] PCP - [employer] 11/09/20 Saeed Berger MD [address] [place] [address] [place] [address] PCP - General Internal Medicine 03/17/23 Lead Refiner Relationship Specialty Start Date End Date Saeed Berger MD [address] [place] [address] [place] [address] PCP - [employer] 11/09/20 Saeed Berger MD [address] [place] [address] [place] [address] PCP - General Internal Medicine 03/17/23 Lead Refiner Relationship Specialty Start Date End Date Saeed Berger MD [address] [place] [address] [place] [address] PCP - [employer] 11/09/20 Saeed Berger MD [address] [place] [address] [place] [address] PCP - General Internal Medicine 03/17/23 Lead Refiner Relationship Specialty Start Date End Date Saeed Berger MD [address] [place] [address] [place] [address] PCP - [employer] 11/09/20 Saeed Berger MD [address] [place] [address] [place] [address] PCP - General Internal Medicine 03/17/23 Lead Refiner Relationship Specialty Start Date End Date Saeed Berger MD [address] [place] [address] [place] [address] PCP - [employer] 11/09/20 Saeed Berger MD [address] [place] [address] [place] [address] PCP - General Internal Medicine 03/17/23 Lead Refiner Relationship Specialty Start Date End Date Saeed Berger MD [address] [place] [address] [place] [address] PCP - [employer] 11/09/20 Saeed Berger MD [address] [place] [address] [place] [address] PCP - General Internal Medicine 03/17/23 Lead Refiner Relationship Specialty Start Date End Date Saeed Berger MD [address] [place] [address] [place] [address] PCP - [employer] 11/09/20 Saeed Berger MD [address] [place] [address] PCP - General Internal Medicine 03/17/23 Lead Refiner Relationship Specialty Start Date End Date Saeed Berger MD [address] [place] [address] PCP - [employer] 11/09/20 Saeed Berger MD [address] [place] [address] PCP - General Internal Medicine 03/17/23 Lead Refiner Relationship Specialty Start Date End Date Saeed Berger MD [address] [place] [address] PCP - [employer] 11/09/20 Saeed Berger MD [address] [place] [address] PCP - General Internal Medicine 03/17/23 Saeed Berger MD [address] [place] [address] PCP - [employer] 02/07/25 Lead Refiner Relationship Specialty Start Date End Date Saeed Berger MD [address] [place] [address] PCP - [employer] 11/09/20 Saeed Berger MD [address] [place] [address] PCP - General Internal Medicine 03/17/23 Saeed Berger MD [address] [place] [address] PCP - [employer] 02/07/25 Lead Refiner Relationship Specialty Start Date End Date Saeed Berger MD [address] [place] [address] PCP - General Internal Medicine 03/17/23 Saeed Berger MD [address] [place] [address] PCP - [employer] 02/07/25 Lead Refiner Relationship Specialty Start Date End Date Saede Berger MD [address] [place] [address] PCP - General Internal Medicine 03/17/23 Saeed Berger MD [address] [place] [address] PCP - [employer] 02/07/25 Lead Refiner Relationship Specialty Start Date End Date Saeed Berger MD [address] [facility] [place] [address] PCP - General Internal Medicine 03/17/23 Saeed Berger MD [address] [facility] [place] [address] PCP - [employer] 02/07/25 Lead Refiner Relationship Specialty Start Date End Date Saeed Berger MD [address] [facility] [place] [address] PCP - General Internal Medicine 03/17/23 Saeed Berger MD [address] [facility] [place] [address] PCP - [employer] 02/07/25 FOR RECORDS PERTAINING TO PATIENTS WHO ARE [...] BE BASED ON THE PRIMARY CLINICAL RECORDS. [facility]. provides no warranty or guarantee of the accuracy or completeness of information in this document.
--- NOTE | 2025-07-19 09:18 | ED.GENADUL1 ---
HPI HPI - General Adult General Chief complaint: Weakness Stated complaint: WEAKNESS, facial swelling Time Seen by Provider: 07/19/25 09:04 Source: patient Mode of arrival: Wheelchair Limitations: no limitations History of Present Illness HPI narrative: 79-year-old male presents to the emergency department for some swelling on the left side of his face and some pain in his neck. At first family member thought that he was having a stroke but now she realizes that he just has swelling and that he does not have weakness. The family member states that this was not swollen last night. No trauma. He complains of some mild dental pain on the left lower jaw. No headache or fever or localized weakness. Related Data Home Medications ?Medication ?Instructions ?Recorded ?Confirmed amlodipine 5 mg-benazepril 20 mg 1 cap PO DAILY 06/11/23 07/19/25 capsule (Lotrel) celecoxib 200 mg capsule 200 mg PO BID 06/11/23 07/19/25 citalopram 40 mg tablet (Celexa) 40 mg PO DAILY 06/11/23 07/19/25 doxazosin 2 mg tablet (Cardura) 2 mg PO DAILY 06/11/23 07/19/25 pravastatin 20 mg tablet 20 mg PO DAILY 06/11/23 07/19/25 pregabalin 225 mg capsule 225 mg PO BEDTIME 06/11/23 07/19/25 torsemide 20 mg tablet 20 mg PO BID 06/11/23 07/19/25 alprazolam 0.5 mg tablet 0.5 mg PO TID 06/19/23 07/19/25 ropinirole 3 mg tablet 3 mg PO BEDTIME 06/19/23 07/19/25 apixaban 5 mg tablet (Eliquis) 5 mg PO BID 01/04/24 07/19/25 hydrocodone 5 mg-acetaminophen 325 1 tab PO Q6H PRN pain 01/04/24 07/19/25 mg tablet metoprolol succinate 50 mg 50 mg PO DAILY 01/04/24 07/19/25 tablet,extended release 24 hr nitroglycerin 0.4 mg sublingual 0.4 mg sublingual DAILY PRN chest 01/04/24 07/19/25 tablet pain topiramate 100 mg tablet 100 mg PO BID 01/04/24 07/19/25 trospium 20 mg tablet 20 mg PO DAILY 01/04/24 07/19/25 multivitamin (Daily Multi-Vitamin 1 tab PO DAILY 07/29/24 07/19/25 tablet) budesonide 160 mcg-glycopyr 9 2 inh inhalation DAILY 07/19/25 07/19/25 mcg-formot 4.8 mcg/actuation HFA inhaler (Breztri Aerosphere) omeprazole 20 mg capsule,delayed 20 mg PO DAILY 07/19/25 07/19/25 release Previous Rx's ?Medication ?Instructions ?Recorded clindamycin HCl 300 mg capsule 300 mg PO Q6H 10 days #40 caps 07/19/25 Allergies Allergy/AdvReac Type Severity Reaction Status Date / Time No Known Drug Allergies Allergy Verified 07/19/25 09:05 Opioid HPI Opioid Management Most Recent Opioid Data: Last Pain Scale 3 08/04/24, 10:35 Review of Systems ROS Narrative A ten point review of systems is negative except as noted above. [facility] Medical History (Updated 07/19/25 @ 11:45 by Gabe Cortes MD) Atrial fibrillation ?I48.91 - Unspecified atrial fibrillation (ICD-10) Dyspnea on exertion ?R06.09 - Other forms of dyspnea (ICD-10) GERD (gastroesophageal reflux disease) ?K21.9 - Gastro-esophageal reflux disease without esophagitis (ICD-10) Cataract ?H26.9 - Unspecified cataract (ICD-10) COPD (chronic obstructive pulmonary disease) ?J44.9 - Chronic obstructive pulmonary disease, unspecified (ICD-10) Thrombophilia ?D68.59 - Other primary thrombophilia (ICD-10) Chronic kidney disease ?N18.9 - Chronic kidney disease, unspecified (ICD-10) Neuropathy ?G62.9 - Polyneuropathy, unspecified (ICD-10) Osteoarthritis ?M19.90 - Unspecified osteoarthritis, unspecified site (ICD-10) Hyperlipemia ?E78.5 - Hyperlipidemia, unspecified (ICD-10) Diaphragmatic hernia ?K44.9 - Diaphragmatic hernia without obstruction or gangrene (ICD-10) Depression ?F32.A - Depression, unspecified (ICD-10) Open wound of right lower leg ?S81.801A - Unspecified open wound, right lower leg, initial encounter (ICD-10) Ulcer of right leg ?L97.919 - Non-pressure chronic ulcer of unspecified part of right lower leg with unspecified severity (ICD-10) Chronic venous hypertension ?I87.309 - Chronic venous hypertension (idiopathic) without complications of unspecified lower extremity (ICD-10) Arthritis ?M19.90 - Unspecified osteoarthritis, unspecified site (ICD-10) Spondylolisthesis ?M43.10 - Spondylolisthesis, site unspecified (ICD-10) Venous insufficiency of both lower extremities ?I87.2 - Venous insufficiency (chronic) (peripheral) (ICD-10) Chronic venous stasis dermatitis of both lower extremities ?I87.2 - Venous insufficiency (chronic) (peripheral) (ICD-10) Schatzki's ring ?K22.2 - Esophageal obstruction (ICD-10) Restless legs syndrome ?G25.81 - Restless legs syndrome (ICD-10) Back pain ?M54.9 - Dorsalgia, unspecified (ICD-10) Enlarged prostate ?N40.0 - Benign prostatic hyperplasia without lower urinary tract symptoms (ICD-10) History of depression ?Z86.59 - Personal history of other mental and behavioral disorders (ICD-10) Hypercholesteremia ?E78.00 - Pure hypercholesterolemia, unspecified (ICD-10) Hypertension ?I10 - Essential (primary) hypertension (ICD-10) Peripheral vascular disease ?I73.9 - Peripheral vascular disease, unspecified (ICD-10) Surgical History (Updated 07/29/24 @ 13:02 by Razia Langston NP) History of esophagogastroduodenoscopy (EGD) ?Z98.890 - Other specified postprocedural states (ICD-10) History of colonoscopy ?Z98.890 - Other specified postprocedural states (ICD-10) H/O cataract extraction ?Z98.49 - Cataract extraction status, unspecified eye (ICD-10) History of total knee arthroplasty ?Z96.659 - Presence of unspecified artificial knee joint (ICD-10) S/P debridement ?Z98.890 - Other specified postprocedural states (ICD-10) H/O vasectomy ?Z98.52 - Vasectomy status (ICD-10) History of total right knee replacement ?Z96.651 - Presence of right artificial knee joint (ICD-10) H/O skin graft ?Z94.5 - Skin transplant status (ICD-10) Family History (Updated 07/29/24 @ 13:02 by Razia Langston NP) Other Heart valve replaced Rheumatic aortic disease Social History Within the past year, how often did you have a drink containing alcohol: 2-4 times a month Within the past year, how many standard drinks containing alcohol did you have on a typical day: 1 or 2 Within the past year, how often did you have six or more drinks on one occasion: less than monthly Total score: 1 Score interpretation: A score less than 4 is consistent with normal alcohol consumption. 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 General: The patient appears well and in no apparent distress. Patient is resting comfortably on cart. Skin: Warm, dry, no pallor noted. There is no rash noted. Head: Normocephalic, atraumatic Eye: Normal conjunctiva, no drainage Ears, Nose, Mouth, and Throat: oral mucosa is moist. Nares patent. He has some mild swelling at the left lower jaw. Dental condition is poor with many teeth missing. He has 1 tooth in the left upper dentition which appears quite decayed. No gingival swelling or erythema. No bleeding or pus present. No swelling to the floor of his mouth. No masses in the neck. Cardiovascular: Regular Rate and Rhythm Respiratory: Patient is in no distress, no accessory muscle use, lungs are clear to auscultation, no wheezing, rales or rhonchi Back: non-tender GI: Soft and nontender Musculoskeletal: The patient has no evidence of calf tenderness, no pitting edema, symmetrical pulses noted bilaterally Neurological: Awake and alert Psychiatric: Cooperative Constitutional Vital Signs, click to edit/add: Last Vital Signs Temp 97.8 F 07/19/25 09:05 Pulse 68 07/19/25 10:04 Resp 16 07/19/25 10:04 BP 136/78 07/19/25 09:05 Pulse Ox 92 L 07/19/25 10:04 O2 Del Method Room Air 07/19/25 10:04 Course Vital Signs Vital signs: Vital Signs Temperature 97.8 F 07/19/25 09:05 Pulse Rate 70 07/19/25 09:05 Respiratory Rate 20 07/19/25 09:05 Blood Pressure 136/78 07/19/25 09:05 Pulse Oximetry 93 L 07/19/25 09:05 Oxygen Delivery Method Room Air 07/19/25 09:05 Temperature 97.8 F 07/19/25 09:05 Pulse Rate 68 07/19/25 10:04 Respiratory Rate 16 07/19/25 10:04 Blood Pressure 136/78 07/19/25 09:05 Pulse Oximetry 92 L 07/19/25 10:04 Oxygen Delivery Method Room Air 07/19/25 10:04 Medical Decision Making MDM Narrative Medical decision making narrative: Dental abscess is identified. He is placed on clindamycin and will follow-up promptly with his dentist. Treatment diagnosis and follow-up were discussed with the patient. Differential Diagnosis Differential Diagnosis: Dental abscess, dental caries Lab Data Lab results reviewed: Yes I reviewed the patient's lab results Labs: Lab Results 07/19/25 Range/Units 09:20 WBC 7.2 (4.0-11.0) 10^3/uL RBC 4.86 (4.70-6.10) 10^6/uL Hgb 15.7 (14.0-18.0) g/dL Hct 47.3 (42.0-54.0) % MCV 97.3 H (80.0-94.0) fL MCH 32.3 (25.9-34.0) pg MCHC 33.2 (29.9-35.2) g/dL RDW 13.0 (11.0-15.0) % Plt Count 155 (150-450) 10^3/uL MPV 10.9 (9.5-13.5) fL Neut % (Auto) 57.7 (43.0-75.0) % Lymph % (Auto) 26.0 (20.5-60.0) % [place] % (Auto) 10.7 (1.7-12.0) % Eos % (Auto) 5.0 (0.9-7.0) % Baso % (Auto) 0.3 (0.2-2.0) % Neut # (Auto) 4.2 (1.4-6.5) 10^3/uL Lymph # (Auto) 1.9 (1.2-3.8) 10^3/uL [place] # (Auto) 0.8 (0.3-0.8) 10^3/uL Eos # (Auto) 0.4 (0.0-0.7) 10^3/uL Baso # (Auto) 0.0 (0.0-0.1) 10^3/uL Abs Immat Gran (auto) 0.02 (0.00-0.03) 10^3/uL Imm/Tot Granulo (auto) 0.3 (0.0-0.5) % Sodium 141 (136-145) mmol/L Potassium 4.5 (3.5-5.1) mmol/L Chloride 103 (98-107) mmol/L Carbon Dioxide 29.4 (21.0-32.0) mmol/L Anion Gap 13.1 BUN 27.0 H (7.0-18.0) mg/dL Creatinine 1.36 H (0.70-1.30) mg/dL Est GFR ( Amer) >60 (>=60 mL/min/1.73m^2) Est GFR (Non-Af Amer) 51 L (>=60 mL/min/1.73m^2) BUN/Creatinine Ratio 19.9 Glucose 105 (74-106) mg/dL Calcium 9.0 (8.5-10.1) mg/dL Imaging Data CT neck: Radiologist's impression: ITS Impressions Soft Tissue Neck CT 07/19/25 11:11 IMPRESSION: POOR DENTITION WITH SUSPECTED PERIAPICAL ABSCESSES BILATERALLY. LEFT FACIAL AND JAW SUBCUTANEOUS EDEMA. THIS MAY BE RELATED TO DENTAL DISEASE. NO DRAINABLE ABSCESS IS NOTED. NO OTHER ACUTE NECK FINDINGS. Impression dictated by: Alejandrina Santiago M.D. 07/19/2025 11:37 AM Dictation Location: [employer] Electronically authenticated by: [id number] Y Date: 07/19/2025 11:37 Discharge Plan Discharge Chief Complaint: Weakness Clinical Impression: Dental abscess Patient Disposition: Home, Self-Care Time of Disposition Decision: 11:45 Condition: Good Mode of Transportation: Private Vehicle Prescriptions / Home Meds: New clindamycin HCl 300 mg capsule 300 mg PO Q6H 10 Days Qty: 40 0RF No Action celecoxib 200 mg capsule 200 mg PO BID Rx Instructions: takes at 229 and 2029 pravastatin 20 mg tablet 20 mg PO DAILY Rx Instructions: takes at 229 pregabalin 225 mg capsule 225 mg PO BEDTIME amlodipine-benazepril [Lotrel] 5-20 mg capsule 1 cap PO DAILY Rx Instructions: takes at 229 torsemide 20 mg tablet 20 mg PO BID Rx Instructions: takes at 229 and 2029 citalopram [Celexa] 40 mg tablet 40 mg PO DAILY doxazosin [Cardura] 2 mg tablet 2 mg PO DAILY ropinirole 3 mg tablet 3 mg PO BEDTIME alprazolam 0.5 mg tablet 0.5 mg PO TID Eliquis 5 mg tablet 5 mg PO BID hydrocodone-acetaminophen 5-325 mg tablet 1 tab PO Q6H PRN (Reason: pain) metoprolol succinate 50 mg tablet extended release 24 hr 50 mg PO DAILY nitroglycerin 0.4 mg tablet, sublingual 0.4 mg sublingual DAILY PRN (Reason: chest pain) topiramate 100 mg tablet 100 mg PO BID trospium 20 mg tablet 20 mg PO DAILY multivitamin [Daily Multi-Vitamin] Tablet 1 tab PO DAILY Breztri Aerosphere 160-9-4.8 mcg/actuation HFA aerosol inhaler 2 inh INHALATION DAILY omeprazole 20 mg capsule,delayed release(DR/EC) 20 mg PO DAILY Print Language: Maltese Instructions: Dental Abscess (ED) Additional Instructions: Follow-up promptly with your dentist Referrals: LYDIA BERUMEN [Primary Care Provider, Internal Medicine] - 1 week
[2025-07-19 09:30] LABS: Hematocrit 47.3 % (42.0-54.0); Hemoglobin 15.7 g/dL (14.0-18.0); Immature Granulocytes Abs Auto 0.02 10^3/uL (0.00-0.03); Immature Granulocytes Pct Auto 0.3 % (0.0-0.5); Lymphocytes Absolute Auto 1.9 10^3/uL (1.2-3.8); Mean Corpuscular HGB Conc 33.2 g/dL (29.9-35.2); Mean Corpuscular Hemoglobin 32.3 pg (25.9-34.0); Mean Corpuscular Volume 97.3 fL (80.0-94.0); Platelet Count 155 10^3/uL (150-450); Red Blood Count 4.86 10^6/uL (4.70-6.10); White Blood Count 7.2 10^3/uL (4.0-11.0)
[2025-07-19] MEDS: ALBUTEROL SULFATE 2.5 MG/3 ML VIAL NEB IH (10:02)
[2025-07-19 10:04] VITALS: PULSE 68; O2SAT 92
[2025-07-19 10:44] LABS: Anion Gap 13.1; Blood Urea Nitrogen 27.0 mg/dL (7.0-18.0); Calcium 9.0 mg/dL (8.5-10.1); Carbon Dioxide 29.4 mmol/L (21.0-32.0); Chloride 103 mmol/L (98-107); Estimated GFR (African America >60 (>=60 mL/min/1.73m^2); Estimated GFR (Non-African Ame 51 (>=60 mL/min/1.73m^2); Glucose 105 mg/dL (74-106); Potassium 4.5 mmol/L (3.5-5.1); Sodium 141 mmol/L (136-145)
--- NOTE | 2025-07-19 11:11 | CT_ITS ---
The [address] [address] Patient Name: JOVI ETIENNE MRN: [id number] date: 1945 Sex: M Assigned Patient Location: ER Current Patient Location: .MAIN Accession/Order Number: [id number] Exam Date: 07/19/2025 11:00 Report Date: 07/19/2025 11:37 At the request of: LORRAINE PHAM MD Procedure: CT soft tissue neck w con CT SOFT TISSUE NECK WITH CONTRAST CLINICAL DATA: Left facial and neck swelling for the past 2 days. COMPARISON: None Spiral images were obtained through the neck following 100 mL of Omnipaque 300. This CT exam was performed using one or more following dose reduction techniques: Automated exposure control, adjustment of the mA and/or kV according to patient size, or use of iterative reconstruction technique. Evaluation of the thyroid is slightly limited by artifact. Tiny hypodense thyroid nodules are not excluded. The submandibular and parotid glands appear symmetric. There is no significant enlargement of the adenoids or tonsils. The epiglottis and vocal cords are within normal limits. The airway is patent throughout its course with normal appearance and also surfaces. There is no prevertebral soft tissue swelling. There are a few small shotty cervical lymph nodes. There is carotid artery plaque. Degenerative changes are present at the spine with disc space narrowing, endplate spurring and facet hypertrophy. The imaged paranasal sinuses and mastoid air cells are clear. There is poor dentition with absent teeth and multiple caries. There is periapical lucency surrounding the remaining upper left molar as well as the second premolar and posterior lower molar on the right. There is mild asymmetric hazy inflammation within the subcutaneous fat at the left cheek overlying the maxilla and extending down to the jaw. This is probably related to the dental disease. There is no obvious drainable soft tissue abscess within limits of streak artifact from dental amalgam. Limited cuts through the upper chest show no contributory findings. CT/CT soft tissue neck w con IMPRESSION: POOR DENTITION WITH SUSPECTED PERIAPICAL ABSCESSES BILATERALLY. LEFT FACIAL AND JAW SUBCUTANEOUS EDEMA. THIS MAY BE RELATED TO DENTAL DISEASE. NO DRAINABLE ABSCESS IS NOTED. NO OTHER ACUTE NECK FINDINGS. Impression dictated by: Alejandrina Santiago M.D. 07/19/2025 11:37 AM Dictation Location: [place] [address] Electronically authenticated by: [id number] Y Date: 07/19/2025 11:37
== END 2025-07-19 12:29 | disposition home or self-care (01) ==
PROVIDERS: Emergency Provider Emergency Medicine; PCP Internal Medicine
DX: K04.7 Periapical abscess without sinus (principal); F17.200 Nicotine dependence, unspecified, uncomplicated
CPT/HCPCS: 36415; 70491; 80048; 85025; 93005; 94640; 99285; Q9967